=== PATIENT | female | born 1975 | race Caucasian/White ===

== ENCOUNTER 2023-11-19 20:59 | Outpatient (REF) | payer BC, SELFPAY ==
[2023-11-23 11:13] LABS: Age Gdln ACOG Testing Note (.); HPV Aptima Negative (Negative); IGP, Aptima HPV, rfx 16/18,45 Note (.)
== END 2023-11-19 21:00 | disposition home or self-care (01) ==
LOC: LAB 20:59
PROVIDERS: Visit Provider Obstetrics & Gynecology
DX: Z01.419 Encounter for gynecological examination (general) (routine) without abnormal findings (principal)
CPT/HCPCS: 87624; G0145

== ENCOUNTER 2024-08-04 10:08 | Outpatient (OUT) | payer BC, SELFPAY ==
--- OUTSIDE RECORDS SUMMARY | 2024-08-04 10:16 | XMS_ITS | CCD ---
Author Organization [facility] Care Team Providers Care Feller Hand Name Role Phone DR BARBARA TERRAZAS Attending Unavailable NINI, DR JIMENEZ Consulting Unavailable NINI, DR JIMENEZ Admitting Unavailable Dai Ramirez Unavailable REGGIE Callahan Attending Provider [phone] Danyelle Callahan Attending Unavailable Danyelle Callahan Admitting Unavailable Von GONZALEZ, Ninfa Pearl Primary Care Provider BARBARA TERRAZAS Attending Unavailable ZAIN BURTON Attending Unavailable NINFA LONGORIA Referring Unavailable NINFA LONGORIA Primary Care Unavailable BARBARA TERRAZAS Referring Unavailable NINFA LONGORIA Primary Care Unavailable NINFA LONGORIA Attending Unavailable NINFA LONGORIA Referring Unavailable VON, NINFA Pearl Primary Care Unavailable NINFA LONGORIA Referring Unavailable NINFA LONGORIA Primary Care Unavailable Ninfa Longoria MD Primary Care Provider ASPEN RIZVI Referring Unavailable NINFA LONGORIA Primary Care Unavailabl tej Longoria MD, Ninfa Ashley Primary Care Unavail alesia Chaney MD, Tom Gardiner Attending Harini Chaney MD, Tom Gardiner Attending Harini Longoria MD, Ninfa Ashley Primary Care Unavail able Geovanni GRAYSON, Criselda Contreras Attending Randy Longoria MD, Ninfa Ashley Primary Care Unavail alesia Chaney MD, Tom Gardiner Attending Harini Longoria MD, Ninfa Ashley Primary Care Unavail alesia Chaney MD, Tom Gardiner Attending Harini Longoria MD, Ninfa Ashley Primary Care Unavail able Geovanni GRAYSON, Criselda Contreras Attending Randy Longoria MD, Ninfa Ashley [facility] Care Unavail able Geovanni GRAYSON, Criselda Contreras Attending Randy Longoria MD, Ninfa Ashley Primary Care Unavail able Geovanni GRAYSON, Criselda Contreras Attending Randy Longoria MD, Ninfa Ashley Primary Care Unavail able Geovanni GRAYSON, Criselda Contreras Attending Randy Longoria MD, Ninfa sAhley Primary Care Unavail able Von GONZALEZ, Ninfa Ashley Primary Care Unavail alesia Chaney MD, Tom Gardiner Attending Harini Chaney MD, Tom Gardiner Attending Harini Longoria MD, Ninfa Ashley Primary Care Unavail able NINFA LONGORIA Attending Unavailable NINFA LONGORIA Referring Unavailable NINFA LONGORIA Primary Care Unavailable NINFA LONGORIA Attending Unavailable NINFA LONGORIA Referring Unavailable NINFA LONGORIA Primary Care Unavailable NINFA LONGORIA Attending Unavailable NINFA LONGORIA Referring Unavailable VON, NINFA Pearl Primary Care Unavailable NINFA LONGORIA Attending Unavailable NINFA LONGORIA Referring Unavailable NINFA LONGORIA Primary Care Unavailable NINFA LONGORIA Attending Unavailable NINFA LONGORIA Referring Unavailable NINFA LONGORIA Primary Care Unavailable Ninfa Longoria MD [facility] Care Provider Medications Current Medications Medication Drug Class(es) Dates Sig (Normalized) Sig (Original) amoxicillin 875 mg oral tablet (1 source) Penicillin-class Antibacterial Start: 01-18-2023 take 1 tablet by mouth every twelve hours Amoxicillin 875 MG 1 tablet Orally q12hrs for 7 days Dec, Active azithromycin 250 mg oral tablet (2 sources) Macrolide Antimicrobial Start: 06-23-2024 End: 06-27-2024 azithromycin (ZITHROMAX) 250 mg tablet Indications: Non-recurrent acute suppurative otitis media of right ear without spontaneous rupture of tympanic membrane Take 2 tablets the first day, then 1 tablet daily for 4 days. 6 tablet 06/23/2024 06/27/2024 Active ibuprofen 200 mg oral capsule (3 sources) Nonsteroidal Anti-inflammatory Drug Ibuprofen 200 mg cap Take by mouth every 6 hours as needed. As needed Active levonorgestrel 0.468115 mg/hr intrauterine system (2 sources) Progestin, Progestin-containin g Intrauterine Device Levonorgestrel (Mirena, 52 MG,) 20 MCG/DAY intrauterine device 52 mg by Intrauterine route if needed (every 5 years) Active levonorgestreL ( MIRENA) 21 mcg/24hr (up to 8 yrs) 52 mg IUD 1 each by intrauterine route. Active ondansetron 4 mg disintegrating oral tablet (1 source) Serotonin-3 Receptor Antagonist Start: 07-18-2024 take 1 tablet by mouth every eight hours as needed for nausea and vomiting and nausea and nausea ondansetron ODT (ZOFRAN ODT) 4 mg disintegrating tablet Indications: Nausea Dissolve 1 tablet (4 mg total) on tongue every 8 (eight) hours as needed for nausea or vomiting. 20 tablet 07/18/2024 Active temazepam 15 mg oral capsule (20 sources) Benzodiazepine Start: 07-08-2024 take 1 capsule by mouth once daily as needed for sleep temazepam (RESTORIL) 15 mg capsule Indications: Primary insomnia Take 1 capsule (15 mg total) by mouth nightly as needed for sleep. 30 capsule 07/08/2024 Active Start: 04-15-2024 End: 06-09-2024 take 1 capsule by mouth once daily as needed for sleep temazepam (RESTORIL) 15 mg capsule Indications: Primary insomnia Take 1 capsule (15 mg total) by mouth nightly as needed for sleep. 30 capsule 06/09/2024 Active Start: 07-05-2023 End: 10-24-2023 take 1 capsule by mouth once daily as needed for sleep temazepam (RESTORIL) 15 mg capsule Indications: Primary insomnia Take 1 capsule (15 mg total) by mouth nightly as needed for sleep. 30 capsule 0 10/25/2023 Active Restoril Active tiZANidine 4 mg oral tablet (20 sources) Central alpha-2 Adrenergic Agonist Start: 01-31-2024 End: 06-23-2024 take 1 tablet by mouth once daily tiZANidine (ZANAFLEX) 4 mg tablet Take 1 tablet (4 mg total) by mouth nightly. 90 tablet 1 06/23/2024 Active Start: 06-20-2023 End: 08-14-2023 take 1 tablet by mouth once daily tiZANidine (ZANAFLEX) 4 mg tablet Take 1 tablet (4 mg total) by mouth nightly. 90 tablet 1 08/15/2023 Active Zanaflex Active zonisamide 100 mg oral capsule (17 sources) Anti-epileptic Agent Start: 05-23-2019 zonisamid e (ZONEGRAN) 100 mg capsule 1 capsule (100 mg total) in the morning. 03/01/2021 Active Completed/Discontinued Medications Medication Drug Class(es) Dates Sig (Normalized) Sig (Original) naproxen 500 mg oral tablet (1 source) Nonsteroidal Anti-inflammatory Drug Start: 06-30-2019 take 1 tablet by mouth every twelve hours at mealtime as needed Naproxen 500 MG 1 tablet with food or milk as needed Orally every 12 hrs for 10 days Jun, Not-Taking Problems Active Problems Problem Classification Problem Date Documented Da te Episodic/Chronic Deficiency and other anemia (1 source) Iron deficiency anemia; Translations: [Iron deficiency anemia, unspecified] Episodic Immunizations and screening for infectious disease (1 source) Encounter for screening for human papillomavirus (HPV); Translations: [ENC SCREENING HUMAN PAPILLOMAVIRUS] Onset: 02-17-2022 Episodic Miscellaneous mental health disorders (20 sources) Primary insomnia; Translations: [Primary insomnia] Onset: 08-06-2020 08-06-2020 Chronic Nausea and vomiting (3 sources) Nausea; Translations: [Nausea] Onset: 07-18-2024 07-19-2024 Episodic Other gastrointestinal disorders (1 source) Diarrhea, unspecified; Translations: [Diarrhea, unspecified] Onset: 03-11-2024 Episodic Other gastrointestinal disorders (2 sources) Diarrhea; Translations: [Diarrhea, unspecified] 06-23-2024 Episodic Other gastrointestinal disorders (2 sources) Abdominal bloating; Translations: [Abdominal distension (gaseous)] 06-23-2024 Episodic Other nutritional; endocrine; and metabolic disorders (2 sources) Abnormal weight loss; Translations: [Abnormal weight loss] 06-23-2024 Episodic Other screening for suspected conditions (not mental disorders or infectious disease) (6 sources) Encounter for screening for malignant neoplasm of cervix; Translations: [Encounter for screening mammogram for malignant neoplasm of breast] Onset: 02-14-2022 Episodic Other upper respiratory infections (1 source) Acute maxillary sinusitis, unspecified Episodic Otitis media and related conditions (2 sources) Acute suppurative otitis media without spontaneous rupture of ear drum; Translations: [Acute suppurative otitis media without spontaneous rupture of ear drum, right ear] Onset: 06-23-2024 06-23-2024 Episodic Unclassified (1 source) Pain in left foot; Translations: [Pain in left foot] Onset: 03-19-2023 Unclassified (1 source) GI Problem Onset: 07-18-2024 Unclassified (1 source) Earache Onset: 06-23-2024 Unclassified (1 source) music in her stool Onset: 03-11-2024 Unclassified (1 source) Annual Exam Onset: 09-27-2023 Past or Other Problems Problem Classification Problem Date Documented Da te Episodic/Chronic Mood disorders (12 sources) Mood disorders Onset: 09-08-2022 Resolved: 09-27-2023 09-08-2022 Nonspecific chest pain (2 sources) Chest pain, unspecified; Translations: [Chest pain, unspecified] Onset: 01-14-2024 Episodic Nutritional deficiencies (12 sources) Iron deficiency; Translations: [Iron deficiency] Onset: 08-06-2020 08-06-2020 Episodic Other lower respiratory disease (1 source) Cough Onset: 01-14-2024 Episodic Spondylosis; intervertebral disc disorders; other back problems (2 sources) Pain in thoracic spine; Translations: [Pain in thoracic spine] Onset: 01-14-2024 Episodic Unclassified (1 source) Contact with and (suspected) exposure to covid-19 Z20.822 Results Test Name Value Interpretation Reference Range Facility Pain Management Office/Clini c Noteon 07-07-2024 Pain Management Office/Clinic Note Chief Complaint right neck pain History of Present Illness Patient presents today for evaluation regarding chronic cervical pain. Patient underwent a right and left C2, C3, C4 radiofrequency ablation since previous office encounter reports 75% improvement of right-sided neck pain and 100% improvement on left. Reports overall she is doing quite well at this time. Continues to utilize an SMI as this does provide improvement in quality of life/functionality Patient has engaged in a 6 week course of provider directed, home based physiological therapies within the last 3 months. In addition, a six-week trial of activity modification has failed to give reprieve. Patient has also failed to respond optimally to oral analgesic regimen Opioid Risk Assessment Oswestry Disability Form AM Behavior: Better Family History of Substance Abuse: None PM Pain Intensity: The pain is very mild at the moment PM Last ORT/Med Mgmt Agreement: 07/07/24 Day Progresses Behavior: Worse Personal History of Substance Abuse: None PM Personal Care: I can look after myself but it causes extra pain PM Behavior: Worse Age Between 16 and 45: No PM Sitting: I can only sit in my favorite chair as long as I like Pain location and laterality: right neck pain History of Preadolescent Sexual Abuse: No PM Pain Lifting: I can lift heavy weights without extra pain Pain quality: Aching Mental Health Condition: No PM Walking: Pain does not prevent me from walking Pain Pattern: Intermittent Depression: No PM Standing: I can stand as long as I want without extra pain Pain rate at rest: 1 Total Opioid Risk Score: 0 PM Sleeping: My sleep is never disturbed by pain Pain rate with activity: 3 Total Score Risk Category: Low risk PM Sex Life: My sex life is normal and causes no pain/NA Cold/Ice: Alleviating PM Social Life: My social life is normal and give me no extra pain Lying: Alleviating PM Traveling: I can travel anywhere without pain Sitting: Aggravating PM Oswestry Score: 6 Sensory impairment location: denies PM Oswestry Score Interpretation: 0% to 20%Minimal Disability: The patient can cope with most living activities. Usually no treatment is indicated apart from advice on lifting, sitting and exercise. Pain since last visit: Improved Procedure 1: Radiofrequency Ablation Procedure Date 1: 05/26/24 Procedure Comments 1: RIGHT C2, C3, C4 RADIOFREQUENCY ABLATION Pain Improvement 1: Significant (70-100% relief) Pain Improvement Comments 1: 75% RELIEF CONTINUES Was procedure beneficial 1: Yes Procedure 2: Radiofrequency Ablation Procedure Date 2: 06/12/24 Procedure Comments 2: LEFT C2, C3, C4 RADIOFREQUENCY ABLATION Pain Improvement 2: Significant (70-100% relief) Pain Improvement Comments 2: 100% RELIEF CONTINUES Was procedure beneficial 2: Yes Date Tens: hx Comments TENS: has one but doesn't use, no relief from TENS Date Chiropractor: hx Frequency Chiropractor: prn Effective Chiropractor: neck Date PT: hx Comments PT: HEP-Stretching/stren gth training Date Injections: prn Date Surgery: 2009 Frequency Surgery: x1 Effective Surgery: cervical fusion by Venkat Isaacs Comments Surgery: cervical Comments Other: HEP- Stretching/strength training and yoga Recent testing: Yes Recent testing type: XRAY BILATERAL HIPMRI LUMBAR SPINE Loss of bladder/bowel: Denies Demeanor: Pleasant Distress: None Appearance: Appropriate Cognitive impairment: No Feels safe at home: Yes Suicidal/homicidal ideation: No Family History of Substance Abuse: None Personal History of Substance Abuse: None Age Between 16 and 45: No History of Preadolescent Sexual Abuse: No Mental Health Condition: No Depression: No Total Opioid Risk Score: 0 Total Score Risk Category: Low risk Review of Systems A review of systems was conducted and noted to be negative to the patients presenting complaint unless delineated in HPI. Full details are available on form PM-82 completed by the patient and added to the record on today?s date Denies loss of control of bowel and bladder or saddle paresthesia. Denies suicidal ideation or plan Physical Exam Vitals & Measurements HR: 81 (Peripheral) RR: 16 BP: 103/72 HT: 165 cm General -Appears stated age. No apparent distress. Psychological - Normal mood and affect. HEENT - Normocephalic/Atraum atic Neurologic-alert and oriented x4 Respiratory - No obvious distress, No shortness of breath. No focal motor or sensory deficits appreciated Additional Vitals BP Position/Location: Sitting Assessment/Plan Cervical spondylosis Patient has chronic cervical pain secondary to cervical spondylosis. Patient reports significant improvement of pain following cervical RFA Cervicalgia Medical Decision Making Continue zonisamide I have reviewed the patient?s medication list for medication interactions/contrai ndications and/or for upcoming procedures: [yes] Physician Comments Note dictat (more content not included)... Normal [facility] EGD Study observation Narrat iveon 06-27-2024 [facility] Radiology Study observation (narrative) [facility] Flexible sigmoidoscopy study on 06-27-2024 [facility] Radiology Study observation (narrative) [facility] 25(OH)D3 SerPl-mCncon 2023 25-hydroxyvitamin D3 [Mass/Vol] 52.7 ng/mL Normal 31.0-80.0 [facility] Comment on above: Order Comment: Speci men Type: BLOOD SPECIMEN Ordering Facility: [facility] Address: [facility] [place] [address] Result Comment: Clas sification of 25 [place] Vitamin D status: Deficiency/Insufficiency: < or = 30 ng/ml. Sufficiency/Optimal Levels: 31-80 ng/mL Toxicity: > 100 ng/mL. Test performed by chemiluminescent immunoassay. Performed By: #### 1 989-3 #### [facility] CLIA [id number] [address] [place] [address] [place] C-REACTIVE PROTEINon 024 CRP [Mass/Vol] mg/dL [facility] - 0.9 mg/dL [facility] CBC W Auto Differential pane l (Bld)on 06-23-2024 Basophils (Bld) [#/Vol] 0.08 10*3/uL [facility] Basophils/100 WBC (Bld) 0.6 % [facility] Differential cell count method Nom (Bld) Auto [facility] Eosinophils (Bld) [#/Vol] 0.11 10*3/uL [facility] Eosinophils/100 WBC (Bld) 0.8 % [facility] Erythrocyte distribution width (RBC) [Ratio] 12.9 % 11.5 - 15.0 % [facility] Hematocrit (Bld) [Volume fraction] 42.8 % 36.0 - 46.0 % [facility] ic Hemoglobin (Bld) [Mass/Vol] 14.2 g/dL 11.5 - 15.5 g/dL [facility] Immature granulocytes (Bld) [#/Vol] 0.13 10*3/uL High [facility] Immature granulocytes/100 WBC (Bld) 0.9 % [facility] Interpretation and review of laboratory results Abnormal [facility] Lymphocytes (Bld) [#/Vol] 3.20 10*3/uL [facility] Lymphocytes/100 WBC (Bld) 23.0 % [facility] MCH (RBC) [Entitic mass] 30.2 pg 26.0 - 34.0 pg [facility] MCHC (RBC) [Mass/Vol] 33.2 g/dL 30.5 - 36.0 g/dL [facility] MCV (RBC) [Entitic vol] 91.1 fL 80.0 - 100.0 fL [facility] Monocytes (Bld) [#/Vol] 1.17 10*3/uL High [facility] Monocytes/100 WBC (Bld) 8.4 % [facility] Neutrophils (Bld) [#/Vol] 9.22 10*3/uL High [facility] Neutrophils/100 WBC (Bld) 66.3 % [facility] Nucleated RBC (Bld) [#/Vol] [facility] Nucleated RBC/100 WBC (Bld) [Ratio] 0.0 % /100 WBC [facility] Platelet mean volume (Bld) [Entitic vol] 9.3 fL 9.0 - 12.7 fL [facility] in Platelets (Bld) [#/Vol] 410 10*3/uL High [facility] RBC (Bld) [#/Vol] 4.70 10*6/uL 3.90 - 5.2 0 m/uL [facility] WBC (Bld) [#/Vol] 13.91 10*3/uL [facility] ic Basophils (Bld) [#/Vol] 0.08 10*3/uL Normal <0.11 [facility] Comment on above: Order Comment: Speci men Type: BLOOD SPECIMEN Ordering Facility: [facility] Address: [address] [place] [address] Performed By: #### 5 7021-8 #### [facility] CLIA [id number] [address] [place] [address] [place] Basophils/100 WBC (Bld) 0.6 % Normal [facility] Comment on above: Order Comment: Speci men Type: BLOOD SPECIMEN Ordering Facility: [facility] Address: [address] [place] [address] Performed By: #### 5 7021-8 #### [facility] CLIA [id number] [address] [place] [address] [place] Differential cell count method Nom (Bld) Auto Normal [facility] Comment on above: Order Comment: Speci men Type: BLOOD SPECIMEN Ordering Facility: [facility] Address: [address] [place] [address] Performed By: #### 5 7021-8 #### [facility] CLIA [id number] [address] [place] [address] [place] Eosinophils (Bld) [#/Vol] 0.11 10*3/uL Normal <0.46 [facility] Comment on above: Order Comment: Speci men Type: BLOOD SPECIMEN Ordering Facility: [facility] Address: [address] [place] [address] Performed By: #### 5 7021-8 #### [facility] CLIA [id number] [address] [place] [address] [place] Eosinophils/100 WBC (Bld) 0.8 % Normal [facility] Comment on above: Order Comment: Speci men Type: BLOOD SPECIMEN Ordering Facility: [facility] Address: [address] [place] [address] Performed By: #### 5 7021-8 #### [facility] CLIA [id number] [address] [place] [address] [place] Erythrocyte distribution width (RBC) [Ratio] 12.9 % Normal 11.5-15.0 [facility] Comment on above: Order Comment: Speci men Type: BLOOD SPECIMEN Ordering Facility: [facility] Address: [address] [place] [address] Performed By: #### 5 7021-8 #### [facility] CLIA [id number] [address] [place] [address] [place] Hematocrit (Bld) [Volume fraction] 42.8 % Normal 36.0-46.0 [facility] Comment on above: Order Comment: Speci men Type: BLOOD SPECIMEN Ordering Facility: [facility] Address: [address] [place] [address] Performed By: #### 5 7021-8 #### [facility] CLIA [id number] [address] [place] [address] [place] Hemoglobin (Bld) [Mass/Vol] 14.2 g/dL Normal 11.5-15.5 [facility] Comment on above: Order Comment: Speci men Type: BLOOD SPECIMEN Ordering Facility: [facility] Address: [address] [place] [address] Performed By: #### 5 7021-8 #### [facility] CLIA [id number] [address] [place] [address] [place] Immature granulocytes (Bld) [#/Vol] 0.13 10*3/uL High <0.10 [facility] Comment on above: Order Comment: Speci men Type: BLOOD SPECIMEN Ordering Facility: [facility] Address: [address] [place] [address] Performed By: #### 5 7021-8 #### [facility] CLIA [id number] [address] [place] [address] [place] Immature granulocytes/100 WBC (Bld) 0.9 % Normal [facility] Comment on above: Order Comment: Speci men Type: BLOOD SPECIMEN Ordering Facility: [facility] Address: [address] [place] [address] Performed By: #### 5 7021-8 #### [facility] CLIA [id number] [address] [place] [address] [place] Lymphocytes (Bld) [#/Vol] 3.20 10*3/uL Normal 1.00-4.00 [facility] Comment on above: Order Comment: Speci men Type: BLOOD SPECIMEN Ordering Facility: [facility] Address: [address] [place] [address] Performed By: #### 5 7021-8 #### [facility] CLIA [id number] [address] [place] [address] [place] Lymphocytes/100 WBC (Bld) 23.0 % Normal [facility] Comment on above: Order Comment: Speci men Type: BLOOD SPECIMEN Ordering Facility: [facility] Address: [address] [place] [address] Performed By: #### 5 7021-8 #### [facility] CLIA [id number] [address] [place] [address] [place] MCH (RBC) [Entitic mass] 30.2 pg Normal 26.0-34.0 [facility] Comment on above: Order Comment: Speci men Type: BLOOD SPECIMEN Ordering Facility: [facility] Address: [address] [place] [address] Performed By: #### 5 7021-8 #### [facility] CLIA [id number] [address] [place] [address] [place] MCHC (RBC) [Mass/Vol] 33.2 g/dL Normal 30.5-36.0 [facility] Comment on above: Order Comment: Speci men Type: BLOOD SPECIMEN Ordering Facility: [facility] Address: [address] [place] [address] Performed By: #### 5 7021-8 #### [facility] CLIA [id number] [address] [place] [address] [place] MCV (RBC) [Entitic vol] 91.1 fL Normal 80.0-100.0 [facility] Comment on above: Order Comment: Speci men Type: BLOOD SPECIMEN Ordering Facility: [facility] Address: [address] [place] [address] Performed By: #### 5 7021-8 #### [facility] CLIA [id number] [address] [place] [address] [place] Monocytes (Bld) [#/Vol] 1.17 10*3/uL High <0.87 [facility] Comment on above: Order Comment: Speci men Type: BLOOD SPECIMEN Ordering Facility: [facility] Address: [address] [place] [address] Performed By: #### 5 7021-8 #### [facility] CLIA [id number] [address] [place] [address] [place] Monocytes/100 WBC (Bld) 8.4 % Normal [facility] Comment on above: Order Comment: Speci men Type: BLOOD SPECIMEN Ordering Facility: [facility] Address: [address] [place] [address] Performed By: #### 5 7021-8 #### [facility] CLIA [id number] [address] [place] [address] [place] Neutrophils (Bld) [#/Vol] 9.22 10*3/uL High 1.45-7.50 [facility] Comment on above: Order Comment: Speci men Type: BLOOD SPECIMEN Ordering Facility: [facility] Address: [address] [place] [address] Performed By: #### 5 7021-8 #### [facility] CLIA [id number] [address] [place] [address] [place] Neutrophils/100 WBC (Bld) 66.3 % Normal [facility] Comment on above: Order Comment: Speci men Type: BLOOD SPECIMEN Ordering Facility: [facility] Address: [address] [place] [address] Performed By: #### 5 7021-8 #### [facility] CLIA [id number] [address] [place] [address] [place] Nucleated RBC (Bld) [#/Vol] 10*3/uL Normal <0.01 [facility] Comment on above: Order Comment: Speci men Type: BLOOD SPECIMEN Ordering Facility: [facility] Address: [address] [place] [address] Performed By: #### 5 7021-8 #### [facility] CLIA [id number] [address] [place] [address] [place] Nucleated RBC/100 WBC (Bld) [Ratio] 0.0 /100 WBC Normal [facility] Comment on above: Order Comment: Speci men Type: BLOOD SPECIMEN Ordering Facility: [facility] Address: [address] [place] [address] Performed By: #### 5 7021-8 #### [facility] CLIA [id number] [address] [place] [address] [place] Platelet mean volume (Bld) [Entitic vol] 9.3 fL Normal 9.0-12.7 [facility] Comment on above: Order Comment: Speci men Type: BLOOD SPECIMEN Ordering Facility: [facility] Address: [address] [place] [address] Performed By: #### 5 7021-8 #### [facility] CLIA [id number] [address] [place] [address] [place] Platelets (Bld) [#/Vol] 410 10*3/uL High 150-400 [facility] Comment on above: Order Comment: Speci men Type: BLOOD SPECIMEN Ordering Facility: [facility] Address: [address] [place] [address] Performed By: #### 5 7021-8 #### [facility] CLIA [id number] [address] [place] [address] [place] RBC (Bld) [#/Vol] 4.70 10*6/uL Normal 3.90-5.20 [facility] Comment on above: Order Comment: Speci men Type: BLOOD SPECIMEN Ordering Facility: [facility] Address: [address] [place] [address] Performed By: #### 5 7021-8 #### [facility] CLIA [id number] [address] [place] [address] [place] WBC (Bld) [#/Vol] 13.91 10*3/uL High 3.70-11.00 [facility] Comment on above: Order Comment: Speci men Type: BLOOD SPECIMEN Ordering Facility: [facility] Address: [address] [place] [address] Performed By: #### 5 7021-8 #### [facility] CLIA [id number] [address] [place] [address] [place] CELIAC SCREENon 06-23-2024 GLIAD DEAMIDATED IGA QUAL Negative Normal Negative, Test not Indicated [facility] Comment on above: Order Comment: Speci men Type: BLOOD SPECIMEN Ordering Facility: [facility] Address: [address] [place] [address] Result Comment: This is used as an aid in diagnosis of celiac disease. Clinical correlation is required. The following results were obtained with an [employer]ova QUANTA Lite Gliadin IgA ESNAIT Gliadin. Gliadin IgA values obtained with different manufacturers' assay methods may not be used interchangeably. The magnitude of the reported IgA levels cannot be correlated to an endpoint titer. Performed By: #### L [id number] #### [facility] CLIA [id number] [address] [place] [address] OF [facility] Gliadin peptide IgA Qn (S) 4 Units Normal <20 [facility] Comment on above: Order Comment: Speci men Type: BLOOD SPECIMEN Ordering Facility: [facility] Address: [address] [place] [address] Performed By: #### L [id number] #### [facility] CLIA [id number] [address] [place] [address] [place] INTERPRETATION No serological evidence of celiac disease, however, if celiac disease is clinically suspected and patient is not on gluten-free diet, histological diagnosis may be considered. HLA testing may help with risk assessment. Normal [facility] Comment on above: Order Comment: Liliana cooper Type: BLOOD SPECIMEN Ordering Facility: [facility] Address: [address] [place] [address] Performed By: #### L [id number] #### [facility] CLIA [id number] [address] [place] [address] [place] TRANSGLUTAMINASE IGA ABS INTERPRETATION Negative Normal Negative [facility] Comment on above: Order Comment: Liliana cooper Type: BLOOD SPECIMEN Ordering Facility: [facility] Address: [address] [place] [address] Result Comment: The following results were obtained with [employer] QUANTA Lite R h-tTG IgA SENAIT.???R h-tTG IgA values obtained with different manufacturers' assay methods may not be used interchangeably. The magnitude of the reported IgA levels cannot be corelated to an endpoint???concentration. This is used as an aid in diagnosis of celiac disease. Clinical correlation is required. Performed By: #### L [id number] #### [facility] CLIA [id number] [address] [place] [address] [place] tTG IgA Qn (S) <2 Normal <4 [facility] Comment on above: Order Comment: Speci men Type: BLOOD SPECIMEN Ordering Facility: [facility] Address: [address] [place] [address] Performed By: #### L [id number] #### [facility] CLIA [id number] [address] [place] [address] [place] CRP SerPl-mCncon 06-23-2024 CRP [Mass/Vol] mg/L Normal <0.9 [facility] Comment on above: Order Comment: Speci men Type: BLOOD SPECIMEN Ordering Facility: [facility] Address: [address] [place] [address] Performed By: #### 5 0190-8, 1987-5, 05832-9, 2276-4 #### [facility] CLIA [id number] [address] [place] [address] [place] Cobalamin (Vitamin B12) [Mas s/Vol]on 06-23-2024 Interpretation and review of laboratory results Normal [facility] ic Comprehensive metabolic 2000 panelon 06-23-2024 Albumin [Mass/Vol] 4.5 g/dL 3.9 - 4.9 g/dL [facility] ALP [Catalytic activity/Vol] 80 U/L 34 - 123 U/L [facility] ALT [Catalytic activity/Vol] 31 U/L 7 - 38 U/L [facility] Anion gap [Moles/Vol] 14 mmol/L 8 - 15 mmol/L [facility] AST [Catalytic activity/Vol] 20 U/L 13 - 35 U/L [facility] Bilirubin [Mass/Vol] 0.3 mg/dL 0.2 - 1 .3 mg/dL [facility] Calcium [Mass/Vol] 9.4 mg/dL 8.5 - 10. 2 mg/dL [facility] Chloride [Moles/Vol] 104 mmol/L 98 - 10 7 mmol/L [facility] CO2 [Moles/Vol] 25 mmol/L 22 - 30 mmol/L [facility] Creatinine [Mass/Vol] 0.86 mg/dL 0.58 - 0.96 mg/dL [facility] GFR/1.73 sq M.predicted among non-blacks MDRD (S/P/Bld) [Vol rate/Area] 83 mL/min/{1.73_m2} - PINF [facility] in Comment on above: Estimated Glomerular Filtration Rate (eGFR) is calculated using the 2020 CKD-EPI creatinine equation. This equation utilizes serum creatinine, sex, and age as parameters. The creatinine assay has traceable calibration to isotope dilution-mass spectrometry. Refer to KDIGO guidelines for clinical interpretation. In patients with unstable renal function, e.g. those with acute kidney injury, the eGFR may not accurately reflect actual GFR. Glucose [Mass/Vol] 76 mg/dL 74 - 99 mg/dL [facility] Comment on above: The [place] Diab[employer] Association (ADA) provides guidance for cutoff values for fasting glucose and random glucose. The ADA defines fasting as no caloric intake for at least 8 hours. Fasting plasma glucose results between 100 to 125 mg/dL indicate increased risk for diabetes (prediabetes). Fasting plasma glucose results greater than or equal to 126 mg/dL meet the criteria for diagnosis of diabetes. In the absence of unequivocal hyperglycemia, results should be confirmed by repeat testing. In a patient with classic symptoms of hyperglycemia or hyperglycemic crisis, random plasma glucose results greater than or equal to 200 mg/dL meet the criteria for diagnosis of diabetes. Reference: Standards of Medical Care in Diabetes 2016, [place] [employer]. Diabetes Care. 2016.39(Suppl 1). Interpretation and review of laboratory results Abnormal [facility] Potassium [Moles/Vol] 3.3 mmol/L Low 3.7 - 5.1 mmol/L [facility] Protein [Mass/Vol] 6.7 g/dL 6.3 - 8.0 g/dL [facility] Sodium [Moles/Vol] 143 mmol/L 136 - 144 mmol/L [facility] Urea nitrogen [Mass/Vol] 17 mg/dL 7 - 21 mg/dL [facility] Albumin [Mass/Vol] 4.5 g/dL Normal 3.9-4.9 [facility] Comment on above: Order Comment: Speci men Type: BLOOD SPECIMEN Ordering Facility: [facility] Address: [address] [place] [address] Performed By: #### 5 0190-8, 1987-11, , 2275-10 #### [facility] CLIA [id number] [address] [place] [address] [place] ALP [Catalytic activity/Vol] 80 U/L Normal 34-123 [facility] Comment on above: Order Comment: Speci men Type: BLOOD SPECIMEN Ordering Facility: [facility] Address: [address] [place] [address] Performed By: #### 5 0190-8, 1987-11, , 2275-10 #### [facility] CLIA [id number] [address] [place] [address] [place] ALT [Catalytic activity/Vol] 31 U/L Normal 7-38 [facility] Comment on above: Order Comment: Speci men Type: BLOOD SPECIMEN Ordering Facility: [facility] Address: [address] [place] [address] Performed By: #### 5 0190-8, 1987-11, , 2275-10 #### [facility] CLIA [id number] [address] [place] [address] [place] Anion gap [Moles/Vol] 14 mmol/L Normal 8-15 [facility] Comment on above: Order Comment: Speci men Type: BLOOD SPECIMEN Ordering Facility: [facility] Address: [address] [place] [address] Performed By: #### 5 0190-8, 1987-11, , 2275-10 #### [facility] CLIA [id number] [address] [place] [address] [place] AST [Catalytic activity/Vol] 20 U/L Normal 13-35 [facility] Comment on above: Order Comment: Speci men Type: BLOOD SPECIMEN Ordering Facility: [facility] Address: [address] [place] [address] Performed By: #### 5 0190-8, 1987-11, , 2275-10 #### [facility] CLIA [id number] [address] [place] [address] [place] Bilirubin [Mass/Vol] 0.3 mg/dL Normal 0.2-1.3 [facility] Comment on above: Order Comment: Speci men Type: BLOOD SPECIMEN Ordering Facility: [facility] Address: [address] [place] [address] Performed By: #### 5 0190-8, 1987-11, , 2275-10 #### [facility] CLIA [id number] [address] [place] [address] [place] Calcium [Mass/Vol] 9.4 mg/dL Normal 8.5-10.2 [facility] Comment on above: Order Comment: Speci men Type: BLOOD SPECIMEN Ordering Facility: [facility] Address: [address] [place] [address] Performed By: #### 5 0190-8, 1987-11, , 2275-10 #### [facility] CLIA [id number] [address] [place] [address] [place] Chloride [Moles/Vol] 104 mmol/L Normal 98-107 [facility] Comment on above: Order Comment: Speci men Type: BLOOD SPECIMEN Ordering Facility: [facility] Address: [address] [place], [place] [address] Performed By: #### 5 0190-8, 1987-11, , 2275-10 #### [facility] CLIA [id number] [address] [place] [address] [place] CO2 [Moles/Vol] 25 mmol/L Normal 22-30 [facility] Comment on above: Order Comment: Speci men Type: BLOOD SPECIMEN Ordering Facility: [facility] Address: [address] [place] [address] Performed By: #### 5 0190-8, 1987-11, , 2275-10 #### [facility] CLIA [id number] [address] [place] [address] [place] Creatinine [Mass/Vol] 0.86 mg/dL Normal 0.58-0.96 [facility] Comment on above: Order Comment: Speci men Type: BLOOD SPECIMEN Ordering Facility: [facility] Address: [address] [place] [address] Performed By: #### 5 0190-8, 1987-11, , 2275-10 #### [facility] CLIA [id number] [address] [place] [address] [place] Creatinine and Glomerular filtration rate.predicted panel (S/P/Bld) 83 mL/min/1.73m??? Normal >=60 [facility] Comment on above: Order Comment: Speci men Type: BLOOD SPECIMEN Ordering Facility: [facility] Address: [address] [place] [address] Result Comment: [place] mated Glomerular Filtration Rate (eGFR) is calculated using the 2020 CKD-EPI creatinine equation. This equation utilizes serum creatinine, sex, and age as parameters. The creatinine assay has traceable calibration to isotope dilution-mass spectrometry. Refer to KDIGO guidelines for clinical interpretation. In patients with unstable renal function, e.g. those with acute kidney injury, the eGFR may not accurately reflect actual GFR. Performed By: #### 5 0190-8, 1987-11, , 2275-10 #### [facility] CLIA [id number] [address] [place] [address] [place] Glucose [Mass/Vol] 76 mg/dL Normal 74-99 [facility] Comment on above: Order Comment: Speci men Type: BLOOD SPECIMEN Ordering Facility: [facility] Address: [address] [place] [address] Result Comment: The [place] Diabetes Association (ADA) provides guidance for cutoff values for fasting glucose and random glucose. The ADA defines fasting as no caloric intake for at least 8 hours. Fasting plasma glucose results between 100 to 125 mg/dL indicate increased risk for diabetes (prediabetes). Fasting plasma glucose results greater than or equal to 126 mg/dL meet the criteria for diagnosis of diabetes. In the absence of unequivocal hyperglycemia, results should be confirmed by repeat testing. In a patient with classic symptoms of hyperglycemia or hyperglycemic crisis, random plasma glucose results greater than or equal to 200 mg/dL meet the criteria for diagnosis of diabetes. Reference: Standards of Medical Care in Diabetes 2016, [place] [employer]. Diabetes Care. 2016.39(Suppl 1). Performed By: #### 5 0190-8, 1987-11, , 2275-10 #### [facility] CLIA [id number] [address] [place] [address] [place] Potassium [Moles/Vol] 3.3 mmol/L Low 3.7-5.1 [facility] Comment on above: Order Comment: Liliana cooper Type: BLOOD SPECIMEN Ordering Facility: [facility] Address: [address] [place] [address] Performed By: #### 5 0190-8, 1987-11, , 2275-10 #### [facility] CLIA [id number] [address] [place] [address] [place] Protein [Mass/Vol] 6.7 g/dL Normal 6.3-8.0 [facility] Comment on above: Order Comment: Liliana cooper Type: BLOOD SPECIMEN Ordering Facility: [facility] Address: [address] [place] [address] Performed By: #### 5 0190-8, 1987-11, , 2275-10 #### [facility] CLIA [id number] [address] [place] [address] [place] Sodium [Moles/Vol] 143 mmol/L Normal 136-144 [facility] Comment on above: Order Comment: Liliana men Type: BLOOD SPECIMEN Ordering Facility: [facility] Address: [address] [place] [address] Performed By: #### 5 0190-8, 1987-11, , 2275-10 #### [facility] CLIA [id number] [address] [place] [address] [place] Urea nitrogen [Mass/Vol] 17 mg/dL Normal 7-21 [facility] Comment on above: Order Comment: Speci men Type: BLOOD SPECIMEN Ordering Facility: [facility] Address: [address] [place] [address] Performed By: #### 5 0190-8, 1987-11, , 2275-10 #### [facility] CLIA [id number] [address] [place] [address] [place] FERRITINon 06-23-2024 Ferritin [Mass/Vol] 91.0 ng/mL 14.7 - 2 05.1 ng/mL [facility] Ferritin SerPl-mCncon 2023 Ferritin [Mass/Vol] 91.0 ng/mL Normal 14.7-205.1 [facility] Comment on above: Order Comment: Speci men Type: BLOOD SPECIMEN Ordering Facility: [facility] Address: [address] [place] [address] Performed By: #### 5 0190-8, 1987-11, , 2275-10 #### [facility] CLIA [id number] [address] [place] [address] [place] Ferritin [Mass/Vol]on 2023 Interpretation and review of laboratory results Normal [facility] ic IgA SerPl-mCncon 06-23-2024 IgA [Mass/Vol] 71 mg/dL Normal 70-400 [facility] Comment on above: Order Comment: Speci men Type: BLOOD SPECIMEN Ordering Facility: [facility] Address: [address] [place] [address] Performed By: #### 2 458-8 #### [facility] CLIA [id number] [address] [place] [address] [place] Iron and Iron binding capaci ty panelon 06-23-2024 Iron [Mass/Vol] 164 ug/dL 41 - 186 ug/dL [facility] Iron binding capacity [Mass/Vol] 328 ug/dL 232 - 386 ug/dL [facility] Iron/TIBC [Molar ratio] 50.0 % 15.0 - 57.0 % [facility] Iron [Mass/Vol] 164 ug/dL Normal 41-186 [facility] Comment on above: Order Comment: Speci men Type: BLOOD SPECIMEN Ordering Facility[facility] Address: [address] [place] [address] Performed By: #### 5 0190-8, 1987-11, , 2275-10 #### [facility] CLIA [id number] [address] [place] [address] [place] Iron binding capacity [Mass/Vol] 328 ug/dL Normal 232-386 [facility] Comment on above: Order Comment: Speci men Type: BLOOD SPECIMEN Ordering Facility[facility] Address: [address] [place] [address] Performed By: #### 5 0190-8, 1987-11, , 2275-10 #### [facility] CLIA [id number] [address] [place] [address] [place] Iron/TIBC [Molar ratio] 50.0 % Normal 15.0-57.0 [facility] Comment on above: Order Comment: Speci men Type: BLOOD SPECIMEN Ordering Facility: [facility] Address: [address] [place] [address] Performed By: #### 5 0190-8, 1987-11, , 2275-10 #### [facility] CLIA [id number] [address] [place] [address] [place] MRI Spine Lumbar w/o Contras ton 06-23-2024 MRI Spine Lumbar w/o Contrast MRI of the lumbar spine without contrast from 06/20/2024. Indication: Right hip pain. Technique: Sagittal and axial T1 and T2-weighted images and Sagittal STIR . Comparison: None. Findings: The vertebral body height, alignment and marrow signal intensity are within normal limits. The tip of the conus medullaris is at L1-2 and signal intensity of the included spinal cord is normal. . Individual levels: L1-L2: Unremarkable. L2-L3: Small left paracentral disc protrusion abutting the left-sided L3 nerve root. This is superimposed on mild disc bulge and posterior annular fissuring. Mild to moderate constriction of the right lateral recess. L3-L4: Minimal bilateral facet arthropathy.. L4-L5: Small central disc protrusion. Posterior annular fissuring. Mild bilateral facet arthropathy.. L5-S1: Mild to moderate bilateral facet arthropathy, worse on the right.. Mild bilateral neuroforaminal narrowing. No significant spinal canal stenosis. IMPRESSION: Overall mild degenerative changes of the lumbar spine, as described above. Final Dictated by: Kerry Pelletier MD Dictated DT/TM: 06/23/2024 12:34 pm Signed by: Kerry Pelletier MD Signed (Electronic Signature): 06/23/2024 12:53 pm (If Report Is Signed, Electronically Signed in Other Vendor System) Normal [facility] No Panel Informationon 06-23 Interpretation and review of laboratory results Normal [facility] ic VITAMIN B12on 06-23-2024 Cobalamin (Vitamin B12) [Mass/Vol] 1147 pg/mL 232 - 1245 pg/mL [facility] Vit B12 SerPl-mCncon 024 Cobalamin (Vitamin B12) [Mass/Vol] 1147 pg/mL Normal 232-1245 [facility] Comment on above: Order Comment: Speci men Type: BLOOD SPECIMEN Order[facility] Facility[facility] Address: [address] [place] [address] Performed By: #### 2 132-9 #### [facility] CLIA [id number] [address] [place] [address] [place] [address] [place] XR Hip 2 Views Bilateral w/P elvison 04-16-2024 XR Hip 2 Views Bilateral w/Pelvis EXAM: XR Hip 2 Views Bilateral w/Pelvis HISTORY: Pain in joint, hip, pelvis or thigh. COMPARISON: None. FINDINGS/ IMPRESSION: No acute fracture or dislocation. There is no significant degeneration. Final Dictated by: Nanda Kasper DO Dictated DT/TM: 04/16/2024 7:50 am Signed by: Nanda Kasper DO Signed (Electronic Signature): 04/16/2024 8:02 am Transcribed DT/TM: 04/16/2024 7:55 (If Report Is Signed, Electronically Signed in Other Vendor System) Normal [facility] Pain Management Office/Clini c Noteon 04-14-2024 Pain Management Office/Clinic Note Chief Complaint and right hip pain History of Present Illness Patient presents today for evaluation regarding chronic cervical pain. Patient underwent a bilateral C6-7 selective nerve root injection 12/10/2023 reports 80% improvement of neuropathic pain x 3 months. Patient reports cervical pain severe enough at this time to affect her activities daily living and quality of life with pain in the upper segments of cervical region up into head. Historically, patient has garnered greater than 80% improvement of current pain with a right and left C2, C3, C4 radiofrequency ablation with relief lasting greater than 6 months, less than 1 year. Reports pain is severe enough at this time to warrant repeat intervention Patient has engaged in a 6 week course of provider directed, home based physiological therapies within the last 3 months. In addition, a six-week trial of activity modification has failed to give reprieve. Patient has also failed to respond optimally to oral analgesic regimen Oswestry Disability Form AM Behavior: Better PM Pain Intensity: The pain is moderate at the moment PM Last ORT/Med Mgmt Agreement: 11/26/23 Day Progresses Behavior: Worse PM Personal Care: I can look after myself without causing extra pain PM Behavior: Worse PM Sitting: Pain prevents me from sitting more than one hour Pain location and laterality: neck and right hip pain PM Pain Lifting: I can lift heavy weights, but it gives me extra pain Pain quality: Aching, Burning, Tightness PM Walking: Pain does not prevent me from walking Pain Pattern: Constant PM Standing: I can stand as long as I want without extra pain Pain rate at rest: 2 PM Sleeping: My sleep is occasionally disturbed by pain Pain rate with activity: 6 PM Sex Life: My sex life is normal and causes no pain/NA Cold/Ice: Alleviating PM Social Life: My social life is normal, but increases the degree of pain Lying: Aggravating PM Traveling: I can travel anywhere but it gives me extra pain Sitting: Aggravating PM Oswestry Score: 16 Sensory impairment location: denies PM Oswestry Score Interpretation: 0% to 20%Minimal Disability: The patient can cope with most living activities. Usually no treatment is indicated apart from advice on lifting, sitting and exercise. Pain since last visit: Unchanged Procedure 1: Therapeutic nerve root/TFESI Procedure Date 1: 12/10/23 Procedure Comments 1: BILATERAL C6-7 NERVE ROOT INJECTION Pain Improvement 1: Significant (70-100% relief) Pain Improvement Comments 1: 80% RELIEF X 3 MONTHS Date Tens: hx Date Chiropractor: hx Date PT: hx Date Injections: prn Date Surgery: 2009 Frequency Surgery: x1 Effective Surgery: cervical fusion by Venkat Isaacs Comments Surgery: cervical Comments Other: HEP- Stretching/strength training and yoga Recent testing: No Loss of bladder/bowel: Denies Demeanor: Pleasant Distress: None Appearance: Appropriate Cognitive impairment: No Feels safe at home: Yes Suicidal/homicidal ideation: No Review of Systems A review of systems was conducted and noted to be negative to the patients presenting complaint unless delineated in HPI. Full details are available on form PM-82 completed by the patient and added to the record on today?s date Denies loss of control of bowel and bladder or saddle paresthesia. Denies suicidal ideation or plan Physical Exam Vitals & Measurements HR: 72 (Peripheral) RR: 16 BP: 112/71 HT: 165 cm General -Appears stated age. No apparent distress. Psychological - Normal mood and affect. HEENT - Normocephalic/Atraum atic Neurologic-alert and oriented x4 Respiratory - No obvious distress, No shortness of breath. Patient does report an increase in cervical pain with cervical facet loading maneuvers, C2-3, C3-4 bilaterally Palpatory tenderness right trochanteric bursa region. Positive hip scour on the right Additional Vitals BP Position/Location: Sitting Assessment/Plan 1. Cervical spondylosis Patient meets criteria for repeat cervical radiofrequency ablation at C2, C3, C4 on the basis of: 1. Patient underwent rhizotomy therapy of the right and left C2, C3, C4 segment June 2023 which afforded greater than 80% improvement of pain for duration of more than 6 months, less than 1 year with return of pain to baseline 2. Is a two-level procedure conducted at unfused levels 3. At most, minimal conscious sedation will be utilized to provide comfort 4. Procedure will be conducted with the use of intraoperative C arm and fluoroscopic guidance for RF cannula placement 5. Will be conducted at 80 ?C for 90 seconds x 2 lesions per level 6. Imaging and examination provide no other explanation for pain Patient was scheduled for right followed 2 to 4 weeks later by left C2, C3, C4 radiofrequency ablation Ordered: Cervical Radiofrequency Ablation Cervical Radiofrequency Ablation 2. Cervicalgia 3. Hip pain Will obtain x-ray of bilateral hips to evaluate etiolog (more content not included)... Normal [facility] C DIFFICILE BY PCRon 024 C. difficile toxin genes DAWN+probe Ql (Stl) TOXIGENIC C DIFF Negative (qualifier value) 027 NAP1 Negative (qualifier value) Normal PRNEG [facility] Comment on above: Performed By: #### 5 4067-4 #### [facility] ([id number]) [address], [address] [place] [address] #### [id number] #### [facility] ([id number]) [address] [place] [address], [place] [address] [facility] ([id number]) [address], [address] [place] [address] GI PANELon 03-11-2024 Gastrointestinal pathogens DNA and RNA panel DAWN+non-probe (Stl) SPECIMEN SOURCE STOOL CAMPYLOBACTER Not detected (qualifier value) PLESIOMONAS Not detected (qualifier value) SALMONELLA Not detected (qualifier value) VIBRIO Not detected (qualifier value) VIBRIO CHOLERAE Not detected (qualifier value) Y. ENTEROCOLITICA Not detected (qualifier value) AGGREGATIVE E COLI Not detected (qualifier value) PATHOGENIC E COLI Not detected (qualifier value) TOXIGENIC E COLI Not detected (qualifier value) SHIGA TOXIN E COLI Not detected (qualifier value) SHIGELLA-E COLI Not detected (qualifier value) CRYPTOSPORIDIUM Not detected (qualifier value) CYCLOSPORA Not detected (qualifier value) E HISTOLYTICA Not detected (qualifier value) GIARDIA LAMBLIA Not detected (qualifier value) ADENOVIRUS Not detected (qualifier value) ASTROVIRUS Not detected (qualifier value) NOROVIRUS Not detected (qualifier value) ROTAVIRUS A Not detected (qualifier value) SAPOVIRUS Not detected (qualifier value) Normal NDET [facility] Comment on above: Performed By: #### 5 4067-4 #### [facility] ([id number]) [address] [place] [address] #### [id number] #### [facility] ([id number]) [address] [place] [address], [place] [address] [facility] ([id number]) [address] [place] [address] CT CHEST W CONTon 02-01-2024 CT CHEST W CONT CT CHEST W CONT STUDY: CT CHEST W CONT INDICATION: Acute midline thoracic back pain; Acute chest pain. TECHNIQUE: * Contiguous axial CT images through the chest were obtained with intravenous contrast. Reformats were performed. * All CT scans at this facility use dose modulation, iterative reconstruction, and/or weight based dosing when appropriate to reduce radiation dose to as low as reasonably achievable. FINDINGS: Chronic left clavicle deformity. Partially visualized lower neck and thyroid are obscured by anterior cervical discectomy and fusion metal artifact. Otherwise these areas are unremarkable. No suspicious lymphadenopathy. No cardiomegaly or pericardial effusion. No coronary artery atherosclerosis. Nonaneurysmal thoracic aorta. Nondilated and patent pulmonary arteries proximally. Proximal airways are patent. Reticular opacities in lung bases may reflect atelectasis or scarring. No focal consolidation, or pulmonary edema. No pleural effusion or pneumothorax. No acute fracture or malalignment. No significant degenerative changes of the thoracic spine for age. IMPRESSION: * No acute osseous abnormality. * Chronic left clavicle deformity. * Atelectasis or scarring in the lung bases. Finalized by Jose Amezquita on 02/01/2024 2:29 PM Normal [facility] MAMM SCREENING BILATERAL W C lead electrical engineer 12-24-2023 MAMM SCREENING BILATERAL W CAD MAMM SCREENING BILATERAL W CAD EXAM: MAMM SCREENING BILATERAL W CAD, 12/22/2023 10:52 AM CLINICAL INDICATIONS: Screening, Encounter for screening mammogram for malignant neoplasm of breast COMPARISON: Mammograms dating back to 04/14/2021 TECHNIQUE: Bilateral digital tomosynthesis MLO and CC views of the breasts were obtained, with creation of synthetic 2D views. Computer aided detection was utilized. FINDINGS: There are scattered areas of fibroglandular density. There are no suspicious masses, calcifications, or areas of architectural distortion. IMPRESSION: No mammographic evidence of malignancy. BI-RADS: BI-RADS 1 - Negative Recommendation: Routine screening mammogram in 1 year. Finalized by Margaret Farley MD on 12/24/2023 1:48 PM 1 b MAMM 1 YR Normal [facility] Pain Management Office/Clini c Noteon 11-26-2023 Pain Management Office/Clinic Note Chief Complaint neck & bilateral shoulder pain History of Present Illness Patient presents today for evaluation regarding chronic cervical pain pain into bilateral shoulders with numbness and tingling in the left upper extremity. Patient reports pain is severe enough once again to affect her activities day living and quality of life. Historically, patient has garnered significant improvement of current pain with cervical selective nerve root injection bilateral C6-7 with greater than 80% improvement of pain lasting greater than 3 months. Patient reports pain significant enough at this time to warrant repeat intervention Patient has engaged in a 6 week course of provider directed, home based physiological therapies within the last 3 months. In addition, a six-week trial of activity modification has failed to give reprieve. Patient has also failed to respond optimally to oral analgesic regimen Opioid Risk Assessment Oswestry Disability Form PM Behavior: Worse Family History of Substance Abuse: None PM Pain Intensity: The pain is moderate at the moment Pain location and laterality: neck & bilateral shoulder pain Personal History of Substance Abuse: None PM Personal Care: I can look after myself without causing extra pain Pain quality: Aching, Tightness Age Between 16 and 45: No PM Sitting: Pain prevents me from sitting more than one hour Pain Pattern: Constant History of Preadolescent Sexual Abuse: No PM Pain Lifting: I can lift heavy weights, but it gives me extra pain Pain rate at rest: 4 Mental Health Condition: No PM Walking: Pain does not prevent me from walking Pain rate with activity: 8 Depression: No PM Standing: I can stand as long as I want without extra pain Bending: Aggravating Total Opioid Risk Score: 0 PM Sleeping: Because of pain I have less than 6 hours of sleep Lying: Alleviating Total Score Risk Category: Low risk PM Sex Life: My sex life is normal and causes no pain/NA Sensory impairment location: numbness at times in left arm PM Social Life: My social life is normal, but increases the degree of pain Pain since last visit: Worse PM Traveling: I can travel anywhere but it gives me extra pain Date Tens: hx PM Oswestry Score: 18 Date Chiropractor: hx PM Oswestry Score Interpretation: 0% to 20%Minimal Disability: The patient can cope with most living activities. Usually no treatment is indicated apart from advice on lifting, sitting and exercise. Date PT: hx Comments PT: HEP-Stretching/stren gth training Date Injections: prn Date Surgery: 2009 Frequency Surgery: x1 Effective Surgery: cervical fusion by Venkat Isaacs Recent testing: No Loss of bladder/bowel: Denies Demeanor: Pleasant Distress: None Appearance: Appropriate Cognitive impairment: No Feels safe at home: Yes Suicidal/homicidal ideation: No Family History of Substance Abuse: None Personal History of Substance Abuse: None Age Between 16 and 45: No History of Preadolescent Sexual Abuse: No Mental Health Condition: No Depression: No Total Opioid Risk Score: 0 Total Score Risk Category: Low risk Review of Systems A review of systems was conducted and noted to be negative to the patients presenting complaint unless delineated in HPI. Full details are available on form PM-82 completed by the patient and added to the record on today?s date Denies loss of control of bowel and bladder or saddle paresthesia. Denies suicidal ideation or plan Physical Exam Vitals & Measurements HR: 78 (Peripheral) RR: 16 BP: 115/73 HT: 166 cm General -Appears stated age. No apparent distress. Psychological - Normal mood and affect. HEENT - Normocephalic/Atraum atic Neurologic-alert and oriented x4 Respiratory - No obvious distress, No shortness of breath. Dysesthesia light touch C7 dermatomal pattern Additional Vitals BP Position/Location: Sitting Assessment/Plan Cervical neuritis Patient has neurogenic discomfort secondary to disc and spondylitic reactivity precipitating neural foraminal narrowing and lateral recess stenosis. For complaints that have failed conservative measures, candidacy has been established for epidural steroid blockade selective nerve root approach for diagnostic and potential therapeutic benefit. Risks benefits alternatives have been discussed, we agree to proceed. Patient be scheduled for bilateral C6-7 selective nerve root injection under fluoroscopic guidance and attempts to palliate neuropathic pain Ordered: Cervical/Thoracic Nerve Root Injection Degenerative disc disease, cervical Medical Decision Making I have reviewed the patient?s medication list for medication interactions/contrai ndications and/or for upcoming procedures: [yes] Physician Comments Note dictated with voice recognition system. Please disregard any inadvertent errors Problem List/Past Medical History Ongoing Cephalgia Cervical neuritis Cervical postlaminectomy syndrome Cervical spondylosis (more content not included)... Normal [facility] COMPREHENSIVE METABOLIC PANE Pedro 09-28-2023 Albumin [Mass/Vol] 4.6 g/dL Normal 3.2-5.3 [facility] Comment on above: Performed By: #### C CHERY 33222-9 #### [facility] ([id number]) [address], [address] [place] [address] ALP [Catalytic activity/Vol] 61 U/L Normal 39-130 [facility] Comment on above: Performed By: #### Vandana GOTTLIEB, 87115-1 #### [facility] ([id number]) [address], [address] [place] [address] ALT [Catalytic activity/Vol] 16 U/L Normal 0-31 [facility] Comment on above: Performed By: #### Vandana GOTTLIEB, 31215-7 #### [facility] ([id number]) [address], [address] [place] [address] Anion gap [Moles/Vol] 9 mmol/L Normal 5-15 [facility] Comment on above: Performed By: #### Vandana GOTTLIEB 70132-1 #### [facility] ([id number]) [address], [address] [place] [address] AST [Catalytic activity/Vol] 15 U/L Normal 0-41 [facility] Comment on above: Performed By: #### Kishor Ross [id number] #### [facility] ([id number]) [address], [address] [place] [address] Bilirubin [Mass/Vol] 0.4 mg/dL Normal 0.3-1.2 [facility] Comment on above: Performed By: #### Vandana GOTTLIEB, 06687-7 #### [facility] ([id number]) [address], [address] [place] [address] Calcium [Mass/Vol] 9.4 mg/dL Normal 8.5-10.5 [facility] Comment on above: Performed By: #### Vandana GOTTLIEB, 07835-5 #### [facility] ([id number]) [address], [address] [place] [address] Chloride [Moles/Vol] 106 mmol/L Normal 98-109 [facility] Comment on above: Performed By: #### Vandana GOTTLIEB, 51838-1 #### [facility] ([id number]) [address], [address] [place] [address] CO2 [Moles/Vol] 24 mmol/L Normal 22-32 [facility] Comment on above: Performed By: #### Vandana GOTTLIEB, 91733-4 #### [facility] ([id number]) [address], [address] [place] [address] Creatinine [Mass/Vol] 0.83 mg/dL Normal 0.40-1.00 [facility] Comment on above: Result Comment: METH OD TRACEABLE TO IDMS STANDARD Performed By: #### Vandana GOTTLIEB, 00811-9 #### [facility] ([id number]) [address], [address] [place] [address] GFR/1.73 sq M.predicted among non-blacks MDRD (S/P/Bld) [Vol rate/Area] 86 mL/min/{1.73_m2} Normal >59 [facility] Comment on above: Result Comment: Reported eGFR is based on the CKD-EPI 2020 equation that does not use a race coefficient. Performed By: #### Vandana GOTTLIEB, 89688-2 #### [facility] ([id number]) [address], [address] [place] [address] Glucose [Mass/Vol] 79 mg/dL Normal 65-99 [facility] Comment on above: Performed By: #### Vandana GOTTLIEB, 52223-0 #### [facility] ([id number]) [address], [address] [place] [address] Potassium [Moles/Vol] 3.8 mmol/L Normal 3.5-5.0 [facility] Comment on above: Performed By: #### Vandana GOTTLIEB, 36340-0 #### [facility] ([id number]) [address], [address] [place] [address] Protein [Mass/Vol] 6.9 g/dL Normal 6.0-8.0 [facility] Comment on above: Performed By: #### Vandana GOTTLIEB, 10044-2 #### [facility] ([id number]) [address], [address] [place] [address] Sodium [Moles/Vol] 139 mmol/L Normal 134-146 [facility] Comment on above: Performed By: #### Vandana GOTTLIEB, 19124-1 #### [facility] ([id number]) [address], [address] [place] [address] Urea nitrogen [Mass/Vol] 17 mg/dL Normal 5-23 [facility] Comment on above: Performed By: #### Vandana GOTTLIEB, 74986-7 #### [facility] ([id number]) [address], [address] [place] [address] Lipid 1996 panelon 4 Cholesterol [Mass/Vol] 218 mg/dL High 150-200 [facility] Comment on above: Performed By: #### Vandana GOTTLIEB, 38868-7 #### [facility] ([id number]) [address], [address] [place] [address] Cholesterol in HDL [Mass/Vol] 62 mg/dL Normal >39 [facility] Comment on above: Result Comment: HDL <40 mg/dL - High Risk HDL > or = 40mg/dL- Desirable HDL >60 mg/dL - Negative Risk Performed By: #### Vandana GOTTLIEB, 72766-0 #### [facility] ([id number]) [address], [address] [place] [address] Cholesterol in LDL [Mass/Vol] 133 mg/dL High <130 [facility] Comment on above: Result Comment: LDL <100 mg/dL - Desirable LDL >160 mg/dL - High Risk Performed By: #### Vandana GOTTLIEB, 62717-0 #### [facility] ([id number]) [address] [place] [address] Cholesterol in VLDL [Mass/Vol] 23 mg/dL Normal 0-30 [facility] Comment on above: Performed By: #### Vandana GOTTLIEB, 94207-7 #### [facility] ([id number]) [address], [address] [place] [address] CHOLESTEROL:HDL 3.5 Normal 1.0-5.0 [facility] Comment on above: Performed By: #### Vandana GOTTLIEB, 48824-4 #### [facility] ([id number]) [address], [address] [place] [address] Triglyceride [Mass/Vol] 114 mg/dL Normal 27-150 [facility] Comment on above: Performed By: #### Vandana GOTTLIEB, 96850-8 #### [facility] ([id number]) [address] [place] [address], [address] [place] [address] Pain Management Office/Clini c Noteon 09-14-2023 Pain Management Office/Clinic Note Chief Complaint neck pain History of Present Illness Patient presents today for evaluation regarding chronic cervical pain. Patient underwent a right and left C2, C3, C4 radiofrequency ablation since previous office encounter reports 80 to 90% improvement of pain ongoing since that time. She reports overall she is doing quite well at this time Patient has engaged in a 6 week course of provider directed, home based physiological therapies within the last 3 months. In addition, a six-week trial of activity modification has failed to give reprieve. Patient has also failed to respond optimally to oral analgesic regimen Oswestry Disability Form AM Behavior: Same PM Pain Intensity: The pain is very mild at the moment Day Progresses Behavior: Same PM Personal Care: I can look after myself without causing extra pain PM Behavior: Same PM Sitting: I can only sit in my favorite chair as long as I like Pain location and laterality: neck pain PM Pain Lifting: I can lift heavy weights, but it gives me extra pain Pain quality: Aching PM Walking: Pain does not prevent me from walking Pain Pattern: Intermittent PM Standing: I can stand as long as I want without extra pain Pain rate at rest: 0 PM Sleeping: My sleep is occasionally disturbed by pain Pain rate with activity: 4 PM Sex Life: My sex life is normal and causes no pain/NA Bending: Aggravating PM Social Life: My social life is normal, but increases the degree of pain Cold/Ice: Alleviating PM Traveling: I can travel anywhere but it gives me extra pain Lying: Alleviating PM Oswestry Score: 12 Medications: Alleviating PM Oswestry Score Interpretation: 0% to 20%Minimal Disability: The patient can cope with most living activities. Usually no treatment is indicated apart from advice on lifting, sitting and exercise. Sensory impairment location: denies Pain since last visit: Improved Procedure 1: Radiofrequency Ablation Procedure Date 1: 06/18/23 Procedure Comments 1: right C2, C3, C4 Radiofrequency ablation Pain Improvement 1: Significant (70-100% relief) Pain Improvement Comments 1: 80-90%cont Was procedure beneficial 1: Yes Procedure 2: Radiofrequency Ablation Procedure Date 2: 07/02/23 Procedure Comments 2: Left C2, C3, C4 Radiofrequency ablation Pain Improvement 2: Significant (70-100% relief) Pain Improvement Comments 2: 80-90% cont Was procedure beneficial 2: Yes Date Tens: hx Comments TENS: has one but doesn't use, no relief from TENS Date Chiropractor: hx Frequency Chiropractor: prn Effective Chiropractor: neck Date PT: hx Comments PT: HEP-Stretching/stren gth training Date Injections: prn Effective Injections: 80%% RELIEF Comments Injections: silvestre C4 NR Injection Date Surgery: 2009 Frequency Surgery: x1 Effective Surgery: cervical fusion by Venkat Isaacs Comments Surgery: cervical Recent testing: No Loss of bladder/bowel: Denies Demeanor: Pleasant Distress: Mild Appearance: Appropriate Cognitive impairment: No Feels safe at home: Yes Suicidal/homicidal ideation: No Review of Systems A review of systems was conducted and noted to be negative to the patients presenting complaint unless delineated in HPI. Full details are available on form PM-82 completed by the patient and added to the record on today?s date Denies loss of control of bowel and bladder or saddle paresthesia. Denies suicidal ideation or plan Physical Exam Vitals & Measurements HR: 82 (Peripheral) RR: 16 BP: 101/67 General -Appears stated age. No apparent distress. Psychological - Normal mood and affect. HEENT - Normocephalic/Atraum atic Neurologic-alert and oriented x4 Respiratory - No obvious distress, No shortness of breath. Well-healed anterior cervical incision previous cervical surgery. No focal motor or sensory deficits appreciated Additional Vitals No qualifying data available. Assessment/Plan 1. Cervical spondylosis 2. Cervical postlaminectomy syndrome Patient has chronic cervical pain secondary to cervical postlaminectomy syndrome as well as cervical spondylosis. Patient reports significant improvement of pain following cervical RFA as delineated above. Patient will be reevaluated as needed Medical Decision Making Chronic conditions NOT treated during this visit that affected my overall medical decision making: [] Treatment plans discussed but not opted for at this time: [] I have reviewed the patient?s medication list for medication interactions/contrai ndications and/or for upcoming procedures: [yes] Physician Comments Note dictated with voice recognition system. Please disregard any inadvertent errors This document serves as a record of the services and decisions personally performed and made by the attending provider. It was created on his/her behalf by a trained health care / medical job titles. The creation of this document is based on the provider?s statements to the health care / medical job titles. Problem List/Past Medical History Ongoing C (more content not included)... Normal [facility] XR foot LT min 3V*on 023 XR foot LT min 3V* [facility] [place] [address] [place] [address] XRay Report Signed Patient: Rosalie Mcdonnell MR#: [id number] : 1975 Acct:[id number] Age/Sex: 47 / F ADM Date: 03/19/23 Loc: [facility] Room: Type: [facility] Attending Dr: Danyelle PAREDES Copies to: REGGIE Balderas Ordering Provider: REGGIE Balderas Date of Service: 03/19/23 XR/XR foot LT min 3V*: Left foot pain 3 views left foot plain film COMPARISON:None HISTORY: Left foot injury ACUTE FINDINGS: None DEGENERATIVE CHANGE: Unremarkable SOFT TISSUE FINDINGS: Unremarkable JOINT EFFUSION: None POSTOP CHANGES: None BONE MINERALIZATION: Adequate XR/XR foot LT min 3V* IMPRESSION: No acute findings. Impression dictated by: Jad Jo M.D.03/19/2023 5:00 PM Dictation Location: [place] [address] Transcribed By: [facility] 03/19/231699 Dictated By: Jad Jo DO 03/19/231699 Signed By: 03/19/231699 [facility] COVID Quick Testingon 2022 Result Negative SPARQCode Other MRI Foot w/o Righton 022 MRI Foot w/o Right HISTORY: Chronic heel pain. Concern for calcaneal stress fracture versus plantar fasciitis. TECHNIQUE: Routine MRI of the right foot without contrast COMPARISON: Radiographs 10/18/2021. RESULT: Bone Marrow: No evidence for fracture, osteomyelitis, or suspicious marrow replacing process. Subcutaneous Tissues: Mild subcutaneous edema. No loculated collection. Joints: No significant cartilage abnormalities. No significant joint effusion. Tendons: Flexor and extensor tendons are within normal limits. Achilles tendon unremarkable. Lisfranc Ligament: Intact. Plantar Aponeurosis: Moderate thickening, especially involving the central band, with associated tearing involving the central band near origin. Tear measures around around 6 mm transverse with associated slight distal retraction, and surrounding edema/fluid. Small calcaneal enthesophyte at origin. Muscles: Muscle bulk and signal intensity are within normal limits. Other: No other significant abnormality IMPRESSION: Plantar fasciitis with associated tearing of the central band near origin. No evidence for fracture. 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 . Normal [facility] Comment on above: Result Comment: Perf ormed at: WB Performed By: #### [id number] #### [facility] [address] [address] [address] Rhiannon Smith Age Gdln ACOG Testing 30-65 Normal [facility] Comment on above: Performed By: #### [id number] #### [facility] [address] [address] [address] Rhiannon Smith DIAGNOSIS: Comment Normal [facility] Comment on above: Result Comment: NEGA TIVE FOR INTRAEPITHELIAL LESION OR MALIGNANCY. Performed at: WB Performed By: #### [id number] #### [facility] [address] [address] [address] Rhiannon Smith HPV Aptima Negative Normal Negative [facility] Comment on above: Result Comment: This nucleic acid amplification test detects fourteen high-risk HPV types (16,18,31,33,35,39,45,51,52,56,58,59,66,68) without differentiation. Performed at: =G Performed By: #### [id number] #### [facility] [address] [address] [address] Rhiannon Smith Methodology: Comment Normal [facility] Comment on above: Result Comment: This liquid based ThinPrep(R) pap test was screened with the use of an image guided system. Performed at: WB Performed By: #### [id number] #### [facility] [address] [address] [address] Rhiannon Smith Note: Comment Normal [facility] Comment on above: Result Comment: The Pap smear is a screening test designed to aid in the detection of premalignant and malignant conditions of the uterine cervix. It is not a diagnostic procedure and should not be used as the sole means of detecting cervical cancer. Both false-positive and false-negative reports do occur. . Performed at: WB Performed By: #### [id number] #### [facility] [address] [address] [address] Rhiannon Smith Performed by: Comment Normal [facility] Comment on above: Result Comment: Russel Coello, Assistant Track And Field Coach (ASCP) Performed at: WB Performed By: #### [id number] #### [facility] [address] [place] [address] Dr. Rhiannon Smith Specimen adequacy: Comment Normal [facility] Comment on above: Result Comment: Sati sfactory for evaluation. Endocervical and/or squamous metaplastic cells (endocervical component) are present. Performed at: WB Performed By: #### [id number] #### [facility] [address] [address] [address] Rhiannon Smith Vital Signs Date Time Vital Sign Value Performing Clinician Facility 07-18-2024 10:52-0500 Body mass index (BMI) [Ratio] 24.7 kg/m2 Ninfa Longoria MD Work Phone: [facility] 07-18-2024 10:52-0500 Body weight 67.31 kg Ninfa Longoria MD Work Phone: [facility] 07-18-2024 10:52-0500 Diastolic blood pressure 69 mm[Hg] Ninfa Longoria MD Work Phone: [facility] 07-18-2024 10:52-0500 Heart rate 94 /min Ninfa Longoria MD Work Phone: [facility] 07-18-2024 10:52-0500 Systolic blood pressure 120 mm[Hg] Ninfa Longoria MD Work Phone: [facility] 06-27-2024 14:19-0500 Diastolic blood pressure 81 mm[Hg] Bob Guerrero MD Work Phone: [facility] 06-27-2024 14:19-0500 Heart rate 100 /min Bob Guerrero MD Work Phone: [facility] 06-27-2024 14:19-0500 Respiratory rate 16 /min Bob Guerrero MD Work Phone: [facility] 06-27-2024 14:19-0500 SaO2% (BldA) [Mass fraction] 100 % Bob Guerrero MD Work Phone: [facility] 06-27-2024 14:19-0500 Systolic blood pressure 125 mm[Hg] Bob Guerrero MD Work Phone: [facility] 06-27-2024 12:52-0500 Body temperature 97.5 [degF] Bob Guerrero MD Work Phone: [facility] 06-27-2024 12:43-0500 Body height 165.1 cm Bob Guerrero MD Work Phone: [facility] 06-27-2024 12:43-0500 Body mass index (BMI) [Ratio] 23.13 kg/m2 Bob Guerrero MD Work Phone: [facility] 06-27-2024 12:43-0500 Body weight 63.05 kg Bob Guerrero MD Work Phone: [facility] 06-23-2024 11:10-0500 Body mass index (BMI) [Ratio] 24.63 kg/m2 Ninfa Longoria MD Work Phone: [facility] 06-23-2024 11:10-0500 Body temperature 97.81 [degF] Ninfa Longoria MD Work Phone: [facility] 06-23-2024 11:10-0500 Body weight 67.13 kg Ninfa Longoria MD [facility] 06-23-2024 11:10-0500 Diastolic blood pressure 64 mm[Hg] Ninfa Longoria MD Work Phone: [facility] 06-23-2024 11:10-0500 Heart rate 92 /min Ninfa Longoria MD Work Phone: [facility] 06-23-2024 11:10-0500 Systolic blood pressure 144 mm[Hg] Ninfa Longoria MD Work Phone: [facility] 06-23-2024 08:47-0500 Body height 165.1 cm Aspen Reindel SPECIALTIES OPERATOR.MARBLE MACHINE TENDER Work Phone: [facility] 06-23-2024 08:47-0500 Body mass index (BMI) [Ratio] 24.63 kg/m2 Aspen Reindel SPECIALTIES OPERATOR.MARBLE MACHINE TENDER Work Phone: [facility] 06-23-2024 08:47-0500 Body temperature 98.2 [degF] Aspen Reindel SPECIALTIES OPERATOR.MARBLE MACHINE TENDER Work Phone: [facility] 06-23-2024 08:47-0500 Body weight 67.13 kg Aspen Reindel SPECIALTIES OPERATOR.MARBLE MACHINE TENDER Work Phone: [facility] 06-23-2024 08:47-0500 Diastolic blood pressure 74 mm[Hg] Aspen Reindel SPECIALTIES OPERATOR.MARBLE MACHINE TENDER Work Phone: [facility] 06-23-2024 08:47-0500 Heart rate 98 /min Aspen Reindel SPECIALTIES OPERATOR.MARBLE MACHINE TENDER Work Phone: [facility] 06-23-2024 08:47-0500 Systolic blood pressure 127 mm[Hg] Aspen Reindel SPECIALTIES OPERATOR.MARBLE MACHINE TENDER Work Phone: [facility] 09-27-2023 10:15-0500 Body height 164.7 cm Ninfa Longoria MD Work Phone: [facility] 09-27-2023 10:15-0500 Body mass index (BMI) [Ratio] 26.52 kg/m2 Ninfa Longoria MD Work Phone: [facility] 09-27-2023 10:15-0500 Body weight 71.94 kg Ninfa Longoria MD Work Phone: [facility] 09-27-2023 10:15-0500 Diastolic blood pressure 62 mm[Hg] Ninfa Longoria MD Work Phone: [facility] 09-27-2023 10:15-0500 Heart rate 83 /min Ninfa Longoria MD Work Phone: [facility] 09-27-2023 10:15-0500 Systolic blood pressure 128 mm[Hg] Ninfa Longoria MD Work Phone: [facility] 01-18-2023 13:50-0400 Body height 165.1 cm Dai Ramirez Other [facility] Other 01-18-2023 13:50-0400 Body mass index (BMI) [Ratio] 24.79 kg/m2 Dai Ramirez Other [facility] Other 01-18-2023 13:50-0400 Body temperature 98 [degF] Dai Ramirez Other [facility] Other 01-18-2023 13:50-0400 Body weight 67.59 kg Dai Ramirez Other [facility] Other 01-18-2023 13:50-0400 Diastolic blood pressure 64 mm[Hg] Dai Ramirez Other [facility] Other 01-18-2023 13:50-0400 Respiratory rate 18 /min Dai Ramirez Other [facility] Other 01-18-2023 13:50-0400 SaO2% (BldA) [Mass fraction] 100 % Dai Ramirez Other [facility] Other 01-18-2023 13:500400 Systolic blood pressure 125 mm[Hg] Dai Ramirez Other [facility] [employer] Other Encounters Encounter Date Encounter Type Care Provider Facility Start: 08-04-2024 End: 08-04-2024 Bamboo flowsheet Barbara Nini DO Work Phone: [facility] Start: 08-04-2024 End: 08-04-2024 Bamboo flowsheet Barbara Nini DO Work Phone: [facility] Start: 07-18-2024 End: 07-18-2024 Office outpatient visit 15 minutes Ninfa Longoria MD [facility] Phone: [facility] Comment on above: Nausea (Primary Dx) Start: 07-18-2024 End: 07-18-2024 ambulatory [facility] Start: 07-07-2024 End: 07-07-2024 ambulatory Criselda Galarza SPECIALTIES OPERATOR-MARBLE MACHINE TENDER Facility:[facility] Start: 06-27-2024 End: 06-27-2024 Orders Only Bob Guerrero MD Work Phone: [facility] Comment on above: Special screening fo r malignant neoplasms, colon (Primary Dx) Diarrhea, unspecifie d type [R19.7] Start: 06-23-2024 End: 06-23-2024 Office outpatient visit 15 minutes Ninfa Longoria MD Work Phone: [facility] Comment on above: Non-recurrent acute suppurative otitis media of right ear without spontaneous rupture of tympanic membrane (Primary Dx) Start: 06-23-2024 End: 06-23-2024 ambulatory [facility] Start: 06-23-2024 End: 06-23-2024 ambulatory ASPEN RIZVI Facility:[facility] Start: 06-23-2024 End: 06-23-2024 Patient encounter procedure Aspen Rizvi SPECIALTIES OPERATOR.MARBLE MACHINE TENDER Work Phone: [facility] Comment on above: Diarrhea, unspecifie d type (Primary Dx); Abdominal bloating; Weight loss, abnormal Start: 06-20-2024 End: 06-20-2024 ambulatory Ninfa Longoria MD Facility:[facility] Start: 06-12-2024 End: 06-12-2024 ambulatory Tom Chaney MD Facility:[facility] Start: 06-09-2024 End: 06-09-2024 Refill Ninfa Longoria MD Work Phone: [facility] Comment on above: Primary insomnia Start: 05-26-2024 End: 05-26-2024 ambulatory Ninfa Longoria MD Facility:[facility] Start: 05-20-2024 ambulatory Tom Chaney MD Facility:[facility] Start: 05-13-2024 End: 05-13-2024 Refill Ninfa Longoria MD Work Phone: [facility] Comment on above: Primary insomnia Start: 04-14-2024 End: 04-14-2024 ambulatory Criselda Galarza SPECIALTIES OPERATOR-MARBLE MACHINE TENDER Facility:[facility] Start: 03-11-2024 End: 03-11-2024 ambulatory [facility] Start: 03-11-2024 End: 03-11-2024 [facility] Start: 01-28-2024 End: 01-28-2024 ambulatory NINFA [facility] Start: 01-28-2024 End: 01-28-2024 ambulatory ZAIN Victor Manuel JOSEPHINE Not Available Start: 01-14-2024 End: 01-14-2024 ambulatory [facility] Start: 12-22-2023 End: 12-22-2023 ambulatory BARBARA TERRAZAS [facility] Start: 12-10-2023 End: 12-10-2023 ambulatory Tom Chaney MD Facility:[facility] Start: 11-26-2023 End: 11-26-2023 ambulatory Criselda Galarza SPECIALTIES OPERATOR-MARBLE MACHINE TENDER Facility:[facility] Start: 11-19-2023 End: 11-19-2023 ambulatory BARBARA NUGENTO Not Available Start: 10-24-2023 Refill Ninfa bess MD Work Phone: [facility] Comment on above: Primary insomnia Start: 09-28-2023 End: 09-28-2023 [facility] Start: 09-28-2023 Encounter for genera l adult medical examination without abnormal findings [facility] Start: 09-27-2023 End: 09-27-2023 Patient encounter status Ninfa Longoria MD Work Phone: [facility] Start: 09-27-2023 End: 09-27-2023 Periodic preventive med est patient 40-64yrs Ninfa Longoria MD Work Phone: [facility] Comment on above: Well adult exam (Olivia fior Dx); Primary insomnia Start: 09-27-2023 End: 09-27-2023 ambulatory [facility] Start: 09-27-2023 Encounter for genera l adult medical examination without abnormal findings [facility] Start: 09-26-2023 Refill Ninfa bess MD Work Phone: [facility] Comment on above: Primary insomnia Start: 09-14-2023 End: 09-14-2023 ambulatory Criselda Contreras [facility] Facility:[facility] Start: 08-29-2023 Refill Ninfa bess MD Work Phone: [facility] Comment on above: Primary insomnia Start: 08-14-2023 Refill Ninfa bess MD Work Phone: [facility] Start: 08-02-2023 Refill Ninfa bess MD Work Phone: [facility] Comment on above: Primary insomnia Start: 07-17-2023 Refill Ninfa bess MD Work Phone: [facility] Start: 03-19-2023 End: 03-19-2023 ambulatory Danyelle Sindy Facility:[facility] Start: 03-19-2023 End: 03-19-2023 ambulatory STRATEGIC COMMUNICATIONS MANAGER-C Danyelle Callahan Work Phone: [facility] Work Phone: Start: 03-19-2023 End: 03-19-2023 Patient encounter procedure STRATEGIC COMMUNICATIONS MANAGER-C Danyelle Callahan Work Phone: [facility] Work Phone: Start: 01-18-2023 End: 01-18-2023 ambulatory Dai Ramirez Other [facility] Other Start: 01-18-2023 Office outpatient visit 15 minutes Dai Ramirez [facility] Start: 02-14-2022 End: 02-14-[address] BARBARA TERRAZAS Facility:[facility] Procedures Date Procedure Procedure Detail Performing Clinician Start: 06-27-2024 Colonoscopy flx dx w/collj spec when pfrmd Aspen Rizvi APRNThaiMARBLE MACHINE TENDER Work Phone: Start: 06-27-2024 Esophagogastroduodenoscopy transoral diagnostic Aspen Rizvi APRN.MARBLE MACHINE TENDER Work Phone: Start: 06-27-2024 Colonoscopy Bob Guerrero MD Work Phone: Start: 12-24-2023 Mammography Ninfa Longoria MD Work Phone: Start: 11-19-2023 Microscopic observation [Identifier] in Cervix by Cyto stain Barbara Terrazas DO Work Phone: Start: 09-28-2023 Lipid 1996 panel - Serum or Plasma Aspen Rizvi SPECIALTIES OPERATORThaiMARBLE MACHINE TENDER Work Phone: Start: 09-27-2023 Adult depression screening assessment Ninfa Longoria MD Work Phone: Start: 03-19-2023 X-ray of left foot STRATEGIC COMMUNICATIONS MANAGER-C Danyelle Callahan Work Phone: Start: 11-28-2022 Mammography Ninfa Longoria MD Work Phone: Start: 09-08-2022 Adult depression screening assessment Ninfa Longoria MD Work Phone: Start: 02-03-2020 Microscopic observation [Identifier] in Cervix by Cyto stain Ninfa Longoria MD Work Phone: Plan of Treatment Date Care Activity Detail Author Start: 06-27-2034 Screening for malignant neoplasm of colon [facility] Start: 09-27-2028 Lipid panel Lipid Screening [facility] Start: 06-23-2027 Diabetes Screening Diabetes Screening [facility] Start: 11-18-2026 Screening for malignant neoplasm of cervix [facility] Start: 07-18-2025 Adult BMI Screening [facility] Start: 06-27-2025 Screening for malignant neoplasm of colon [facility] Start: 06-23-2025 Tobacco Screening [facility] Start: 03-11-2025 Adult BMI Screening Adult [facility]ening [facility] Start: 03-11-2025 Tobacco Screening Tobacco [facility]ening [facility] Start: 12-23-2024 Screening for malignant neoplasm of breast [facility] Start: 11-25-2024 End: 11-25-2024 Patient encounter procedure 11/25/2024 8:30 AM EDT Office Visit [facility] [address] [place] [id number] Barbara Terrazas, DO [address] [place] [address] [facility] Start: 09-26-2024 Adult BMI Screening Adult BMI Screening [facility] Start: 09-26-2024 Depression Screening Depression Screening [facility] Start: 09-26-2024 Tobacco Screening Tobacco Screening [facility] Start: 08-04-2024 End: 08-04-2024 Patient encounter procedure [facility] Comment on above: Arrived Start: 07-18-2024 End: 07-18-2025 CT Abdomen and Pelvis W contrast IV CT abdomen and pelvis with contrast Imaging Routine Nausea Expected: 07/18/2024, Expires: 07/18/2025 [facility] Work Phone: Comment on above: Expected: 07/18/2024, Expires: Start: 06-27-2024 End: 06-27-2024 Patient encounter procedure 06/27/2024 1:00 PM EST Appointment [facility] [address] [place] [id number] Bob Guerrero MD [address] [place] [address] [facility] Start: 06-23-2024 End: 09-22-2024 25-hydroxyvitamin D3 [Mass/volume] in Serum or Plasma [facility] Comment on above: Expected: 06/23/2024, Expires: Start: 06-23-2024 End: 09-22-2024 CELIAC SCREEN WITH REFLEX [facility] Comment on above: Expected: 06/23/2024, Expires: Start: 05-11-2024 Adult BMI Screening Adult BMI Screening [facility] Start: 05-11-2024 Tobacco Screening Tobacco Screening [facility] Start: 03-23-2024 COVID-19 Vaccine ( season) COVID-19 Vaccine ( season) [facility] Start: 03-23-2024 Influenza vaccination [facility] Start: 11-29-2023 Screening for malignant neoplasm of breast Mammogram [facility] Start: 09-27-2023 End: 09-27-2023 Patient encounter procedure 09/27/2023 10:15 AM EST Office Visit [facility] [address] [place] [id number] Ninfa Longoria MD [address] [place] [address] [facility] Start: 09-08-2023 Depression Screening Depression Screening [facility] Start: 02-02-2021 Screening for malignant neoplasm of cervix Pap Smear [facility] Start: 2019 Screening for malignant neoplasm of colon [facility] Start: 2004 Screening for malignant neoplasm of cervix HPV/Cotest [facility] Start: 1995 Screening for malignant neoplasm of cervix Cervical Cancer Screening [facility] Start: 1993 DTaP,Tdap and Td Vaccines (1 - Tdap) DTaP,Tdap and Td Vaccines (1 - Tdap) [facility] Start: 1993 Hepatitis B Vaccine (1 of 3 - 19+ 3-dose series) Hepatitis B Vaccine (1 of 3 - 19+ 3-dose series) [facility] Start: 1993 Urine microalbumin profile DTaP,Tdap,Td Vaccine (1 - Tdap) [facility] Start: 1992 Adult BMI Follow Up Plan Adult BMI Follow Up Plan [facility] Start: 1992 Anxiety Screening Anxiety Screening [facility] Start: 1992 Depression Screening Depression Screening [facility] Start: 1992 Hepatitis C screening Hepatitis C Screening [facility] Start: 1992 HIV screening HIV Screening [facility] Start: 1974 Screening for malignant neoplasm of colon [facility] End: 09-26-2024 Comprehensive metabolic 2000 panel - Serum or Plasma Comprehensive metabolic panel Lab Routine Well adult exam 1 Occurrences starting 09/27/2023 until 09/26/2024 [facility] Comment on above: 1 Occurrences starting 09/27/2023 until 09/26/2024 End: 06-23-2025 EGD DIAGNOSTIC EGD DIAGNOSTIC Endoscopy Routine Abdominal bloating Weight loss, abnormal 1 Occurrences starting 06/23/2024 until 06/23/2025 [facility] Comment on above: 1 Occurrences starting 06/23/2024 until 06/23/2025 End: 06-23-2025 Flexible sigmoidoscopy study COLONOSCOPY DIAGNOSTIC Endoscopy Routine Diarrhea, unspecified type Abdominal bloating 1 Occurrences starting 06/23/2024 until 06/23/2025 [facility] Work Phone: Comment on above: 1 Occurrences starting 06/23/2024 until 06/23/2025 End: 09-26-2024 Lipid 1996 panel - Serum or Plasma Lipid profile Lab Routine Well adult exam 1 Occurrences starting 09/27/2023 until 09/26/2024 [facility] Work Phone: Comment on above: 1 Occurrences starting 09/27/2023 until 09/26/2024 SURGICAL PATHOLOGY SURGICAL PATH OLOGY Lab Routine Special screening for malignant neoplasms, colon Ordered: 06/27/2024 [facility] Work Phone: Comment on above: Ordered: 06/27/2024 Immunizations Immunization Date Immunization Notes Care Provider Roberta guerrero 07-17-2024 influenza virus vaccine, unspecified formulation Barbara Ninisandra MALONE Work Phone: [facility] 05-14-2023 Seasonal, quadrivale nt, recombinant, injectable influenza vaccine, preservative free Ninfa Longoria MD Work Phone: [facility] 05-14-2023 influenza virus vaccine, unspecified formulation Ninfa Longoria MD Work Phone: [facility] 04-20-2022 influenza, injectabl e, quadrivalent, preservative free Ninfa Longoria MD Work Phone: [facility] 05-13-2021 influenza, injectabl e, quadrivalent, preservative free Ninfa Longoria MD Work Phone: [facility] 09-15-2020 COVID-19, mRNA, LNP- S, PF, 100mcg/0.5mL Dose Ninfa Longoria MD Work Phone: [facility] 08-19-2020 COVID-19, mRNA, LNP- S, PF, 100mcg/0.5mL Dose Ninfa Longoria MD Work Phone: [facility] 05-25-2020 influenza, injectabl e, quadrivalent, preservative free Ninfa Longoria MD Work Phone: [facility] 06-17-2019 influenza, injectabl e, quadrivalent, preservative free Ninfa Longoria MD Work Phone: [facility] 06-28-2018 influenza, injectabl e, quadrivalent, preservative free Ninfa Longoria MD Work Phone: [facility] 07-31-2017 influenza, seasonal, injectable, preservative free Ninfa Longoria MD Work Phone: [facility] 05-18-2014 influenza, seasonal, injectable, preservative free Ninfa Longoria MD Work Phone: [facility] Payers Date Payer Category Payer Self-pay [id number] [id number] 2021 [facility] [employer] - PPO [id number] 2020 Unknown [id number]. [id number] 1974 Unknown [id number] 2.16.840.1.942547.3.579. 2.593 1974 Unknown [id number] 2.16.840.1.894070.3.579. 2.1259 1974 Unknown [id number] 2.16.840.1.888919.3.579. 2.1259 1974 Unknown [id number] 2.16.840.1.703567.3.579. 2.6 1974 Unknown [id number] 2.16.840.1.265154.3.579. 2.1285 1974 Unknown [id number] 2.16.840.1.865059.3.579. 2.1285 1974 Unknown [id number] 2.16.840.1.673777.3.579. 2.1285 1974 Unknown [id number] 2.16.840.1.278390.3.579. 2. 1974 Unknown [id number] 2.16840.1.601427.3.579. 2. 1974 Unknown [id number] 2.16.840.1.611058.3.579. 2. 1974 Unknown [id number] 2.16.840.1.177349.3.579. 2. 1974 Unknown [id number] 2.16.840.1.938907.3.579. 2. 1974 Unknown [id number] 2.16.840.1.547342.3.579. 2. 1974 Unknown [id number] 2.16.840.1.137616.3.579. 2. 1974 Unknown [id number] 2.16.840.1.047554.3.579. 2. 1974 Unknown [id number] 2.16.840.1.877316.3.579. 2. 1974 Unknown [id number] 2.16.840.1.896095.3.579. 2. 1974 Unknown [id number] 2.16.840.1.680030.3.579. 2.196 1974 Unknown [id number] 2.16.840.1.266905.3.579. 2.196 1974 Unknown [id number] 2.16.840.1.828040.3.579. 2.1286 1974 Unknown [id number] 2.16.840.1.259076.3.579. 2.1286 1974 Unknown [id number] 1975 Unknown [id number] 1975 Unknown [id number] 1960 Unknown [id number] Unknown Prudence HICKMAN/CHRISTIAN [id number] Unknown [id number] Social History Date Type Detail Facility Unknown if ever smoked SPARQCode Other Start: 08-26-2021 End: 09-26-2023 Sex Assigned At [facility] yste Start: 1975 Sex Assigned At Female [facility] Start: 05-11-2023 End: 01-14-2024 Tobacco smoking status NHIS Ex-smoker [facility] Start: 05-09-1992 End: 05-09-1996 History of tobacco use Current smoker [facility] Start: 05-09-1992 End: 05-09-1996 History of tobacco use Cigarette Smoker [facility] Start: 05-11-2023 End: 01-14-2024 Tobacco use and exposure Smokeless tobacco non-user [facility] Start: 05-11-2023 End: 07-18-2024 Alcohol intake Current drinker of alcohol (finding) [facility] Start: 08-26-2021 End: 05-11-2023 Alcohol intake [facility] Do you belong to any clubs or organizations such as baptism groups, unions, fraternal or athletic groups, or school groups? No [facility] Are you now , , , , never or living with a partner? [facility] How often to you hav e a drink containing alcohol? 2-4 times a month [facility] How many standard dr inks containing alcohol do you have on a typical day? 1 or 2 [facility] How often do you hav e 6 or more drinks on 1 occasion? Less than monthly [facility] How hard is it for y ou to pay for the very basics like food, housing, medical care, and heating Not hard at all [facility] Do you feel stress - tense, restless, nervous, or anxious, or unable to sleep at night because your mind is troubled all the time - these days [OSQ] To some extent [facility] Start: 08-26-2021 Education 15 [facility] Start: 1975 Sex Assigned At Not on file [facility] Start: 02-25-2015 Sex Female (finding) [facility] Start: 06-23-2024 Tobacco Comment Quit when pt was 23 yrs old [facility] Start: 06-23-2024 Alcohol Comment socially [facility] Start: 01-28-2024 Tobacco smoking status ARIS Tobacco smoking consumption unknown [facility] Clinical Notes 01-18-2023 to 07-18-2024 Ninfa Longoria MD - 07/18/2024 11:00 AM ESTDischarge Instr - Other OrdersBob Guerrero MD - 06/27/2024 1:00 PM Bob Malhotra MD - 06/27/2024 1:00 PM EST Note Date & Type Note Facility 07-18-2024 History of Presen t illness Narrative Subjective Patient ID: Rosalie Mcdonnell is a 48 y.o. female. Comes in to discuss ongoing issues with nausea. She feels full after eating and has nausea. No vomiting. She had colonoscopy and EGD recently and those were negative. She does not describe persistent abdominal pain. No fever. She has had some unintentional weight loss but not a striking amount. The following portions of the patient's history were reviewed and updated as appropriate: allergies, current medications, past medical history, past social history, past surgical history, and problem list. Review of Systems Objective Physical Exam Constitutional: Comments: She looks well. Color is normal. Eyes: General: No scleral icterus. Cardiovascular: Rate and Rhythm: Normal rate. Pulmonary: Effort: Pulmonary effort is normal. Abdominal: General: There is no distension. Palpations: There is no mass. Tenderness: There is no abdominal tenderness. Musculoskeletal: Right lower leg: No edema. Left lower leg: No edema. Assessment/Plan Reviewed with her. Several years ago she had GB US and nuclear study and those were negative. Endoscopies negative. She does not complain of significant acid symptoms and EGD did not suggest acid related disease. The symptoms are, however, progressive. Will check CT scan. Further from there. Diagnoses and all orders for this visit: Nausea - ondansetron ODT (ZOFRAN ODT) 4 mg disintegrating tablet; Dissolve 1 tablet (4 mg total) on tongue every 8 (eight) hours as needed for nausea or vomiting. - CT abdomen and pelvis with contrast; Future documented in this encounter [facility] 06-27-2024 Note [facility] Patient Name: Rosalie Mckinnon Procedure Date: 06/27/2024 1:52 PM Date of : 1975 Age: 48 Gender: Female Race: Unknown Attending MD: Bob Guerrero MD, [id number] Procedure: Colonoscopy Referring MD: Providers: Bob Guerrero MD Indications: Screening for colorectal malignant neoplasm Findings: The perianal and digital rectal examinations were normal. The terminal ileum appeared normal. A 4 mm polyp was found in the sigmoid colon. The polyp was sessile. The polyp was removed with a jumbo cold forceps. Resection and retrieval were complete. A few small-mouthed diverticula were found in the sigmoid colon and descending colon. The exam was otherwise without abnormality on direct and retroflexion views. Patient Profile: This is a 48 year old female. Refer to note in patient chart for documentation of history and physical. Last Colonoscopy: none. The patient's first colonoscopy is today. Impression: - The examined portion of the ileum was normal. - One 4 mm polyp in the sigmoid colon, removed with a jumbo cold forceps. Resected and retrieved. - Diverticulosis in the sigmoid colon and in the descending colon. - The examination was otherwise normal on direct and retroflexion views. Recommendation: - Patient has a contact number available for emergencies. The signs and symptoms of potential delayed complications were discussed with the patient. Return to normal activities tomorrow. Written discharge instructions were provided to the patient. - Resume previous diet. - Continue present medications. - Await pathology results. - Repeat colonoscopy in 7-10 years for surveillance based on pathology results. Medicines: Monitored Anesthesia Care Procedure: Pre-Anesthesia Assessment: - Prior to the procedure, a History and Physical was performed, and patient medications and allergies were reviewed. The risks and benefits of the procedure and the sedation options and risks were discussed with the patient. All questions were answered and informed consent was obtained. Patient identification and proposed procedure were verified by the physician, the nurse and the washroom operator in the procedure room at 13:52 PM. Mental Status Examination: alert and oriented. Airway Examination: normal oropharyngeal airway and neck mobility. Respiratory Examination: clear to auscultation. CV Examination: normal. Prophylactic Antibiotics: The patient does not require prophylactic antibiotics. Prior Anticoagulants: The patient has taken no anticoagulant or antiplatelet agents. ASA Grade Assessment: II - A patient with mild systemic disease. After reviewing the risks and benefits, the patient was deemed in satisfactory condition to undergo the procedure. The anesthesia plan was to use monitored anesthesia care (MAC). Immediately prior to administration of medications, the patient was re-assessed for adequacy to receive sedatives. The physical status of the patient was re-assessed after the procedure. After I obtained informed consent, the scope was passed under direct vision. Throughout the procedure, the patient's blood pressure, pulse, and oxygen saturations were monitored continuously. Provation AI/GI Genius was used during withdrawal. The Colonoscope was introduced through the anus and advanced to the terminal ileum, with identification of the appendiceal orifice and IC valve. The colonoscopy was performed without difficulty. The patient (more content not included)... [facility] 06-27-2024 Hospital Discharg e instructions Bob Guerrero MD - 06/27/2024 2:07 PM EST Images from the original note were not included. SENIOR WRITER HOMEGOING INSTRUCTIONS C O N F I D E N T I A L I N F O R M A T I O N The information below will help you return to normal function as soon as possible after your surgery. Please read it carefully and save for future reference. PATIENT NAME: Rosalie Mcdonnell ADMISSION DATE: 06/27/2024 DISCHARGE DATE: 06/27/2024 ACTIVITY: Do not drive a car for 24 hours Do not use power tools or machinery for 24 hours. Do not make important personal or business decisions. DIET: Resume normal diet as before. PAIN CONTROL: Use non-prescription, non-aspirin pain medication if needed. DO NOT USE MEDICATIONS LABELED NSAIDS. CALL PROVIDER IF EVIDENCE OF SIGNIFICANT: -Bleeding -Abdominal Pain -Tenderness -Fever FOLLOW-UP INFORMATION (Provider Name & Phone): Repeat colonoscopy in 5-10 years based on pathology results. I will be contacting you with the results of your pathology and to discuss the appropriate interval for your next colonoscopy. Thank you for allowing us to participate in your care. Please call with any further questions or concerns. Bob Guerrero MD, [facility] Director of IBD & Quality [facility] Office: Electronically SIGNED: Bob Guerrero MD, June 27, 2024 documented in this encounter [facility] 06-27-2024 Note [facility] Patient Name: Rosalie Mckinnon Procedure Date: 06/27/2024 1:37 PM Date of : 1975 Age: 48 Gender: Female Race: Unknown Attending MD: Bob Guerrero MD, [id number] Procedure: Upper GI endoscopy Referring MD: NINFA LONGORIA MD Providers: Bob Guerrero MD Indications: Upper abdominal symptoms that persist despite an appropriate trial of therapy Findings: The examined esophagus was normal. The entire examined stomach was normal. The duodenal bulb and second portion of the duodenum were normal. Patient Profile: This is a 48 year old female. Refer to note in patient chart for documentation of history and physical. Impression: - Normal esophagus. - Normal stomach. - Normal duodenal bulb and second portion of the duodenum. - No specimens collected. Recommendation: - Patient has a contact number available for emergencies. The signs and symptoms of potential delayed complications were discussed with the patient. Return to normal activities tomorrow. Written discharge instructions were provided to the patient. - Resume previous diet. - Continue present medications. Medicines: Monitored Anesthesia Care Procedure: Pre-Anesthesia Assessment: - Prior to the procedure, a History and Physical was performed, and patient medications and allergies were reviewed. The risks and benefits of the procedure and the sedation options and risks were discussed with the patient. All questions were answered and informed consent was obtained. Patient identification and proposed procedure were verified by the physician, the nurse and the washroom operator in the procedure room at 13:37 PM. Mental Status Examination: alert and oriented. Airway Examination: normal oropharyngeal airway and neck mobility. Respiratory Examination: clear to auscultation. CV Examination: normal. Prophylactic Antibiotics: The patient does not require prophylactic antibiotics. Prior Anticoagulants: The patient has taken no anticoagulant or antiplatelet agents. ASA Grade Assessment: II - A patient with mild systemic disease. After reviewing the risks and benefits, the patient was deemed in satisfactory condition to undergo the procedure. The anesthesia plan was to use monitored anesthesia care (MAC). Immediately prior to administration of medications, the patient was re-assessed for adequacy to receive sedatives. The physical status of the patient was re-assessed after the procedure. After obtaining informed consent, the endoscope was passed under direct vision. Throughout the procedure, the patient's blood pressure, pulse, and oxygen saturations were monitored continuously. The Colonoscope was introduced through the mouth, and advanced to the second part of duodenum. The upper GI endoscopy was accomplished without difficulty. The patient tolerated the procedure well. Complications: No immediate complications. Procedure Code(s): --- Professional --- 13404, Esophagogastroduodenoscopy, flexible, transoral; diagnostic, including collection of specimen(s) by brushing or washing, when performed (separate procedure) Diagnosis Code(s): --- Professional --- R19.8, Other specified symptoms and signs involving the digestive system and abdomen CPT copyright 2020 [employer]. All rights reserved. The codes documented in this report are preliminary and upon front office specialist review may be revised to meet current compliance requirements. Bob Guerrero MD 06/27/2024 2:05:30 PM This report has been signed electronically. Number of Addenda: 0 Note Initiated On: 06/27/2024 1:37 PM [facility] 06-27-2024 History and physical note Images from the original note were not included. PROCEDURAL SEDATION HISTORY AND PHYSICAL EXAM SERVICE DATE: 06/27/2024 SERVICE TIME: 1:40 PM SUBJECTIVE HPI: This is a 48 year old female who presents for EGD/colonoscopy for weight loss and CRC screening. The patient's chart (including medications, history, allergies, imaging and prior endoscopies) has been reviewed and the patient has been examined. The contents accurately reflect the patient's condition with the following additions or revisions since the H&P was completed. PAST MEDICAL HISTORY: PAST MEDICAL HISTORY Diagnosis Date Arthritis Insomnia PAST SURGICAL HISTORY: PAST SURGICAL HISTORY Procedure Laterality Date PAST SURGICAL HISTORY OF c5 disc surgery PAST SURGICAL HISTORY OF Left elbow TONSILLECTOMY HX MEDICATIONS: Prior to Admission medications as of 06/27/24 1243 Medication Sig Last Dose Taking temazepam (RESTORIL) 15 mg TAKE 1 CAPSULE BY MOUTH NIGHTLY NEEDED FOR SLEEP. tiZANidine (ZANAFLEX) 4 mg tablet Take 4 mg by mouth. zonisamide (ZONEGRAN) 100 mg capsule TAKE 1 TO 2 CAPSULES BY MOUTH EVERY DAY AT BEDTIME Ibuprofen 200 mg cap Take by mouth every 6 hours as needed. As needed ALLERGIES: ALLERGIES No Known Allergies OBJECTIVE PHYSICAL EXAM: AIRWAY: LUNGS: Benign lung exam. CARDIAC: Benign cardiac exam. ABDOMEN: Benign abdominal exam. The remainder of the physical exam is noncontributory. SIGNATURE: Bob Guerrero MD PATIENT NAME: Rosalie Mcdonnell DATE: June 27, 2024 TIME: 1:40 PM PAGER: [phone] [facility] Work Phone: 06-27-2024 History and physical note Images from the original note were not included. PROCEDURAL SEDATION HISTORY AND PHYSICAL EXAM SERVICE DATE: 06/27/2024 SERVICE TIME: 1:40 PM SUBJECTIVE HPI: This is a 48 year old female who presents for EGD/colonoscopy for weight loss and CRC screening. The patient's chart (including medications, history, allergies, imaging and prior endoscopies) has been reviewed and the patient has been examined. The contents accurately reflect the patient's condition with the following additions or revisions since the H&P was completed. PAST MEDICAL HISTORY: PAST MEDICAL HISTORY Diagnosis Date Arthritis Insomnia PAST SURGICAL HISTORY: PAST SURGICAL HISTORY Procedure Laterality Date PAST SURGICAL HISTORY OF c5 disc surgery PAST SURGICAL HISTORY OF Left elbow TONSILLECTOMY HX MEDICATIONS: Prior to Admission medications as of 06/27/24 1243 Medication Sig Last Dose Taking temazepam (RESTORIL) 15 mg TAKE 1 CAPSULE BY MOUTH NIGHTLY NEEDED FOR SLEEP. tiZANidine (ZANAFLEX) 4 mg tablet Take 4 mg by mouth. zonisamide (ZONEGRAN) 100 mg capsule TAKE 1 TO 2 CAPSULES BY MOUTH EVERY DAY AT BEDTIME Ibuprofen 200 mg cap Take by mouth every 6 hours as needed. As needed ALLERGIES: ALLERGIES No Known Allergies OBJECTIVE PHYSICAL EXAM: AIRWAY: LUNGS: Benign lung exam. CARDIAC: Benign cardiac exam. ABDOMEN: Benign abdominal exam. The remainder of the physical exam is noncontributory. SIGNATURE: Bob Guerrero MD PATIENT NAME: Rosalie Mcdonnell DATE: June 27, 2024 TIME: 1:40 PM PAGER: [phone] documented in this encounter [facility] 06-23-2024 History of Presen t illness Narrative Subjective Patient ID: Rosalie Mcdonnell is a 48 y.o. female. She has had a cold for a couple of weeks. Recently pressure and pain in her right ear. No fever. She is going to have upper and lower endoscopy on Sunday. The following portions of the patient's history were reviewed and updated as appropriate: allergies, current medications, past medical history, past social history, and problem list. Review of Systems Objective Physical Exam Constitutional: Comments: Afebrile and not toxic. HENT: Left Ear: Tympanic membrane and ear canal normal. Ears: Comments: Right otitis media Nose: Comments: Minor nasal congestion Mouth/Throat: Pharynx: No oropharyngeal exudate or posterior oropharyngeal erythema. Pulmonary: Effort: Pulmonary effort is normal. Lymphadenopathy: Cervical: No cervical adenopathy. Assessment/Plan Symptomatic treatment otherwise and if her ear symptoms are not resolved or something more develops she will let me know. Diagnoses and all orders for this visit: Non-recurrent acute suppurative otitis media of right ear without spontaneous rupture of tympanic membrane - azithromycin (ZITHROMAX) 250 mg tablet; Take 2 tablets the first day, then 1 tablet daily for 4 days. documented in this encounter [facility] 06-23-2024 History of Presen t illness Narrative [facility] PRIMARY CARE PHYSICIAN: No primary care provider on file. CC: Nausea, diarrhea, and weight loss HPI: Ms. Mcdonnell is a 48 year old female with no pertinent medical history that presents for evaluation of nausea, diarrhea and weight loss. She has been having issues with diarrhea since February. Stool testing in February negative. For the past 2 months she has been having alternating constipation and diarrhea. Denies blood in stools. She will have bloating with constipation, but otherwise, denies abdominal pain. + Family history of rectal cancer in grandfather. Last colonoscopy about 5 years ago WNL per PT report. Denies family history of IBD. Appetite is decreased. She has lost about 12# in the past 2 months. She endorses nausea that was daily for about 3 weeks and now will have nausea 2-3 times per week. She denies vomiting. PAST MEDICAL HISTORY: PAST MEDICAL HISTORY Diagnosis Date Arthritis Insomnia PAST SURGICAL HISTORY: History reviewed. No pertinent surgical history. FAMILY HISTORY: History reviewed. No pertinent family history. SOCIAL HISTORY: Social History Tobacco Use Smoking status: Former Types: Cigarettes Smokeless tobacco: Never Tobacco comments: Quit when pt was 23 yrs old Substance Use Topics Alcohol use: Yes Comment: socially Drug use: Never MEDICATIONS: Current Outpatient Medications Medication Sig Dispense Refill temazepam (RESTORIL) 15 mg TAKE 1 CAPSULE BY MOUTH NIGHTLY NEEDED FOR SLEEP. tiZANidine (ZANAFLEX) 4 mg tablet Take 4 mg by mouth. zonisamide (ZONEGRAN) 100 mg capsule TAKE 1 TO 2 CAPSULES BY MOUTH EVERY DAY AT BEDTIME Ibuprofen 200 mg cap Take by mouth every 6 hours as needed. As needed No current facility-administered medications for this visit. ALLERGIES: ALLERGIES No Known Allergies COMPLETE REVIEW OF SYSTEMS: All other reviewed and negative other than HPI. PHYSICAL EXAM: 06/23/24 0847 BP: 127/74 Pulse: 98 Temp: 36.8 C (98.2 F) Weight: 67.1 kg (148 lb) Height: 165.1 cm (5' 5 ) Body mass index is 24.63 kg/m . GENERAL: Patient is alert and oriented X3. Normal mood and affect. HEENT: Normal inspection of nose, mouth, and throat. No icterus NECK: No thryoidomegaly or lymphadenopathy. No JVD appreciated. SKIN: Normal to inspection and palpation. No Jaundice. LUNGS: Clear to palpation and auscultation CARDIO: Heart regular rhythm and no edema. No M/R/G appreciated. ABDOMEN: Soft, Non tender, Non distended, no HSM, +BS EXT: No LE edema. No cyanosis or clubbing. Neuro: Symmetrical strength with normal gait. Cranial nerves grossly intact. DATA: Diagnostic tests reviewed for today's visit: No results found for: HB , HCT , WBC , PLT No results found for this basename: GLUC,BUN,CREAT,NA,K,CHLOR,CO2,TP ROT,ALB,CA,ALKPHOS,TBILI,AST,ALT Risk/benefits of procedure reviewed with pt including risk of sedation, bleeding, infection, perforation. Pt agreeable to proceed with procedure. All questions answered. ASSESSMENT/PLAN: 1. Diarrhea, unspecified type - ICD9: 787.91, ICD10: R19.7 (primary diagnosis) Diarrhea since February. She was seen by PCP and stool testing was negative. Currently having alternating constipation and diarrhea. Suspect possible constipation with overflow component. - COLONOSCOPY DIAGNOSTIC - CELIAC SCREEN WITH REFLEX - C-REACTIVE PROTEIN - VITAMIN D 25 HYDROXY - VITAMIN B12 - FERRITIN - IRON AND TIBC - COMPREHENSIVE METABOLIC PANEL - COMPLETE BLOOD COUNT AND DIFFERENTIAL - Start Miralax daily after colonoscopy 2. Abdominal bloating - ICD9: 787.3, ICD10: R14.0 Abdominal bloating with associated nausea - COLONOSCOPY DIAGNOSTIC - EGD DIAGNOSTIC - CELIAC SCREEN WITH REFLEX - C-REACTIVE PROTEIN - VITAMIN D 25 HYDROXY - VITAMIN B12 - FERRITIN - IRON AND TIBC - COMPREHENSIVE METABOLIC PANEL - COMPLETE BLOOD COUNT AND DIFFERENTIAL 3. 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 Physician: Tom Chaney M.D. PRE- AND POSTOPERATIVE DIAGNOSES: Pain secondary to cervical spondylosis without myelopathy. Lesioning was created using radiofrequency at 80 degrees Centigrade for 90 seconds. Two lesions were created at each level. COMPLICATIONS: None. EBL: None IMPLANTS: None. ASSISTANTS: None. SAMPLES TAKEN: None ANTIBIOTICS: None ANESTHESIA: IVCS, 6MG Versed, 100MCG Fentanyl, 30MG Toradol The patient's Mallampati score is 2 The patient's ASA status is 2 IV FLUIDS: Per record. SOLUTION Marcaine 0.25% 3ml with Decadron 10 mg. PROCEDURE DESCRIPTION: After informed consent, the patient was brought to the OR and placed in the prone position. The skin overlying the area was prepped and draped in standard sterile fashion. A 25-gauge needle was used to raise a skin wheal with 2% lidocaine, which was identified under fluoroscopy. Subsequently, a radiofrequency needle with a 5 mm active tip was inserted through the anesthetized area and directed toward the left C2, C3, C4 medial ramus under fluoroscopic guidance. After encountering the same, we had positive sensory stimulation at 0.5 mA and negative motor stimulation at 2.5 mA. Thus, two lesions were created at this level for 90 seconds at 80?C. . Post lesioning we instilled 1 mL from a 5 mL solution of Marcaine 0.25% and Decadron 10 mg. The needles were then removed. The patient was turned supine onto the gurney and transferred to the recovery area in stable condition, to be discharged home after meeting criteria and follow up as per treatment plan. This document serves as a record of the services and decisions personally performed and made by the attending provider. It was created on his/her behalf by a trained health care / medical job titles. The creation of this document is based on the provider?s statements to the health care / medical job titles. Electronically signed by Tom Chaney MD 06/12/24 14:53 EST Electronically signed by Sherice Chowdhury 06/12/2024 14:29 EST [facility] 06-12-2024 Note History of Present I llness CHIEF COMPLAINT: Neck pain HISTORY OF PRESENT ILLNESS: Debilitating spinal pain which worsens with facet loading maneuvers. The patient's axial symptoms, without evidence of nerve compression, have failed physical and medical measures. PHYSICAL EXAM: HEENT: Normocephalic, atraumatic. RESPIRATIONS: Unlabored, clear. CARDIOVASCULAR: Regular rate, rhythm. ABDOMEN: Soft nontender MUSCULOSKELETAL: Pain that does re-create with cervical spine loading. ASSESSMENT: Cervical spondylosis without myelopathy PLAN: For symptomatology that has failed conservative measures and did reveal an 80% reduction in complaints after previous rhizotomy therapy for a period of greater than 6 per less than 12 months with a return to baseline, patient meets criteria for repeating rhizotomy therapy in attempt to improve with quality and function. Risks benefits and alternatives have been discussed, we agree to proceed The patient presents with medical necessity suggestive of the appropriateness of monitored anesthesia care for interventional pain procedure. The rationale includes the presence of the medical comorbidity, anxiety Untreated and unmonitored, there would be expectant adverse cardiac and potentially respiratory events precipitating adverse physical reaction. The use of monitored anesthesia care for the purpose of providing monitored cardiorespiratory response is appropriate to erlin the potential symptomatology of precipitated by untreated and unmonitored medical comorbidity. This patient's condition has been evaluated by myself as the LIP supervising the sedation and has been deemed appropriate for sedation on today's date. Anesthetic Plan: IV conscious sedation [place] [employer] (ASA) Classification: Class I ? normal healthy patient, no disease process Class II ? mild systemic disease, no limit of activity Class III ? severe systemic disease, limitation of activity Class IV ? severe systemic disease that is constant threat to life Class V ? moribund, not expected to survive without procedure E - Emergency Classification: Class 2 Mallampati Airway Assessment: Classification: Class 3 Previous adverse experience and/or complications with sedation and analgesia: [ X ] None [ ] NPO status: [ X ] NPO >8 hours [ ] Other Results Review: No qualifying data available. Smoking status: Did you smoke on the day of surgery?: [ No ] Did you receive counseling not to smoke day of surgery?: [ Yes ] Transportation Arrangements: home with a responsible person Physical Exam Vitals & Measurements HR: 87 (Peripheral) RR: 16 BP: 134/83 SpO2: 98% HT: 167 cm WT: 68 kg Additional Vitals No qualifying data available. This document serves as a record of the services and decisions personally performed and made by the attending provider. It was created on his/her behalf by a trained health care / medical job titles. The creation of this document is based on the provider?s statements to the health care / medical job titles. Problem List/Past Medical History Ongoing Cephalgia Cervical neuritis Cervical postlaminectomy syndrome Cervical spondylosis Cervicalgia Chronic cervical pain Hip pain History of cervical spinal surgery Neck pain Historical No qualifying data Procedure/Surgical History ORIF left elbow C5-6 DISC ARTHROPLASTY (2009) tonsillectomy and septoplasty (2011) Cervical/Thoracic Dorsal Medial Branch Block (Bilateral) (03/01/2017) Cervical/Thoracic Dorsal Medial Branch Block (Bilateral) (03/13/2017) Cervical Radiofrequency Ablation (Right) (04/05/2017) Cervical Radiofrequency Ablation (Left) (04/26/2017) Cervical Radiofrequency Ablation (Left) (03/14/2018) Cervical Radiofrequency Ablation (Right) (03/26/2018) Epidural Blood Patch (07/11/2018) Cervical Radiofrequency Ablation (Left) (12/17/2018) Cervical Radiofrequency Ablation (Right) (12/31/2018) Cervical/Thoracic Transforaminal Epidural Steroid Injection (Bilateral) (05/20/2019) Cervical/Thoracic Transforaminal Epidural Steroid Injection (Bilateral) (07/03/2019) Cervical Radiofrequency Ablation (Left) (08/26/2019) Cervical Radiofrequency Ablation (Right) (09/23/2019) Cervical/Thoracic Transforaminal Epidural Steroid Injection (Right) (02/27/2020) Cervical Radiofrequency Ablation (Left) (04/09/2020) Cervical Radiofrequency Ablation (Right) (04/22/2020) Cervical/Thoracic Transforaminal Epidural Steroid Injection (Right) (2020) Cervical Radiofrequency Ablation (Right) (11/26/2020) Cervical Radiofrequency Ablation (Left) (01/14/2021) Epidural Blood Patch (03/09/2021) Cervical/Thoracic Transforaminal Epidural Steroid Injection (Bilateral) (03/14/2021) Cervical/Thoracic Transforaminal Epidural Steroid Injection (Bilateral) (05/13/2021) Cervical/Thoracic Transforaminal Epidural Steroid Injection (Bilateral) (08/24/2021) Cervical Radiofrequency Ablation (Right) (11/04/2021) Cervical Radiofrequency Ab (more content not included)... [facility] 06-09-2024 Miscellaneous Notes Refill request documented in this encounter [facility] 06-09-2024 Telephone encounter Note Refill request [facility] 05-26-2024 Note PROCEDURE: Radiofreq uency ablation of the right C2, C3, C4 dorsal medial rami under 60 seconds fluoroscopic guidance. Physician: Tom Chaney M.D. PRE- AND POSTOPERATIVE DIAGNOSES: Pain secondary to cervical spondylosis without myelopathy. Lesioning was created using radiofrequency at 80 degrees Centigrade for 90 seconds. Two lesions were created at each level. COMPLICATIONS: None. EBL: None IMPLANTS: None. ASSISTANTS: None. SAMPLES TAKEN: None ANTIBIOTICS: None ANESTHESIA: IV conscious sedation was provided by monitoring RN during procedure for patient comfort. The patient's Mallampati score is 2. The patient's ASA status is 2. IV FLUIDS: 0.9% Sodium Chloride, 6mg Versed, 100mcg Fentanyl SOLUTION Marcaine 0.25% 3ml with Decadron 10 mg. PROCEDURE DESCRIPTION: After informed consent, the patient was brought to the OR and placed in the prone position. The skin overlying the area was prepped and draped in standard sterile fashion. A 25-gauge needle was used to raise a skin wheal with 2% lidocaine, which was identified under fluoroscopy. Subsequently, a radiofrequency needle with a 5 mm active tip was inserted through the anesthetized area and directed toward the right C2, C3, C4 medial ramus under fluoroscopic guidance. After encountering the same, we had positive sensory stimulation at 0.5 mA and negative motor stimulation at 2.5 mA. Thus, two lesions were created at this level for 90 seconds at 80?C. . Post lesioning we instilled 1 mL from a 5 mL solution of Marcaine 0.25% and Decadron 10 mg. The needles were then removed. The patient was turned supine onto the gurney and transferred to the recovery area in stable condition, to be discharged home after meeting criteria and follow up as per treatment plan. This document serves as a record of the services and decisions personally performed and made by the attending provider. It was created on his/her behalf by a trained health care / medical job titles. The creation of this document is based on the provider?s statements to the health care / medical job titles. Electronically signed by Tom Chaney MD 05/26/24 14:12 EST Electronically signed by Jory Parker 05/26/2024 13:21 [facility] 05-26-2024 Note History of Present I llness CHIEF COMPLAINT: Neck pain HISTORY OF PRESENT ILLNESS: Debilitating spinal pain which worsens with facet loading maneuvers. The patient's axial symptoms, without evidence of nerve compression, have failed physical and medical measures. PHYSICAL EXAM: HEENT: Normocephalic, atraumatic. RESPIRATIONS: Unlabored, clear. CARDIOVASCULAR: Regular rate, rhythm. ABDOMEN: Soft nontender MUSCULOSKELETAL: Pain that does re-create with cervical spine loading. ASSESSMENT: Cervical spondylosis without myelopathy. This patient's condition has been evaluated by myself as the LIP supervising the sedation and has been deemed appropriate for sedation on today's date. Anesthetic Plan: IV conscious sedation [place] [employer] (ASA) Classification: Class I ? normal healthy patient, no disease process Class II ? mild systemic disease, no limit of activity Class III ? severe systemic disease, limitation of activity Class IV ? severe systemic disease that is constant threat to life Class V ? moribund, not expected to survive without procedure E - Emergency Classification: Class 2 Mallampati Airway Assessment: Classification: Class 2 Previous adverse experience and/or complications with sedation and analgesia: [ X ] None [ ] NPO status: [ X ] NPO >8 hours [ ] Other Results Review: No qualifying data available. Smoking status: Did you smoke on the day of surgery?: [ No ] Did you receive counseling not to smoke day of surgery?: [ Yes ] Transportation Arrangements: home with a responsible person PLAN: Debilitating mechanical pain does worsen with facet loading maneuvers. For symptomatology that has failed conservative measures and did reveal an 80% reduction in complaints after two diagnostic joint nerve blockade with a baseline return 120 minutes post procedure meets criteria for rhizotomy therapy in attempt to improve with quality and function. Risks benefits and alternatives have been discussed, we agree to proceed. Physical Exam Vitals & Measurements HR: 81 (Peripheral) RR: 16 BP: 134/80 SpO2: 98% HT: 165 cm WT: 65 kg Additional Vitals No qualifying data available. This document serves as a record of the services and decisions personally performed and made by the attending provider. It was created on his/her behalf by a trained health care / medical job titles. The creation of this document is based on the provider?s statements to the health care / medical job titles. Problem List/Past Medical History Ongoing Cephalgia Cervical neuritis Cervical postlaminectomy syndrome Cervical spondylosis Cervicalgia Chronic cervical pain Hip pain History of cervical spinal surgery Neck pain Historical No qualifying data Procedure/Surgical History ORIF left elbow C5-6 DISC ARTHROPLASTY (2009) tonsillectomy and septoplasty (2011) Cervical/Thoracic Dorsal Medial Branch Block (Bilateral) (03/01/2017) Cervical/Thoracic Dorsal Medial Branch Block (Bilateral) (03/13/2017) Cervical Radiofrequency Ablation (Right) (04/05/2017) Cervical Radiofrequency Ablation (Left) (04/26/2017) Cervical Radiofrequency Ablation (Left) (03/14/2018) Cervical Radiofrequency Ablation (Right) (03/26/2018) Epidural Blood Patch (07/11/2018) Cervical Radiofrequency Ablation (Left) (12/17/2018) Cervical Radiofrequency Ablation (Right) (12/31/2018) Cervical/Thoracic Transforaminal Epidural Steroid Injection (Bilateral) (05/20/2019) Cervical/Thoracic Transforaminal Epidural Steroid Injection (Bilateral) (07/03/2019) Cervical Radiofrequency Ablation (Left) (08/26/2019) Cervical Radiofrequency Ablation (Right) (09/23/2019) Cervical/Thoracic Transforaminal Epidural Steroid Injection (Right) (02/27/2020) Cervical Radiofrequency Ablation (Left) (04/09/2020) Cervical Radiofrequency Ablation (Right) (04/22/2020) Cervical/Thoracic Transforaminal Epidural Steroid Injection (Right) (2020) Cervical Radiofrequency Ablation (Right) (11/26/2020) Cervical Radiofrequency Ablation (Left) (01/14/2021) Epidural Blood Patch (03/09/2021) Cervical/Thoracic Transforaminal Epidural Steroid Injection (Bilateral) (03/14/2021) Cervical/Thoracic Transforaminal Epidural Steroid Injection (Bilateral) (05/13/2021) Cervical/Thoracic Transforaminal Epidural Steroid Injection (Bilateral) (08/24/2021) Cervical Radiofrequency Ablation (Right) (11/04/2021) Cervical Radiofrequency Ablation (Left) (12/01/2021) Cervical/Thoracic Nerve Root Injection (Bilateral) (03/30/2022) Cervical Radiofrequency Ablation (Right) (06/23/2022) Cervical Radiofrequency Ablation (Left) (07/07/2022) Cervical/Thoracic Nerve Root Injection (Bilateral) (08/10/2022) Cervical/Thoracic Nerve Root Injection (Bilateral) (03/07/2023) Sacroiliac Joint Injection (03/21/2023) Cervical Radiofrequency Ablation (Right) (06/18/2023) Cervical Radiofrequency Ablation (Left) (07/02/2023) Cervical/Thoracic Nerve Root Injection (Bilateral) ( (more content not included)... [facility] 05-13-2024 Miscellaneous Notes Refill request documented in this encounter [facility] 05-13-2024 Telephone encounter Note Refill request [facility] 12-10-2023 Note PROCEDURE: Bilateral C6-7 nerve root steroid injection under fluoroscopic guidance. Physician: Tom Chaney M.D. PRE- AND POSTOPERATIVE DIAGNOSES: Intervertebral disc stenosis neural canal cervical region SOLUTION USED: Decadron 10MG, Marcaine 0.25% plus lidocaine. COMPLICATIONS: None. ANESTHESIA: Local. PROCEDURE DESCRIPTION: After informed consent was obtained, the patient was brought to the operating room and was placed in the prone position. Standard monitoring was applied. The skin overlying the area was prepped and draped in standard sterile fashion. A 25-gauge spinal needle was inserted over the anesthetized area and directed toward the indicated nerve root foramen under fluoroscopic guidance. Omnipaque dye 0.3 mL was injected and appropriate epidural distribution was confirmed without intravascular or intrathecal spread. Subsequently, 1 mL of the corticosteroid and local anesthetic solution was injected. The needle was removed. The patient was then turned supine onto the [place] and transferred to the recovery area in stable condition, to be discharged home after meeting criteria and follow up as per treatment plan. This document serves as a record of the services and decisions personally performed and made by the attending provider. It was created on his/her behalf by a trained health care / medical job titles. The creation of this document is based on the provider?s statements to the health care / medical job titles. Electronically signed by Tom Chaney MD 12/10/23 09:00 EDT Electronically signed by Sherice Chowdhury 12/10/2023 08:58 EDT [facility] 12-10-2023 Note History of Present I llness CHIEF COMPLAINT: Neck pain HISTORY OF PRESENT ILLNESS: Debilitating neck pain which worsens with Spurling's maneuver, failing conservative measures markedly impairing function indicating the appropriateness for nerve root epidural steroid blockade. PHYSICAL EXAM: HEENT: Normocephalic, atraumatic. RESPIRATIONS: Unlabored ABDOMEN: Soft nontender MUSCULOSKELETAL: Pain that does re-create Spurling's maneuver. REVIEW OF SYSTEMS: Brief review of systems was conducted. Complaints are noncontributory for cauda equina or myelopathic complaints, fever chills or sweats or unintended weight loss or gain. ASSESSMENT: Intervertebral disc stenosis neural canal cervical region PLAN: Neurogenic discomfort secondary to disc and spondylitic reactivity precipitating neural foraminal narrowing and lateral recess stenosis. For complaints that have failed conservative measures, candidacy has been established for epidural steroid blockade nerve root approach for diagnostic and potential therapeutic benefit. Risks benefits alternatives have been discussed, we agree to proceed. Physical Exam Vitals & Measurements HR: 82 (Peripheral) RR: 16 BP: 112/79 SpO2: 96% HT: 167 cm WT: 68 kg Additional Vitals No qualifying data available. This document serves as a record of the services and decisions personally performed and made by the attending provider. It was created on his/her behalf by a trained health care / medical job titles. The creation of this document is based on the provider?s statements to the health care / medical job titles. Problem List/Past Medical History Ongoing Cephalgia Cervical neuritis Cervical postlaminectomy syndrome Cervical spondylosis Cervicalgia Chronic cervical pain History of cervical spinal surgery Neck pain Historical No qualifying data Procedure/Surgical History ORIF left elbow C5-6 DISC ARTHROPLASTY (2009) tonsillectomy and septoplasty (2011) Cervical/Thoracic Dorsal Medial Branch Block (Bilateral) (03/01/2017) Cervical/Thoracic Dorsal Medial Branch Block (Bilateral) (03/13/2017) Cervical Radiofrequency Ablation (Right) (04/05/2017) Cervical Radiofrequency Ablation (Left) (04/26/2017) Cervical Radiofrequency Ablation (Left) (03/14/2018) Cervical Radiofrequency Ablation (Right) (03/26/2018) Epidural Blood Patch (07/11/2018) Cervical Radiofrequency Ablation (Left) (12/17/2018) Cervical Radiofrequency Ablation (Right) (12/31/2018) Cervical/Thoracic Transforaminal Epidural Steroid Injection (Bilateral) (05/20/2019) Cervical/Thoracic Transforaminal Epidural Steroid Injection (Bilateral) (07/03/2019) Cervical Radiofrequency Ablation (Left) (08/26/2019) Cervical Radiofrequency Ablation (Right) (09/23/2019) Cervical/Thoracic Transforaminal Epidural Steroid Injection (Right) (02/27/2020) Cervical Radiofrequency Ablation (Left) (04/09/2020) Cervical Radiofrequency Ablation (Right) (04/22/2020) Cervical/Thoracic Transforaminal Epidural Steroid Injection (Right) (2020) Cervical Radiofrequency Ablation (Right) (11/26/2020) Cervical Radiofrequency Ablation (Left) (01/14/2021) Epidural Blood Patch (03/09/2021) Cervical/Thoracic Transforaminal Epidural Steroid Injection (Bilateral) (03/14/2021) Cervical/Thoracic Transforaminal Epidural Steroid Injection (Bilateral) (05/13/2021) Cervical/Thoracic Transforaminal Epidural Steroid Injection (Bilateral) (08/24/2021) Cervical Radiofrequency Ablation (Right) (11/04/2021) Cervical Radiofrequency Ablation (Left) (12/01/2021) Cervical/Thoracic Nerve Root Injection (Bilateral) (03/30/2022) Cervical Radiofrequency Ablation (Right) (06/23/2022) Cervical Radiofrequency Ablation (Left) (07/07/2022) Cervical/Thoracic Nerve Root Injection (Bilateral) (08/10/2022) Cervical/Thoracic Nerve Root Injection (Bilateral) (03/07/2023) Sacroiliac Joint Injection (03/21/2023) Cervical Radiofrequency Ablation (Right) (06/18/2023) Cervical Radiofrequency Ablation (Left) (07/02/2023) Medications Inpatient No active inpatient medications Home ibuprofen, 200 mg, Oral, PRN Restoril 15 mg oral capsule, 15 mg= 1 caps, Oral, HS (at bedtime), PRN Zanaflex 4 mg oral capsule, 4 mg= 1 caps, Oral, HS (at bedtime) Zonegran 100 mg oral capsule, 1-2caps, Oral, HS (at bedtime), 2 refills Allergies No Known Allergies Social History 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 Substance Abuse Denies All Tobacco Former smoker, quit more than 30 days ago Use:. Family History Heart disease: Father. Hyperlipidemia: Mother and Father. Hypertension: Mother and Father. Malignant tumor of lung: Mother. Health Status Family Member(s) Lab Results Microbiology - Current Encounter No qualifying data available. Electronically signed by Tom Chaney MD 12/10/23 08:34 EDT Electronically signed by (more content not included)... [facility] 10-24-2023 Miscellaneous Notes Refill request documented in this encounter [facility] 10-24-2023 Telephone encounter Note Refill request [facility] 09-27-2023 History of Presen t illness Narrative Subjective Patient ID: Rosalie Mcdonnell is a 48 y.o. female. Comes in for wellness. 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 She has been well and has no specific concerns. She is changing jobs so there is a little bit of stress there. The following portions of the patient's history were reviewed and updated as appropriate: allergies, current medications, past family history, past medical history, past social history, past surgical history, and problem list. Review of Systems Constitutional: Negative for activity change and unexpected weight change. HENT: Negative for trouble swallowing and voice change. Eyes: Negative for visual disturbance. Respiratory: Negative for cough and shortness of breath. Cardiovascular: Negative for chest pain and leg swelling. Gastrointestinal: Negative for abdominal pain and blood in stool. Genitourinary: Negative for dysuria and hematuria. Musculoskeletal: She gets some injections for her neck pain and those are helpful. Neurological: Negative for dizziness, light-headedness and headaches. Objective Physical Exam Constitutional: Appearance: Normal appearance. Comments: Blood pressure normal HENT: Right Ear: Tympanic membrane normal. Left Ear: Tympanic membrane normal. Mouth/Throat: Pharynx: Oropharynx is clear. Eyes: General: No scleral icterus. Pupils: Pupils are equal, round, and reactive to light. Neck: Comments: No thyroid enlargement or neck mass Cardiovascular: Rate and Rhythm: Normal rate and regular rhythm. Heart sounds: No murmur heard. Pulmonary: Effort: Pulmonary effort is normal. Breath sounds: Normal breath sounds. Abdominal: General: There is no distension. Palpations: Abdomen is soft. Tenderness: There is no abdominal tenderness. Musculoskeletal: Right lower leg: No edema. Left lower leg: No edema. Neurological: General: No focal deficit present. Mental Status: She is alert. Assessment/Plan Medication reviewed. Sleeping medication use reviewed and remains appropriate. Labs ordered. 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 She had a colonoscopy around 2019 with recommended 10 year follow-up. Follow-up here in 6 months for medication check and annually for wellness. Diagnoses and all orders for this visit: Well adult exam - Lipid profile; Future - Comprehensive metabolic panel; Future Primary insomnia - temazepam (RESTORIL) 15 mg capsule; Take 1 capsule (15 mg total) by mouth nightly as needed for sleep. documented in this encounter [facility] 08-29-2023 Miscellaneous Notes REFILL REQUEST documented in this encounter [facility] 08-29-2023 Telephone encounter Note REFILL REQUEST [facility] 08-02-2023 Miscellaneous Notes Refill request documented in this encounter [facility] 08-02-2023 Telephone encounter Note Refill request [facility] 07-17-2023 Miscellaneous Notes Refill request documented in this encounter [facility] 07-17-2023 Telephone encounter Note Refill request [facility] 01-18-2023 Evaluation note Encounter Date Diagnosis Assessment Notes Dec, Contact with and (suspected) exposure to covid-19 (ICD-10 - Z20.822) Dec, Acute non-recurren t maxillary sinusitis (ICD-10 - J01.00) Discussed with patient symptoms likely remain viral at this time. Discussed antibiotics do not treat viral illnesses unfortunately. Discussed typical duration of viral URI is 7 to 12 days. Patient is advised to use Mucinex DM, Claritin-D [id number] for symptomatic treatment. If symptoms or not gradually improving over the next 3 to 4 days, fill printed prescription for amoxicillin and finish entire course. Follow-up with PCP if symptoms or not improved with 5 to 7 days of antibiotic. Patient verbalized understanding of treatment plan. Rapid COVID test negative in office. Discussed use of probiotics such as align or Culturelle for diarrhea. Push fluids. [place] diet. SPARQCode Other Evaluation noteNo assessment information available [facility] Work Phone: Evaluation note* Diagnosis Primary insomnia Persistent disorder of initiating or maintaining sleep documented in this encounter [facility] [email or web address] note* Diagnosis Primary insomnia Persistent disorder of initiating or maintaining sleep documented in this encounter [facility] [email or web address] note* Diagnosis Well adult exam- Primary Routine general medical examination at a health care facility Primary insomnia Persistent disorder of initiating or maintaining sleep documented in this [facility] Diagnosis Non-recurrent acute suppurative otitis media of right ear without spontaneous rupture of tympanic membrane- Primary [facility] this [facility] Diagnosis Diarrhea, unspecified type- Primary Abdominal bloating Flatulence, eructation, and gas pain Weight loss, abnormal Loss of weight [facility] this [facility] Diagnosis Special screening for malignant neoplasms, colon- Primary [facility] this [facility] Diagnosis Diarrhea, unspecified type Abdominal bloating Flatulence, eructation, and gas pain Weight loss, abnormal Loss of weight documented in this [facility]* Diagnosis Nausea- Primary Nausea alone documented in this encounter [facility] Narrative - Reported* Type Description Date Medical History Arthritis Medical History insomnia Surgical History tonsillectomy and adenoidectomy Surgical History septoplasty Surgical History neck disc replacement Hospitalization History see above SPARQCode Other InstructionsNot on filedocumented in this encounter [facility] filed[facility] in this [facility] SystemInstructionsNot on filedocumented in this encounter [facility] SystemInstructionsNot on filedocumented in this encounter [facility] SystemInstructionsNot on filedocumented in this encounter [facility] (narrative)* Outpatient Procedure (Routine) - Ref Not Required Specialty Diagnoses / Procedures Referred By Contac t Referred To Contact ENDOSCOPY Diagnoses Abdominal bloating Weight loss, abnormal Procedures EGD DIAGNOSTIC ESOPHAGOGASTRODUODENOSCOPY TRANSORAL DIAGNOSTIC Aspen Rizvi APRN.[employer] [address] [place] [phone] [facility] [address] [facility] [address] [place] [phone] Referral ID Status Reason Start Date Expiration Date Visits Requested Visits Authorized [id number] Ref Not Required Auto-Generat ed Referral 06/23/2024 06/23/2025 1 1 * Outpatient Procedure (Routine) - Ref Not Required Specialty Diagnoses / Procedures Referred By Contac t Referred To Contact ENDOSCOPY Diagnoses Diarrhea, unspecified type Abdominal bloating Procedures COLONOSCOPY DIAGNOSTIC COLONOSCOPY FLX DX W/COLLJ SPEC WHEN PFRMD Aspen Rizvi APRN.[employer]ACH[employer] TENDER [address] [facility] [address] [place] [address] [facility] [address] [facility] [address] [place] [address] Referral ID Status Reason Start Date Expiration Date Visits Requested Visits Authorized [id number] Ref Not Required Auto-Generat ed Referral 06/23/2024 06/23/2025 1 1 [facility] for referral (narrative)* Outpatient Procedure (Routine) - Ref Not Required Specialty Diagnoses / Procedures Referred By Contac t Referred To Contact ENDOSCOPY Diagnoses Abdominal bloating Weight loss, abnormal Procedures EGD DIAGNOSTIC ESOPHAGOGASTRODUODENOSCOPY TRANSORAL DIAGNOSTIC Aspen Rizvi APRN.[employer] [address] [facility] [address] [place] [address] [facility] [address] [place] [address] Referral ID Status Reason Start Date Expiration Date Visits Requested Visits Authorized [id number] Ref Not Required Auto-Generat ed Referral 06/23/2024 06/23/2025 1 1 * Outpatient Procedure (Routine) - Ref Not Required Specialty Diagnoses / Procedures Referred By Contac t Referred To Contact ENDOSCOPY Diagnoses Diarrhea, unspecified type Abdominal bloating Procedures COLONOSCOPY DIAGNOSTIC COLONOSCOPY FLX DX W/COLLJ SPEC WHEN PFRMD Aspen Rizvi APRN.[employer] T[employer]ER [address] [place] [address] [facility] [address] [place] [address] Referral ID Status Reason Start Date Expiration Date Visits Requested Visits Authorized [id number] Ref Not Required Auto-Generat ed Referral 06/23/2024 06/23/2025 1 1 [facility]* Outpatient Procedure (Routine) - Ref Not Required Specialty Diagnoses / Procedures Referred By Contac t Referred To Contact ENDOSCOPY Diagnoses Abdominal bloating Weight loss, abnormal Procedures EGD DIAGNOSTIC ESOPHAGOGASTRODUODENOSCOPY TRANSORAL DIAGNOSTIC Aspen Rizvi APRN.[employer] TENDER [address] [facility] [address] [place] [address] [facility] [address] [place] [address] Referral ID Status Reason Start Date Expiration Date Visits Requested Visits Authorized [id number] Ref Not Required Auto-Generat ed Referral 06/23/2024 06/23/2025 1 1 [facility] Summary Purpose Family History No Family History Records FoundNo Family History Records FoundNo Family History Records FoundNo Family History Records FoundNo Family History Records FoundNo Family History Records FoundNo Family History Records FoundNo Family History Records Found Advance Directives Advance Directive Response Recorded Date/ Time Advance Directives No June 8:47am Additional Source Comments INFORMATION SOURCE (unrecogn ized section and content) DATE CREATED AUTHOR 03/17/2022 [facility] DATE CREATED AUTHOR AUTHOR'S ORGANIZ ATION 06/03/2022 [facility] Specialist DATE CREATED AUTHOR AUTHOR'S ORGANIZ ATION 03/22/2023 [facility] DATE CREATED AUTHOR AUTHOR'S ORGANIZ ATION 01/28/2024 [facility] Specialists EPIC DATE CREATED AUTHOR AUTHOR'S ORGANIZ ATION 03/13/2024 [facility] DATE CREATED AUTHOR AUTHOR'S ORGANIZ ATION 06/26/2024 [facility] DATE CREATED AUTHOR AUTHOR'S ORGANIZ ATION 07/09/2024 [facility] DATE CREATED AUTHOR AUTHOR'S ORGANIZ ATION 07/19/2024 [facility] REASON FOR VISIT (unrecogniz ed section and content) Reason Onset Date Comments Med Refill 07/17/2023 Reason Onset Date Comments Med Refill 08/02/2023 Reason Onset Date Comments Med Refill 08/14/2023 Reason Onset Date Comments Med Refill 08/29/2023 Reason Onset Date Comments Med Refill 09/26/2023 Reason Comments Annual Exam Wellness, 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 Reason Onset Date Comments Med Refill 10/24/2023 Reason Onset Date Comments Med Refill 05/13/2024 Reason Onset Date Comments Med Refill 06/09/2024 Reason Comments Earache Right ear Reason Comments Nausea Diarrhea Consult Lost 12lbs in one mo nth Reason Onset Date Comments Med Refill 06/23/2024 Reason Comments GI Problem Not being able to ea t, saw GI and had testing/labs done Care Teams (unrecognized sec tion and content) Team Status: Inactive Member Role Status Dates Danyelle Callahan NP-C Attending Provider Active [employer] Relationship Specialty Start Date End Date Ninfa Longoria MD [address] [place] [address], [address] [place] [address] PCP - General Pediatrics 12/29/16 [employer] Relationship Specialty Start Date End Date Ninfa Longoria MD [address] [place] [address], [address] [place] [address] PCP - General Pediatrics 12/29/16 [employer] Relationship Specialty Start Date End Date Ninfa Longoria MD [address] [place] [address], [address] [place] [address] PCP - General Pediatrics 12/29/16 [employer] Relationship Specialty Start Date End Date Ninfa Longoria MD [address] [place] [address], [address] [place] [address] PCP - General Pediatrics 12/29/16 [employer] Relationship Specialty Start Date End Date Ninfa Longoria MD [address] [place] [address], [address] [place] [address] PCP - General Pediatrics 12/29/16 [employer] Relationship Specialty Start Date End Date Ninfa Longoria MD [address] [place] [address], [address] [place] [address] PCP - General Internal Medicine 06/23/24 [employer] Relationship Specialty Start Date End Date Ninfa Longoria MD [address] [place] [address], [address] [place] [address] PCP - General Internal Medicine 06/23/24 [employer] Relationship Specialty Start Date End Date Ninfa Longoria MD [address] [place] [address], [address] [place] [address] PCP - General Internal Medicine 06/23/24 [employer] Relationship Specialty Start Date End Date Ninfa Longoria MD [address] [place] [address], [address] [place] [address] PCP - General Pediatrics 12/29/16 [employer] Relationship Specialty Start Date End Date Ninfa Longoria MD [address] [place] [address], [address] [place] [address] PCP - General Family Medicine 11/19/23 Goals (unrecognized section and content) Goals may be documented in a n alternate section Source Comments (unrecognize d section and content) In the event this informatio n is protected by the Federal Confidentiality of Alcohol and Drug Abuse Patient Records regulations: The Federal rules restrict any use of the information to criminally investigate or prosecute any alcohol or drug abuse patient.[facility] the event this information is protected by the Federal Confidentiality of Alcohol and Drug Abuse Patient Records regulations: The Federal rules restrict any use of the information to criminally investigate or prosecute any alcohol or drug abuse patient.[facility] Hospital[facility] the event this information is protected by the Federal Confidentiality of Alcohol and Drug Abuse Patient Records regulations: The Federal rules restrict any use of the information to criminally investigate or prosecute any alcohol or drug abuse patient.[facility] FOR RECORDS PERTAINING TO PATIENTS WHO ARE OR HAVE BEEN ENROLLED IN A CHEMICAL DEPENDENCY/SUBSTANCEABUSE PROGRAM, SOME INFORMATION MAY BE OMITTED. This clinical summary was aggregated from multiple sources. Caution should be exercised in using it in the provision of clinical care. This summary normalizes information from multiple sources, and as a consequence, information in this document may materially change the coding, format and clinical context of patient data. In addition, data may be omitted in some cases. CLINICAL DECISIONS SHOULD BE BASED ON THE PRIMARY CLINICAL RECORDS. [facility] [employer] [facility]. provides no warranty or guarantee of the accuracy or completeness of information in this document.
[2024-08-04 11:15] LABS: Free T3 2.63 pg/mL (2.18-3.98); Glucose 76 mg/dL (74-106); Thyroid Stimulating Hormone 1.917 uIU/mL (0.358-3.740)
[2024-08-04 11:40] LABS: Estimated Average Glucose 100 mg/dL; Glycohemoglobin A1C 5.1 % (4.5-6.2)
[2024-08-04 12:20] LABS: Free T4 0.77 ng/dL (0.76-1.46)
[2024-08-05 04:06] LABS: DHEA-Sulfate 20.3 ug/dL (41.2-243.7); Estradiol 73.2 pg/mL (.); Progesterone 2.7 ng/mL (.); Sex Horm Binding Glob, Serum 45.6 nmol/L (24.6-122.0)
[2024-08-05 11:08] LABS: Insulin 31.8 uIU/mL (2.6-24.9)
[2024-08-05 15:11] LABS: Thyroglobulin Antibody <1.0 IU/mL (0.0-0.9); Thyroid Peroxidase (TPO) Ab <9 IU/mL (0-34)
[2024-08-06 19:11] LABS: Free Testosterone(Direct) 0.4 pg/mL (0.0-4.2); Reverse T3, Serum 10.6 ng/dL (9.2-24.1); Testosterone <3 ng/dL (4-50)
== END 2024-08-04 10:09 | disposition home or self-care (01) ==
PROVIDERS: PCP Internal Medicine; Visit Provider Obstetrics & Gynecology
DX: E34.9 Endocrine disorder, unspecified (principal); R63.4 Abnormal weight loss; R63.0 Anorexia; K59.09 Other constipation; R19.7 Diarrhea, unspecified
CPT/HCPCS: 36415; 82306; 82530; 82627; 82670; 82679; 82728; 82947; 83036; 83525; 84144; 84260; 84270; 84402; 84403; 84432; 84436; 84439; 84443; 84481; 84482; 84681; 86376; 86800

== ENCOUNTER 2024-12-01 09:05 | Outpatient (OUT) | payer BC, SELFPAY ==
--- OUTSIDE RECORDS SUMMARY | 2024-12-01 09:14 | XMS_ITS | CCD ---
Author Organization [facility] CliniSyhi Care Team Providers Care Manager Gift Name Role Phone NINI, DR JIMENEZ Attending Unavailable NINI, DR JIMENEZ Consulting Unavailable NINI, DR JIMENEZ Admitting Unavailable Dai Ramirez Unavailable REGGIE Callahan Attending Provider [phone] Danyelle Callahan Attending Unavailable Danyelle Callahan Admitting Unavailable Ninfa Longoria MD Primary Care Provider ASPEN RIZVI Referring Unavailable NINFA LONGORIA Primary Care Unavailabl e NINFA LONGORIA Attending Unavailable NINFA LONGORIA Referring [...] Unavailable Ninfa Longoria MD Primary Care Provider [phone] Ninfa Longoria MD Primary Care Provider NINFA LONGORIA Referring Unavailable NINFA LONGORIA Primary Care Unavailable RANDY TERRAZAS Referring Unavailable NINFA LONGORIA Primary Care Unavailable NINFA LONGORIA Attending Unavailable NINFA LONGORIA Referring Unavailable NINFA LONGORIA Primary Care Unavailable NINFA LONGORIA Referring Unavailable NINFA LONGORIA Primary Care Unavailable NINFA LONGORIA Attending Unavailable NINFA LONGORIA Referring Unavailable NINFA LONGORIA Primary Care Unavailable NINFA LONGORIA Attending Unavailable NINFA LONGORIA Referring Unavailable NINFA LONGORIA Primary Care Unavailable TOYA GARCIAS Referring Unavailable JENNIFER SOLIS Admitting Unavailable JENNIFER SOLIS Attending Unavailable JENNIFER SOLIS Admitting Unavailable JENNIFER SOLIS Attending Unavailable JENNIFER SOLIS Attending Unavailable JENNIFER SOLIS Admitting Unavailable Ninfa Longoria MD Primary Care Provider RANDY TERRAZAS Attending Unavailable ZAIN BURTON Attending Unavailable RANDY TERRAZAS Attending Unavailable RANDY TERRAZAS Attending Unavailable Ninfa Longoria MD Primary Care Provider [phone] JERMAINE PARDO Primary Care Unavailable EDVIN, DO JERMAINE Simon Attending Unavailable EDVIN, DO JERMAINE Simon Attending Unavailable JERMAINE PARDO Primary Care Unavailable JERMAINE PARDO Primary Care Unavailable Arthur GONZALEZ, [facility] Unavail alesia GRAYSON, Criselda Contreras Attending Randy Longoria MD, [facility] Unavail alesia Chaney MD, Tom Gardiner Attending Harini Longoria MD, [facility] Unavail alesia Chaney MD, Tom Gardiner Attending Harini Chaney MD, Tom Gardiner Attending Harini Longoria MD, [facility] Unavail alesia Longoria MD, [facility] Unavail able Geovanni GRAYSON, Criselda Contreras Attending Unav ailable Geovanni GRAYSON, Criselda Contreras Attending Unajulia Longoria MD, [facility] Unavail able Geovanni GRAYSON, Criselda Contreras Attending Unav ailable Geovanni GRAYSON, Criselda Contreras Attending Randy Longoria MD, [facility] Unavail alesia Longoria MD, [facility] Unavail alesia Chaney MD, Tom Gardiner Attending Harini Longoria MD, [facility] Unavail alesia Chaney MD, Tom Gardiner Attending Harini Chaney MD, Tom Gardiner Attending Harini Longoria MD, [facility] Unavail alesia Longoria MD, [facility] Unavail alesia Chaney MD, Tom Gardiner Attending Harini Longoria MD, [facility] Unavail alesia Chaney MD, Tom Gardiner Attending Harini luke Medications Current Medications Medication Drug Class(es) Dates Sig (Normalized) Sig (Original) amoxicillin 875 mg oral tablet (1 source) Penicillin-class Antibacterial Start: 01-18-2023 take 1 tablet by mouth every twelve hours Amoxicillin 875 MG 1 tablet Orally q12hrs for 7 days Dec, Active estradiol 0.5 mg oral tablet (7 sources) Estrogen Start: 11-25-2024 End: 12-25-2024 take 1 tablet by mouth once daily estradiol (Estrace) 0.5 MG tablet Indications: Hormone imbalance , Hormone disorder TAKE 1 TABLET (0.5 MG) BY MOUTH DAILY FOR 30 DAYS 30 tablet 3 11/25/2024 12/25/2024 Active Start: 08-04-2024 End: 09-03-2024 take 1 tablet by mouth once daily estradiol (Estrace) 0.5 MG tablet Indications: Hormone imbalance , Hormone disorder Take 1 tablet (0.5 mg) by mouth Daily Take 1 tablet by mouth for 30 days 30 tablet 3 08/04/2024 Active ibuprofen 200 mg oral capsule (3 sources) Nonsteroidal Anti-inflammatory Drug Ibuprofen 200 mg cap Take by mouth every 6 hours as needed. As needed Active levonorgestrel 0.653805 mg/hr intrauterine system (16 sources) Progestin, Progestin-containing Intrauterine Device Levonorgestrel (Kirstin na, 52 MG,) 20 MCG/DAY intrauterine device 52 mg by Intrauterine route if needed (every 5 years) Active levonorgestreL ( MIRENA) 21 mcg/24hr (up to 8 yrs) 52 mg IUD 1 each by intrauterine route. Active ondansetron 4 mg disintegrating oral tablet (8 sources) Serotonin-3 Receptor Antagonist Start: 07-18-2024 End: 09-02-2024 take 1 tablet by mouth every eight hours as needed for nausea and vomiting and nausea and nausea ondansetron ODT (ZOFRAN ODT) 4 mg disintegrating tablet Indications: Nausea Dissolve 1 tablet (4 mg total) on tongue every 8 (eight) hours as needed for nausea or vomiting. 20 tablet 09/02/2024 Active temazepam 15 mg oral capsule (20 sources) Benzodiazepine Start: 07-08-2024 End: 10-27-2024 take 1 capsule by mouth once daily as needed for sleep temazepam (RESTORIL) 15 mg capsule Indications: Primary insomnia Take 1 capsule (15 mg total) by mouth nightly as needed for sleep. 30 capsule 1 10/27/2024 Active Restoril Active tiZANidine 4 mg oral tablet (20 sources) Central alpha-2 Adrenergic Agonist Start: 01-31-2024 take 1 tablet by mouth once daily tiZANidine (ZANAFLEX) 4 mg tablet Take 1 tablet (4 mg total) by mouth nightly. 90 tablet 1 06/23/2024 Active Zanaflex Active zonisamide 100 mg oral capsule (20 sources) Anti-epileptic Agent Start: 05-23-2019 take 1 capsule by mouth once zonisamide (Zonegran) 100 MG capsule Take 100 mg by mouth 1 (one) time 05/23/2019 Active Completed/Discontinued Medications Medication Drug Class(es) Dates [...] Classification Problem Date Documented Da te Episodic/Chronic Abdominal pain (3 sources) Right upper quadrant pain; Translations: [Right upper quadrant pain] Onset: 08-18-2024 08-08-2024 Episodic Contraceptive and procreative management (3 sources) Patient encounter status; Translations: [Encounter for removal of intrauterine contraceptive device] Onset: 10-27-2024 10-27-2024 Episodic Deficiency and other anemia (1 source) Iron deficiency anemia; Translations: [Iron deficiency anemia, unspecified] Episodic Immunizations and screening for infectious disease (1 source) Encounter for screening for human papillomavirus (HPV); Translations: [ENC SCREENING HUMAN PAPILLOMAVIRUS] Onset: 02-17-2022 Episodic Miscellaneous mental health disorders (13 sources) Primary insomnia; Translations: [Primary insomnia] Onset: 08-06-2020 08-06-2024 Chronic Nausea and vomiting (3 sources) Nausea; Translations: [Nausea] Onset: 07-18-2024 09-02-2024 Episodic Other connective tissue disease (1 source) Pain in left finger(s); Translations: [Pain in left finger(s)] Onset: 10-14-2024 Episodic Other gastrointestinal disorders (2 sources) Abdominal bloating; Translations: [Abdominal distension (gaseous)] 06-23-2024 Episodic Other nutritional; endocrine; and metabolic disorders (2 sources) Abnormal weight loss; Translations: [Abnormal weight loss] 06-23-2024 Episodic Other nutritional; endocrine; and metabolic disorders (7 sources) Weight loss; Translations: [Abnormal weight loss] Onset: 08-04-2024 08-04-2024 Episodic Other upper respiratory infections (1 source) Acute maxillary sinusitis, unspecified Episodic Otitis media and related conditions (1 source) Acute suppurative otitis media without spontaneous rupture of ear drum, right ear; Translations: [Acute suppurative otitis media without spontaneous rupture of ear drum, right ear] Onset: 06-23-2024 Episodic Unclassified (1 source) Pain in left foot; Translations: [Pain in left foot] Onset: 03-19-2023 Unclassified (1 source) GI Problem Onset: 07-18-2024 Unclassified (1 source) Earache Onset: 06-23-2024 Unclassified (1 source) music in her stool Onset: 03-11-2024 Unclassified (1 source) Annual Exam Onset: 09-27-2023 Past or Other Problems Problem Classification Problem Date Documented Da te Episodic/Chronic Mood disorders (8 sources) Mood disorders Onset: 09-27-2023 09-27-2023 Nonspecific chest pain (2 sources) Chest pain, unspecified; Translations: [Chest pain, unspecified] Onset: 01-14-2024 Episodic Nutritional deficiencies (8 sources) Iron deficiency; Translations: [Iron deficiency] Onset: 08-06-2020 08-06-2020 Episodic Other endocrine disorders (15 sources) Disorder of endocrine system; Translations: [Endocrine disorder, unspecified] Onset: 08-04-2024 08-04-2024 Episodic Other gastrointestinal disorders (11 sources) Diarrhea; Translations: [Diarrhea, unspecified] Onset: 08-04-2024 06-23-2024 Episodic Other gastrointestinal disorders (9 sources) Constipation; Translations: [Other constipation] Onset: 08-04-2024 08-04-2024 Episodic Other gastrointestinal disorders (1 source) Diarrhea, unspecified; Translations: [Diarrhea, unspecified] Onset: 03-11-2024 Episodic Other lower respiratory disease (1 source) Cough Onset: 01-14-2024 Episodic Other nutritional; endocrine; and metabolic disorders (9 sources) Decrease in appetite; Translations: [Anorexia] Onset: 08-04-2024 08-04-2024 Episodic Other nutritional; endocrine; and metabolic disorders (2 sources) Weight decreased; Translations: [Abnormal weight loss] Onset: 08-04-2024 08-04-2024 Episodic Other screening for suspected conditions (not mental disorders or infectious disease) (6 sources) Encounter for screening for malignant neoplasm of cervix; Translations: [Patient encounter status] Onset: 02-14-2022 Episodic Spondylosis; intervertebral disc disorders; other back problems (2 sources) Pain in thoracic spine; Translations: [Pain in thoracic spine] Onset: 01-14-2024 Episodic Unclassified (1 source) Contact with and (suspected) exposure to covid-19 Z20.822 Results Test Name Value Interpretation Reference Range Facility Pain Management Office/Clini c Noteon 11-24-2024 Pain Management Office/Clinic Note Chief Complaint neck pain History of Present Illness Patient presents today for evaluation regarding chronic cervical pain. Patient reports pain severe enough once again to affect activities a living and quality of life. Historically, patient grinders greater than 80% improvement of cervical pain with radiofrequency ablation C2, C3, C4 with relief lasting approximately 6 months. She reports pain severe enough once again to repeat intervention Patient has engaged in a 6 week course of provider directed, home based physiological therapies within the last 3 months. In addition, a six-week trial of activity modification has failed to give reprieve. Patient has also failed to respond optimally to oral analgesic regimen Oswestry Disability Form AM Behavior: Worse PM Pain Intensity: The pain is moderate at the moment PM Last ORT/Med Mgmt Agreement: 07/07/24 Day Progresses Behavior: Better PM Personal Care: I can look after myself without causing extra pain PM Behavior: Worse PM Sitting: Pain prevents me from sitting more than one hour Pain location and laterality: neck pain PM Pain Lifting: I can lift heavy weights, but it gives me extra pain Pain quality: Aching, Burning, Sharp PM Walking: Pain does not prevent me from walking Pain Pattern: Constant PM Standing: I can stand as long as I want, but it gives me extra pain Pain rate at rest: 2 PM Sleeping: Because of pain I have less than 6 hours of sleep Pain rate with activity: 7 PM Sex Life: My sex life is normal and causes no pain/NA Cold/Ice: Alleviating PM Social Life: My social life is normal, but increases the degree of pain Lying: Alleviating PM Traveling: I can travel anywhere but it gives me extra pain Sitting: Aggravating PM Oswestry Score: 20 Sensory impairment location: tingling at times in the right side of face PM Oswestry Score Interpretation: 0% to 20%Minimal Disability: The patient can cope with most living activities. Usually no treatment is indicated apart from advice on lifting, sitting and exercise. Pain since last visit: Worse Date Tens: hx Date Chiropractor: hx Date PT: hx Date Injections: prn Date Surgery: 2009 Frequency Surgery: x1 Effective Surgery: cervical fusion by Venkat Isaacs Comments Surgery: cervical Comments Other: HEP - strength exercises and stretching Recent testing: No Loss of bladder/bowel: Denies [...] plan Physical Exam Vitals & Measurements HR: 77 (Peripheral) RR: 16 BP: 108/67 HT: 165 cm General -Appears stated age. No apparent distress. Psychological - Normal mood and affect. HEENT - Normocephalic/Atraumat ic Neurologic-alert and oriented x4 Respiratory - No obvious distress, No shortness of breath. Patient reports an increase in cervical pain with cervical facet loading maneuvers, concordant with pain symptoms, which localized at approximately C2-3, C3-4 bilaterally right greater than left Additional Vitals BP Position/Location: Sitting Assessment and Plan: 1. Cervical spondylosis Patient meets criteria for repeat cervical radiofrequency ablation at C2, C3, C4 on the basis of: 1. Patient underwent rhizotomy therapy of the right and left C2, C3, C4 segment May, which afforded greater than 80% improvement of pain for duration of more than 6 months, less than 1 year with return of pain to baseline. Specifically, patient had rated preoperative pain on a scale of 0-10 as an 8 with reduction of pain to a 2 following RFA 2. Is a two-level procedure conducted at [...] examination provide no other explanation for pain Ordered: Cervical Radiofrequency Ablation 2. Cervical postlaminectomy syndrome Medical Decision Making I have reviewed the patient?s medication list for medication interactions/contraind ications and/or for upcoming procedures: [yes Physician Comments Note dictated with voice recognition system. Please disregard any inadvertent errors Problem List/Past Medical History Ongoing Cephalgia Cervical neuritis Cervical postlaminectomy syndrome Cervical spondylosis Cervicalgia Chronic cervical pain Hip pain History of cervical spinal surgery Neck pain Historical No qualifying data Procedur (more content not included)... Normal [facility] IUD Removalon 10-27-2024 Kristal Matthew LPN 10/28/2024 3:57 PM IUD Removal Date/Time: 10/27/2024 10:22 AM Performed by: Randy Terrazas DO Authorized by: Randy Terrazas DO Consent: Consent obtained: Written Consent given by: Patient Procedure risks and benefits discussed: yes Patient questions answered: yes Patient agrees, verbalizes understanding, and wants to proceed: yes Educational handouts given: no Instructions and paperwork completed: yes Procedure: Removed with no complications: yes Removal due to mechanical complications of IUD: no Removal due to infection and inflammatory reaction: no [facility] macro (dipstick) panel (U)on 10-27-2024 Bilirubin, UA Negative Negative - 4(70) +++ mg/dL [facility] Blood, UA Negative Negative - 50 Haseeb/mcL [facility] Clarity, UA Clear [facility] Color, UA Yellow [facility] Glucose, UA Negative Negative - 1999(110) ++++ mg/dL [facility] Interpretation and review of laboratory results Normal [facility] Ketones, UA Negative Negative - 160(16) ++++ mg/dL [facility] Leukocytes, UA Negative Negative - 500+++ Ellie/mcL [facility] Nitrite, UA Negative Negative - Positive [facility] pH, UA 6.5 5 - 9 [facility] Protein, UA Negative Negative - 1999(20) ++++ mg/dL [facility] Spec Grav, UA 1.02 1 - 1.03 [facility] Urobilinogen, UA 1.0 0.2 - 12 mg/dL [facility] Telephone Encounteron 2024 Optometry Teacher Authentication Interface Message Text Attempted to call patient back but got her voicemail. I am happy to hear that the injection is working. Told her to call us or come back to clinic with any further concerns. Normal [facility] Optometry Teacher Authentication Interface Message Text Pt returned call to inform they're doing fine after injection. Pt states sharp shooting pain has resolved though they still have some soreness, but overall feeling good. Please call back with any further questions, Phone numbers Thank you Normal [facility] Telephone Encounteron 2024 Optometry Teacher Authentication Interface Message Text Patient recently seen in clinic with Dr. Garcias on 10/14, she received an injection at that time. Calling to check in on her and wanted to see if the injection has provided any relief. Patient did not answer so a message has been left for her. 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 Atraumatic, insidious onset. The pain is primarily in the MCP joint of the thumb. 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 She has tried ibuprofen, ice/heat. She has had an injection into the MCP joint without relief. She denies locking or triggering of the thumb. It is functionally limiting for her. Interval history 10/14/2024: Still painful despite wearing braces. She is interested in injection today. Exam: LUE Skin intact No swelling No ttp over ulnar or radial MCP joint Symmetric deviation to radial/ulnar stress; volar-dorsal shuck Mild pain with ROM of MCP No triggering/locking No ttp over A1 kuldip No flexor tendon nodule +seesaw; +CMC grind; negative shoulder Negative Mandy; ttp at radial styloid SILT rmu Firing AIN/PIN/u 2+ radial Imaging: On my independent review today (10/14/2024), 10/14/24 XR L thumb CMC joint space narrowing. Osteophyte formation. Beaking and sclerotic change of MCP joint Assessment AND Plan Arthritis of carpometacarpal (CMC) joint of left thumb -- discussion regarding NH and pathophysiology of thumb CMC joint arthritis. Her exam is consistent with CMC joint pain today. She has previously had an MCP joint injection without effect. I believe it would be reasonable to proceed with a CMC joint injection given her lack of relief with bracing. We discussed surgical options that may be useful in the future including denervation and trapeziectomy (would not recommend even if she fails injections currently given her young age and active lifestyle) -- CSI L thumb CMC joint today -- RTC PRN XR at subsequent visit: Yes, XR L thumb -- Toya Garcias MD Hand AND Upper Extremity Surgery Dept of Orthopaedic Surgery Small Joint Injection/Arthrocentes is: L thumb CMC on 10/14/2024 8:00 AM Indications: pain Details: 25 G needle, dorsal approach Medications: 0.5 mL triamcinolone acetonide 40 MG/ML; 0.5 mL lidocaine 1 % Outcome: tolerated well, no immediate complications The anticipated side effects including local pain, unexpected allergic reaction, interference with hormonal or regulatory mechanism for blood sugar and skin side effects such as skin depigmentation were explained and accepted. Procedure, treatment alternatives, risks and benefits explained, specific risks discussed. Consent was given by the patient. Immediately prior to procedure a time out was called to verify the correct patient, procedure, equipment, clinical support tech and site/side marked as required. Patient was prepped and draped in the usual sterile fashion. Clinic intake form: Invalid Interpretation Code [facility] Optometry Teacher Authentication Interface Message Text Vitals not obtained per provider's instructions. Normal [facility] XR FINGERS LEFT 3 VIEWSon XR FINGERS LEFT 3 VIEWS EXAMINATION: XR FINGERS LEFT 3 VIEWSPRO/LT/Left Thumb 10/14/2024 08:35 AM CLINICAL HISTORY: thumb ASSOCIATED DIAGNOSIS: Pain of left thumb ORDERING PROVIDER: TOYA GARCIAS TECHNOLOGISTS NOTE: COMPARISON: There are no prior studies available for comparison. FINDINGS: There is mild periarticular osteopenia throughout study and there are no fractures or dislocations. There is mild to moderate degenerative bony change of the first carpometacarpal joint with mild lateral subluxation of the first metacarpal. There is mild degenerative bony change of the first metacarpophalangeal joint and distal interphalangeal joint of the thumb. The remaining bony alignment and soft tissue structures are normal. IMPRESSION: 1. There is no evidence of acute bony injury. 2. There is mild periarticular osteopenia with mild to moderate degenerative change of the first carpometacarpal joint with mild lateral subluxation of the first metacarpal. 3. There is mild degenerative bony change of the first metacarpophalangeal joint and distal interphalangeal joint of the thumb. Left finger MACRO: None Normal [facility] Insuranceon 09-25-2024 Insurance [id number] 40 [id number]#1.00O [employer] [facility] Insuranceon 09-08-2024 Insurance [id number] 11 [id number]#1.0 [employer] [facility] Patient Handouton 09-08-2024 Patient Handout [id number] 01 [id number]#1. 00[employer] [facility] Patient Handout [id number] 01 [id number]#1. 00[employer] [facility] Patient Provided Health Data on 09-08-2024 Patient Provided Health Data [id number]#2. 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 Atraumatic, insidious onset. The pain is primarily in the MCP joint of the thumb. 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 She has tried ibuprofen, ice/heat. She has had an injection into the MCP joint without relief. She denies locking or triggering of the thumb. It is functionally limiting for her. Exam: LUE Skin intact No swelling No ttp over ulnar or radial MCP joint Symmetric deviation to radial/ulnar stress; volar-dorsal shuck Mild pain with ROM of MCP No triggering/locking No ttp over A1 kuldip No flexor tendon nodule Negative seesaw; negative shoulder Negative Mandy; ttp at radial styloid SILT rmu Firing AIN/PIN/u 2+ radial Imaging: None today Assessment AND Plan Pain of left thumb -- splint/sleeve; discussed activity modification -- NSAIDs PRN -- RTC 6wks XR at subsequent visit: Yes, XR L thumb -- Toya Garcias MD Hand AND Upper Extremity Surgery Dept of Orthopaedic Surgery Clinic intake form: --------- Prior history reviewed as below: PMH: No past medical history on file. PSH: No past surgical history on file. Meds: Current Outpatient Medications: temazepam (RESTORIL) 15 MG capsule, Take 15 mg by mouth at bedtime as needed., Disp: , Rfl: zonisamide (ZONEGRAN) 100 MG capsule, TAKE 1 - 2 CAPSULES AT BEDTIME, Disp: , Rfl: tiZANidine (ZANAFLEX) 4 MG tablet, TAKE 1 TABLET BY MOUTH EVERY DAY NIGHTLY, Disp: , Rfl: ondansetron (ZOFRAN-ODT) 4 MG disintegrating tablet, Take 4 mg by mouth every 8 hours as needed., Disp: , Rfl: estradiol (ESTRACE) 0.5 MG tablet, Take 0.5 mg by mouth daily., Disp: , Rfl: Ibuprofen 200 MG CAPS, Take by mouth., Disp: , Rfl: levonorgestrel (Mirena, 52 MG,) 20 MCG/DAY IUD, Place 1 Each in the uterus., Disp: , Rfl: All: Not on File SH: Social History Socioeconomic History Marital status: Social Drivers of Vaav[employer] Financial Resource Strain: Low Risk (09/26/2023) Received from [employer] Overall Financial Resource Strain (CARDIA) Difficulty of Paying Living Expenses: Not hard at all Food Insecurity: No Food Insecurity (09/26/2023) Received from [employer] Hunger Screening Within the past 12 months we worried whether our food would run out before we got money to buy more.: Never True Within the past 12 months the food we bought just didn't last and we didn't have money to get more.: Never True Transportation Needs: No Transportation Needs (09/26/2023) Received from [employer] [facility] - Transportation Lack of Transportation (Medical): No Lack of Transportation (Non-Medical): No Physical Activity: Sufficiently Active (08/26/2021) Received from [employer] Exercise Vital Sign Days of Exercise per Week: 4 days Minutes of Exercise per Session: 60 min Stress: Stress Concern Present (08/26/2021) Received from [employer] [place] [facility] [employer] [facility] - Occupational Stress Questionnaire Feeling of Stress : To some extent Social Connections: Moderately Isolated (08/26/2021) Received from [employer] Social Connection and Isolation Panel [NHANES] Frequency of Communication with Friends and Family: Three times a week Frequency of Social Gatherings with Friends and Family: Twice a week Attends Restorationist Services: Never Active Member of Clubs or Organizations: No Attends Club or Organization Meetings: Never Marital Status: Normal [employer] Progress Noteson 09-02-2024 Optometry Teacher Authentication Interface Message Text Patient was identified by name and date of . Patient was dispensed and fitted with a. ~ Thumb spica cock up wrist brace - left ~ Comfort cool - Left, medium Patient was instructed on the application, adjustment, removal and care for both the thumb spica cock up wrist brace and comfort cool. Normal [employer] Optometry Teacher Authentication Interface Message Text Vitals not obtained per provider's instructions. Normal [employer] NM HEPATOBILIARY SYS IMAGING W PHARMACOLOGIC AGENTon 08-18-2024 NM HEPATOBILIARY SYS IMAGING W PHARMACOLOGIC AGENT NM HEPATOBILIARY SYS IMAGING W PHARMACOLOGIC AGENT NM HEPATOBILIARY SYS IMAGING W PHARMACOLOGIC AGENT: 08/18/2024 7:00 AM Clinical:Right upper quadrant pain. Vomiting. EXAM: HIDA SCAN HIDA scan performed with IV administration of 5.0 mCi technetium 99m mebrofenin. There is prompt tracer uptake by liver and excretion into gallbladder and small bowel. After CCK administration, GB ejection fraction is 89% (normal > 17-30%). No symptoms reported with CCK administration. Impression: * Normal HIDA scan. Finalized by Chai Luu MD on 08/18/2024 9:14 AM Normal [facility] ALL T3 FREEon 08-04-2024 Free T3 [Mass/Vol] 2.63 pg/mL 2.18 - 3. 98 pg/mL [facility] ALL THYROID STIM HORMONEon 0 08-04-2024 TSH Qn 1.917 m[IU]/L [facility] ALL THYROXINE (T4)on 025 T4 [Mass/Vol] 7 ug/dL 4.80 - 13.90 ug/dL [facility] CT ABDOMEN AND PELVIS W CONT on 08-04-2024 CT ABDOMEN AND PELVIS W CONT CT ABDOMEN AND PELVIS W CONT CLINICAL INFORMATION: Nausea . Right-sided pain. TECHNIQUE: CT ABDOMEN AND PELVIS W CONT CT images of the abdomen and pelvis are obtained. Intravenous contrast was administered. There are no prior exams available for comparison. Intrauterine device appears appropriately positioned. Is no free pelvic fluid or evidence of adnexal abnormality. Small bowel is nondistended. Limited image lung bases are clear. Liver and spleen unremarkable. Gallbladder nondistended without cholelithiasis. Kidneys enhance homogeneously. There is no hydronephrosis or ureterolithiasis. Portal and mesenteric vessels appear to enhance normally. Lumbar degenerative changes present at L5-S1 with apparent bilateral neural foraminal narrowing. No acute osseous abnormality. No pneumoperitoneum. Colonic stool burden is [id number]. Pancreas and adrenals unremarkable. IMPRESSION: No acute abdominal findings. All CT scans at this facility use dose modulation, iterative reconstruction, and/or weight based dosing when appropriate to reduce radiation dose to as low as reasonably achievable. Finalized by Gilbert Guillen MD on 08/04/2024 1:40 PM Normal [facility] No Panel Informationon 08-04 [facility] B[facility] 08-04-19 25 Glucose [Mass/Vol] 76 mg/dL 74 - 106 mg/dL [facility] Pain Management Office/Clini c Noteon 07-07-2024 Pain [...] Chiropractor: neck Date PT: hx Comments PT: HEP-Stretching/strengt h training Date Injections: prn Date Surgery: 2009 [...] - Normal mood and affect. HEENT - Normocephalic/Atraumat ic Neurologic-alert and oriented x4 Respiratory - No obvious distress, No shortness of breath. No focal motor or sensory deficits appreciated Additional Vitals BP Position/Location: Sitting Assessment/Plan Cervical spondylosis Patient has chronic cervical pain secondary to cervical spondylosis. Patient reports significant improvement of pain following cervical RFA Cervicalgia Medical Decision Making Continue zonisamide I have reviewed the patient?s medication list for medication interactions/contraind ications and/or for upcoming procedures: [yes] Physician Comments Note dictat (more content not included)... Normal [facility] EGD Study observation Narrat iveon 06-27-2024 Radiology Study observation (narrative) Flexible sigmoidoscopy study on 06-27-2024 Radiology Study observation (narrative) 25(OH)D3 SerPl-mCncon 2023 25-hydroxyvitamin D3 [Mass/Vol] 52.7 ng/mL Normal 31.0-80.0 [facility] Comment on above: Order Comment: Speci men Type: BLOOD SPECIMEN Ordering Facility: [facility] Address: [address] [place] [address] Result Comment: Clas sification of 25 [place] Vitamin D status: Deficiency/Insufficiency: < or = 30 ng/ml. Sufficiency/Optimal Levels: 31-80 ng/mL Toxicity: > 100 ng/mL. Test performed by chemiluminescent immunoassay. Performed By: #### 1 989-3 #### [facility] CLIA [id number] [address] [place], [place] [address] OF [facility] C-REACTIVE PROTEINon 024 CRP [Mass/Vol] mg/dL [facility]dL CBC W Auto Differential pane l (Bld)on 06-23-2024 Basophils (Bld) [#/Vol] 0.08 10*3/uL [facility] Basophils/100 WBC (Bld) 0.6 % Differential cell count method Nom (Bld) Auto Eosinophils (Bld) [#/Vol] 0.11 10*3/uL [facility] Eosinophils/100 WBC (Bld) 0.8 % Erythrocyte distribution width (RBC) [Ratio] 12.9 % 11.5 - 15.0 % Hematocrit (Bld) [Volume fraction] 42.8 % 36.0 - 46.0 % Hemoglobin (Bld) [Mass/Vol] 14.2 g/dL 11.5 - 15.5 g/dL Immature granulocytes (Bld) [#/Vol] 0.13 10*3/uL High [facility] Immature granulocytes/100 WBC (Bld) 0.9 % Interpretation and review of laboratory results Abnormal Lymphocytes (Bld) [#/Vol] 3.20 10*3/uL Lymphocytes/100 WBC (Bld) 23.0 % MCH (RBC) [Entitic mass] 30.2 pg 26.0 - 34.0 pg MCHC (RBC) [Mass/Vol] 33.2 g/dL 30.5 - 36.0 g/dL MCV (RBC) [Entitic vol] 91.1 fL 80.0 - 100.0 fL Monocytes (Bld) [#/Vol] 1.17 10*3/uL High [facility] Monocytes/100 WBC (Bld) 8.4 % Neutrophils (Bld) [#/Vol] 9.22 10*3/uL High Neutrophils/100 WBC (Bld) 66.3 % Nucleated RBC (Bld) [#/Vol] NINF Nucleated RBC/100 WBC (Bld) [Ratio] 0.0 % /100 WBC Platelet mean volume (Bld) [Entitic vol] 9.3 fL 9.0 - 12.7 fL Platelets (Bld) [#/Vol] 410 10*3/uL High RBC (Bld) [#/Vol] 4.70 10*6/uL 3.90 - 5.2 0 m/uL WBC (Bld) [#/Vol] 13.91 10*3/uL High [facility] Basophils (Bld) [#/Vol] 0.08 10*3/uL Normal <0.11 [facility] Comment on above: Order Comment: Speci men Type: BLOOD SPECIMEN Ordering Facility: [facility] Address: [address] [place] [address] Performed By: #### 5 7021-8 #### [facility] CLIA [id number] [address] [place] [address] [place] Basophils/100 WBC (Bld) 0.6 % Normal [facility] Comment on above: Order Comment: Speci men Type: BLOOD SPECIMEN Ordering Facility: [facility] Address: [address] [place] [address] Performed By: #### 5 7021-8 #### [facility] CLIA [id number] [address] [place] [address] [place] Differential cell count method Nom (Bld) Auto Normal [facility] Comment on above: Order Comment: Speci men Type: BLOOD SPECIMEN Ordering Facility: [facility] Address: [address] [place] [address] Performed By: #### 5 7021-8 #### [facility] CLIA [id number] [address] [place] [address] [place] Eosinophils (Bld) [#/Vol] 0.11 10*3/uL Normal <0.46 [facility] Comment on above: Order Comment: Speci men Type: BLOOD SPECIMEN Ordering Facility: [facility] Address: [address] [place] [address] Performed By: #### 5 7021-8 #### [facility] CLIA [id number] [address] [place] [address] [place] Eosinophils/100 WBC (Bld) 0.8 % Normal [facility] Comment on above: Order Comment: Speci men Type: BLOOD SPECIMEN Ordering Facility: [facility] Address: [address] [place] [address] Performed By: #### 5 7021-8 #### [facility] CLIA [id number] [address] [place] [address] [place] Erythrocyte distribution width (RBC) [Ratio] 12.9 % Normal 11.5-15.0 [facility] Comment on above: Order Comment: Speci men Type: BLOOD SPECIMEN Ordering Facility: [facility] Address: [address] [place] [address] Performed By: #### 5 7021-8 #### [facility] CLIA [id number] [address] [place] [address] [place] Hematocrit (Bld) [Volume fraction] 42.8 % Normal 36.0-46.0 [facility] Comment on above: Order Comment: Speci men Type: BLOOD SPECIMEN Ordering Facility: [facility] Address: [address] [place] [address] Performed By: #### 5 7021-8 #### [facility] CLIA [id number] [address] [place] [address] [place] Hemoglobin (Bld) [Mass/Vol] 14.2 g/dL Normal 11.5-15.5 [facility] Comment on above: Order Comment: Speci men Type: BLOOD SPECIMEN Ordering Facility: [facility] Address: [address] [place] [address] Performed By: #### 5 7021-8 #### [facility] CLIA [id number] [address] [place] [address] [place] Immature granulocytes (Bld) [#/Vol] 0.13 10*3/uL High <0.10 [facility] Comment on above: Order Comment: Speci men Type: BLOOD SPECIMEN Ordering Facility: [facility] Address: [address] [place] [address] Performed By: #### 5 7021-8 #### [facility] CLIA [id number] [address] [place] [address] [place] Immature granulocytes/100 WBC (Bld) 0.9 % Normal [facility] Comment on above: Order Comment: Speci men Type: BLOOD SPECIMEN Ordering Facility: [facility] Address: [address] [place] [address] Performed By: #### 5 7021-8 #### [facility] CLIA [id number] [address] [place] [address] [place] Lymphocytes (Bld) [#/Vol] 3.20 10*3/uL Normal 1.00-4.00 [facility] Comment on above: Order Comment: Speci men Type: BLOOD SPECIMEN Ordering Facility: [facility] Address: [address] [place] [address] Performed By: #### 5 7021-8 #### [facility] CLIA [id number] [address] [place] [address] [place] Lymphocytes/100 WBC (Bld) 23.0 % Normal [facility] Comment on above: Order Comment: Speci men Type: BLOOD SPECIMEN Ordering Facility: [facility] Address: [address] [place] [address] Performed By: #### 5 7021-8 #### [facility] CLIA [id number] [address] [place] [address] [place] MCH (RBC) [Entitic mass] 30.2 pg Normal 26.0-34.0 [facility] Comment on above: Order Comment: Speci men Type: BLOOD SPECIMEN Ordering Facility: [facility] Address: [address] [place] [address] Performed By: #### 5 7021-8 #### [facility] CLIA [id number] [address] [place] [address] [place] MCHC (RBC) [Mass/Vol] 33.2 g/dL Normal 30.5-36.0 [facility] Comment on above: Order Comment: Speci men Type: BLOOD SPECIMEN Ordering Facility: [facility] Address: [address] [place] [address] Performed By: #### 5 7021-8 #### [facility] CLIA [id number] [address] [place] [address] [place] MCV (RBC) [Entitic vol] 91.1 fL Normal 80.0-100.0 [facility] Comment on above: Order Comment: Speci men Type: BLOOD SPECIMEN Ordering Facility: [facility] Address: [address] [place] [address] Performed By: #### 5 7021-8 #### [facility] CLIA [id number] [address] [place] [address] [place] Monocytes (Bld) [#/Vol] 1.17 10*3/uL High <0.87 [facility] Comment on above: Order Comment: Speci men Type: BLOOD SPECIMEN Ordering Facility: [facility] Address: [address] [place] [address] Performed By: #### 5 7021-8 #### [facility] CLIA [id number] [address] [place] [address] [place] Monocytes/100 WBC (Bld) 8.4 % Normal [facility] Comment on above: Order Comment: Speci men Type: BLOOD SPECIMEN Ordering Facility: [facility] Address: [address] [place] [address] Performed By: #### 5 7021-8 #### [facility] CLIA [id number] [address] [place] [address] [place] Neutrophils (Bld) [#/Vol] 9.22 10*3/uL High 1.45-7.50 [facility] Comment on above: Order Comment: Speci men Type: BLOOD SPECIMEN Ordering Facility: [facility] Address: [address] [place] [address] Performed By: #### 5 7021-8 #### [facility] CLIA [id number] [address] [place] [address] [place] Neutrophils/100 WBC (Bld) 66.3 % Normal [facility] Comment on above: Order Comment: Speci men Type: BLOOD SPECIMEN Ordering Facility: [facility] Address: [address] [place] [address] Performed By: #### 5 7021-8 #### [facility] CLIA [id number] [address] [place] [address] [place] Nucleated RBC (Bld) [#/Vol] 10*3/uL Normal <0.01 [facility] Comment on above: Order Comment: Speci men Type: BLOOD SPECIMEN Ordering Facility: [facility] Address: [address] [place] [address] Performed By: #### 5 7021-8 #### [facility] CLIA [id number] [address] [place] [address] [place] Nucleated RBC/100 WBC (Bld) [Ratio] 0.0 /100 WBC Normal [facility] Comment on above: Order Comment: Speci men Type: BLOOD SPECIMEN Ordering Facility: [facility] Address: [address] [place] [address] Performed By: #### 5 7021-8 #### [facility] CLIA [id number] [address] [place] [address] [place] Platelet mean volume (Bld) [Entitic vol] 9.3 fL Normal 9.0-12.7 [facility] Comment on above: Order Comment: Speci men Type: BLOOD SPECIMEN Ordering Facility: [facility] Address: [address] [place] [address] Performed By: #### 5 7021-8 #### [facility] CLIA [id number] [address] [place] [address] [place] Platelets (Bld) [#/Vol] 410 10*3/uL High 150-400 [facility] Comment on above: Order Comment: Speci men Type: BLOOD SPECIMEN Ordering Facility: [facility] Address: [address] [place] [address] Performed By: #### 5 7021-8 #### [facility] CLIA [id number] [address] [place] [address] [place] RBC (Bld) [#/Vol] 4.70 10*6/uL Normal 3.90-5.20 [facility] Comment on above: Order Comment: Speci men Type: BLOOD SPECIMEN Ordering Facility: [facility] Address: [address] [place] [address] Performed By: #### 5 7021-8 #### [facility] CLIA [id number] [address] [place] [address] [place] WBC (Bld) [#/Vol] 13.91 10*3/uL High 3.70-11.00 [facility] Comment on above: Order Comment: Speci allison Type: BLOOD SPECIMEN Ordering Facility: [facility] Address: [address] [place] [address] Performed By: #### 5 7021-8 #### [facility] CLIA [id number] [address] [place] [address] [place] CELIAC SCREENon 06-23-2024 GLIAD DEAMIDATED IGA QUAL Negative Normal Negative, Test not Indicated [facility] Comment on above: Order Comment: Speci men Type: BLOOD SPECIMEN Ordering Facility: [facility] Address: [address] [place] [address] Result Comment: This is used as an aid in diagnosis of celiac disease. Clinical correlation is required. The following results were obtained with an [employer] Gliadin IgA SENAIT Gliadin. Gliadin IgA values obtained with different manufacturers' assay methods may not be used interchangeably. The magnitude of the reported IgA levels cannot be correlated to an endpoint titer. Performed By: #### L [id number] #### [facility] CLIA [id number] [address] [place] [address] [place] Gliadin peptide IgA Qn (S) 4 Units Normal <20 [facility] Comment on above: Order Comment: Speci men Type: BLOOD SPECIMEN Ordering Facility: [facility] Address: [address] [place] [address] Performed By: #### L [id number] #### [facility] CLIA [id number] [address] [place] [address] [place] INTERPRETATION No serological evidence of celiac disease, however, if celiac disease is clinically suspected and patient is not on gluten-free diet, histological diagnosis may be considered. HLA testing may help with risk assessment. Normal [facility] Comment on above: Order Comment: Speci men Type: BLOOD SPECIMEN Ordering Facility: [facility] Address: [address] [place] [address] Performed By: #### L [id number] #### [facility] CLIA [id number] [address] [place] [address] [place] TRANSGLUTAMINASE IGA ABS INTERPRETATION Negative Normal Negative [facility] Comment on above: Order Comment: Speci men Type: BLOOD SPECIMEN Ordering Facility: [facility] Address: [address] [place] [address] Result Comment: The following results were obtained with [employer] R h-tTG IgA SENAIT.???R h-tTG IgA values obtained with different manufacturers' assay methods may not be used interchangeably. The magnitude of the reported IgA levels cannot be corelated to an endpoint???concentration. This is used as an aid in diagnosis of celiac disease. Clinical correlation is required. Performed By: #### L [id number] #### [facility] CLIA [id number] [address] [place] [address] [place] tTG IgA Qn (S) <2 Normal <4 [facility] Comment on above: Order Comment: Speci men Type: BLOOD SPECIMEN Ordering Facility: [facility] Address: [address] [place] [address] Performed By: #### L [id number] #### [facility] CLIA [id number] [address] [place] [address] [place] [facility] CRP [Mass/Vol] mg/L Normal <0.9 [facility] Comment on above: Order Comment: Speci men Type: BLOOD SPECIMEN Ordering Facility: [facility] Address: [address] [place] [address] Performed By: #### 5 0190-8, 1987-5, 33428-2, 2276-4 #### [facility] CLIA [id number] [address] [place] [address] [place] Cobalamin (Vitamin B12) [Mas s/Vol]on 06-23-2024 Interpretation and review of laboratory results Normal [facility] Comprehensive metabolic 2000 panelon 06-23-2024 Albumin [Mass/Vol] 4.5 g/dL 3.9 - 4.9 g/dL ALP [Catalytic activity/Vol] 80 U/L 34 - 123 U/L ALT [Catalytic activity/Vol] 31 U/L 7 - 38 U/L Anion gap [Moles/Vol] 14 mmol/L 8 - 15 mmol/L AST [Catalytic activity/Vol] 20 U/L 13 - 35 U/L Bilirubin [Mass/Vol] 0.3 mg/dL 0.2 - 1.3 mg/dL Calcium [Mass/Vol] 9.4 mg/dL 8.5 - 10. 2 mg/dL Chloride [Moles/Vol] 104 mmol/L 98 - 107 mmol/L CO2 [Moles/Vol] 25 mmol/L 22 - 30 mmol/L Creatinine [Mass/Vol] 0.86 mg/dL 0.58 - 0.96 mg/dL GFR/1.73 sq M.predicted among non-blacks MDRD (S/P/Bld) [Vol rate/Area] 83 mL/min/{1.73_m2} - PINF Comment on above: Estimated Glomerular Filtration Rate [...] [Mass/Vol] 76 mg/dL 74 - 99 mg/dL Comment on above: The [place] Diabete s Association (ADA) provides guidance for [...] Standards of Medical Care in Diabetes 2016, [place] Diabetes Association. Diabetes Care. 2016.39(Suppl 1). Interpretation and review of laboratory results Abnormal Potassium [Moles/Vol] 3.3 mmol/L Low 3.7 - 5.1 mmol/L Protein [Mass/Vol] 6.7 g/dL 6.3 - 8.0 g/dL Sodium [Moles/Vol] 143 mmol/L 136 - 144 mmol/L Urea nitrogen [Mass/Vol] 17 mg/dL 7 - 21 mg/dL Albumin [Mass/Vol] 4.5 g/dL Normal 3.9-4.9 [facility] Comment on above: Order Comment: Speci men Type: BLOOD SPECIMEN Ordering Facility: [facility] Address: [address] [place] [address] Performed By: #### 5 0198, , 2275-10 #### [facility] CLIA [id number] [address] [place] [address] [place] ALP [Catalytic activity/Vol] 80 U/L Normal 34-123 [facility] Comment on above: Order Comment: Loni allison Type: BLOOD SPECIMEN Ordering Facility: [facility] Address: [address] [place] [address] Performed By: #### 5 0190-8, , 2275-10 #### [facility] CLIA [id number] [address] [place] [address] [place] ALT [Catalytic activity/Vol] 31 U/L Normal 7-38 [facility] Comment on above: Order Comment: Speci men Type: BLOOD SPECIMEN Ordering Facility: [facility] Address: [address] [place] [address] Performed By: #### 5 0190-8, 1987-11, , 2275-10 #### [facility] CLIA [id number] [address] [place] [address] [place] Anion gap [Moles/Vol] 14 mmol/L Normal 8-15 [facility] Comment on above: Order Comment: Speci men Type: BLOOD SPECIMEN Ordering Facility: [facility] Address: [address] [place] [address] Performed By: #### 5 019-8, 1987-11, , 2275-10 #### [facility] CLIA [id number] [address] [place], [place] [address] [place] AST [Catalytic activity/Vol] 20 U/L Normal 13-35 [facility] Comment on above: Order Comment: Speci men Type: BLOOD SPECIMEN Ordering Facility: [facility] Address: [address] [place] [address] Performed By: #### 5 0198, 1987-11, , 2275-10 #### [facility] CLIA [id number] [address] [place] [address] [place] Bilirubin [Mass/Vol] 0.3 mg/dL Normal 0.2-1.3 [facility] Comment on above: Order Comment: Speci men Type: BLOOD SPECIMEN Ordering Facility: [facility] Address: [address] [place] [address] Performed By: #### 5 0198, 1987-11, , 2275-10 #### [facility] CLIA [id number] [address] [place], [place] [address] [place] Calcium [Mass/Vol] 9.4 mg/dL Normal 8.5-10.2 [facility] Comment on above: Order Comment: Speci men Type: BLOOD SPECIMEN Ordering Facility: [facility] Address: [address] [place] [address] Performed By: #### 5 0190-8, 1987-11, , 2275-10 #### [facility] CLIA [id number] [address] [place] [address] [place] Chloride [Moles/Vol] 104 mmol/L Normal 98-107 [facility] Comment on above: Order Comment: Speci men Type: BLOOD SPECIMEN Ordering Facility: [facility] Address: [address] [place] [address] Performed By: #### 5 0190-8, 1987-11, , 2275-10 #### [facility] CLIA [id number] [address] [place] [address] [place] CO2 [Moles/Vol] 25 mmol/L Normal 22-30 [facility] Comment on above: Order Comment: Speci men Type: BLOOD SPECIMEN Ordering Facility: [facility] Address: [address] [place] [address] Performed By: #### 5 0190-8, 1987-11, , 2275-10 #### [facility] CLIA [id number] [address] [place] [address] [place] Creatinine [Mass/Vol] 0.86 mg/dL Normal 0.58-0.96 [facility] Comment on above: Order Comment: Speci men Type: BLOOD SPECIMEN Ordering Facility: [facility] Address: [address] [place] [address] Performed By: #### 5 0190-8, 1987-11, , 2275-10 #### [facility] CLIA [id number] [address] [place] [address] [place] Creatinine and Glomerular filtration rate.predicted panel (S/P/Bld) 83 mL/min/1.73m??? Normal >=60 [facility] Comment on above: Order Comment: Speci men Type: BLOOD SPECIMEN Ordering Facility: [facility] Address: [address] [place] [address] Result Comment: [place] mated Glomerular Filtration Rate [...] reflect actual GFR. Performed By: #### 5 019-8, 1987-11, , 2275-10 #### [facility] CLIA [id number] [address] [place] [address] [place] Glucose [Mass/Vol] 76 mg/dL Normal 74-99 [facility] Comment on above: Order Comment: Liliana cooper Type: BLOOD SPECIMEN Ordering Facility: [facility] Address: [address] [place] [address] Result Comment: The [place] Diabetes Association (ADA) provides guidance for cutoff [...] Standards of Medical Care in Diabetes 2016, [place] Diabetes Association. Diabetes Care. 2016.39(Suppl 1). Performed By: #### 5 0198, 1987-11, , 2275-10 #### [facility] CLIA [id number] [address] [place] [address] [place] Potassium [Moles/Vol] 3.3 mmol/L Low 3.7-5.1 [facility] Comment on above: Order Comment: Liliana cooper Type: BLOOD SPECIMEN Ordering Facility: [facility] Address: [address] [place] [address] Performed By: #### 5 019-8, 1987-11, , 2275-10 #### [facility] CLIA [id number] [address] [place] [address] [place] Protein [Mass/Vol] 6.7 g/dL Normal 6.3-8.0 [facility] Comment on above: Order Comment: Speci men Type: BLOOD SPECIMEN Ordering Facility: [facility] Address: [address] [place] [address] Performed By: #### 5 0190-8, 1987-11, , 2275-10 #### [facility] CLIA [id number] [address] [place] [address] [place] Sodium [Moles/Vol] 143 mmol/L Normal 136-144 [facility] Comment on above: Order Comment: Speci men Type: BLOOD SPECIMEN Ordering Facility: [facility] Address: [address] [place] [address] Performed By: #### 5 0190-8, 1987-11, , 2275-10 #### [facility] CLIA [id number] [address] [place] [address] [place] Urea nitrogen [Mass/Vol] 17 mg/dL Normal 7-21 [facility] Comment on above: Order Comment: Speci men Type: BLOOD SPECIMEN Ordering Facility: [facility] Address: [address] [place] [address] Performed By: #### 5 0190-8, 1987-11, , 2275-10 #### [facility] CLIA [id number] [address] [place] [address] [place] FERRITINon 06-23-2024 Ferritin [Mass/Vol] 91.0 ng/mL 14.7 - 2 05.1 ng/mL Ferritin SerPl-mCncon 2023 Ferritin [Mass/Vol] 91.0 ng/mL Normal 14.7-205.1 [facility] Comment on above: Order Comment: Speci men Type: BLOOD SPECIMEN Ordering Facility: [facility] Address: [address] [place] [address] Performed By: #### 5 0190-8, 1987-11, , 2275-10 #### [facility] CLIA [id number] [address] [place] [address] [place] Ferritin [Mass/Vol]on 2023 Interpretation and review of laboratory results Normal [facility] IgA SerPl-mCncon 06-23-2024 IgA [Mass/Vol] 71 mg/dL Normal 70-400 [facility] Comment on above: Order Comment: Speci men Type: BLOOD SPECIMEN Ordering Facility: [facility] Address: [address] [place] [address] Performed By: #### 2 458-8 #### [facility] CLIA [id number] [address] [place] [address] [place] Iron and Iron binding capaci ty panelon 06-23-2024 Iron [Mass/Vol] 164 ug/dL 41 - 186 ug/dL Iron binding capacity [Mass/Vol] 328 ug/dL 232 - 386 ug/dL Iron/TIBC [Molar ratio] 50.0 % 15.0 - 57.0 % Iron [Mass/Vol] 164 ug/dL Normal 41-186 [facility] Comment on above: Order Comment: Speci men Type: BLOOD SPECIMEN Ordering Facility: [facility] Address: [address] [place] [address] Performed By: #### 5 0190-8, 1987-11, , 2275-10 #### [facility] CLIA [id number] [address] [place] [address] [place] Iron binding capacity [Mass/Vol] 328 ug/dL Normal 232-386 [facility] Comment on above: Order Comment: Speci men Type: BLOOD SPECIMEN Ordering Facility: [facility] Address: [address] [place] [address] Performed By: #### 5 0190-8, 1987-11, , 2275-10 #### [facility] CLIA [id number] [address] [facility] [place] [place] [address] [place] Iron/TIBC [Molar ratio] 50.0 % Normal 15.0-57.0 [facility] Comment on above: Order Comment: Speci men Type: BLOOD SPECIMEN Ordering Facility: [facility] Address: [address] [place] [address] Performed By: #### 5 0190-8, 1987-, 83753-7, 2276-4 #### [facility] CLIA [id number] [address] [place] [address] [place] [address] [place] MRI Spine Lumbar [...] Electronically Signed in Other Vendor System) Normal [facility] No Panel Informationon 06-23 Interpretation and review of laboratory results Normal [facility] VITAMIN B12on 06-23-2024 Cobalamin (Vitamin B12) [Mass/Vol] 1147 pg/mL 232 - 1245 pg/mL Vit B12 SerPl-mCncon 024 Cobalamin (Vitamin B12) [Mass/Vol] 1147 pg/mL Normal 232-1245 [facility] Comment on above: Order Comment: Speci men Type: BLOOD SPECIMEN Ordering Facility: [facility] Address: [address] [place] [address] Performed By: #### 2 132-9 #### [facility] CLIA [id number] [address] [place] [address] [place] [address] [place] XR Hip 2 [...] Electronically Signed in Other Vendor System) Normal [facility] Pain Management Office/Clini c Noteon 04-14-2024 [...] PT: hx Date Injections: prn Date Surgery: 2010 Frequency Surgery: x1 Effective Surgery: cervical fusion [...] - Normal mood and affect. HEENT - Normocephalic/Atraumat ic Neurologic-alert and oriented x4 Respiratory - No [...] evaluate etiolog (more content not included)... Normal [facility] C DIFFICILE BY PCRon 024 C. difficile toxin genes DAWN+probe Ql (Stl) TOXIGENIC C DIFF Negative (qualifier value) 027 NAP1 Negative (qualifier value) Normal [facility]NEG [facility] Comment on above: Performed By: #### 5 4067-4 #### [facility] ([id number]) [address] [address], [address] [place] [address] #### 32940-3 #### [facility] ([id number]) [address] [place] [address] [facility] ([id number]) [address] [address] GI PANELon 03-11-2024 Gastrointestinal pathogens DNA and [...] SAPOVIRUS Not detected (qualifier value) Normal NDET [facility] Comment on above: Performed By: #### 5 4067-4 #### [facility] ([id number]) [address] [facility], [address] [address] #### 25257-5 #### [facility] ([id number]) [address] [place] [address] [facility] ([id number]) [address] [address] [address] CHEST W CONTon 02-01-2024 CT CHEST [...] Jose Amezquita on 02/01/2024 2:29 PM Normal [facility] 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-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 MAMM SCREENING BILATERAL W CAD MAMM [...] PM 1 b MAMM 1 YR Normal [facility] COMPREHENSIVE METABOLIC PANE Pedro 09-28-2023 Albumin [Mass/Vol] 4.6 g/dL Normal 3.2-5.3 [facility] Comment on above: Performed By: #### C CHERY, 08981-9 #### [facility] ([id number]) [address], [address] [place] [address] ALP [Catalytic activity/Vol] 61 U/L Normal 39-130 [facility] Comment on above: Performed By: #### C CHERY, 92831-0 #### [facility] ([id number]) [address], [address] [place] [address] ALT [Catalytic activity/Vol] 16 U/L Normal 0-31 [facility] Comment on above: Performed By: #### Vandana GOTTLIEB, 43209-5 #### [facility] ([id number]) [address] [place] [address] Anion gap [Moles/Vol] 9 mmol/L Normal 5-15 [facility] Comment on above: Performed By: #### Vandana GOTTLIEB, 59290-1 #### [facility] ([id number]) [address], [address] [place] [address] AST [Catalytic activity/Vol] 15 U/L Normal 0-41 [facility] Comment on above: Performed By: #### Vandana GOTTLIEB, 02452-8 #### [facility] ([id number]) [address] [place] [address] Bilirubin [Mass/Vol] 0.4 mg/dL Normal 0.3-1.2 [facility] Comment on above: Performed By: #### Vandana GOTTLIEB, 93389-4 #### [facility] ([id number]) [address], [address] [place] [address] Calcium [Mass/Vol] 9.4 mg/dL Normal 8.5-10.5 [facility] Comment on above: Performed By: #### Vandana GOTTLIEB, 64873-8 #### [facility] ([id number]) [address] [place] [address] Chloride [Moles/Vol] 106 mmol/L Normal 98-109 [facility] Comment on above: Performed By: #### Vandana GOTTLIEB, 65928-5 #### [facility] ([id number]) [address], [address] [place] [address] CO2 [Moles/Vol] 24 mmol/L Normal 22-32 [facility] Comment on above: Performed By: #### Vandana GOTTLIEB, 94103-7 #### [facility] ([id number]) [address] [place] [address] Creatinine [Mass/Vol] 0.83 mg/dL Normal 0.40-1.00 [facility] Comment on above: Result Comment: METH OD TRACEABLE TO IDMS STANDARD Performed By: #### Vandana GOTTLIEB, 79989-4 #### [facility] ([id number]) [address] [place] [address] GFR/1.73 sq M.predicted among non-blacks MDRD (S/P/Bld) [Vol rate/Area] 86 mL/min/{1.73_m2} Normal >59 [facility] Comment on above: Result Comment: Reported eGFR is based on the CKD-EPI 2020 equation that does not use a race coefficient. Performed By: #### Vandana GOTTLIEB, 21848-0 #### [facility] ([id number]) [address] [place] [address] Glucose [Mass/Vol] 79 mg/dL Normal 65-99 [facility] Comment on above: Performed By: #### Vandana GOTTLIEB, 32596-6 #### [facility] ([id number]) [address] [place] [address] Potassium [Moles/Vol] 3.8 mmol/L Normal 3.5-5.0 [facility] Comment on above: Performed By: #### Vandana GOTTLIEB, 87558-7 #### [facility] ([id number]) [address] [place] [address] Protein [Mass/Vol] 6.9 g/dL Normal 6.0-8.0 [facility] Comment on above: Performed By: #### Vandana GOTTLIEB, 77173-8 #### [facility] ([id number]) [address], [address] [place] [address] Sodium [Moles/Vol] 139 mmol/L Normal 134-146 [facility] Comment on above: Performed By: #### Vandana GOTTLIEB, 63025-4 #### [facility] ([id number]) [address], [facility] [address] [place] [address] Urea nitrogen [Mass/Vol] 17 mg/dL Normal 5-23 [facility] Comment on above: Performed By: #### Vandana GOTTLIEB, 30585-4 #### [facility] ([id number]) [address], [facility] [address] [place] [address] Lipid 1996 panelon 4 Cholesterol [Mass/Vol] 218 mg/dL High 150-200 [facility] Comment on above: Performed By: #### Vandana GOTTLIEB, 69234-8 #### [facility] ([id number]) [address] [place] [address] Cholesterol in HDL [Mass/Vol] 62 mg/dL Normal >39 [facility] Comment on above: Result Comment: HDL <40 mg/dL - High Risk HDL > or = 40mg/dL- Desirable HDL >60 mg/dL - Negative Risk Performed By: #### Vandana GOTTLIEB, 33621-6 #### [facility] ([id number]) [address] [place] [address] Cholesterol in LDL [Mass/Vol] 133 mg/dL High <130 [facility] Comment on above: Result Comment: LDL <100 mg/dL - Desirable LDL >160 mg/dL - High Risk Performed By: #### Vandana GOTTLIEB, 10427-3 #### [facility] ([id number]) [address] [place] [address] Cholesterol in VLDL [Mass/Vol] 23 mg/dL Normal 0-30 [facility] Comment on above: Performed By: #### C CHERY, 10989-5 #### [facility] ([id number]) [address], [address] [place] [address] CHOLESTEROL:HDL 3.5 Normal 1.0-5.0 [facility] Comment on above: Performed By: #### C CHERY, 13616-2 #### [facility] ([id number]) [address] [place] [address] Triglyceride [Mass/Vol] 114 mg/dL Normal 27-150 [facility] Comment on above: Performed By: #### C CHERY, 57239-4 #### [facility] ([id number]) [address] [place] [address] XR foot LT min 3V*on 023 XR foot LT min 3V* [facility] [address] [place] [address] XRay Report Signed Patient: Rosalie Mcdonnell MR#: [id number] : 1975 Acct:[id number] Age/Sex: 47 / F ADM Date: 03/19/23 [facility]: Type: [facility] Attending Dr: Danyelle PAREDES Copies to: REGGIE [...] Jad Jo M.D.03/19/2023 5:00 PM Dictation Location: [place] [address] Transcribed By: [facility] 03/19/231699 Dictated By: Jad Jo DO 03/19/231699 Signed By: 03/19/231699 [facility] COVDOUG Quick Testingon 2022 Result Negative [facility] Other MRI Foot w/o Righton 022 MRI Foot w/o Right HISTORY: Chronic julian l pain. Concern for calcaneal stress fracture versus [...] by Krishna Price on 06/02/2022 1523 Normal [facility] Specialist PAP ACOG PANEL 2: 30 to 65on 02-20-2022 . . Normal [facility] Comment on above: Result Comment: Perf ormed at: WB Performed By: #### 4 [id number] #### [facility] [address] [address] [address] Rhiannon Smith Age Gdln ACOG Testing 30-65 Normal [facility] Comment on above: Performed By: #### 4 [id number] #### [facility] [address] [address] [address] Rhiannon Smith DIAGNOSIS: Comment Normal [facility] Comment on above: Result Comment: NEGA TIVE FOR INTRAEPITHELIAL LESION OR MALIGNANCY. Performed at: WB Performed By: #### 4 [id number] #### [facility] [address] [place] [address] Dr. Rhiannon Smith HPV Aptima Negative Normal Negative [facility] Comment on above: Result Comment: This nucleic acid amplification test detects fourteen high-risk HPV types (16,18,31,33,35,39,45,51,52,56,58,59,66,68) without differentiation. Performed at: =G Performed By: #### 4 [id number] #### [facility] [address] [place] [address] Dr. Rhiannon Smith Methodology: Comment Normal [facility] Comment on above: Result Comment: This liquid based ThinPrep(R) pap test was screened with the use of an image guided system. Performed at: WB Performed By: #### 4 [id number] #### [facility] [address] [place] [address] Dr. Rhiannon Smith Note: Comment Normal [facility] Comment on above: Result Comment: The Pap smear is a screening test designed to aid in the detection of premalignant and malignant conditions of the uterine cervix. It is not a diagnostic procedure and should not be used as the sole means of detecting cervical cancer. Both false-positive and false-negative reports do occur. . Performed at: WB Performed By: #### 4 [id number] #### [facility] [address] [place] [address] Dr. Rhiannon Smith Performed by: Comment Normal [facility] Comment on above: Result Comment: Russel Coello Triage Specialist (ASCP) Performed at: WB Performed By: #### 4 [id number] #### [facility] [address] [place] [address] Dr. Rhiannon Smith Specimen adequacy: Comment Normal [facility] Comment on above: Result Comment: Sati sfactory for evaluation. Endocervical and/or squamous metaplastic cells (endocervical component) are present. Performed at: WB Performed By: #### 4 [id number] #### [facility] [address] [place] [address] Dr. Rhiannon Smith Vital Signs Date Time Vital Sign Value Performing Clinician Facility 10-27-2024 09:55-0400 Body mass index (BMI) [Ratio] 24.96 kg/m2 Randy Nini DO Work Phone: [facility] 10-27-2024 09:55-0400 Body weight 68.04 kg Randy Nini DO Work Phone: [facility] 10-27-2024 09:55-0400 Diastolic blood pressure 70 mm[Hg] Randy Nini DO Work Phone: [facility] 10-27-2024 09:55-0400 Systolic blood pressure 110 mm[Hg] Randy Nini DO Work Phone: [facility] 08-04-2024 09:32-0500 Body mass index (BMI) [Ratio] 25.31 kg/m2 Randy Nini DO Work Phone: [facility] 08-04-2024 09:32-0500 Body weight 69 kg Randy Nini DO Work Phone: [facility] 08-04-2024 09:32-0500 Diastolic blood pressure 70 mm[Hg] Randy Nini DO Work Phone: [facility] 08-04-2024 09:32-0500 Systolic blood pressure 114 mm[Hg] Randy Nini DO Work Phone: [facility] 06-27-2024 14:19-0500 Diastolic blood pressure 81 mm[Hg] Bob Guerrero MD Work Phone: 06-27-2024 14:19-0500 Heart rate 100 /min Bob Guerrero MD Work Phone: 06-27-2024 14:19-0500 Respiratory rate 16 /min Bob Guerrero MD Work Phone: 06-27-2024 14:19-0500 SaO2% (BldA) [Mass fraction] 100 % Bob Guerrero MD Work Phone: 06-27-2024 14:19-0500 Systolic blood pressure 125 mm[Hg] Bob Guerrero MD Work Phone: 06-27-2024 12:52-0500 Body temperature 97.5 [degF] Bob Guerrero MD Work Phone: 06-27-2024 12:43-0500 Body height 165.1 cm Bob Guerrero MD Work Phone: 06-27-2024 12:43-0500 Body mass index (BMI) [Ratio] 23.13 kg/m2 Bob Guerrero MD Work Phone: 06-27-2024 12:43-0500 Body weight 63.05 kg Bob Guerrero MD Work Phone: 06-23-2024 08:47-0500 Body height 165.1 cm Aspen Reindel [employer] Work Phone: 06-23-2024 08:47-0500 Body mass index (BMI) [Ratio] 24.63 kg/m2 Aspen Reindel [employer]CH[employer] SO[employer] Work Phone: 06-23-2024 08:47-0500 Body temperature 98.2 [degF] Aspen Reindel [employer]CHASE [employer]IVER[employer]K SO[employer] Work Phone: 06-23-2024 08:47-0500 Body weight 67.13 kg Aspen Reindel [employer]CHASE [employer]IVER[employer] Work Phone: 06-23-2024 08:47-0500 Diastolic blood pressure 74 mm[Hg] Aspen Reindel [employer]ASE [employer]CHASE [employer]IVER[employer]K SO[employer]ER Work Phone: 06-23-2024 08:47-0500 Heart rate 98 /min Aspen Reindel LEASE PURCHASE [employer]IVER[employer]K SO[employer]ER Work Phone: 06-23-2024 08:47-0500 Systolic blood pressure 127 mm[Hg] Aspen Reindel [employer]CH[employer] Work Phone: 01-18-2023 13:50-0400 Body height 165.1 cm Dai Ramirez Other [facility] Other 01-18-2023 13:50-0400 Body mass index (BMI) [Ratio] 24.79 kg/m2 Dai Ashley Other [facility] Other 01-18-2023 13:50-0400 Body temperature 98 [degF] Dai Ashley Other [facility] Other 01-18-2023 13:50-0400 Body weight 67.59 kg Dai Ashley Other [facility] Other 01-18-2023 13:50-0400 Diastolic blood pressure 64 mm[Hg] Daiyousif Ramirez Other [facility] Other 01-18-2023 13:50-0400 Respiratory rate 18 /min Dai Ashley Other [facility] Other 01-18-2023 13:50-0400 SaO2% (BldA) [Mass fraction] 100 % Dai Ashley Other [facility] Other 01-18-2023 13:50-0400 Systolic blood pressure 125 mm[Hg] Daiyousif Ramirez Other [facility] Other Encounters Encounter Date Encounter Type Care Provider Facility Start: 12-08-2024 ambulatory Ninfa Longoria MD Facility:[facility] Start: 12-01-2024 End: 12-01-2024 Bamboo flowsheet Randy Nini DO Work Phone: [facility] Start: 12-01-2024 End: 12-01-2024 Bamboo flowsheet Randy Nini DO Work Phone: [facility] Start: 11-24-2024 ambulatory Tom Chaney MD Facility:[facility] Start: 11-24-2024 End: 11-24-2024 ambulatory Ninfa Longoria MD Facility:[facility] Start: 11-19-2024 End: 11-19-2024 ambulatory JERMAINE PARDO Facility:[facility] Start: 11-14-2024 End: 11-14-2024 Telephone encounter Jermaine Pardo DO Work Phone: [facility] Comment on above: Sleep Lab (PSG Order ) Start: 11-10-2024 End: 11-10-2024 Telephone encounter Orders Support User Transcribe [facility] Comment on above: Sleep Lab (Inquiry ) Start: 11-03-2024 ambulatory JERMAINE PARDO Facilit y:[facility] Start: 10-27-2024 End: 10-27-2024 Refill [facility] Comment on above: Primary insomnia Start: 10-27-2024 End: 10-27-2024 Patient encounter procedure Randy Nini DO Work Phone: [facility] Comment on above: Encounter for IUD re moval; Hormone imbalance; Hormone disorder Start: 10-14-2024 End: 10-15-2024 ambulatory TOYA GARCIAS Facility:[facility] Start: 09-29-2024 End: 09-29-2024 Refill Ninfa Longoria MD Work Phone: [facility] Comment on above: Primary insomnia Start: 09-08-2024 ambulatory DO JERMAINE PARDO Faci lity:[facility] Start: 09-02-2024 End: 09-04-2024 Refill Ninfa Longoria MD Work Phone: [facility] Comment on above: Nausea Primary insomnia Start: 09-01-2024 End: 09-01-2024 Phys/qhp telephone evaluation 5-10 min Randy Nini DO Work Phone: [facility] Comment on above: Hormone imbalance Start: 08-18-2024 End: 08-18-[address] [facility] Start: 08-08-2024 End: 08-08-2024 Orders Only Ninfa Longoria MD Work Phone: [facility] Comment on above: Right upper quadrant abdominal pain (Primary Dx) Start: 08-06-2024 End: 08-07-2024 Refill Ninfa Longoria MD Work Phone: [facility] Comment on above: Primary insomnia Start: 08-04-2024 End: 08-04-2024 Bamboo flowsheet Randy Nini DO Work Phone: [facility] Start: 08-04-2024 End: 08-04-2024 Bamboo flowsheet Randy Nini DO Work Phone: [facility] Start: 08-04-2024 End: 08-04-2024 Clinisync Result Encounter Randy Nini DO Work Phone: [facility] Unsolicited Start: 08-04-2024 End: 08-04-2024 ambulatory NINFA LONGORIA [facility] Start: 08-04-2024 End: 08-04-2024 flow sheet Randy Nini DO Work Phone: [facility] Comment on above: Hormone imbalance; Hormone disorder; Weight loss; Decreased appetite; Other constipation; Diarrhea, unspecified type Start: 08-04-2024 End: 08-04-2024 ambulatory RANDY NINI Not Available Start: 07-18-2024 End: 07-18-2024 ambulatory NINFA LONGORIA [facility] Start: 07-07-2024 End: 07-07-2024 ambulatory Ninfa Longoria MD Facility:[facility] Start: 06-27-2024 End: 06-27-2024 Orders Only Bob Guerrero MD Work Phone: [facility] Comment on above: Special screening fo r malignant neoplasms, colon (Primary Dx) Diarrhea, unspecifie d type [R19.7] Start: 06-23-2024 End: 06-23-2024 ambulatory [facility] Start: 06-23-2024 End: 06-23-2024 ambulatory ASPEN RIZVI Facility:[facility] Start: 06-23-2024 End: 06-23-2024 Patient encounter procedure 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: [facility] Comment on above: Diarrhea, unspecifie d type (Primary Dx); Abdominal bloating; Weight loss, abnormal Start: 06-20-2024 End: 06-20-2024 ambulatory Ninfa Longoria MD [facility] Start: 06-12-2024 End: 06-12-2024 ambulatory Ninfa Longoria MD Facility:[facility] Start: 05-26-2024 End: 05-26-2024 ambulatory Ninfa Longoria MD Facility:[facility] Start: 05-20-2024 ambulatory Ninfa Longoria MD Facility:[facility] Start: 04-14-2024 End: 04-14-2024 ambulatory Ninfa Longoria MD Facility:[facility] Start: 03-11-2024 End: 03-11-2024 ambulatory [facility] Start: 03-11-2024 End: 03-11-2024 ambulatory [facility] Start: 01-28-2024 End: 01-28-2024 ambulatory [facility] Start: 01-28-2024 End: 01-28-2024 ambulatory ZAIN BURTON Not Available Start: 01-14-2024 End: 01-14-2024 ambulatory [facility] Start: 12-22-2023 End: 12-22-2023 ambulatory RANDY TERRAZAS [facility] Start: 12-10-2023 End: 12-10-2023 ambulatory Tom Chaney MD Facility:[facility] Start: 11-19-2023 End: 11-19-2023 ambulatory RANDY TERRAZAS Not Available Start: 09-28-2023 End: 09-28-2023 ambulatory [facility] Start: 09-28-2023 Encounter for genera l adult medical examination without abnormal findings [facility] Start: 09-27-2023 End: 09-27-2023 ambulatory [facility] Start: 09-27-2023 Encounter for genera l adult medical examination without abnormal findings [facility] Start: 03-19-2023 End: 03-19-2023 ambulatory Danyelle Callahan Facility:[facility] Start: 03-19-2023 End: 03-19-2023 ambulatory SORT LINE-C Danyelle Callahan Work Phone: [facility] Work Phone: Start: 03-19-2023 End: 03-19-2023 Patient encounter procedure SORT LINE-C Danyelle Callahan Work Phone: [facility] Work Phone: Start: 01-18-2023 End: 01-18-2023 ambulatory Dai Ramirez Other [facility] [employer] Other Start: 01-18-2023 Office outpatient visit 15 minutes Dai Ramirez [facility] Start: 02-14-2022 End: 02-14-[address] RANDY TERRAZAS Facility: Procedures Date Procedure Procedure Detail Performing Clinician Start: 10-27-2024 IUD REMOVAL Randy Nini DO Work Phone: Start: 10-27-2024 Urnls dip stick/tablet rgnt non-auto w/o micrscp Randy Nini DO Work Phone: Start: 08-04-2024 ALL T3 FREE Randy Nini DO Work Phone: Start: 08-04-2024 ALL THYROID STIM HORMONE Randy Nini DO Work Phone: Start: 08-04-2024 ALL THYROXINE (T4) Randy Terrazas DO Work Phone: Start: 08-04-2024 [facility] GLUCOSE BLOOD Randy Terrazas [employer] Work Phone: Start: 06-27-2024 Colonoscopy flx dx w/collj spec when pfrmd 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: Start: 06-27-2024 Esophagogastroduodenoscopy transoral diagnostic 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: Start: 06-27-2024 Colonoscopy Bob Guerrero MD Work Phone: Start: 12-24-2023 Mammography Randy Terrazas DO Work Phone: Start: 11-19-2023 Microscopic observation [Identifier] in Cervix by Cyto stain Randy Terrazas [employer] Work Phone: Start: 09-28-2023 Lipid 1996 panel - Serum or Plasma 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: Start: 09-27-2023 Adult depression screening assessment Ninfa Longoria MD Work Phone: Start: 03-19-2023 X-ray of left foot SORT LINE-C Danyelle Callahan Work Phone: Plan of Treatment Date Care Activity Detail Author Start: 06-27-2034 Screening for malignant neoplasm of colon [facility] Start: 09-27-2028 Lipid panel Lipid Screening Start: 06-23-2027 Diabetes Screening Diabetes Screening Start: 11-18-2026 Screening for malignant neoplasm of cervix [facility] Start: 08-18-2025 Adult BMI Screening [facility] Start: 07-18-2025 Adult BMI Screening Adult BMI Screening [facility] Start: 06-27-2025 Screening for malignant neoplasm of colon Start: 06-23-2025 Tobacco Screening [facility] Start: 03-23-2025 Influenza vaccination [facility] Start: 02-27-2025 End: 02-27-2025 Clinical Support 02/27/2025 8:00 PM EDT Clinical Support [facility] [address] [place] [address] [facility] Start: 12-23-2024 Screening for malignant neoplasm of breast Start: 12-01-2024 End: 12-01-2024 Patient encounter procedure 12/01/2024 8:40 AM EDT Office Visit [facility] [address] [place] [phone] Randy Terrazas, DO [address] [place] [address] [facility] Start: 11-25-2024 End: 11-25-2024 Patient encounter procedure 11/25/2024 8:30 AM EDT Office Visit [facility] [address] [place] [phone] Randy Terrazas, DO [address] [place] [address] [facility] Start: 11-18-2024 Screening for malignant neoplasm of cervix Pap Smear [facility] Start: 10-21-2024 Administration of varicella zoster vaccine Zoster (Shingles) Vaccine (2 of 2) [facility] Start: 09-26-2024 Depression Screening [facility] Start: 09-01-2024 End: 09-01-2024 Patient encounter procedure 09/01/2024 8:10 AM EST Office Visit [facility] [address] [place] [phone] Randy Terrazas, DO [address] [place] [address] [facility] Start: 2024 Administration of varicella zoster vaccine Zoster (Shingles) Vaccine (1 of 2) [facility] Start: 08-08-2024 End: 08-08-2025 NM Biliary ducts and Gallbladder Views for patency of biliary structures and ejection fraction W sincalide and W radionuclide IV NM hepatobiliary system imaging with pharmacologic agent Imaging Routine Right upper quadrant abdominal pain Expected: 08/08/2024, Expires: 08/08/2025 [employer] Work Phone: Comment on above: Expected: 08/08/2024, Expires: Start: 08-04-2024 End: 08-04-2025 C-peptide C-peptide Lab Routine Hormone imbalance Hormone disorder Weight loss Decreased appetite Other constipation Diarrhea, unspecified type Expected: 08/04/2024 (Approximate), Expires: 08/04/2025 [facility] Comment on above: Expected: 08/04/2024 (Approximate), Expi res: 08/04/2025 Start: 08-04-2024 End: 08-04-2025 Cortisol free Cortisol, free Lab Routine Hormone imbalance Hormone disorder Weight loss Decreased appetite Other constipation Diarrhea, unspecified type Expected: 08/04/2024 (Approximate), Expires: 08/04/2025 [facility] Comment on above: Expected: 08/04/2024 (Approximate), Expi res: 08/04/2025 Start: 08-04-2024 End: 08-04-2025 Glucose [Mass/volume] in Serum or Plasma Glucose, random Lab Routine Hormone imbalance Hormone disorder Weight loss Decreased appetite Other constipation Diarrhea, unspecified type Expected: 08/04/2024 (Approximate), Expires: 08/04/2025 [facility] Comment on above: Expected: 08/04/2024 (Approximate), Expi res: 08/04/2025 Start: 08-04-2024 End: 08-04-2025 Insulin, total Insulin, total Lab Routine Hormone imbalance Hormone disorder Weight loss Decreased appetite Other constipation Diarrhea, unspecified type Expected: 08/04/2024 (Approximate), Expires: 08/04/2025 [facility] Comment on above: Expected: 08/04/2024 (Approximate), Expi res: 08/04/2025 Start: 08-04-2024 End: 08-04-2025 Serotonin serum Serotonin serum Lab Routine Hormone imbalance Hormone disorder Weight loss Decreased appetite Other constipation Diarrhea, unspecified type Expected: 08/04/2024 (Approximate), Expires: 08/04/2025 [facility] Comment on above: Expected: 08/04/2024 (Approximate), Expi res: 08/04/2025 Start: 08-04-2024 End: 08-04-2025 Thyroglobulin Thyroglobulin Lab Routine Hormone imbalance Hormone disorder Weight loss Decreased appetite Other constipation Diarrhea, unspecified type Expected: 08/04/2024 (Approximate), Expires: 08/04/2025 [facility] Comment on above: Expected: 08/04/2024 (Approximate), Expi res: 08/04/2025 Start: 08-04-2024 End: 08-04-2025 Thyroglobulin Antibody Thyroglobulin Antibody Lab Routine Hormone imbalance Hormone disorder Weight loss Decreased appetite Other constipation Diarrhea, unspecified type Expected: 08/04/2024 (Approximate), Expires: 08/04/2025 [facility] Comment on above: Expected: 08/04/2024 (Approximate), Expi res: 08/04/2025 Start: 08-04-2024 End: 08-04-2025 Thyrotropin [Units/volume] in Serum or Plasma [facility] Comment on above: Ordered: 08/04/2024 Expected: 08/04/2024 (Approximate), Expires: 08/04/2025 Start: 08-04-2024 End: 08-04-2024 Patient encounter procedure 08/04/2024 9:20 AM EST Office Visit [facility] [address] [place] [phone] Randy Terrazas DO [address] [place] [address] Arrived [facility] Comment on above: Arrived Start: 06-27-2024 End: 06-27-2024 Patient encounter procedure 06/27/2024 1:00 PM EST Appointment [facility] [address] [place] [address] [address] [place] [phone] Bob Guerrero MD [address] [place] [address] [address] [place] [address] [facility] Start: 06-23-2024 End: 09-22-2024 25-hydroxyvitamin D3 [Mass/volume] in Serum or Plasma Comment on above: Expected: 06/23/2024, Expires: Start: 06-23-2024 End: 09-22-2024 CELIAC SCREEN WITH REFLEX Comment on above: Expected: 06/23/2024, Expires: Start: 03-23-2024 Covid-19 Vaccine () Covid-19 Vaccine () Start: 03-23-2024 Influenza vaccination Influenza Vaccine (#1) [facility] Start: 2019 Screening for malignant neoplasm of colon Start: 2004 Screening for malignant neoplasm of cervix HPV/Cotest [facility] Start: 1995 Screening for malignant neoplasm of cervix Cervical Cancer Screening Start: 1993 DTaP,Tdap and Td Vaccines (1 - Tdap) DTaP,Tdap and Td Vaccines (1 - Tdap) [facility] Start: 1993 Hepatitis B Vaccine (1 of 3 - 19+ 3-dose series) Hepatitis B Vaccine (1 of 3 - 19+ 3-dose series) Start: 1993 Urine microalbumin profile DTaP,Tdap,Td Vaccine (1 - Tdap) Start: 1992 Anxiety Screening Anxiety Screening Start: 1992 Depression Screening Depression Screening Start: 1992 Hepatitis C screening Hepatitis C Screening Start: 1992 HIV screening HIV Screening Start: 1974 Screening for malignant neoplasm of colon [facility] DHEA-sulfate DHEA-sulfate Lab Routine Hormone imbalance Hormone disorder Weight loss Decreased appetite Other constipation Diarrhea, unspecified type Ordered: 08/04/2024 [facility] Comment on above: Ordered: 08/04/2024 End: 06-23-2025 EGD DIAGNOSTIC EGD DIAGNOSTIC Endoscopy Routine Abdominal bloating Weight loss, abnormal 1 Occurrences starting 06/23/2024 until 06/23/2025 Comment on above: 1 Occurrences starting 06/23/2024 until 06/23/2025 Estradiol Estradiol Lab Ro utine Hormone imbalance Hormone disorder Weight loss Decreased appetite Other constipation Diarrhea, unspecified type Ordered: 08/04/2024 [facility] Work Phone: Comment on above: Ordered: 08/04/2024 Estrone Estrone Lab Rout ine Hormone imbalance Hormone disorder Weight loss Decreased appetite Other constipation Diarrhea, unspecified type Ordered: 08/04/2024 [facility] Comment on above: Ordered: 08/04/2024 Ferritin [Mass/volum e] in Serum or Plasma Ferritin Lab Routine Hormone imbalance Hormone disorder Weight loss Decreased appetite Other constipation Diarrhea, unspecified type Ordered: 08/04/2024 [facility] Comment on above: Ordered: 08/04/2024 End: 06-23-2025 Flexible sigmoidoscopy study COLONOSCOPY DIAGNOSTIC Endoscopy Routine Diarrhea, unspecified type Abdominal bloating 1 Occurrences starting 06/23/2024 until 06/23/2025 [facility] Work Phone: Comment on above: 1 Occurrences starting 06/23/2024 until 06/23/2025 Hemoglobin A1c/Hemoglobin.total in Blood Hemoglobin A1c Lab Routine Hormone imbalance Hormone disorder Weight loss Decreased appetite Other constipation Diarrhea, unspecified type Ordered: 08/04/2024 [facility] Comment on above: Ordered: 08/04/2024 Progesterone Progesterone Lab Routine Hormone imbalance Hormone disorder Weight loss Decreased appetite Other constipation Diarrhea, unspecified type Ordered: 08/04/2024 [facility] Comment on above: Ordered: 08/04/2024 Sex hormone binding globulin Sex hormone binding globulin Lab Routine Hormone imbalance Hormone disorder Weight loss Decreased appetite Other constipation Diarrhea, unspecified type Ordered: 08/04/2024 [facility] Comment on above: Ordered: 08/04/2024 SURGICAL PATHOLOGY SURGICAL PATH OLOGY Lab Routine Special screening for malignant neoplasms, colon Ordered: 06/27/2024 [facility] Work Phone: Comment on above: Ordered: 06/27/2024 T3, reverse T3, reverse Lab Routine Hormone imbalance Hormone disorder Weight loss Decreased appetite Other constipation Diarrhea, unspecified type Ordered: 08/04/2024 [facility] Comment on above: Ordered: 08/04/2024 TESTOSTERONE, FREE TESTOSTERONE, FREE Lab Routine Hormone imbalance Hormone disorder Weight loss Decreased appetite Other constipation Diarrhea, unspecified type Ordered: 08/04/2024 [facility] Comment on above: Ordered: 08/04/2024 Testosterone, free, total Testosterone, free, total Lab Routine Hormone imbalance Hormone disorder Weight loss Decreased appetite Other constipation Diarrhea, unspecified type Ordered: 08/04/2024 [facility] Comment on above: Ordered: 08/04/2024 Thyroid peroxidase antibody Thyroid peroxidase antibody Lab Routine Hormone imbalance Hormone disorder Weight loss Decreased appetite Other constipation Diarrhea, unspecified type Ordered: 08/04/2024 [facility] Comment on above: Ordered: 08/04/2024 Thyroxine (T4) free [Mass/volume] in Serum or Plasma T4, free Lab Routine Hormone imbalance Hormone disorder Weight loss Decreased appetite Other constipation Diarrhea, unspecified type Ordered: 08/04/2024 [facility] Comment on above: Ordered: 08/04/2024 Triiodothyronine (T3 ) Free [Mass/volume] in Serum or Plasma T3, free Lab Routine Hormone imbalance Hormone disorder Weight loss Decreased appetite Other constipation Diarrhea, unspecified type Ordered: 08/04/2024 [facility] Comment on above: Ordered: 08/04/2024 Vitamin D 1,25 dihydroxy Vitamin D 1,25 dihydroxy Lab Routine Hormone imbalance Hormone disorder Weight loss Decreased appetite Other constipation Diarrhea, unspecified type Ordered: 08/04/2024 [facility] Comment on above: Ordered: 08/04/2024 Immunizations Immunization Date Immunization Notes [facility] zoster vaccine, unspecified formulation Jermaine Pardo DO Work Phone: [facility] 07-17-2024 influenza virus vaccine, unspecified formulation Randynate Hernandezo DO Work Phone: [facility] 05-14-2023 Seasonal, quadrivale nt, recombinant, injectable influenza vaccine, preservative free Ninfa Longoria MD Work Phone: [facility] 05-14-2023 influenza virus vaccine, unspecified formulation Aspen Rizvi APRN.SILK SOAKER Work Phone: 04-20-2022 influenza, injectabl e, quadrivalent, preservative free Ninfa Longoria MD Work Phone: [facility] 05-13-2021 influenza, injectabl e, quadrivalent, preservative free Ninfa Longoria MD Work Phone: [facility] 09-15-2020 COVID-19, mRNA, LNP- S, PF, 100mcg/0.5mL Dose Ninfa Longoria MD Work Phone: [facility] 08-19-2020 COVID-19, mRNA, LNP- S, PF, 100mcg/0.5mL Dose Ninfa Longoria MD Work Phone: [facility] 05-25-2020 influenza, injectabl e, quadrivalent, preservative free Ninfa Longoria MD Work Phone: [facility] 06-17-2019 influenza, injectabl e, quadrivalent, preservative free Ninfa Longoria MD Work Phone: [facility] 06-28-2018 influenza, injectabl e, quadrivalent, preservative free Ninfa Longoria MD Work Phone: [facility] 07-31-2017 influenza, seasonal, injectable, preservative free Ninfa Longoria MD Work Phone: [facility] 05-18-2014 influenza, seasonal, injectable, preservative free Ninfa Longoria MD Work Phone: [facility] Payers Date Payer Category Payer Self-pay [id number] 2022 Unknown [id number] 2021 [employer] Blue [employer] [id number] [id number] 2021 Blue Cross Blue [employer] Care - O ANTHEM [id number]. [id number] 2020 Unknown [id number]. 1.13.159. 2.7.3.340627.315 1974 Unknown [id number] 2.16.840.1.746085.3.579. 2.593 1974 Unknown [id number] 2.16.840.1.481808.3.579. 2.128 1974 Unknown [id number] 2.16.840.1.783560.3.579. 2.1286 1974 Unknown [id number] 2.16.840.1.675671.3.579. 2.1285 1974 Unknown [id number] 2.16.840.1.594696.3.579. 2.1285 1974 Unknown [id number] 2.16.840.1.964955.3.579. 2.128 1974 Unknown [id number] 2.16.840.1.713396.3.579. 2.128 1974 Unknown [id number] 2.16.840.1.840111.3.579. 2.1285 1974 Unknown [id number] 2.16.840.1.319257.3.579. 2.128 1974 Unknown [id number] 2.16.840.1.349090.3.579. 2.1285 1974 Unknown [id number] 2.16.840.1.259119.3.579. 2.1286 1974 Unknown [id number] 2.16.840.1.446602.3.579. 2.1286 1974 Unknown [id number] 2.16.840.1.547876.3.579. 2.732 1974 Unknown [id number] 2.16.840.1.261245.3.579. 2.732 1974 Unknown [id number] 2.16.840.1.166819.3.579. 2.732 1974 Unknown [id number] 2.16.840.1.391454.3.579. 2.9 1974 Unknown [id number] 2.16840.1.002389.3.579. 2.9 1974 Unknown [id number] 2.16840.1.638029.3.579. 2.9 1974 Unknown [id number] 2.16840.1.811046.3.579. 2.9 1974 Unknown [id number] 2.16.840.1.794036.3.579. 2.8 1974 Unknown [id number] 2.16840.1.787222.3.579. 2.8 1974 Unknown [id number] 2.16840.1.041197.3.579. 2. 1974 Unknown [id number] 2.16840.1.058100.3.579. 2. 1974 Unknown [id number] 2.16840.1.973883.3.579. 2. 1974 Unknown [id number] 2.16840.1.155482.3.579. 2.196 1974 Unknown [id number] 2.16840.1.305589.3.579. 2. 1974 Unknown [id number] 2.16.840.1.717435.3.579. 2.196 1974 Unknown [id number] 2.16.840.1.859923.3.579. 2.196 1974 Unknown [id number] 2.16.840.1.652554.3.579. 2.196 1974 Unknown [id number] 2.16.840.1.771921.3.579. 2.196 1974 Unknown [id number] 2.16.840.1.862814.3.579. 2.196 1974 Unknown [id number] 2.16.840.1.290541.3.579. 2.196 1974 Unknown [id number] 2.16.840.1.232122.3.579. 2.196 1974 Unknown [id number] 2.16.840.1.094923.3.579. 2.196 1974 Unknown [id number] 2.16.840.1.936824.3.579. 2.196 1959 Unknown [id number] Unknown Prudence HICKMAN/CHRISTIAN [id number] Unknown [id number] 2.16.840.1.155032.3.579. 2.531 Social History Date Type Detail Facility Unknown if ever smoked [facility] Other Start: 08-26-2021 End: 06-23-2024 Sex Assigned At [employer] Other Start: 1975 Sex Assigned At Female [facility] Start: 01-14-2024 End: 06-23-2024 Tobacco smoking status NHIS Ex-smoker Start: 05-09-1992 End: 05-09-1996 History of tobacco use Current smoker Start: 05-09-1992 End: 05-09-1996 History of tobacco use Cigarette Smoker Start: 01-14-2024 End: 06-23-2024 Tobacco use and exposure Smokeless tobacco non-user Start: 06-23-2024 End: 07-18-2024 Alcoholic beverage intake Current drinker of alcohol (finding) Start: 08-26-2021 End: 06-23-2024 History of Social function National Score (1-10 0), lower number is lower risk 62 Start: 06-23-2024 Tobacco Comment Quit when pt was 23 yrs old Start: 06-23-2024 Alcohol Comment socially Start: 1975 Sex assigned at Not on file Start: 01-28-2024 Tobacco smoking status NHIS Tobacco smoking consumption unknown [facility] Do you belong to any clubs or organizations such as jewish groups, unions, fraternal or athletic groups, or school groups? No [facility] Are you now , , , , never or living with a partner? [facility] How often to you hav e a drink containing alcohol? 2-4 times a month [facility] How many standard dr inks containing alcohol do you have on a typical day? 1 or 2 [facility] How often do you hav e 6 or more drinks on 1 occasion? Less than monthly [facility] Do you feel stress - tense, restless, nervous, or anxious, or unable to sleep at night because your mind is troubled all the time - these days [OSQ] To some extent [facility] Start: 08-26-2021 Education 15 [facility] Start: 02-25-2015 Sex Female (finding) [facility] Clinical Notes 01-18-2023 to 11-14-2024 Telephone Encounter - Macie Mead - 11/14/2024 8:59 AM EDTTelephone Encounter - Macie Mead - 11/14/2024 8:59 AM EDTTelephone Encounter - Macie Mead - 11/10/2024 11:19 AM EDT Note Date & Type Note Facility 11-14-2024 Miscellaneous Notes 11/14 Order received Scheduled PSG @ [facility] On 02/27 My chart confirmation Routed Tiffany Thomasem Ins PSG Order and 11/03 House notes in MM Pt wanted a Sunday asked for this date Per [place] with office in lab order documented in this encounter [facility] 11-14-2024 Telephone encounter Note 11/14 Order received Scheduled PSG @ [facility] On 02/27 My chart confirmation Routed Tiffany Thomasem Ins PSG Order and 11/03 House notes in MM Pt wanted a Sunday asked for this date Per [place] with office in lab order [facility] 11-10-2024 Miscellaneous Notes Pt called to schedule Lm returned pt's call advising we did not have her order or office notes as of now gave her our fax and ph number as well documented in this encounter [facility] 11-10-2024 Telephone encounter Note Pt called to schedule Lm returned pt's call advising we did not have her order or office notes as of now gave her our fax and ph number as well [facility] 10-27-2024 History of Present illness Narrative Associated Order(s): IUD Removal Post-Procedure Diagnose(s): Hormone disorder; Encounter for IUD removal; Hormone imbalance Reason for Appointment: Patient ID: Rosalie Mcdonnell is a 49 y.o. female who presents for Mirena removal Patient presents today for a IUD Removal appointment. MEDICATIONS Current Outpatient Medications Medication Instructions estradiol (ESTRACE) 0.5 mg, Oral, Daily, Take 1 tablet by mouth for 30 days Mirena (52 MG) 52 mg, Intrauterine, As needed temazepam (RESTORIL) 15 mg, Oral, Nightly tiZANidine (ZANAFLEX) 4 mg, Oral, Nightly zonisamide (ZONEGRAN) 100 mg, Oral, Once ALLERGIES No Known Allergies SURGICAL HISTORY Past Surgical History: Procedure Laterality Date NECK SURGERY ORIF FOREARM FRACTURE ELBOW TONSILLECTOMY REVIEW OF SYSTEMS Review of Systems: Review of Systems All other systems reviewed and are negative. OBJECTIVE Objective: Physical Exam Constitutional: Appearance: Normal appearance. She is well-developed. Genitourinary: Vulva normal. Cardiovascular: Rate and Rhythm: Normal rate and regular rhythm. Pulmonary: Effort: Pulmonary effort is normal. Breath sounds: Normal breath sounds. Abdominal: General: Bowel sounds are normal. There is no distension. Palpations: Abdomen is soft. Tenderness: There is no abdominal tenderness. There is no guarding or rebound. Musculoskeletal: General: No swelling. Normal range of motion. Right lower leg: No edema. Left lower leg: No edema. Neurological: Mental Status: She is alert and oriented to person, place, and time. Skin: General: Skin is warm and dry. Psychiatric: Mood and Affect: Mood normal. Behavior: Behavior normal. Vitals and nursing note reviewed. Exam conducted with a engine repairer present. Vitals: Estimated body mass index is 24.96 kg/m as calculated from the following: Height as of 11/19/23: 5' 5 . Weight as of this encounter: 150 lb. BP: 110/70 No LMP recorded. ASSESSMENT & PLAN Assessment/Plan Encounter Diagnosis: ICD-10-CM 1. Encounter for IUD removal Z30.432 POCT urinalysis dipstick manually resulted 2. Hormone imbalance E34.9 3. Hormone disorder E34.9 IUD Removal Date/Time: 10/27/2024 10:22 AM Performed by: Randy Terrazas DO Authorized by: Randy Terrazas DO Consent: Consent obtained: Written Consent given by: Patient Procedure risks and benefits discussed: yes Patient questions answered: yes Patient agrees, verbalizes understanding, and wants to proceed: yes Educational handouts given: no Instructions and paperwork completed: yes Procedure: Removed with no complications: yes Removal due to mechanical complications of IUD: no Removal due to infection and inflammatory reaction: no IUD Removal: Patient presents today for removal of IUD due to recommendations from Vince Sheppard at [facility]. Patient voiced that she had a visit with him a few weeks ago and was instructed that recommendation would be sent over to office in regards to medication and management for hormones. Patient stated that she was informed to have IUD removed & that is why she presents today for removal. Written consent was obtained and patient was placed in dorsal lithotomy position with feet in stirrups. A sterile speculum was inserted into the vagina and the cervix was visualized. The IUD strings were grasped gently with forceps and the IUD was removed in its entirety without difficulty. The IUD was shown to the patient then properly discarded. Follow Up: Patient is to return to the office for annual exam unless needed otherwise. Documented by Kristal Matthew LPN on behalf of: Randy Terrazas DO documented in this encounter [facility] 10-27-2024 Miscellaneous Notes Refill request documented in this encounter [facility] 10-27-2024 Telephone encounter Note Refill request [facility] 09-02-2024 Miscellaneous Notes Patient requesting refill documented in this encounter [facility] 09-02-2024 Telephone encounter Note Patient requesting refill [facility] 09-02-2024 Miscellaneous Notes Refill request documented in this encounter [facility] 09-02-2024 Telephone encounter Note Refill request [facility] 09-01-2024 History of Present illness Narrative Reason for Appointment: Patient ID: Rosalie Mcdonnell is a 49 y.o. female who presents for No chief complaint on file. Patient presents today via telephone call for a telehealth appointment. Patients Phone #: [phone] (mobile) Current Medications: has a current medication list which includes the following prescription(s): estradiol, mirena (52 mg), temazepam, tizanidine, and zonisamide. Medical History: Active Ambulatory Problems Diagnosis Date Noted Hormone disorder 08/04/2024 Weight loss 08/04/2024 Decreased appetite 08/04/2024 Other constipation 08/04/2024 Diarrhea 08/04/2024 Resolved Ambulatory Problems Diagnosis Date Noted No Resolved Ambulatory Problems No Additional Past Medical History No family history on file. Social History Tobacco Use Smoking status: Unknown Smokeless tobacco: Not on file Substance Use Topics Alcohol use: Not on file Drug use: Not on file Past Surgical History: Procedure Laterality Date NECK SURGERY ORIF FOREARM FRACTURE ELBOW TONSILLECTOMY No Known Allergies Vitals: Estimated body mass index is 25.31 kg/m as calculated from the following: Height as of 11/19/23: 5' 5 . Weight as of 08/04/24: 152 lb 1.9 oz. BP: No LMP recorded. Assessment/Plan Encounter Diagnosis Name Primary? Hormone imbalance Pt was called for telehealth- pt states medication is good where its at, symptoms are getting better. Today's telehealth visit consisted of spending 5 minutes talking to patient on the phone. Documented by Michelle Cook LPN on behalf of: Randy Terrazas DO documented in this encounter [facility] 08-06-2024 Miscellaneous Notes Refill request documented in this encounter [facility] 08-06-2024 Telephone encounter Note Refill request [facility] [employer] 08-04-2024 History of Present illness Narrative Reason for Appointment: Patient ID: Rosalie Mcdonnell is a 48 y.o. female who presents for Menopause Patient presents today for Consult appointment. MEDICATIONS Current Outpatient Medications Medication Instructions Mirena (52 MG) 52 mg, Intrauterine, As needed temazepam (RESTORIL) 15 mg, Oral, Nightly tiZANidine (ZANAFLEX) 4 mg, Oral, Nightly zonisamide (ZONEGRAN) 100 mg, Oral, Once ALLERGIES No Known Allergies PROBLEMS Active Ambulatory Problems Diagnosis Date Noted No Active Ambulatory Problems Resolved Ambulatory Problems Diagnosis Date Noted No Resolved Ambulatory Problems No Additional Past Medical History HISTORY PAST MEDICAL HISTORY SOCIAL HISTORY No past medical history on file. Social History Tobacco Use Smoking status: Unknown Smokeless tobacco: Not on file Substance Use Topics Alcohol use: Not on file Drug use: Not on file FAMILY HISTORY No family history on file. SURGICAL HISTORY Past Surgical History: Procedure Laterality Date NECK SURGERY ORIF FOREARM FRACTURE ELBOW TONSILLECTOMY REVIEW OF SYSTEMS Review of Systems: Review of Systems All other systems reviewed and are negative. OBJECTIVE Objective: Physical Exam Constitutional: Appearance: Normal appearance. She is well-developed. Cardiovascular: Rate and Rhythm: Normal rate and regular rhythm. Pulmonary: Effort: Pulmonary effort is normal. Breath sounds: Normal breath sounds. Abdominal: General: Bowel sounds are normal. There is no distension. Palpations: Abdomen is soft. Tenderness: There is no abdominal tenderness. There is no guarding or rebound. Musculoskeletal: General: No swelling. Normal range of motion. Right lower leg: No edema. Left lower leg: No edema. Neurological: Mental Status: She is alert and oriented to person, place, and time. Skin: General: Skin is warm and dry. Psychiatric: Mood and Affect: Mood normal. Behavior: Behavior normal. Vitals and nursing note reviewed. Exam conducted with a engine repairer present. Vitals: Estimated body mass index is 25.31 kg/m as calculated from the following: Height as of 24: 5' 5 . Weight as of this encounter: 152 lb 1.9 oz. BP: 114/70 No LMP recorded. ASSESSMENT & PLAN ICD-10-CM 1. Hormone imbalance E34.9 Patient presents today for hormonal imbalance/menopausal symptoms, weight loss, decreased appetite, diarrhea and constipation. Patient voiced she is having a CT today that was ordered by GI. Patient given orders to have labs drawn & will order Estradiol 0.5mg to be sent to [facility] in [place]. Patient to follow up with TeleHealth in 4 weeks. Documented by Kristal Matthew LPN on behalf of: Randy Terrazas DO documented in this encounter [facility] 06-27-2024 Note [facility] Patient Name: Rosalie Mckinnon Procedure Date: 06/27/2024 1:52 PM Date of : 1975 Age: 48 Gender: Female Race: Unknown Attending MD: Bob Guerrero MD, [id number] Procedure: Colonoscopy Referring MD: Providers: Bob Guerrero [...] by the physician, the nurse and the inbound ingredient logistics specialist in the procedure room at 13:52 PM. [...] (more content not included)... [facility] 06-27-2024 Hospital Discharge instructions Bob Guerrero MD - 06/27/2024 2:07 PM EST Images from the original note were not included. SENIOR SOLUTIONS CONSULTANT [employer] [facility] I [...] further questions or concerns. Bob Guerrero MD, [facility] Director of IBD & Quality [facility] Office: Electronically SIGNED: Bob Guerrero MD, June 27, 2024 documented in this encounter 06-27-2024 Note [facility] [place] [facility] [place] Patient Name: Rosalie Mckinnon Procedure Date: 06/27/2024 1:37 PM Date of : 1975 Age: 48 Gender: Female Race: Unknown Attending MD: Bob Guerrero MD, [id number] Procedure: Upper GI endoscopy Referring MD: NINFA [...] by the physician, the nurse and the inbound ingredient logistics specialist in the procedure room at 13:37 PM. [...] immediate complications. Procedure Code(s): --- Professional --- 61395, Esophagogastroduodenoscopy, flexible, transoral; diagnostic, including collection of specimen(s) by brushing or washing, when performed (separate procedure) Diagnosis Code(s): --- Professional --- R19.8, Other specified symptoms and signs involving the digestive system and abdomen CPT copyright 2020 [employer]. All rights reserved. The codes documented in this report are preliminary and upon automatic machines supervisor review may be revised to meet current [...] June 27, 2024 TIME: 1:40 PM PAGER: [phone] [facility] Work Phone: 06-27-2024 History and physical [...] June 27, 2024 TIME: 1:40 PM PAGER: [phone] documented in this encounter 06-23-2024 History of Present illness Narrative [facility] PRIMARY CARE PHYSICIAN: [...] COMPLETE BLOOD COUNT AND DIFFERENTIAL Aspen Rizvi APRN.SILK SOAKER documented in this encounter 06-12-2024 Note PROCEDURE: Radiofreq uency ablation of [...] created on his/her behalf by a trained medical technologist chief. The creation of this document is based on the provider?s statements to the medical technologist chief. Electronically signed by Tom Chaney MD 06/12/24 14:53 EST Electronically signed by Sherice Chowdhury 06/12/2024 14:29 EST [facility] 06-12-2024 Note History of Present I [...] today's date. Anesthetic Plan: IV conscious sedation [employer]esthesi[employer] (ASA) Classification: Class I [...] created on his/her behalf by a trained medical technologist chief. The creation of this document is based on the provider?s statements to the medical technologist chief. Problem List/Past Medical History Ongoing Cephalgia Cervical [...] Cervical Radiofrequency Ab (more content not included)... [facility] 05-26-2024 Note PROCEDURE: Radiofreq uency ablation of [...] created on his/her behalf by a trained medical technologist chief. The creation of this document is based on the provider?s statements to the medical technologist chief. Electronically signed by Tom Chaney MD 05/26/24 14:12 EST Electronically signed by Jory Parker 05/26/2024 13:21 EST [facility] 05-26-2024 Note History of Present I [...] today's date. Anesthetic Plan: IV conscious sedation [employer]esthesiologists (ASA) Classification: Class I [...] created on his/her behalf by a trained medical technologist chief. The creation of this document is based on the provider?s statements to the medical technologist chief. Problem List/Past Medical History Ongoing Cephalgia Cervical [...] Injection (Bilateral) ( (more content not included)... [facility] 12-10-2023 Note PROCEDURE: Bilateral C6-7 nerve root [...] patient was then turned supine onto the gurney and transferred to the recovery area in stable condition, to be discharged home after meeting criteria and follow up as per treatment plan. This document serves as a record of the services and decisions personally performed and made by the attending provider. It was created on his/her behalf by a trained medical technologist chief. The creation of this document is based on the provider?s statements to the medical technologist chief. Electronically signed by Tom Chaney MD 12/10/23 09:00 EDT Electronically signed by Sherice Chowdhury 12/10/2023 08:58 EDT [facility] 12-10-2023 Note History of Present I [...] created on his/her behalf by a trained medical technologist chief. The creation of this document is based on the provider?s statements to the medical technologist chief. 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 Substance [...] Electronically signed by (more content not included)... [facility] 01-18-2023 Evaluation note Encounter Date Diagnosis Assessment [...] is advised to use Mucinex DM, Claritin-D [id number] for symptomatic treatment. If symptoms or not [...] align or Culturelle for diarrhea. Push fluids. Semin[place] diet. [employer]ours Other Evaluation noteNo assessment information available [facility] Work Phone: Evaluation note* Diagnosis Diarrhea, unspecified type- Primary Abdominal bloating Flatulence, eructation, and gas pain Weight loss, abnormal Loss of weight [facility] Special screening for malignant neoplasms, colon- Primary [facility] Diagnosis Diarrhea, unspecified type Abdominal bloating Flatulence, eructation, and gas pain Weight loss, abnormal Loss of weight documented in this encounter Evaluation note* Diagnosis Hormone imbalance Hormone disorder Unspecified endocrine disorder Weight loss Loss of weight Decreased appetite Anorexia Other constipation Diarrhea, unspecified type [facility] Primary insomnia Persistent disorder of initiating or maintaining sleep documented in this encounter [facility]* Diagnosis Right upper quadrant abdominal pain- Primary documented in this encounter [facility]* Diagnosis Nausea Nausea alone documented in this encounter [facility]* Diagnosis Primary insomnia Persistent disorder of initiating or maintaining sleep documented in this encounter [facility]* Diagnosis Hormone imbalance documented in this encounter [facility]* Diagnosis Primary insomnia Persistent disorder of initiating or maintaining sleep documented in this encounter [facility]* Diagnosis Encounter for IUD removal Hormone imbalance Hormone disorder Unspecified endocrine disorder documented [facility] N[facility]ative - Reported* Type Description Date Medical History Arthritis Medical History insomnia Surgical History tonsillectomy and adenoidectomy Surgical History septoplasty Surgical History neck disc replacement Hospitalization History see above [employer]lin[employer] Other InstructionsNot on filedocumented in this encounter [facility] SystemInstructionsNot on filedocumented in this encounter [facility] SystemInstructionsNot on filedocumented in this encounter [facility] SystemInstructionsNot on filedocumented in this encounter [facility] SystemInstructionsNot on filedocumented in this encounter [facility] SystemReason for referral (narrative)* Outpatient Procedure (Routine) - Ref Not Required Specialty Diagnoses / Procedures Referred By Dewey rojas Referred To Contact ENDOSCOPY Diagnoses Abdominal bloating Weight loss, abnormal Procedures EGD DIAGNOSTIC ESOPHAGOGASTRODUODENOSCOPY TRANSORAL DIAGNOSTIC Aspen Rizvi APRN.CNP [address] [address] [facility] [address] [address] Referral ID Status Reason Start Date Expiration Date Visits Requested Visits Authorized [id number] Ref Not Required Auto-Generat ed Referral 06/23/2024 06/23/2025 1 1 * Outpatient Procedure (Routine) - Ref Not Required Specialty Diagnoses / Procedures Referred By Dewey rojas Referred To Contact ENDOSCOPY Diagnoses Diarrhea, unspecified type Abdominal bloating Procedures COLONOSCOPY DIAGNOSTIC COLONOSCOPY FLX DX W/COLLJ SPEC WHEN PFRMD Aspen Rizvi APRN.CNP [address] [facility] [address] [place] [address] [facility] 850 [facility] [address] [place] [address] Referral ID Status Reason Start Date Expiration Date Visits Requested Visits Authorized [id number] Ref Not Required Auto-Generat ed Referral 06/23/2024 06/23/2025 1 1 [facility] Outpatient Procedure (Routine) - Ref Not Required Specialty Diagnoses / Procedures Referred By Contac t Referred To Contact ENDOSCOPY Diagnoses Abdominal bloating Weight loss, abnormal Procedures EGD DIAGNOSTIC ESOPHAGOGASTRODUODENOSCOPY TRANSORAL DIAGNOSTIC Aspen Rizvi APRN.SILK SOAKER [address] [facility] [address] [place] [address] [facility] [address] [facility] [address] [place] [address] Referral ID Status Reason Start Date Expiration Date Visits Requested Visits Authorized [id number] Ref Not Required Auto-Generat ed Referral 06/23/2024 06/23/2025 1 1 * Outpatient Procedure (Routine) - Ref Not Required Specialty Diagnoses / Procedures Referred By Contac t Referred To Contact ENDOSCOPY Diagnoses Diarrhea, unspecified type Abdominal bloating Procedures COLONOSCOPY DIAGNOSTIC COLONOSCOPY FLX DX W/COLLJ SPEC WHEN PFRMD Aspen Rizvi APRN.SILK SOAKER [address] [facility] [address] [place] [address] [facility] [address] [place] [address] Referral ID Status Reason Start Date Expiration Date Visits Requested Visits Authorized [id number] Ref Not Required Auto-Generat ed Referral 06/23/2024 06/23/2025 [address] [facility] for visit Narrative* Outpatient Procedure (Routine) - Ref Not Required Specialty Diagnoses / Procedures Referred By Dewey rojas Referred To Contact ENDOSCOPY Diagnoses Abdominal bloating Weight loss, abnormal Procedures EGD DIAGNOSTIC ESOPHAGOGASTRODUODENOSCOPY TRANSORAL DIAGNOSTIC Aspen Rizvi APRN.SILK SOAKER [address] [place] [address] [facility] [address] [place] [address] Referral ID Status Reason Start Date Expiration Date Visits Requested Visits Authorized [id number] Ref Not Required Auto-Generat ed Referral 06/23/2024 06/23/2025 1 1 Summary Purpose Family History No Family History [...] DATE CREATED AUTHOR AUTHOR'S ORGANIZ ATION 06/03/2022 [facility] dical Specialist DATE CREATED AUTHOR AUTHOR'S ORGANIZ ATION 03/22/2023 [facility] DATE CREATED AUTHOR AUTHOR'S ORGANIZ ATION 06/26/2024 [facility] DATE CREATED AUTHOR AUTHOR'S ORGANIZ ATION 07/19/2024 [facility] DATE CREATED AUTHOR AUTHOR'S ORGANIZ ATION 09/05/2024 [facility] DATE CREATED AUTHOR AUTHOR'S ORGANIZ ATION 10/22/2024 [facility] DATE CREATED AUTHOR AUTHOR'S ORGANIZ ATION 10/28/2024 [facility] dical Specialists [facility] DATE CREATED AUTHOR AUTHOR'S ORGANIZ ATION 11/24/2024 [facility] DATE CREATED AUTHOR AUTHOR'S ORGANIZ ATION 11/27/2024 [facility] REASON FOR VISIT (unrecogniz ed section and content) Reason Comments Nausea Diarrhea Consult Lost 12lbs in one mo nt Reason Comments Menopause Reason Onset Date Comments Med Refill 08/06/2024 Reason Onset Date Comments Med Refill 09/02/2024 Reason Onset Date Comments Med Refill 09/29/2024 Reason Onset Date Comments Med Refill 10/27/2024 Reason Comments Mirena removal Reason Onset Date Comments Sleep Lab 11/10/2024 Inquiry Reason Onset Date Comments Sleep Lab 11/14/2024 PSG Order Care Teams (unrecognized sec tion and content) Team Status: Inactive Member Role Status Dates Danyelle Callahan , [employer] Attending Provider Active Manager Gift Relationship Specialty Start Date End Date Ninfa Longoria MD [address] [place] [address], [address] [place] [address] PCP - General Internal Medicine 06/23/24 Manager Gift Relationship Specialty Start Date End Date Ninfa Longoria MD [address] [place] [address], [address] [place] [address] PCP - General Internal Medicine 06/23/24 Manager Gift Relationship Specialty Start Date End Date Ninfa Longoria MD [address] [place] [address], [address] [place] [address] PCP - General Internal Medicine 06/23/24 Manager Gift Relationship Specialty Start Date End Date Ninfa Longoria MD [address] [place] [address], [address] [place] [address] PCP - General Family Medicine 11/19/23 Manager Gift Relationship Specialty Start Date End Date Ninfa Longoria MD [address] [place] [address], [address] [place] [address] PCP - General Family Medicine 11/19/23 Manager Gift Relationship Specialty Start Date End Date Ninfa Longoria MD [address] [place] [address], [address] [place] [address] PCP - General Family Medicine 11/19/23 Manager Gift Relationship Specialty Start Date End Date Ninfa Longoria MD [address] [place] [address], [address] [place] [address] PCP - General Pediatrics 12/29/16 Manager Gift Relationship Specialty Start Date End Date Ninfa Longoria MD [address] [place] [address], [address] [place] [address] PCP - General Pediatrics 12/29/16 Manager Gift Relationship Specialty Start Date End Date Ninfa Longoria MD [address] [place] [address], [address] [place] [address] PCP - General Pediatrics 12/29/16 Manager Gift Relationship Specialty Start Date End Date Ninfa Longoria MD [address] [place] [address], [address] [place] [address] PCP - General Pediatrics 12/29/16 Manager Gift Relationship Specialty Start Date End Date Ninfa Longoria MD [address] [place] [address], [address] [place] [address] PCP - General Family Medicine 11/19/23 Manager Gift Relationship Specialty Start Date End Date Ninfa Longoria MD PCP - General Family Medicine 11/19/23 Manager Gift Relationship Specialty Start Date End Date Ninfa Longoria MD [address] [place] [address], [address] [place] [address] PCP - General Pediatrics 12/29/16 Manager Gift Relationship Specialty Start Date End Date Ninfa Longoria MD PCP - General Family Medicine 11/19/23 Goals [...] or prosecute any alcohol or drug abuse patient.In the event this information is protected by the Federal Confidentiality of Alcohol and Drug Abuse Patient Records regulations: The Federal rules restrict any use of the information to criminally investigate or prosecute any alcohol or drug abuse patient.In the event this information is protected by the Federal Confidentiality of Alcohol and Drug Abuse Patient Records regulations: The Federal rules restrict any use of the information to criminally investigate or prosecute any alcohol or drug abuse patient. FOR RECORDS PERTAINING TO PATIENTS WHO ARE [...] BE BASED ON THE PRIMARY CLINICAL RECORDS. [facility]. provides no warranty or guarantee of the accuracy or completeness of information in this document.
[2024-12-02 04:07] LABS: DHEA-Sulfate 82.3 ug/dL (41.2-243.7); Progesterone 0.8 ng/mL (.)
[2024-12-03 03:07] LABS: Free Testosterone(Direct) 1.4 pg/mL (0.0-4.2); Testosterone 9 ng/dL (4-50)
== END 2024-12-01 09:06 | disposition home or self-care (01) ==
LOC: LAB 09:09
PROVIDERS: PCP Family Medicine; Visit Provider Obstetrics & Gynecology
DX: E34.9 Endocrine disorder, unspecified (principal)
CPT/HCPCS: 36415; 82627; 84140; 84144; 84402; 84403

== ENCOUNTER 2024-12-29 12:29 | Outpatient (REF) | payer BC, SELFPAY ==
--- OUTSIDE RECORDS SUMMARY | 2024-12-29 08:30 | XMS_ITS | Encounter Summary ---
Author Organization [facility] Address [address] [place] [address] Care Team Providers Care Audience Development Manager Name Role Phone Jose Antonio Gibson MD Primary Care Provider [phone] Reason for Visit * Reason Comments Well Women Visit Encounter Details Date Type Department Care Team (Late Contact Info) Description 12/29/2024 8:30 AM EDT Office Visit [facility] [address] [place] [phone] Randy Terrazas, DO [address] [place], [place] [phone] Well woman exam with routine gynecological exam; Breast cancer screening by mammogram; Postmenopausal state Social History Tobacco Use Types Packs/Day Years Used Date Smoking Tobacco: Unknown Comments Unknown Sex and Gender Information Value Date Recorded Sex Assigned at Not on file Legal Sex Female 11:34 PM EDT Gender Identity Not on file Sexual Orientation Not on file documented as of this encounter Last Filed Vital Signs Vital Sign Reading Time Taken Comments Blood Pressure 112/72 12/29/2024 8:50 AM EDT Pulse - - Temperature - - Respiratory Rate - - Oxygen Saturation - - Inhaled Oxygen Concentration - - Weight 65.2 kg (143 lb 12.8 oz) 12/29/2024 8:50 AM EDT Height - - Body Mass Index 23.93 11/19/2023 11:10 AM EDT documented in this encounter Plan of Treatment Upcoming Encounters Date Type Department Care Team (Late Contact Info) Description 01/04/2026 10:00 AM EDT Office Visit [facility] [address] [facility] [place] [phone] Randy Terrazas, DO [address] [place] [address] Scheduled Orders Name Type Priority Associated Diagnoses Orde r Schedule Bilateral screening mammogram Imaging Routine Breast cancer screening by mammogram Expected: 12/29/2024, Expires: 02/28/2026 DEXA bone density Imaging Routine Postmenopausal state Expected: 12/29/2024 (Approximate), Expires: 12/29/2025 THIN PREP TIS PAP AND HR HPV DNA Pathology and Cytology Routine Well woman exam with routine gynecological exam Ordered: 12/29/2024 documented as of this encounter Visit Diagnoses Diagnosis Well woman exam with routine gynecological exam Routine gynecological examination Breast cancer screening by mammogram Postmenopausal state Asymptomatic postmenopausal status (age-related) (natural) documented in this encounter Care Teams Audience Development Manager Relationship Specialty Start Date End Date Jose Antonio Gibson MD PCP - General Family Medicine 11/19/23 documented as of this encounter
--- OUTSIDE RECORDS SUMMARY | 2024-12-29 12:31 | XMS_ITS | Clinical Summary ---
Author Organization [employer] [facility] Address [facility] [id number] [address] [place] [address] Care Team Providers Care Supervisor Putty And Caluking Name Role Phone Jose Antonio Gibson MD Primary Care Provider [phone] Allergies No known active allergies Medications * This document contains information received from the source organization and may not represent a complete record from that organization. zonisamide (ZONEGRAN) 100 mg capsule 1 capsule (100 mg total) in the morning. 03/01/20 21 Active tiZANidine (ZANAFLEX) 4 mg tablet Take 1 tablet (4 mg total) by mouth nightly. 90 tablet 1 06/23/20 24 Active levonorgestreL (MIRENA) 21 mcg/24hr (up to 8 yrs) 52 mg IUD 1 each by intrauterine route. Active ondansetron ODT (ZOFRAN ODT) 4 mg disintegrating tabletIndications: Nausea Dissolve 1 tablet (4 mg total) on tongue every 8 (eight) hours as needed for nausea or vomiting. 20 tablet 09/02/19 25 Active temazepam (RESTORIL) 15 mg capsuleIndications :Primary insomnia Take 1 capsule (15 mg total) by mouth nightly as needed for sleep. 30 capsule 1 10/28/19 25 Active Active Problems Problem Noted Date Diagnosed Date Primary insomnia 08/06/2020 Iron deficiency 08/06/2020 Encounters Date Type Department Care Team Description 11/14/2024 Telephone [facility] - Sleep Disorders [address] [place] [address] Jermaine Yung DO Sleep Lab (PSG Order) 11/10/2024 [facility] - [facility] Disorders [address] [place] [address] Transcribe, Orders Support User Sleep Lab (Inquiry ) 10/27/2024 Refill [facility] [address] [place] [address] Jose Antonio Gibson MD Primary insomnia 09/29/2024 Refill [facility] [address] [place] [address] Jose Antonio Gibson MD Primary insomnia from Last 3 Months Immunizations Immunization Administration Dates Next Due COVID-19, mRNA, LNP-S, PF, 100mcg/0.5mL Dose 09/15/2020,08/19/2020 Influenza (IM) Preservative Free 07/31/2017,04/23 Influenza, Injectable, quadr ivalent (PF) 04/20/2022,05/13/2021,05/25/2020,2018,06/28/2018 Influenza, Recombinant, Quad rivalent, Injectable, Preserv 05/14/2023 Family History Medical History Relation Name Comments Asthma Daughter Jo Mcdonnell exercise induce d Coronary artery disease Father Khari Kirbyiter Heart disease Father Khari Kirbyiter CAD Hyperlipidemia Father Khari Alden Hypertension Father Khari Kirbyiter Hemochromatosis Maternal Aunt Arthritis Maternal Grandmother Mildred Coreas Arthritis Mother Frantz Alden COPD Mother Frantz Alden Diabetes Mother Frantz Alden Hyperlipidemia Mother Frantz Alden Hypertension Mother Frantz Alden Lung cancer Mother Frantz Alden Miscarriages / Stillbirths Mother Frantz Alden Vision loss Mother Frantz Alden macular degener ation Miscarriages / Stillbirths Sister Jamilah Ruano Breast cancer Neg Hx Relation Name Status Comments Daughter Jo Mcdonnell Father Khari Alden Maternal Aunt Maternal Grandmother Mildred Coreas Mother Frantz Alden Sister Jamilah Ruano Social History Tobacco Use Types Packs/Day Years Used Date Smoking Tobacco: Former Cigarettes 1 - 05/09/1996 Smokeless Tobacco: Never Tobacco Cessation:Counseling Given: No Alcohol Use Standard Drinks/Week Comments Yes 2 (1 standard drink = 0.6 oz pur e alcohol) Social Connection and Isolation Panel [NHANES] A nswer Date Recorded In a typical week, how many times do you talk on the phone with family, friends, or neighbors? Three times a week 08/26/2021 How often do you get togethe r with friends or relatives? Twice a week 08/26/2021 How often do you attend chur ch or mu-ism services? Never 08/26/2021 Do you belong to any clubs o r organizations such as episcopalian groups, unions, fraternal or athletic groups, or school groups? No 08/26/2021 How often do you attend meet ings of the clubs or organizations you belong to? Never 08/26/2021 Are you , , di vorced, , never , or living with a partner? 08/26/2021 AUDIT-C Answer Date Recorded Q1: How often do you have a drink containing alc ohol? 2-4 times a month 08/26/2021 Q2: How many drinks containi ng alcohol do you have on a typical day when you are drinking? 1 or 2 08/26/2021 Q3: How often do you have si x or more drinks on one occasion? Less than monthly 08/26/2021 Overall Financial Resource Strain (CARDIA) Answe r Date Recorded How hard is it for you to pa y for the very basics like food, housing, medical care, and heating? Not hard at all 09/26/2023 PHQ-2 Answer Date Recorded Total Score 0 09/27/2023 [facility]at ional Health - Occupational Stress Questionnaire Answer Date Recorded Do you feel stress - tense, restless, nervous, or anxious, or unable to sleep at night because your mind is troubled all the time - these days? To some extent 08/26/2021 Exercise Vital Sign Answer Date Recorde d On average, how many days pe r week do you engage in moderate to strenuous exercise (like a brisk walk)? 4 days 08/26/2021 On average, how many minutes do you engage in exercise at this level? 60 min 08/26/2021 PRAPARE - Transportation Answer Date Re corded In the past 12 months, has l ack of transportation kept you from medical appointments or from getting medications? No 12/2023 In the past 12 months, has l ack of transportation kept you from meetings, work, or from getting things needed for daily living? No 09/26/2023 Housing Instability Answer Date Recorde d Are you worried or concerned that in the next two months you may not have stable housing that you own, rent or stay in as a part of a household? No 09/26/2023 Childcare Answer Date Recorded Do problems getting child ca re make it difficult for you to work or study? No 08/26/2021 Employment Answer Date Recorded Do you need help finding a [facility] and/or a training program? No 08/26/2021 Hunger Screening Answer Date Recorded Within the past 12 months we worried whether our food would run out before we got money to buy more. Never True 09/26/2023 Within the past 12 months th e food we bought just didn't last and we didn't have money to get more. Never True 09/26/2023 Purpose - Life Answer Date Recorded I have a purpose and direction in my life. Stron gly Agree 08/26/2021 Education Answer Date Recorded What is the highest level of school you have completed or the highest degree you have received? Associate degree: occupational, technical, or vocational program 08/26/2021 Comments No Sex and Gender Information Value Date Recorded Sex Assigned at Not on file Legal Sex Female 11:41 AM EDT Gender Identity Not on file Sexual Orientation Not on file Last Filed Vital Signs Vital Sign Reading Time Taken Comments Blood Pressure 120/69 07/18/2024 10:52 AM EST Pulse 94 07/18/2024 10:52 AM EST Temperature 36.6 C (97.8 F) 06/23/2024 11:10 AM EST Respiratory Rate - - Oxygen Saturation 99% 01/14/2024 2:49 PM EDT Inhaled Oxygen Concentration - - Weight 65.8 kg (145 lb) 08/18/2024 5:00 AM EST Height 165.1 cm (5' 5 ) 12/22/2023 10:54 AM EDT Body Mass Index 24.13 12/22/2023 10:54 AM EDT Plan of Treatment Upcoming Encounters Date Type Department Care Team (Late st Contact Info) Description 02/27/2025 8:00 PM EDT Clinical Support [facility] - Sleep Disorders [address] [place] [address] Health Maintenance Due Date Last Done Comments DTaP,Tdap and Td Vaccines (1 - Tdap) 1993 COVID-19 Vaccine (6 - 2023-2 5 season) 2024 05/14/2023, 04/26/2022, 05/19/2021, Additional history exists Depression Screening 09/26/2024 09/27/2023 Zoster (Shingles) Vaccine (2 of 2) 10/21/2024 08/26/2024 Pap Smear 11/18/2024 11/19/2023, 01/20, 10/29/2015, Additional history exists Mammogram 12/23/2024 12/24/2023, 06/0 07/2023, 11/28/2022, Additional history exists Influenza Vaccine 03/23/2025 07/17/2024, , 04/20/2022, Additional history exists Tobacco Screening 06/23/2025 06/23/2024 Adult BMI Screening 08/18/2025 08/18/2024 Medical Devices Not on file Procedures Procedure Name Priority Date/Time Associated Diagnosis Comments MAMM SCREENING BILATERAL W CAD Routine 12/22/2023 11:05 AM EDT Encounter for screening mammogram for malignant neoplasm of breast HM PAP SMEAR Routine 02/03/2020 from Last 3 Months or Most Recently Relevant to Health Maintenance Results * Mammography screening bilateral with CAD (12/22/2023 11:05 AM EDT) Anatomical Region Laterality Modality Breast Bilateral Mammography 12/24/2023 1:46 PM EDT Narrative 12/24/2023 1:48 PM EDT EXAM: MAMM SCREENING BILATERAL W CAD, 12/22/2023 [...] 1:48 PM 1 b MAMM 1 YR Procedure Note Margaret Farley MD - 12/24/2023 EXAM: MAMM SCREENING BILATERAL W CAD, 12/22/2023 10:52 AM CLINICAL INDICATIONS: Screening, Encounter for screening mammogram formalignant neoplasm of breast COMPARISON: Mammograms dating back to 04/14/2021 TECHNIQUE: Bilateral digital tomosynthesis MLO and CC views of the breasts wereobtained, with creation of synthetic 2D views. Computer aided detectionwas utilized. FINDINGS: There are scattered areas of fibroglandular density. There are no suspicious masses, calcifications, or areas of architecturaldistortion. IMPRESSION: No mammographic evidence of malignancy. BI-RADS: BI-RADS 1 - Negative Recommendation: Routine screening mammogram in 1 year. Finalized by Margaret Farley MD on 12/24/2023 1:48 PM 1 b MAMM 1 YR us Randy Terrazas DO IMG MAMMOGRAPHY ORDERABLES Roxann l Result * HM PAP SMEAR (02/03/2020) 02/03/2020 Narrative MANUALLY TRANSCRIBED RESULTS - 02/03/2020 ORDERING PHYSICIAN: DR TERRAZAS us Scanning Provider External HEALTH MAINTENANCE Fi nal Result MANUALLY TRANSCRIBED RESULTS from Last 3 Months or Most Recently Relevant to Health Maintenance [place] [address] [address] [place] [address] Care Teams Supervisor Putty And Caluking Relationship Specialty Start Date End Date Jose Antonio Gibson MD [address] [place] [address], [address] [place] [address] PCP - General Pediatrics 12/29/16
--- OUTSIDE RECORDS SUMMARY | 2024-12-29 12:31 | XMS_ITS | Encounter Summary ---
Author Organization [employer] Address [id number] [address] [place] [address] Care Team Providers Care Circulation Librarian Name Role Phone Jose Antonio Gibson MD Primary Care Provider [phone] Reason for Visit * Reason Onset Date Comments Med Refill 05/02/2022 Encounter Details Date Type Department Care Team (Late st Contact Info) Description 05/02/2022 Refill [facility] [address] [place] [address] [address] [place] [address] Jose Antonio Gibson MD [address] [place] [address], [address] [place], [place] [phone] Primary insomnia Social History Tobacco Use Types Packs/Day Years Used Date Smoking Tobacco: Former Smokeless Tobacco: Never Social Connection and Isolation Panel [NHANES] A nswer Date Recorded In a typical week, how many times do you talk on the phone with family, friends, or neighbors? Three times a week 08/26/2021 How often do you get togethe r with friends or relatives? Twice a week 08/26/2021 How often do you attend chur ch or baptism services? Never 08/26/2021 Do you belong to any clubs o r organizations such as worship groups, unions, fraternal or athletic groups, or [...] care, and heating? Not hard at all 08/26/2021 PHQ-2 Answer Date Recorded Total Score 0 08/26/2021 [facility] of Occupat ional Health - Occupational Stress [...] medical appointments or from getting medications? No 10/2021 In the past 12 months, has l ack of transportation kept you from meetings, work, or from getting things needed for daily living? No 08/26/2021 Childcare Answer Date Recorded Do problems getting child ca re make it difficult for you to work or study? No 08/26/2021 Employment Answer Date Recorded Do you need help finding a l ocal career center and/or a training program? No 08/26/2021 Purpose - Life Answer Date Recorded I have a purpose and direction in my life. Stromarvel gly Agree 08/26/2021 Education Answer Date Recorded What is the highest level of school you have completed or the highest degree you have received? Associate degree: occupational, technical, or vocational program 08/26/2021 Comments No Sex and Gender Information Value Date Recorded Sex Assigned at Not on file Legal Sex Female 11:41 AM EDT Gender Identity Not on file Sexual Orientation Not on file COVID-19 Exposure Response Date Recorded In the last month, have you been in contact with someone who was confirmed or suspected to have Coronavirus / COVID-19? No / Unsure 05/05/2022 1:49 PM EDT documented as of this encounter Miscellaneous Notes * Telephone Encounter - Lu Armenta CMA - 05/02/2022 10:17 AM EDT Was refilled on 04-20-22, too soon to refill documented in this encounter Plan of Treatment Upcoming Encounters Date Type Department Care Team (Late st Contact Info) Description 02/27/2025 8:00 PM EDT Clinical Support [facility] - Sleep Disorders [address] [place] [phone] documented as of this encounter Visit Diagnoses Diagnosis Primary insomnia Persistent disorder of initiating or maintaining sleep documented in this encounter Additional Health Concerns Infection Onset Date Last Indicated Resolved Time Enteric Rule-Out 03/12/2024 03/12/2024 03/12/2024 4:25 PM EDT Assessment Noted Time PHQ-9 Depression Total Score: 0 08/26/19 10:33 AM EST documented as of this encounter Care Teams Circulation Librarian Relationship Specialty Start Date End Date Jose Antonio Gibson MD [address] [place] [address], [address] [place] [address] PCP - General Pediatrics 12/29/16 documented as of this encounter
--- OUTSIDE RECORDS SUMMARY | 2024-12-29 12:32 | XMS_ITS | Encounter Summary ---
Author Organization [email or web address] Address [facility] [id number] [address] [place] [address] Care Team Providers Care Motor Vehicle Operator Road Supervisor Name Role Phone Jose Antonio Gibson MD Primary Care Provider [phone] Reason for Visit * Reason Onset Date Comments Med Refill 11/07/2023 Encounter Details Date Type Department Care Team (Late st Contact Info) Description 11/07/2023 Refill [facility] [address] [place] [address] [address] [place] [address] Jose Antonio Gibson MD [address] [place] [address], [address] [place], [place] [id number] Social History Tobacco Use Types Packs/Day Years Used Date Smoking Tobacco: Former Cigarettes 1 - 05/09/1996 Smokeless Tobacco: Never Alcohol Use Standard Drinks/Week Comments Yes 2 [...] often do you attend chur ch or rastafarian services? Never 08/26/2021 Do you belong to any clubs o r organizations such as adventist groups, unions, fraternal or athletic groups, or [...] Answer Date Recorded Total Score 0 09/27/2023 [facility] Occupat [facility] - Occupational Stress Questionnaire Answer Date Recorded [...] Recorded Do you need help finding a [facility] and/or a training program? [...] on file documented as of this encounter Miscellaneous Notes * Telephone Encounter - Lu Armenta CMA - 11/07/2023 11:31 AM EDT noted documented in this encounter Plan of Treatment Upcoming Encounters Date Type Department Care Team (Late st Contact Info) Description 02/27/2025 8:00 PM EDT Clinical Support [facility] - Sleep Disorders [address] [place] [phone] documented as of this encounter Visit Diagnoses Not on filedocumented in this encounter Additional Health Concerns Infection Onset Date Last Indicated Resolved Time Enteric Rule-Out 03/12/2024 03/12/2024 03/12/2024 4:25 PM EDT Assessment Noted Time PHQ-9 Depression Total Score: 0 09/27/19 24 10:15 AM EST documented as of this encounter Care Teams Motor Vehicle Operator Road Supervisor Relationship Specialty Start Date End Date Jose Antonio Gibson MD [address] [place] [address], [address] [place] [address] PCP - General Pediatrics 12/29/16 documented as of this encounter
--- OUTSIDE RECORDS SUMMARY | 2024-12-29 12:32 | XMS_ITS | Encounter Summary ---
Author Organization [employer] Address [facility] [id number] [address] [place] [address] Care Team Providers Care Couturiere Name Role Phone Jose Antonio Gibson MD Primary Care Provider [phone] Reason for Visit * Reason Comments Med Refill Encounter Details Date Type Department Care Team (Late st Contact Info) Description 03/02/2024 Refill [facility] [address] [place] [address] [address] [place] [phone] Jose Antonio Gibson MD [address] [place] [address], [address] [place], [place] [phone] Primary insomnia Social History Tobacco Use Types [...] often do you attend chur ch or christian services? Never 08/26/2021 Do you belong to any clubs o r organizations such as hinduism groups, unions, fraternal or athletic groups, or [...] Answer Date Recorded Total Score 0 09/27/2023 [facility] Occupat ional Health - Occupational [...] Recorded Do you need help finding a [facility] and/or a training program? [...] Telephone Encounter - Lu Armenta CMA - 03/02/2024 2:43 AM EDT Too soon to refill documented in this encounter Plan of Treatment Upcoming Encounters Date Type Department Care Team (Late st Contact Info) Description 02/27/2025 8:00 PM EDT Clinical Support [facility] - Sleep Disorders [address] [place] [phone] documented as of this encounter Visit Diagnoses Diagnosis Primary insomnia Persistent disorder of initiating or maintaining sleep documented in this encounter Additional Health Concerns Infection Onset Date Last Indicated Resolved Time Enteric Rule-Out 03/12/2024 03/12/2024 03/12/2024 4:25 PM EDT Assessment Noted Time PHQ-9 Depression Total Score: 0 09/27/19 24 10:15 AM EST documented as of this encounter Care Teams Couturiere Relationship Specialty Start Date End Date Jose Antonio Gibson MD [address] [place] [address], [address] [place] [address] PCP - General Pediatrics 12/29/16 documented as of this encounter
--- OUTSIDE RECORDS SUMMARY | 2024-12-29 12:32 | XMS_ITS | Encounter Summary ---
Author Organization [employer] Sys tem Address [facility] [place]-[id number] [address] [place] [address] Care Team Providers Care Enrollment Services Vice President Name Role Phone Jose Antonio Gibson MD Primary Care Provider [phone] Encounter Details Date Type Department Care Team (Late st Contact Info) Description 03/09/2021 Orders Only [facility] Internal Medicine/Pediatrics [address] [address] External, Scanning Provider Social History Tobacco Use Types Packs/Day Years Used Date Smoking Tobacco: Former Smokeless Tobacco: Never Social Connection and Isolation Panel [NHANES] A nswer Date Recorded In a typical week, how many times do you talk on the phone with family, friends, or neighbors? Twice a week 08/05/2020 How often do you get togethe r with friends or relatives? Once a week 08/05/2020 How often do you attend episcopalian or hoahaoism serv ices? Never 08/05/2020 Do you belong to any clubs o r organizations such as episcopalian groups, unions, fraternal or athletic groups, or school groups? No 08/05/2020 How often do you attend meet ings of the clubs or organizations you belong to? Patient declined 08/05/2020 Are you , , di vorced, , never , or living with a partner? 08/05/2020 AUDIT-C Answer Date Recorded Q1: How often do you have a drink containing alc ohol? 2-4 times a month 08/05/2020 Q2: How many drinks containi ng alcohol do you have on a typical day when you are drinking? 1 or 2 08/05/2020 Q3: How often do you have si x or more drinks on one occasion? Less than monthly 08/05/2020 Overall Financial Resource Strain (CARDIA) Answe r Date Recorded How hard is it for you to pa y for the very basics like food, housing, medical care, and heating? Not hard at all 08/05/2020 PHQ-2 Answer Date Recorded Total Score 0 08/05/2020 [facility] of Occupat ional Health - Occupational Stress Questionnaire Answer Date Recorded Do you feel stress - tense, restless, nervous, or anxious, or unable to sleep at night because your mind is troubled all the time - these days? Only a little 08/05/2020 Exercise Vital Sign Answer Date Recorde d On average, how many days pe r week do you engage in moderate to strenuous exercise (like a brisk walk)? 4 days 08/05/2020 On average, how many minutes do you engage in exercise at this level? 60 min 08/05/2020 PRAPARE - Transportation Answer Date Re corded In the past 12 months, has l ack of transportation kept you from medical appointments or from getting medications? No 07/23 In the past 12 months, has l ack of transportation kept you from meetings, work, or from getting things needed for daily living? No 08/05/2020 Childcare Answer Date Recorded Do problems getting child ca re make it difficult for you to work or study? No 08/05/2020 Employment Answer Date Recorded Do you need help finding a [facility] career center and/or a training program? No 08/05/2020 Purpose - Life Answer Date Recorded I have a purpose and direction in my life. Stron gly Agree 08/05/2020 Education Answer Date Recorded What is the highest level of school you have completed or the highest degree you have received? Associate degree: academic program 08/05/2020 Comments No Sex and Gender Information Value Date Recorded Sex Assigned at Not on file Legal Sex Female 11:41 AM EDT Gender Identity Not on file Sexual Orientation Not on file documented as of this encounter Plan of Treatment Upcoming Encounters Date Type Department Care Team (Late st Contact Info) Description 02/27/2025 8:00 PM EDT Clinical Support [facility] - Sleep Disorders [address] [place] [id number] documented as of this encounter Procedures Procedure Name Priority Date/Time Associated Diagnosis Comments MULTIPLE RADS Routine 03/04/2021 documented in this encounter Results * Multiple rads (03/04/2021) Anatomical Region Laterality Modality Other 03/04/2021 us Scanning Provider External [facility] Final Result documented in this encounter Visit Diagnoses Not on filedocumented in this encounter Additional Health Concerns Infection Onset Date Last Indicated Resolved Time Enteric Rule-Out 03/12/2024 03/12/2024 03/12/2024 4:25 PM EDT Assessment Noted Time PHQ-9 Depression Total Score: 0 08/05/19 8:02 AM EST documented as of this encounter Care Teams Enrollment Services Vice President Relationship Specialty Start Date End Date Jose Antonio Gibson MD [address] [place] [address], [address] [place] [address] PCP - General Pediatrics 12/29/16 documented as of this encounter
--- OUTSIDE RECORDS SUMMARY | 2024-12-29 12:32 | XMS_ITS | Encounter Summary ---
Author Organization [employer] tem Address [facility] [place]-[id number] [address] [place] [address] Care Team Providers Care Camp Tender Name Role Phone Jose Antonio Gibson MD Primary Care Provider [phone] Encounter Details Date Type Department Care Team (Late st Contact Info) Description 12/21/2020 Orders Only [facility] Internal Medicine/Pediatrics [address] [place] [address] [address] [place] [phone] Jose Antonio Gibson MD [address] [place] [address], [address] [place], [place] [id number] Chronic pain of right knee Social History Tobacco Use Types Packs/Day Years [...] week 08/05/2020 How often do you attend cheondoism or mormon serv ices? Never 08/05/2020 Do you belong to any clubs o r organizations such as cheondoism groups, unions, fraternal or athletic groups, or [...] Answer Date Recorded Total Score 0 08/05/2020 [facility] [place] of Occupat ional Health - Occupational Stress [...] a purpose and direction in my life. Courtney figueroa Agree 08/05/2020 Education Answer Date Recorded What [...] have Coronavirus / COVID-19? No / Unsure 12/07/2020 1:30 PM EDT documented as of this encounter Plan of Treatment Upcoming Encounters Date Type Department Care Team (Late st Contact Info) Description 02/27/2025 8:00 PM EDT Clinical Support [facility] - Sleep Disorders [address] [place] [address] documented as of this encounter Procedures Procedure Name Priority Date/Time Associated Diagnosis Comments AMB REFERRAL TO ORTHOPEDIC SURGERY Routine 12/16/2020 Chronic pain of right knee documented in this encounter Results * Ambulatory referral to Orthopedic Surgery (12/16/2020) 12/16/2020 us Jose Antonio Gibson MD OUTPATIENT REFERRAL ORDERABLE S Final Result MANUALLY TRANSCRIBED RESULTS documented in this encounter Visit Diagnoses Diagnosis Chronic pain of right knee documented in this encounter Additional Health Concerns Infection Onset Date Last Indicated Resolved Time Enteric Rule-Out 03/12/2024 03/12/2024 03/12/2024 4:25 PM EDT Assessment Noted Time PHQ-9 Depression Total Score: 0 08/05/19 8:02 AM EST documented as of this encounter Care Teams Camp Tender Relationship Specialty Start Date End Date Jose Antonio Gibson MD [address] [place] [address], [address] [place] [address] PCP - General Pediatrics 12/29/16 documented as of this encounter
--- OUTSIDE RECORDS SUMMARY | 2024-12-29 12:32 | XMS_ITS | Clinical Summary ---
Author Organization [facility] Address [address] [place] [address] Care Team Providers Care Compliance Investigator Name Role Phone Jose Antonio Gibson MD Primary Care Provider + Allergies No known active allergies Medications temazepam (RESTORIL) 15 mg TAKE 1 CAPSULE BY MOUTH NIGHTLY NEEDED FOR SLEEP. Active tiZANidine (ZANAFLEX) 4 mg tablet Take 4 mg by mouth. 01/31/2024 Active zonisamide (ZONEGRAN) 100 mg capsule TAKE 1 TO 2 CAPSULES BY MOUTH EVERY DAY AT BEDTIME Active Ibuprofen 200 mg cap Take by mouth every 6 hours as needed. As needed Active Family History Relation Status Comments Maternal Grandfather colon ca Social History Tobacco Use Types Packs/Day Years Used Date Smoking Tobacco: Former Cigarettes Smokeless Tobacco: Never Tobacco Cessation:Counseling Given: Not Answered Comments:Quit when pt was 23 yrs old Alcohol Use Standard Drinks/Week Comments Yes 0 (1 standard drink = 0.6 oz pur e alcohol) socially Area Deprivation Index Answer Date Abhilash rded National Score (1-100), lower number is lower ri sk 62 06/23/2024 State Score (1-10), lower number is lower risk 4 06/23/2024 Data from: https://www.neighborhoodatlas.medicine.[facility].edu/. [facility] Comments Unknown Sex and Gender Information Value Date Recorded Sex Assigned at Not on file Legal Sex Female 1:14 PM EDT Gender Identity Not on file Sexual Orientation Not on file Last Filed Vital Signs Vital Sign Reading Time Taken Comments Blood Pressure 125/81 06/27/2024 2:19 PM EST Pulse 100 06/27/2024 2:19 PM EST Temperature 36.4 C (97.5 F) 06/27/2024 12:52 PM EST Respiratory Rate 16 06/27/2024 2:19 PM EST Oxygen Saturation 100% 06/27/2024 2:19 PM EST Inhaled Oxygen Concentration - - Weight 63 kg (139 lb) 06/27/2024 12:43 PM EST Height 165.1 cm (5' 5 ) 06/27/2024 12:43 PM EST Body Mass Index 23.13 06/27/2024 12:43 PM EST Plan of Treatment Health Maintenance Due Date Last Done Comments Anxiety Screening 1992 Depression Screening 1992 HIV Screening 1992 Hepatitis C Screening 1992 DTaP,Tdap,Td Vaccine (1 - Tdap) 1993 Hepatitis B Vaccine (1 of 3 - 19+ 3-dose series) 1993 Cervical Cancer Screening 1995 CT Colonography 2019 Cologuard (FIT-DNA) 2019 Fecal Occult Blood 2019 Sigmoidoscopy 2019 Covid-19 Vaccine (6 - 2023-2 5 season) 2024 05/14/2023, 04/26/2022, 05/19/2021, Additional history exists Pneumococcal Vaccine: 50+ (1 of 1 - PCV) 2024 Shingrix Vaccine (1 of 2) 2024 Mammogram Screening 12/23/2024 12/24/2023, 12/24/2023, 12/22/2023, Additional history exists Influenza Vaccine (Season Ended) 2025 05/14/2023, 04/20/2022, 05/13/2021, Additional history exists Colonoscopy 06/27/2025 06/27/2024 Colorectal Cancer Screening 06/27/2025 Diabetes Screening 06/23/2027 06/23/2024, 0 09/28/2023, 08/30/2021, Additional history exists Lipid Screening 09/27/2028 09/28/2023, 02/0 02/2022, 08/06/2020 Procedures Procedure Name Priority Date/Time Associated Diagnosis Comments COLONOSCOPY DIAGNOSTIC Routine 1:52 PM EST Diarrhea, unspecified type Abdominal bloating COMPREHENSIVE METABOLIC PANEL Routine 06/23/2024 9:39 AM EST Diarrhea, unspecified type Abdominal bloating Weight loss, abnormal from Last 3 Months or Most Recently Relevant to Health Maintenance Results * COLONOSCOPY DIAGNOSTIC (06/27/2024 1:52 PM EST) Anatomical Region Laterality Modality Other 06/27/2024 1:52 PM EST Narrative 06/27/2024 2:07 PM EST [facility] Patient Name: Rosalie Mckinnon Procedure Date: 06/27/2024 1:52 PM Date of : 1975 Age: 48 Gender: Female Race: Unknown Attending MD: Bob Guerrero MD, [id number] Procedure: Colonoscopy Referring MD: Providers: Bob Guerrero [...] by the physician, the nurse and the director of accounting in the procedure room at 13:52 PM. [...] colonoscopy was performed without difficulty. The patient tolerated the procedure well. The quality of the bowel preparation was adequate. The quality of the bowel preparation was evaluated using the BBPS ([place] Bowel Preparation Scale) with scores of: Right Colon = 2 (minor amount of residual staining, small fragments of stool and/or opaque liquid, but mucosa seen well), Transverse Colon = 3 (entire mucosa seen well with no residual staining, small fragments of stool or opaque liquid) and Left Colon = 2 (minor amount of residual staining, small fragments of stool and/or opaque liquid, but mucosa seen well). The total BBPS score equals 7. The terminal ileum, ileocecal valve, appendiceal orifice, and rectum were photographed. Complications: No immediate complications. Procedure Code(s): --- Professional --- 13323, Colonoscopy, flexible; with biopsy, single or multiple Diagnosis Code(s): --- Professional --- Z12.11, Encounter for screening for malignant neoplasm of colon D12.5, Benign neoplasm of sigmoid colon K57.30, Diverticulosis of large intestine without perforation or abscess without bleeding CPT copyright 2020 [employer]. All rights reserved. The codes documented in this report are preliminary and upon tin pourer review may be revised to meet current compliance requirements. Bob Guerrero MD 06/27/2024 2:07:19 PM This report has been signed electronically. Number of Addenda: 0 Note Initiated On: 06/27/2024 1:52 PM Aspen Rizvi MEASURER MACHINE.N[employer] COUNSELOR DIGESTIVE DISEASE Final Re sult * (ABNORMAL) COMPREHENSIVE METABOLIC PANEL (06/23/2024 9:39 AM EST) Protein, Total 6.7 6.3 - 8.0 g/dL 06/23/2024 1:52 PM EST [facility] Albumin 4.5 3.9 - 4.9 g/dL 06/23/2024 1:52 PM EST [facility] Calcium, Total 9.4 8.5 - 10.2 mg/dL 06/23/2024 1:52 PM EST [facility] Bilirubin, Total 0.3 0.2 - 1.3 mg/dL 06/23/2024 1:52 PM EST [facility] Alkaline Phosphatase 80 34 - 123 U/L 06/23/2024 1:52 PM EST [facility] AST 20 13 - 35 U/L 06/23/2024 1:52 PM EST [facility] ALT 31 7 - 38 U/L 06/23/2024 1:52 PM EST [facility] Glucose 76 74 - 99 mg/dL 06/23/2024 1:52 PM EST [facility] Comment: The [place] [employer] (ADA) provides guidance for cutoff [...] Standards of Medical Care in Diabetes 2016, [place] [employer]. Diabetes Care. 2016.39(Suppl 1). BUN 17 7 - 21 mg/dL 06/23/2024 1:52 PM EST [facility] Creatinine 0.86 0.58 - 0.96 mg/dL 06/23/2024 1:52 PM EST [facility] Sodium 143 136 - 144 mmol/L 06/23/2024 1:52 PM EST [facility] Potassium 3.3(L) 3.7 - 5.1 mmol/L 06/23/2024 1:52 PM EST [facility] Chloride 104 98 - 107 mmol/L 06/23/2024 1:52 PM EST [facility] CO2 25 22 - 30 mmol/L 06/23/2024 1:52 PM EST [facility] Anion Gap 14 8 - 15 mmol/L 06/23/2024 1:[address] [facility] Estimated Glomerular Filtration Rate 83 >=60 mL/min/1.7 3m 06/23/2024 1:[address] [facility] Comment:Estimated Glomerular Filtration Rate (eGFR) is calculated using the 2020 CKD-EPI creatinine equation. This equation utilizes serum creatinine, sex, and age as parameters. The creatinine assay has traceable calibration to isotope dilution- mass spectrometry. Refer to KDIGO guidelines for clinical interpretation. In patients with unstable renal function, e.g. those with acute kidney injury, the eGFR may not accurately reflect actual GFR. Blood BLOOD SPECIMEN / Unknown Venipuncture / Unknown 06/23/2024 9:39 AM EST 06/23/2024 9:39 AM EST us Aspen Rizvi APRN.NURSES' ASS[employer] COUNSELOR LABORATORY Final Resu lt [facility] [address] [address], [place] from Last 3 Months or Most Recently Relevant to Health Maintenance Insurance [place] [address] [employer] PPO Care Teams Compliance Investigator Relationship Specialty Start Date End Date Jose Antonio Gibson MD [address] [place] [address], [address] [place] [address] PCP - General Internal Medicine 06/23/24
--- OUTSIDE RECORDS SUMMARY | 2024-12-29 12:32 | XMS_ITS | Encounter Summary ---
Author Organization [employer] tem Address [facility] [place]-[id number] [address] [place] [address] Care Team Providers Care Clinical Geneticist Name Role Phone Jose Antonio Gibson MD Primary Care Provider [phone] Reason for Visit * Reason Onset Date Comments Med Refill 12/01/2021 Encounter Details Date Type Department Care Team (Late st Contact Info) Description 12/01/2021 Refill [facility] Internal Medicine/Pediatrics [address] [place] [address] [address] [place] [address] Jose Antonio Gibson MD [address] [place] [address], [address] [place], [place] [id number] Social History Tobacco Use Types Packs/Day Years [...] often do you attend chur ch or jehovah's witness services? Never 08/26/2021 Do you belong to any clubs o r organizations such as oriental orthodox groups, unions, fraternal or athletic groups, or [...] Answer Date Recorded Total Score 0 08/26/2021 [facility] of Occupat ional Health - Occupational Stress [...] purpose and direction in my life. Courtney gly Agree 08/26/2021 Education Answer Date Recorded [...] 8:00 PM EDT Clinical Support [facility] - Sleep Disorders [address] [place] [address] documented as of this encounter Visit Diagnoses Not on filedocumented in this encounter Additional Health Concerns Infection Onset Date Last Indicated Resolved Time Enteric Rule-Out 03/12/2024 03/12/2024 03/12/2024 4:25 PM EDT Assessment Noted Time PHQ-9 Depression Total Score: 0 08/26/19 22 10:33 AM EST documented as of this encounter Care Teams Clinical Geneticist Relationship Specialty Start Date End Date Jose Antonio Gibson MD [address] [place] [address], [address] [place], [place] [id number] PCP - General Pediatrics 12/29/16 documented as of this encounter
--- OUTSIDE RECORDS SUMMARY | 2024-12-29 12:32 | XMS_ITS | Clinical Summary ---
Author Organization [facility] Healthcare Address [address] [place] [address] Care Team Providers Care Furniture Removalist Name Role Phone Jose Antonio Gibson MD Primary Care Provider [phone] Allergies No known active allergies Medications temazepam (Restoril) 15 MG capsule Take 15 mg by mouth at bedtime Active zonisamide (Zonegran) 100 MG capsule Take 100 mg by mouth 1 (one) time 9 Active tiZANidine (Zanaflex) 4 MG tablet Take 4 mg by mouth at bedtime Active Levonorgestrel (Mirena, 52 MG,) 20 MCG/DAY intrauterine device 52 mg by Intrauterine route if needed (every 5 years) Active estradiol (Estrace) 0.5 MG tabletIndication s:Hormone imbalance,Hormon e disorder TAKE 1 TABLET (0.5 MG) BY MOUTH DAILY FOR 30 DAYS 30 tablet 3 5 Active Active Problems Problem Noted Date Diagnosed Date Encounter for IUD removal 10/27/2024 Hormone disorder 08/04/2024 Weight loss 08/04/2024 Decreased appetite 08/04/2024 Other constipation 08/04/2024 Diarrhea 08/04/2024 Encounters Date Type Department Care Team Description 12/29/2024 8:30 AM EDT Office Visit [facility] [address] [place] [phone] Randy Terrazas, DO Well woman exam with routine gynecological exam; Breast cancer screening by mammogram; Postmenopausal state 12/29/2024 Bamboo flowsheet [facility] [address] [place] [address] Randy Terrazas, 12/01/2024 Clinisync Result Encounter [facility] External Department Unsolicited Randy Terrazas, 12/01/2024 Bamboo flowsheet [facility] [address] [place] [address] Randy Terrazas, 11/23/20[address] [facility] [address] [place] [address] Randy Terrazas DO Hormone imbalance; Hormone disorder 11/20/20[address] [facility] [address] [place] [address] Gabby Low MA 10/27/2024 9:30 AM EDT Procedure Visit [facility] [address] [place] [address] Randy Terrazas DO Encounter for IUD removal; Hormone imbalance; Hormone disorder 10/27/[address] [facility] [address] [place] [address] Kristal Matthew LPN 10/27/2024 Travel from Last 3 Months Social History Tobacco Use Types Packs/Day Years Used Date Smoking Tobacco: Unknown Tobacco Cessation:Counseling Given: Not Answered Comments Unknown Sex and Gender Information Value [...] 12.8 oz) 12/29/2024 8:50 AM EDT Height 165.1 cm (5' 5 ) 11/19/2023 11:1 0 AM EDT Body Mass Index 23.93 11/19/2023 11:10 AM EDT Plan of Treatment Upcoming Encounters Date Type Department Care Team (Late st Contact Info) Description 01/04/2026 10:00 AM EDT Office Visit [facility] [address] [place] [address] Randy Terrazas, DO [address] [place] [address] Health Maintenance Due Date Last Done Comments CT Colonography 1974 FIT-DNA 1974 FIT 1974 FOBT 1974 Sigmoidoscopy 1974 HPV/Cotest 2004 Mammogram 12/23/2024 12/24/2023, 0607/2023, 11/28/2022, Additional history exists Cervical Cancer Screening 11/18/2026 Pap Smear 11/18/2026 11/19/2023 Colonoscopy 06/27/2034 06/27/2024, 06/27/2024 Colorectal Cancer Screening 06/27/2034 Influenza Vaccine Completed 07/17/2024, , 04/20/2022, Additional history exists Procedures Procedure Name Priority Date/Time Associated Diagnosis Comments ALL MISCELLANEOUS TEST Routine 9:24 AM EDT [facility] TESTOSTERONE FREE/TOT EQUILIB Routine 12/01/2024 9:24 AM EDT ALL PROGESTERONE Routine 12/01/2024 9:24 AM EDT ALL DHEA SULFATE Routine 12/01/2024 9:24 AM EDT IUD REMOVAL Routine 10/27/2024 10:22 AM EDT Encounter for IUD removal Hormone imbalance Hormone disorder POCT URINALYSIS DIPSTICK Routine 10/27/2024 10:03 AM EDT Encounter for IUD removal BI MAMMOGRAM SCREENING TOMOSYNTHESIS BILATERAL 12/24/2023 1:49 PM EDT PAP SMEAR Routine 11/19/2023 12:00 AM EDT from Last 3 Months or Most Recently Relevant to Health Maintenance Results * [facility] TESTOSTERONE FREE/TOT EQUILIB (12/01/2024 9:24 AM EDT) Pathologist [facility] TESTOSTERONE 9 4 - 50 ng/dL [facility] FREE TESTOSTERONE(DIRE CT) 1.4 0.0 - 4.2 pg/mL [facility] Comment: Performed at: [address] [id number] Machine Heel Seat Laster: Gilbert Castle PhD, Phone: [phone] Performed at: [address] [id number] Machine Heel Seat Laster: Mary Liu MD, Phone: [phone] 12/01/2024 9:24 AM EDT 12/01/2024 9:28 AM EDT Narrative CLINISYNC - 12/03/2024 3:07 AM EDT Randy Nini DO CLINISYNC Final Result Performing Organization Address [facility] de Phone Number [facility] * ALL PROGESTERONE (12/01/2024 9:24 AM EDT) Pathologist [facility] PROGESTERONE 0.8 . ng/mL [facility] Comment: Follicular phase 0.1 - 0.9 Luteal phase 1.8 - 23.9 Ovulation phase 0.1 - 12.0 First trimester 11.0 - 44.3 Second trimester 25.4 - 83.3 Third trimester 58.7 - 214.0 Postmenopausal 0.0 - 0.1 Performed at: [address] [id number] Machine Heel Seat Laster: Gilbert Castle PhD, Phone: [phone] 12/01/2024 9:24 AM EDT 12/01/2024 9:28 AM EDT Narrative CLINISYNC - 12/03/2024 3:07 AM EDT us Randy Nini DO CLINISYNC Final Result Performing Organization Address [facility]/ZIP Co de Phone Number CLINISYNC [facility] * ALL MISCELLANEOUS TEST (12/01/2024 9:24 AM EDT) MISCELLANEOUS TEST COMMENT . [facility] Comment: Test Ordered: [id number] Pregnenolone, MS Pregnenolone, MS 39 ng/dL ES Reference Range: . This test was developed and its performance characteristics determined by [facility]. It has not been cleared or approved by the Food and Drug Administration. Reference Range: Adults: <151 Performed at: [facility] [address] [place] [id number] Machine Heel Seat Laster: Geraldo De León MD, Phone: [phone] Performed at: [facility] [id number] Machine Heel Seat Laster: Gilbert Castle PhD, Phone: [phone] 12/01/2024 9:24 AM EDT 12/01/2024 9:28 AM EDT [facility] CLINISYNC - 12/05/2024 10:07 PM EDT [id number] Pregnenolone, Mass Spectrometry ([facility]) Randy Nini DO CLINISYNC Final Result Performing Organization Address [facility] Co de Phone Number [facility] * ALL DHEA SULFATE (12/01/2024 9:24 AM EDT) DHEA-SULFATE 82.3 41.2 - 243.7 ug/dL TB 12/01/2024 9:24 AM EDT 12/01/2024 9:28 AM EDT Ricco CLINISYNC - 12/03/2024 3:07 AM EDT [facility] Final Result Performing Organization Address City/[facility] Co de Phone Number CLINISYNC [facility] * IUD Removal (10/27/2024 10:22 AM EDT) Kristal Goodman LPN - 10/27/2024 10:22 AM EDT Kristal Matthew LPN 10/28/2024 3:57 PM IUD [...] due to infection and inflammatory reaction: no Randy Terrazas DO IN CLINIC/BEDSIDE ORDERABLES Fin al Result * POCT urinalysis dipstick manually resulted (10/27/2024 10:03 AM EDT) Color, UA Yellow Clarity, UA Clear Glucose, UA Negative Negative - 2000(110) ++++ mg/dL Bilirubin, UA Negative Negative - 4(70) +++ mg/dL Ketones, UA Negative Negative - 160(16) ++++ mg/dL Spec Grav, UA 1.020 1 - 1.03 Blood, UA Negative Negative - 50 Haseeb/mcL pH, UA 6.5 5 - 9 Protein, UA Negative Negative - 2000(20) ++++ mg/dL Urobilinogen, UA 1.0 0.2 - 12 mg/dL Leukocytes, UA Negative Negative - 500+++ Ellie/mcL Nitrite, UA Negative Negative - Positive Urine 10/27/2024 10:0 3 AM EDT Randy Terrazas DO POINT OF CARE TEST ENTER/EDIT OR DERABLES Final Result * Bilateral screening mammogram with tomosynthesis (12/24/2023 1:49 PM EDT) Anatomical Region Laterality Modality Breast Bilateral Mammography 12/24/2023 1:49 PM EDT Narrative 12/24/2023 1:48 PM EDT THIS EXAM WAS PERFORMED AT [facility] EXAM: MAMM SCREENING BILATERAL W CAD, 12/22/2023 [...] 1 b MAMM 1 YR Procedure Note Radiology, Radiologist, MD - 12/24/2023 THIS EXAM WAS PERFORMED AT [facility] EXAM: MAMM SCREENING BILATERAL W CAD, 12/22/2023 [...] 1:48 PM 1 b MAMM 1 YR Randy Nini DO IMG BI PROCEDURES Final Result * Pap Smear (11/19/2023 12:00 AM EDT) Swab Cervical swab / Unknown us [facility] Nini Nurse LAB CYTOLOGY ORDERABLES Final Result EXTERNAL LAB from Last 3 Months or Most Recently Relevant to Health Maintenance Insurance [facility] Care Teams Furniture Removalist Relationship Specialty Start Date End Date Jose Antonio Gibson MD PCP - General Family Medicine 11/19/23
--- OUTSIDE RECORDS SUMMARY | 2024-12-29 12:32 | XMS_ITS | Encounter Summary ---
Author Organization [employer] Address [id number] [address] [place] [address] Care Team Providers Care Transmission Tester Name Role Phone Jose Antonio Gibson MD Primary Care Provider [phone] Reason for Visit * Reason Onset Date Comments Med Refill 11/03/2020 Encounter Details Date Type Department Care Team (Late st Contact Info) Description 11/03/2020 Refill [facility] [address] [place] [address] [address] [place] [address] Jose Antonio Gibson MD [address] [place] [address], [address] [place], [place] [id number] Primary insomnia Social History Tobacco Use Types [...] week 08/05/2020 How often do you attend orthodoxy or yazdanism serv ices? Never 08/05/2020 Do you belong to any clubs o r organizations such as orthodoxy groups, unions, fraternal or athletic groups, or [...] Answer Date Recorded Total Score 0 08/05/2020 [facility] of Occupat ional Health - Occupational Stress [...] encounter Miscellaneous Notes * Telephone Encounter - JOSLYN Diamond - 11/03/2020 12:03 AM EDT duplicate documented in this encounter Plan of Treatment Upcoming Encounters Date Type Department Care Team (Late st Contact Info) Description 02/27/2025 8:00 PM EDT Clinical Support [facility] - Sleep Disorders [address] [place] [phone] documented as of this encounter Visit Diagnoses Diagnosis Primary insomnia Persistent disorder of initiating or maintaining sleep documented in this encounter Additional Health Concerns Infection Onset Date Last Indicated Resolved Time Enteric Rule-Out 03/12/2024 03/12/2024 03/12/2024 4:25 PM EDT Assessment Noted Time PHQ-9 Depression Total Score: 0 08/05/19 8:02 AM EST documented as of this encounter Care Teams Transmission Tester Relationship Specialty Start Date End Date Jose Antonio Gibson MD [address] [place] [address], [address] [place], [place] [phone] PCP - General Pediatrics 12/29/16 documented as of this encounter
--- OUTSIDE RECORDS SUMMARY | 2024-12-29 12:32 | XMS_ITS | Encounter Summary ---
Author Organization [employer] Address [id number] [address] [place] [address] Care Team Providers Care Sleeping Car Conductor Name Role Phone Jose Antonio Gibson MD Primary Care Provider [phone] Reason for Visit * Reason Onset Date Comments Med Refill 08/09/2020 Encounter Details Date Type Department Care Team (Late st Contact Info) Description 08/09/2020 Refill [facility] [address] [place] [address] [address] [place] [address] Jose Antonio Gibson MD [address] [place] [address], [address] [place], [place] [phone] Primary insomnia Social History Tobacco Use Types [...] How often do you attend orthodoxy or baptist serv ices? Never 08/05/2020 Do you belong [...] Answer Date Recorded Total Score 0 08/05/2020 [facility] of Occupat ional Health - Occupational Stress [...] have Coronavirus / COVID-19? No / Unsure 08/09/2020 2:58 PM EST documented as of this encounter Miscellaneous Notes * Telephone Encounter - Lu Armenta CMA - 08/09/2020 3:58 PM EST REFILL REQUEST Lu Armenta CMA 08/10/20 1036 documented in this encounter Plan of Treatment Upcoming Encounters Date Type Department Care Team (Late st Contact Info) Description 02/27/2025 8:00 PM EDT Clinical Support [facility] - Sleep Disorders [address] [place] [phone] documented as of this encounter Visit Diagnoses Diagnosis Primary insomnia Persistent disorder of initiating or maintaining sleep documented in this encounter Additional Health Concerns Infection Onset Date Last Indicated Resolved Time Enteric Rule-Out 03/12/2024 03/12/2024 03/12/2024 4:25 PM EDT Assessment Noted Time PHQ-9 Depression Total Score: 0 08/05/19 8:02 AM EST documented as of this encounter Care Teams Sleeping Car Conductor Relationship Specialty Start Date End Date Jose Antonio Gibson MD [address] [place] [address], [address] [place], [place] [phone] PCP - General Pediatrics 12/29/16 documented as of this encounter
--- OUTSIDE RECORDS SUMMARY | 2024-12-29 12:32 | XMS_ITS | Encounter Summary ---
Author Organization [employer] Address [id number] [address] [place] [address] Care Team Providers Care Supervisor Cell Efficiency Name Role Phone Jose Antonio Gibson MD Primary Care Provider [phone] Encounter Details Date Type Department Care Team (Late st Contact Info) Description 09/21/2020 Orders Only [facility] [address] [place] [address] [address] [place] [phone] Jose Antonio Gibson MD [address] [place] [address], [address] [place], [place] [phone] Iron deficiency Social History Tobacco Use Types Packs/Day Years [...] week 08/05/2020 How often do you attend samaritan or yazidism serv ices? Never 08/05/2020 Do you belong to any clubs o r organizations such as samaritan groups, unions, fraternal or athletic groups, or [...] Answer Date Recorded Total Score 0 08/05/2020 [facility] [place] of Occupat ional Health - Occupational Stress [...] Description 02/27/2025 8:00 PM EDT Clinical Support [facility] - Sleep Disorders [address] [place] [address] documented as of this encounter Procedures Procedure Name Priority Date/Time Associated Diagnosis Comments AMB REFERRAL TO GASTROENTEROLOGY Routine 09/22/19 Iron deficiency documented in this encounter Results * Ambulatory referral to Gastroenterology (09/21/2020) 09/21/2020 us Jose Antonio Gibson MD OUTPATIENT REFERRAL ORDERABLE S Final Result MANUALLY TRANSCRIBED RESULTS documented in this encounter Visit Diagnoses Diagnosis Iron deficiency Disorders of iron metabolism documented in this encounter Additional Health Concerns Infection Onset Date Last Indicated Resolved Time Enteric Rule-Out 03/12/2024 03/12/2024 03/12/2024 4:25 PM EDT Assessment Noted Time PHQ-9 Depression Total Score: 0 08/05/19 8:02 AM EST documented as of this encounter Care Teams Supervisor Cell Efficiency Relationship Specialty Start Date End Date Jose Antonio Gibson MD [address] [place] [address], [address] [place] [address] PCP - General Pediatrics 12/29/16 documented as of this encounter
--- OUTSIDE RECORDS SUMMARY | 2024-12-29 12:32 | XMS_ITS | Encounter Summary ---
Author Organization [facility] Address [id number] [address] [place] [address] Care Team Providers Care Field Artillery Officer Name Role Phone Jose Antonio Gibson MD Primary Care Provider [phone] Reason for Visit * Reason Onset Date Comments Med Refill 06/14/2020 Encounter Details Date Type Department Care Team (Late st Contact Info) Description 06/14/2020 Refill [facility] [address] [phone] Lu Armenta CMA Social History Tobacco Use Types Packs/Day Years Used Date Smoking Tobacco: Former Smokeless Tobacco: Never Childcare Answer Date Recorded Childcare Unknown 01/01/2019 Employment Answer Date Recorded Employment Unknown 01/01/2019 Comments No Sex and Gender Information Value Date Recorded Sex Assigned at Not on file Legal Sex Female 11:41 AM EDT Gender Identity Not on file Sexual Orientation Not on file documented as of this encounter Miscellaneous Notes * Telephone Encounter - Lu Armenta CMA - 06/14/2020 9:06 AM EST Refill request Lu Armenta CMA 06/14/20 0908 * Telephone Encounter - Jose Antonio Gibson MD - 06/14/2020 9:06 AM EST Patient takes a 15 mg capsule not to 7.5 capsules and a new prescription was written and send documented in this encounter Plan of Treatment Upcoming Encounters Date Type Department Care Team (Late st Contact Info) Description 02/27/2025 8:00 PM EDT Clinical Support [facility] - Sleep Disorders [address] [place] [address] documented as of this encounter Visit Diagnoses Not on filedocumented in this encounter Additional Health Concerns Infection Onset Date Last Indicated Resolved Time Enteric Rule-Out 03/12/2024 03/12/2024 03/12/2024 4:25 PM EDT documented as of this encounter Care Teams Field Artillery Officer Relationship Specialty Start Date End Date Jose Antonio Gibson MD [address] [place] [address], [address] [place], [place] [phone] PCP - General Pediatrics 12/29/16 documented as of this encounter
--- OUTSIDE RECORDS SUMMARY | 2024-12-29 12:32 | XMS_ITS | Encounter Summary ---
Author Organization [facility] Address [address] [facility] [place] [address] Care Team Providers Care Hearing Aid Consultant Name Role Phone Jose Antonio Gibson MD Primary Care Provider [phone] Encounter Details Date Type Department Care Team (Late st Contact Info) Description 12/24/2023 External Result Encounter [facility] [address] [place] [address] Randy Terrazas, [address], [facility] Social History Tobacco Use Types Packs/Day Years Used Date Smoking Tobacco: Never Assessed Comments Unknown Sex and Gender Information Value Date Recorded Sex Assigned at Not on file Legal Sex Female 11:34 PM EDT Gender Identity Not on file Sexual Orientation Not on file documented as of this encounter Plan of Treatment Upcoming Encounters Date Type Department Care Team (Late st Contact Info) Description 01/04/2026 10:00 AM EDT Office Visit [facility] [address] [place] [address] Randy Terrazas [facility] [place], [place] [phone] documented as of this encounter Procedures Procedure Name Priority Date/Time Associated Diagnosis Comments BI MAMMOGRAM SCREENING TOMOSYNTHESIS BILATERAL 12/24/2023 1:49 PM EDT documented in this encounter Results * Bilateral screening mammogram with tomosynthesis (12/24/2023 1:49 PM EDT) Anatomical Region Laterality Modality Breast Bilateral Mammography 12/24/2023 1:49 PM EDT Narrative 12/24/2023 1:48 PM EDT [facility] EXAM: MAMM SCREENING BILATERAL W CAD, 12/22/2023 [...] - 12/24/2023 [facility] EXAM: MAMM SCREENING BILATERAL W CAD, 12/22/2023 [...] Nini DO IMG BI PROCEDURES Final Result documented in this encounter Visit Diagnoses Not on filedocumented in this encounter Care Teams Hearing Aid Consultant Relationship Specialty Start Date End Date Jose Antonio Gibson MD PCP - General Family Medicine 11/19/23 documented as of this encounter
--- OUTSIDE RECORDS SUMMARY | 2024-12-29 12:32 | XMS_ITS | Encounter Summary ---
Author Organization [employer] [employer] Address [facility][id number] [address] [place] [address] Care Team Providers Care Rn New Graduate Name Role Phone Jose Antonio Gibson MD Primary Care Provider [phone] Encounter Details Date Type Department Care Team (Late st Contact Info) Description 06/23/2024 Orders Only [facility] [address] [address] [place], RMA Diarrhea, unspecified type Social History Tobacco Use Types Packs/Day Years [...] often do you attend chur ch or buddhist services? Never 08/26/2021 Do you belong to [...] Answer Date Recorded Total Score 0 09/27/2023 [facility] of Occupat ional Health - Occupational Stress [...] Description 02/27/2025 8:00 PM EDT Clinical Support [facility] - Sleep Disorders [address] [place] [address] documented as of this encounter Procedures Procedure Name Priority Date/Time Associated Diagnosis Comments AMB REFERRAL TO GASTROENTEROLOGY Routine 06/23/2024 Diarrhea, unspecified type documented in this encounter Results * [facility] (06/23/2024) 06/23/2024 us Jose Antonio Gibson MD OUTPATIENT REFERRAL ORDERABLE S Final Result MANUALLY TRANSCRIBED RESULTS documented in this encounter Visit Diagnoses Diagnosis Diarrhea, unspecified type documented in this encounter Additional Health Concerns Assessment Noted Time PHQ-9 Depression Total Score: 0 09/27/19 24 10:15 AM EST documented as of this encounter Care Teams Rn New Graduate Relationship Specialty Start Date End Date Jose Antonio Gibson MD [address] [place] [address], [address] [place], [place] [phone] PCP - General Pediatrics 12/29/16 documented as of this encounter
--- OUTSIDE RECORDS SUMMARY | 2024-12-29 12:32 | XMS_ITS | Encounter Summary ---
Author Organization [employer] Address [facility][id number] [address] [place] [address] Care Team Providers Care Graphic Design Professor Name Role Phone Jose Antonio Gibson MD Primary Care Provider [phone] Encounter Details Date Type Department Care Team (Late st Contact Info) Description 01/19/2023 Orders Only [facility] [address] [address] External, Scanning Provider Social History [...] 08/26/2021 How often do you attend chur or catholic services? Never 08/26/2021 Do you belong to any clubs o r organizations such as jewish groups, unions, fraternal [...] PHQ-2 Answer Date Recorded Total Score 0 09/08/2022 [facility] of Occupat ional Health - Occupational [...] Recorded Do you need help finding a [facility] career center and/or a training program? No 08/26/2021 Hunger Screening Answer Date Recorded Within the past 12 months we worried whether our food would run out before we got money to buy more. Never True 09/08/2022 Within the past 12 months th e food we bought just didn't last and we didn't have money to get more. Never True 09/08/2022 Purpose - Life Answer Date Recorded I [...] Description 02/27/2025 8:00 PM EDT Clinical Support [facility] - Sleep Disorders [address] [place] [address] documented as of this encounter Procedures Procedure Name Priority Date/Time Associated Diagnosis Comments SARS COV 2 (COVID-19) STAT 01/18/2023 documented in this encounter Results * SARS COV 2 (COVID-19) (01/18/2023) EXTERNAL SARS COV 2 Negative Negative MANUALLY TRANSCRIBED RESULTS Nasopharyngeal structure / Unknown 01/18/2023 Narrative MANUALLY TRANSCRIBED RESULTS - 01/18/2023 Result in urgent care encounter us Scanning Provider External MICROBIOLOGY - GENERA L ORDERABLES Final Result MANUALLY TRANSCRIBED RESULTS documented in this encounter Visit Diagnoses Not on filedocumented in this encounter Additional Health Concerns Infection Onset Date Last Indicated Resolved Time Enteric Rule-Out 03/12/2024 03/12/2024 03/12/2024 4:25 PM EDT Assessment Noted Time PHQ-9 Depression Total Score: 0 09/08/19 23 10:17 AM EST documented as of this encounter Care Teams Graphic Design Professor Relationship Specialty Start Date End Date Jose Antonio Gibson MD [address] [place] [address], [address] [place] [address] PCP - General Pediatrics 12/29/16 documented as of this encounter
--- OUTSIDE RECORDS SUMMARY | 2024-12-29 12:32 | XMS_ITS | Encounter Summary ---
Author Organization [employer] Sys tem Address [facility] [place]-[id number] [address] [place] [address] Care Team Providers Care Supervisor [employer] Name Role Phone Jose Antonio Gibson MD Primary Care Provider [phone] Reason for Visit * Reason Onset Date Comments Med Refill 07/12/2020 Encounter Details Date Type Department Care Team (Late st Contact Info) Description 07/12/2020 Refill [facility] Internal Medicine/Pediatrics [address] [place] [address] 1 [place] [address] Jose Antonio Gibson MD [address] [place] [address], 1 [place], [place] [id number] Primary insomnia Social History Tobacco Use Types [...] encounter Miscellaneous Notes * Telephone Encounter - uL Armenta CMA - 07/12/2020 12:54 PM EST duplicate documented in this encounter Plan of Treatment Upcoming Encounters Date Type Department Care Team (Late st Contact Info) Description 02/27/2025 8:00 PM EDT Clinical Support [facility] - Sleep Disorders [address] [place] [address] documented as of this encounter Visit Diagnoses Diagnosis Primary insomnia Persistent disorder of initiating or maintaining sleep documented in this encounter Additional Health Concerns Infection Onset Date Last Indicated Resolved Time Enteric Rule-Out 03/12/2024 03/12/2024 03/12/2024 4:25 PM EDT documented as of this encounter Care Teams Supervisor [employer] Relationship Specialty Start Date End Date Jose Antonio Gibson MD [address] [place] [address], [address] [place] [address] PCP - General Pediatrics 12/29/16 documented as of this encounter
--- OUTSIDE RECORDS SUMMARY | 2024-12-29 12:32 | XMS_ITS | Encounter Summary ---
Author Organization [employer] Sys tem Address [facility] [place]-[id number] [address] [place] [address] Care Team Providers Care Curb Setter Name Role Phone Jose Antonio Gibson MD Primary Care Provider [phone] Encounter Details Date Type Department Care Team (Late st Contact Info) Description 04/11/2023 Orders Only [facility] Internal Medicine/Pediatrics [address] [address] External, Scanning Provider Social History [...] How often do you attend chur or orthodox services? Never 08/26/2021 Do you belong to [...] Answer Date Recorded Total Score 0 09/08/2022 [facility] of Occupat ional Health - [...] Recorded Do you need help finding a [facility] career center and/or a training [...] EDT Clinical Support [facility] - Sleep Disorders [address] [place] [address] documented as of this encounter Procedures Procedure Name Priority Date/Time Associated Diagnosis Comments XR SPINE CERVICAL 4 OR 5 VWS Routine 04/06/2023 documented in this encounter Results * X-ray spine cervical 4 or 5 views (04/06/2023) Anatomical Region Laterality Modality MSK, Neuro, Spine, C-spine N/A Compu maura Radiography 04/06/2023 us Scanning Provider External IMG DIAGNOSTIC IMAGIN G ORDERABLES Final Result documented in this encounter Visit Diagnoses Not on filedocumented in this encounter Additional Health Concerns Infection Onset Date Last Indicated Resolved Time Enteric Rule-Out 03/12/2024 03/12/2024 03/12/2024 4:25 PM EDT Assessment Noted Time PHQ-9 Depression Total Score: 0 09/08/19 23 10:17 AM EST documented as of this encounter Care Teams Curb Setter Relationship Specialty Start Date End Date Jose Antonio Gibson MD [address] [place] [address], 1 [place], [place] [phone] PCP - General Pediatrics 12/29/16 documented as of this encounter
--- OUTSIDE RECORDS SUMMARY | 2024-12-29 12:32 | XMS_ITS | Encounter Summary ---
Author Organization [facility] Address [address] [place] [address] Care Team Providers Care Ornamental Plaster Sticker Name Role Phone Jose Antonio Gibson MD Primary Care Provider [phone] Encounter Details Date Type Department Care Team (Late st Contact Info) Description 07/29/2024 Orders Only [facility] [address] [facility] [place] [place] [address] Bella Corral LPN [address] [employer] [facility] [place] [address] Social History Tobacco Use Types Packs/Day Years [...] 01/04/2026 10:00 AM EDT Office Visit [facility] [address] [place] [address] Randy Terrazas DO [address] [facility] [place] [address] documented as of this encounter Procedures Procedure Name Priority Date/Time Associated Diagnosis Comments PAP SMEAR Routine 11/19/2023 12:00 AM EDT documented in this encounter Results * Pap Smear (11/19/2023 12:00 AM EDT) Swab Cervical swab / Unknown us [facility] Nini Nurse LAB CYTOLOGY ORDERABLES Final Result EXTERNAL LAB documented in this encounter Visit Diagnoses Not on filedocumented in this encounter Care Teams Ornamental Plaster Sticker Relationship Specialty Start Date End Date Jose Antonio Gibson MD PCP - General Family Medicine 11/19/23 documented as of this encounter
--- OUTSIDE RECORDS SUMMARY | 2024-12-29 12:32 | XMS_ITS | Encounter Summary ---
Author Organization [employer] Address [facility] [place]-[id number] [address] [place] [address] Care Team Providers Care House Parent Name Role Phone Jose Antonio Gibson MD Primary Care Provider [phone] Reason for Visit * Reason Onset Date Comments Med Refill 08/10/2020 Encounter Details Date Type Department Care Team (Late st Contact Info) Description 08/10/2020 Refill [facility] Internal Medicine/Pediatrics [address] [phone] Lu Armenta CMA Social History Tobacco Use [...] week 08/05/2020 How often do you attend taoist or evangelical serv ices? Never 08/05/2020 Do you belong to any clubs o r organizations such as taoist groups, unions, fraternal or athletic groups, or [...] Answer Date Recorded Total Score 0 08/05/2020 [facility] of Occupat ional Health - Occupational Stress [...] PM EST documented as of this encounter Plan of Treatment Upcoming Encounters Date Type Department Care Team (Late st Contact Info) Description 02/27/2025 8:00 PM EDT Clinical Support [facility] - Sleep Disorders [address] [place] [address] documented as of this encounter Visit Diagnoses Not on filedocumented in this encounter Additional Health Concerns Infection Onset Date Last Indicated Resolved Time Enteric Rule-Out 03/12/2024 03/12/2024 03/12/2024 4:25 PM EDT Assessment Noted Time PHQ-9 Depression Total Score: 0 08/05/19 8:02 AM EST documented as of this encounter Care Teams House Parent Relationship Specialty Start Date End Date Jose Antonio Gibson MD [address] [place] [address], [address] [place] [address] PCP - General Pediatrics 12/29/16 documented as of this encounter
--- OUTSIDE RECORDS SUMMARY | 2024-12-29 12:32 | XMS_ITS | Encounter Summary ---
Author Organization [employer] Address [facility]-[id number] [address] [place] [address] Care Team Providers Care Small Products I Assembler Name Role Phone Jose Antonio Gibson MD Primary Care Provider [phone] Encounter Details Date Type Department Care Team (Late st Contact Info) Description 03/07/2021 Orders Only [facility] Internal Medicine/Pediatrics [address] [address] External, Scanning Provider Social History [...] week 08/05/2020 How often do you attend adventist or rastafari serv ices? Never 08/05/2020 Do you belong [...] Answer Date Recorded Total Score 0 08/05/2020 [facility] of Occupat ional Health - Occupational Stress [...] Recorded Do you need help finding a [facility] career center and/or a training program? No [...] Description 02/27/2025 8:00 PM EDT Clinical Support [facility] - Sleep Disorders [address] [place] [address] documented as of this encounter Procedures Procedure Name Priority Date/Time Associated Diagnosis Comments CT CERVICAL SPINE W CONT Routine 03/04/2021 documented in this encounter Results * CT cervical spine with contrast (03/04/2021) Anatomical Region Laterality Modality MSK, Neuro, Spine, C-spine, Spine Covera N/A Computed Tomography 03/04/2021 Narrative 03/04/2021 Ordering Physician: Criselda Galarza us Scanning Provider External IMG CT ORDERABLES Fin al Result documented in this encounter Visit Diagnoses Not on filedocumented in this encounter Additional Health Concerns Infection Onset Date Last Indicated Resolved Time Enteric Rule-Out 03/12/2024 03/12/2024 03/12/2024 4:25 PM EDT Assessment Noted Time PHQ-9 Depression Total Score: 0 08/05/19 8:02 AM EST documented as of this encounter Care Teams Small Products I Assembler Relationship Specialty Start Date End Date Jose Antonio Gibson MD [address] [place] [address], [address] [place], [place] [phone] PCP - General Pediatrics 12/29/16 documented as of this encounter
--- OUTSIDE RECORDS SUMMARY | 2024-12-29 12:32 | XMS_ITS | Encounter Summary ---
Author Organization [employer] Sys [employer] Address [facility]-[id number] [address] [place] [address] Care Team Providers Care Gaming Manager Name Role Phone Jose Antonio Gibson MD Primary Care Provider [phone] Encounter Details Date Type Department Care Team (Late st Contact Info) Description 03/04/2021 Orders Only [facility] Internal Medicine/Pediatrics [address] [address] External, Scanning Provider Social History [...] week 08/05/2020 How often do you attend advent or adventism serv ices? Never 08/05/2020 Do you belong to any clubs o r organizations such as advent groups, unions, fraternal or athletic groups, or [...] Answer Date Recorded Total Score 0 08/05/2020 [facility] of Occupat ional Health - Occupational Stress [...] Recorded Do you need help finding a [facility] career center and/or a training program? [...] Description 02/27/2025 8:00 PM EDT Clinical Support [facility] - Sleep Disorders [address] [place] [phone] documented as of this encounter Procedures Procedure Name Priority Date/Time Associated Diagnosis Comments MULTIPLE LABS Routine 03/04/2021 documented in this encounter Results * Multiple labs (03/04/2021) 03/04/2021 us Scanning Provider External ID IMAGING Final Result MANUALLY TRANSCRIBED RESULTS documented in this encounter Visit Diagnoses Not on filedocumented in this encounter Additional Health Concerns Infection Onset Date Last Indicated Resolved Time Enteric Rule-Out 03/12/2024 03/12/2024 03/12/2024 4:25 PM EDT Assessment Noted Time PHQ-9 Depression Total Score: 0 08/05/19 8:02 AM EST documented as of this encounter Care Teams Gaming Manager Relationship Specialty Start Date End Date Jose Antonio Gibson MD [address] [place] [address], [address] [place], [place] [phone] PCP - General Pediatrics 12/29/16 documented as of this encounter
--- OUTSIDE RECORDS SUMMARY | 2024-12-29 12:32 | XMS_ITS | Encounter Summary ---
Author Organization [facility] Address [address] [facility] [place] [address] Care Team Providers Care Drafter Chief Design Name Role Phone Jose Antonio Gibson MD Primary Care Provider [phone] Encounter Details Date Type Department Care Team (Late st Contact Info) Description 11/20/2024 Telephone [facility] OB [address] [facility] [place] [address] Gabby Low [address] [place] [address] Social History Tobacco Use Types Packs/Day Years [...] 01/04/2026 10:00 AM EDT Office Visit [facility] OB [address] [place] [address] Randy Terrazas DO [address] [facility] [address] [place], [place] [id number] Scheduled Orders Name Type Priority Associated Diagnoses Orde r Schedule Progesterone Lab Routine Hormone disorder Expected: 11/20/2024 (Approximate), Expires: 11/20/2025 Pregnenolone Lab Routine Hormone disorder Expected: 11/20/2024 (Approximate), Expires: 11/20/2025 DHEA-sulfate Lab Routine Hormone disorder Expected: 11/20/2024 (Approximate), Expires: 11/20/2025 Testosterone, free, total Lab Routine Hormone disorder Expected: 11/20/2024 (Approximate), Expires: 11/20/2025 TESTOSTERONE, FREE Lab Routine Hormone disorder Expected: 11/20/2024 (Approximate), Expires: 11/20/2025 documented as of this encounter Visit Diagnoses Diagnosis Hormone disorder Unspecified endocrine disorder documented in this encounter Care Teams Drafter Chief Design Relationship Specialty Start Date End Date Jose Antonio Gibson MD PCP - General Family Medicine 11/19/23 documented as of this encounter
--- OUTSIDE RECORDS SUMMARY | 2024-12-29 12:32 | XMS_ITS | Encounter Summary ---
Author Organization [employer] Address [facility]-[id number] [address] [place] [address] Care Team Providers Care Solvent Plant Operator Name Role Phone Jose Antonio Gibson MD Primary Care Provider [phone] Reason for Visit * Reason Onset Date Comments Med Refill 09/11/2023 Encounter Details Date Type Department Care Team (Late st Contact Info) Description 09/11/2023 Refill [facility] Internal Medicine/Pediatrics [address] [place] [address] [address] [place] [address] Jose Antonio Gibson MD [address] [place] [address], [address] [place], [place] [phone] Social History Tobacco Use Types Packs/Day Years [...] often do you attend chur ch or taoist services? Never 08/26/2021 Do you belong to any clubs o r organizations such as shinto groups, unions, fraternal or athletic groups, or [...] Answer Date Recorded Total Score 0 09/08/2022 [facility] - [facility]ational Stress Questionnaire Answer Date Recorded [...] 8:00 PM EDT Clinical Support [facility] - Sleep Disorders [address] [place] [address] documented as of this encounter Visit Diagnoses Not on filedocumented in this encounter Additional Health Concerns Infection Onset Date Last Indicated Resolved Time Enteric Rule-Out 03/12/2024 03/12/2024 03/12/2024 4:25 PM EDT Assessment Noted Time PHQ-9 Depression Total Score: 0 09/08/19 23 10:17 AM EST documented as of this encounter Care Teams Solvent Plant Operator Relationship Specialty Start Date End Date Jose Antonio Gibson MD [address] [place] [address], [address] [place] [address] PCP - General Pediatrics 12/29/16 documented as of this encounter
--- OUTSIDE RECORDS SUMMARY | 2024-12-29 12:32 | XMS_ITS | Encounter Summary ---
Author Organization [employer] Address [facility]-[id number] [address] [place] [address] Care Team Providers Care Garment Parts Cutter Machine Name Role Phone Jose Antonio Gibson MD Primary Care Provider [phone] Encounter Details Date Type Department Care Team (Late st Contact Info) Description 12/08/2020 Orders Only [facility] Internal Medicine/Pediatrics [address] [address] External, Scanning Provider Social History [...] week 08/05/2020 How often do you attend rastafari or taoism serv ices? Never 08/05/2020 Do you belong to any clubs o r organizations such as rastafari groups, unions, fraternal or athletic groups, or [...] Answer Date Recorded Total Score 0 08/05/2020 [facility] of Occupat ional Health - Occupational [...] Description 02/27/2025 8:00 PM EDT Clinical Support [facility] - Sleep Disorders [address] [facility] [address] documented as of this encounter Procedures Procedure Name Priority Date/Time Associated Diagnosis Comments HM PAP SMEAR Routine 02/03/2020 documented in this encounter Results * HM PAP SMEAR (02/03/2020) 02/03/2020 Narrative MANUALLY TRANSCRIBED RESULTS - 02/03/2020 ORDERING PHYSICIAN: DR PEREZ us Scanning Provider External HEALTH MAINTENANCE nal Result MANUALLY TRANSCRIBED RESULTS documented in this encounter Visit Diagnoses Not on filedocumented in this encounter Additional Health Concerns Infection Onset Date Last Indicated Resolved Time Enteric Rule-Out 03/12/2024 03/12/2024 03/12/2024 4:25 PM EDT Assessment Noted Time PHQ-9 Depression Total Score: 0 08/05/19 8:02 AM EST documented as of this encounter Care Teams Garment Parts Cutter Machine Relationship Specialty Start Date End Date Jose Antonio Gibson MD [address] [place] [address], [address] [place], [place] [phone] PCP - General Pediatrics 12/29/16 documented as of this encounter
--- OUTSIDE RECORDS SUMMARY | 2024-12-29 12:32 | XMS_ITS | Encounter Summary ---
Author Organization [facility] Address [address] [place] [address] Care Team Providers Care Mutuel Machine Operator Name Role Phone Jose Antonio Gibson MD Primary Care Provider + Source Comments In the event this information is protected by the Federal Confidentiality of Alcohol and Drug AbusePatient Records regulations: The Federal rules restrict any use of the information to criminally investigate or prosecute any alcohol or drug abuse patient.[facility] Encounter Details Date Type Department Care Team (Late st Contact Info) Description 07/02/2024 Patient Msg [facility] [address] [place] [address] [address] [place] [phone] Aspen Rizvi, MAHNAZ.RESIST COATER DEVELOPER [address] [facility] [address] [place] [address] Colonoscopy Results Social History Tobacco Use Types Packs/Day Years Used Date Smoking Tobacco: Former Cigarettes Smokeless Tobacco: Never Comments:Quit when pt was 23 yrs old Alcohol Use Standard Drinks/Week Comments Yes 0 (1 standard drink = 0.6 oz pur e alcohol) socially Area Deprivation Index Answer Date Abhilash rded National Score (1-100), lower number is lower ri sk 62 06/23/2024 State Score (1-10), lower number is lower risk 4 06/23/2024 Data from: https://www.neighborhoodatlas.medicine.[facility].edu/. Last address used for calculation [address] 06/23/2024 Comments Unknown Sex and Gender Information Value Date Recorded Sex Assigned at Not on file Legal Sex Female 1:14 PM EDT Gender Identity Not on file Sexual Orientation Not on file documented as of this encounter Plan of Treatment Not on file documented as of this encounter Visit Diagnoses Not on filedocumented in this encounter Care Teams Mutuel Machine Operator Relationship Specialty Start Date End Date Jose Antonio Gibson MD [address] [place] [address], 1 [place] [address] PCP - General Internal Medicine 06/23/24 documented as of this encounter
--- OUTSIDE RECORDS SUMMARY | 2024-12-29 12:32 | XMS_ITS | Encounter Summary ---
Author Organization [facility] Address [address] [facility] [place] [address] Care Team Providers Care Fiberglass Roving Winder Name Role Phone Jose Antonio Gibson MD Primary Care Provider Encounter Details Date Type Department Care Team (Late Contact Info) Description 12/29/2024 Bamboo flowsheet [facility] [address] [facility] [place] [address] Randy Terrazas, [address] Ch[address]ary, [facility] Social History Tobacco Use Types Packs/Day [...] EDT Office Visit [facility] [address] [place] [address] Randy Terrazas DO [address] [place] [address] documented as of this encounter Visit Diagnoses Not on filedocumented in this encounter Care Teams Fiberglass Roving Winder Relationship Specialty Start Date End Date Jose Antonio Gibson MD PCP - General Family Medicine 11/19/23 documented as of this encounter
[2025-01-01 14:08] LABS: Age Gdln ACOG Testing Note (.); HPV Aptima Negative (Negative); IGP, Aptima HPV, rfx 16/18,45 Note (.)
== END 2024-12-29 12:30 | disposition home or self-care (01) ==
LOC: LAB 12:29
PROVIDERS: PCP Family Medicine; Visit Provider Obstetrics & Gynecology
DX: Z01.419 Encounter for gynecological examination (general) (routine) without abnormal findings (principal)
CPT/HCPCS: 87624; 88175

== ENCOUNTER 2025-05-04 09:36 | Outpatient (OUT) | payer BC, SELFPAY ==
--- OUTSIDE RECORDS SUMMARY | 2025-05-04 09:45 | XMS_ITS | CCD ---
Author Organization [facility] Team Providers Care Cotton Jammer Name Role Phone NINI, DR JIMENEZ Attending Unavailable NINI, DR JIMENEZ Consulting Unavailable NINI, DR JIMENEZ Admitting Unavailable Dai Ramirez Unavailable REGGIE Callahan Attending Provider [phone] Danyelle Callahan Attending Unavailable Danyelle Callahan Admitting Unavailable Ninfa Longoria MD Primary Care Provider ASPEN VAZQUEZ Referring Unavailable NINFA LONGORIA Primary Care Unavailabl [...] Unavailable Ninfa Longoria MD Primary Care Provider [phone] Ninfa Longoria MD Primary Care Provider Ninfa Longoria MD Primary Care Provider Ninfa Longoria MD Primary Care Provider [phone] RANDY TERRAZAS Attending Unavailable RANDY TERRAZAS Attending Unavailable ZAIN BURTON Attending Unavailable RANDY TERRAZAS Attending Unavailable Unavailable Primary Care Provider Unavailady Wallis MD, Toya Unavailable PROVIDER, UNKNOWN Attending Unavailable PROVIDER, UNKNOWN Admitting Unavailable PROVIDER, UNKNOWN Admitting Unavailable PROVIDER, UNKNOWN Attending Unavailable CORAL LOPEZ Referring Unavailable PROVIDER, UNKNOWN Admitting Unavailable PROVIDER, UNKNOWN Attending Unavailable PROVIDER, UNKNOWN Attending Unavailable TOYA WALLIS Referring Unavailable PROVIDER, UNKNOWN Admitting Unavailable PROVIDER, UNKNOWN Attending Unavailable PROVIDER, UNKNOWN Admitting Unavailable Shiv GONZALEZ, Tom Gardiner Attending Harini Longoria MD, [facility] Unavail alesia Chaney MD, Tom Gardiner Attending Harini Longoria MD, [facility] Unavail able [place] , [facility] Harini GRAYSON, Criselda Contreras Attending Randy Longoria MD, [facility] Unavail able Geovanni GRAYSON, Criselda Contreras Attending Randy Longoria MD, [facility] Unavail able Geovanni GRAYSON, Criselda Contreras Attending Randy Longoria MD, [facility] Unavail able Geovanni GRAYSON, Criselda Contreras Attending Unav ailable [place] , [facility] Harini GRAYSON, Criselda Contreras Attending Randy Longoria MD, [facility] Unavail alesia Chaney MD, Tom Gardiner Attending Harini Chaney MD, Tom Gardiner Attending Sugarvai labsukhjinder Pardo DO, [facility] Harini Chaney MD, Tom Gardiner Attending Harini Longoria MD, [facility] Unavail able Arthur GONZALEZ, [facility] Unavail alesia Chaney MD, Tom Gadriner Attending Sugarvaraleigh labsukhjinder Pardo DO, [facility] Harini Chaney MD, Tom Gardiner Attending Harini Longoria MD, [facility] Unavail able Geovanni GRAYSON, rCiselda Contreras Attending Unav ailable House , [facility] Harini Chaney MD, Tom Gardiner Attending NINFA Amaya Attending Unavailable NINFA LONGORIA Referring Unavailable NINFA LONGORIA Primary Care Unavailable NINFA LONGORIA Attending Unavailable NINFA LONGORIA Referring Unavailable NINFA LONGORIA Primary Care Unavailable RANDY TERRAZAS Attending Unavailable NINFA LONGORIA Referring Unavailable NINFA LONGORIA Primary Care Unavailable NINFA LONGORIA Referring Unavailable NINFA LONGORIA Primary Care Unavailable HOUSE, JERMAINE Simon Referring Unavailable HIESTAND, MILY Primary Care Unavailable BOUMEGOUAS, CAMPBELL Attending Unavailable HIESTAND, NINFA Pearl Referring Unavailable HIESTAND, NINFA Pearl Primary Care Unavailable BOUMEGOUAS, SHYANNECHANELL Attending Unavailable BOUMEGOUAS, SHYANNECHANELL Referring Unavailable HIESTAND, NINFA Pearl Primary Care Unavailable HOUSE, JERMAINE P Primary Care Unavailable HOUSE, DO JERMAINE P Attending Unavailable HOUSE, JERMAINE P Primary Care Unavailable HOUSE, JERMAINE P Primary Care Unavailable HOUSE, DO JERMAINE P Attending Unavailable HOUSE, JERMAINE P Primary Care Unavailable HOUSE, JERMAINE P Primary Care Unavailable HOUSE, JERMAINE P Primary Care Unavailable HOUSE, JERMAINE P Primary Care Unavailable HOUSE, JERMAINE P Primary Care Unavailable HOUSE, DO JERMAINE P Attending Unavailable HOUSE, JERMAINE P Primary Care Unavailable HOUSE, DO JERMAINE P Admitting Unavailable HOUSE, JERMAINE P Primary Care Unavailable HOUSE, JERMAINE P Primary Care Unavailable HOUSE, DO JERMAINE P Attending Unavailable HOUSE, DO JERMAINE P Admitting Unavailable HOUSE, JERMAINE P Primary Care Unavailable HOUSE, DO JERMAINE P Attending Unavailable HOUSE, JERMAINE P Primary Care Unavailable HOUSE, DO JERMAINE P Attending Unavailable HOUSE, JERMAINE P Primary Care Unavailable HOUSE, DO JERMAINE P Attending Unavailable Medications Current Medications Medication Drug Class(es) Dates Sig (Normalized) Sig (Original) amoxicillin 875 mg oral tablet (1 source) Penicillin-class Antibacterial Start: 01-18-2023 take 1 tablet by mouth every twelve hours Amoxicillin 875 MG 1 tablet Orally q12hrs for 7 days Dec, Active estradiol 0.5 mg oral tablet (18 sources) Estrogen Start: 09-08-2024 End: 12-25-2024 take 1 tablet by mouth in the morning estradioL (ESTRACE) 0.5 mg tablet Take 1 tablet (0.5 mg total) by mouth in the morning. 09/08/2024 Active Start: 08-04-2024 End: 09-03-2024 take 1 tablet by mouth once daily estradiol (ESTRACE) 0.5 MG tablet Take 0.5 mg by mouth daily. 08/04/2024 09/03/2024 ibuprofen 200 mg oral capsule (13 sources) Nonsteroidal Anti-inflammatory Drug ibuprofen 200 mg cap mo Take 200 mg by mouth as needed (2 as needed). Active Ibuprofen 200 MG CAPS Take by mouth. Active levonorgestrel 0.106022 mg/hr intrauterine system (20 sources) Progestin, Progestin-containing Intrauterine Device levonorgestreL (ANNA NA) 21 mcg/24hr (up to 8 yrs) 52 mg IUD 1 each by intrauterine route. Active levonorgestrel ( Mirena, 52 MG,) 20 MCG/DAY IUD Place 1 Each in the uterus. Active Levonorgestrel ( Mirena, 52 MG,) 20 MCG/DAY intrauterine device 52 mg by Intrauterine route if needed (every 5 years) Active ondansetron 4 mg disintegrating oral tablet (19 sources) Serotonin-3 Receptor Antagonist Start: 07-18-2024 End: [...] 90 tablet 1 06/23/2024 Active Zanaflex Active VERSABASE CREAM cream (3 sources) Start: 02-23-2025 VERSABASE CREA M cream in the morning. 02/23/2025 Active zonisamide 100 mg oral capsule (20 sources) Anti-epileptic Agent Start: 05-23-2019 zonisamide (ZONEGRAN ) 100 mg capsule 1 capsule (100 mg total) in the morning. 03/01/2021 Active Completed/Discontinued Medications Medication Drug Class(es) Dates Sig (Normalized) Sig (Original) 10 ml lidocaine hydrochloride 20 mg/ml injection (2 sources) Antiarrhythmic, Amide Local Anesthetic Start: 02-06-2025 End: 02-06-2025 0.5 mL, Intra-articular, Once PRN Procedure, 1 dose, Starting on Sun02/06/25 at 1545, Until Sun02/06/25 at 1545 Start: 10-14-2024 End: 10-14-2024 0.5 mL, Once PRN Procedure, 1 dose, Starting on Sun10/14/24 at 0800, Until Sun10/14/24 at 0800 naproxen 500 mg oral tablet (1 source) Nonsteroidal Anti-inflammatory Drug Start: 06-30-2019 take 1 tablet by mouth every twelve hours at mealtime as needed Naproxen 500 MG 1 tablet with food or milk as needed Orally every 12 hrs for 10 days Jun, Not-Taking 1 ml triamcinolone acetonide 40 mg/ml injection (2 sources) Corticosteroid Start: 02-06-2025 End: 02-06-2025 0.5 mL, Intra-articular , Once PRN Procedure, 1 dose, Starting on Sun02/06/25 at 1545, Until Sun02/06/25 at 1545 Start: 10-14-2024 End: 10-14-2024 0.5 mL, Intra-articular, Onc e PRN Procedure, 1 dose, Starting on Sun10/14/24 at 0800, Until Sun10/14/24 at 0800 Problems Active Problems Problem Classification Problem Date Documented Da te Episodic/Chronic Cardiac dysrhythmias (1 source) Supraventricular tachycardia; Translations: [SVT (supraventricular tachycardia)] 03-03-2025 Chronic Cardiac dysrhythmias (3 sources) Palpitations; Translations: [Palpitations] Onset: 5 03-03-2025 Episodic Contraceptive and procreative management (8 sources) Patient encounter status; Translations: [Encounter for removal of intrauterine contraceptive device] Onset: 5 10-27-2024 Episodic Deficiency and other anemia (1 source) Iron deficiency anemia; Translations: [Iron deficiency anemia, unspecified] Episodic Immunizations and screening for infectious disease (1 source) Encounter for screening for human papillomavirus (HPV); Translations: [ENC SCREENING HUMAN PAPILLOMAVIRUS] Onset: 2 Episodic Miscellaneous mental health disorders (19 sources) Primary insomnia; Translations: [Primary insomnia] Onset: 1 08-06-2024 Chronic Osteoarthritis (6 sources) Arthritis of first carpometacarpal joint of left hand; Translations: [Unilateral primary osteoarthritis of first carpometacarpal joint, left hand] Onset: 5 02-05-2025 Chronic Other connective tissue disease (1 source) Pain in left thumb; Translations: [Pain in left finger(s)] 09-04-2024 Episodic Other gastrointestinal disorders (1 source) Irritable bowel syndrome with diarrhea; Translations: [Irritable bowel syndrome with diarrhea] Onset: 5 Chronic Other gastrointestinal disorders (2 sources) Abdominal bloating; Translations: [Abdominal distension (gaseous)] 06-23-2024 Episodic Other nervous system disorders (1 source) Disease of spinal cord, unspecified; Translations: [Disease of spinal cord, unspecified] Onset: 5 Chronic Other nutritional; endocrine; and metabolic disorders (2 sources) Abnormal weight loss; Translations: [Abnormal weight loss] 06-23-2024 Episodic Other nutritional; endocrine; and metabolic disorders (7 sources) Weight loss; Translations: [Abnormal weight loss] Onset: 5 08-04-2024 Episodic Other screening for suspected conditions (not mental disorders or infectious disease) (8 sources) Encounter for screening for malignant neoplasm of cervix; Translations: [Patient encounter status] Onset: 2 Episodic Other upper respiratory infections (1 source) Acute maxillary sinusitis, unspecified Episodic Otitis media and related conditions (1 source) Acute suppurative otitis media without spontaneous rupture of ear drum, right ear; Translations: [Acute suppurative otitis media without spontaneous rupture of ear drum, right ear] Onset: 4 Episodic Residual codes; unclassified (1 source) Obstructive sleep apnea of adult; Translations: [Obstructive sleep apnea (adult) (pediatric)] 02-02-2025 Chronic Residual codes; unclassified (2 sources) Obstructive sleep apnea (adult) (pediatric); Translations: [Obstructive sleep apnea (adult) (pediatric)] Onset: 5 Chronic Residual codes; unclassified (2 sources) Postmenopausal state; Translations: [Asymptomatic menopausal state] 12-29-2024 Episodic Residual codes; unclassified (1 source) Asymptomatic menopausal state; Translations: [Asymptomatic menopausal state] Onset: 5 Episodic Residual codes; unclassified (1 source) Insomnia, unspecified; Translations: [Insomnia, unspecified] Onset: 5 Episodic Unclassified (1 source) Pain in left foot; Translations: [Pain in left foot] Onset: 3 Unclassified (1 source) GI Problem Onset: 4 Unclassified (1 source) Earache Onset: 4 Unclassified (1 source) music in her stool Onset: 4 Unclassified (1 source) Annual Exam Onset: 4 Unclassified (2 sources) Supraventricular tachycardia, unspecified; Translations: [Supraventricular tachycardia, unspecified] Onset: 5 Unclassified (1 source) New Patient Onset: 5 Unclassified (1 source) Ventricular tachycardia, unspecified; Translations: [Ventricular tachycardia, unspecified] Onset: 5 Past or Other Problems Problem Classification Problem Date Documented Da te Episodic/Chronic Abdominal pain (3 sources) Right upper quadrant pain; Translations: [Right upper quadrant pain] Onset: 08-18-2024 08-08-2024 Episodic Mood disorders (14 sources) Mood disorders Onset: 09-27-2023 09-27-2023 Nausea and vomiting (3 sources) Nausea; Translations: [Nausea] Onset: 07-18-2024 09-02-2024 Episodic Nonspecific chest pain (1 source) Chest pain, unspecified; Translations: [Chest pain, unspecified] Onset: 01-14-2024 Episodic Nutritional deficiencies (14 sources) Iron deficiency; Translations: [Iron deficiency] Onset: 08-06-2020 08-06-2020 Episodic Other connective tissue disease (1 source) Pain in left finger(s); Translations: [Pain in left finger(s)] Onset: 10-14-2024 Episodic Other endocrine disorders (20 sources) Disorder of endocrine system; Translations: [Endocrine disorder, unspecified] Onset: 08-04-2024 08-04-2024 Episodic Other gastrointestinal disorders (16 sources) Diarrhea; Translations: [Diarrhea, unspecified] Onset: 08-04-2024 06-23-2024 Episodic Other gastrointestinal disorders (14 sources) Constipation; Translations: [Other constipation] Onset: 08-04-2024 08-04-2024 Episodic Other lower respiratory disease (1 source) Cough Onset: 01-14-2024 Episodic Other nutritional; endocrine; and metabolic disorders (14 sources) Decrease in appetite; Translations: [Anorexia] Onset: 08-04-2024 08-04-2024 Episodic Other nutritional; endocrine; and metabolic disorders (7 sources) Weight decreased; Translations: [Abnormal weight loss] Onset: 08-04-2024 08-04-2024 Episodic Spondylosis; intervertebral disc disorders; other back problems (1 source) Pain in thoracic spine; Translations: [Pain in thoracic spine] Onset: 01-14-2024 Episodic Unclassified (1 source) Contact with and (suspected) exposure to covid-19 Z20.822 Results Test Name Value Interpretation Reference Range Facility Outside Recordson 04-28-2025 Outside Records [id number]. [facility] on 03-25-[facility] Consultation/Specia list Note [id number]. [facility]Clini c Noteon 03-16-2025 Pain Management Office/Clinic Note Chief Complaint right neck pain History of Present Illness Patient presents today for evaluation regarding chronic cervical pain. Patient underwent a right C4, C6 selective nerve root injection 02/02/2025 reports moderate improvement of pain ongoing following procedure. Reports overall doing better . Patient has engaged in a 6 week course of provider directed, home based physiological therapies within the last 3 months. In addition, a six-week trial of activity modification has failed to give reprieve. Patient has also failed to respond optimally to oral analgesic regimen Oswestry Disability Form AM Behavior: Better PM Pain Intensity: The pain is very mild at the moment PM Last ORT/Med Mgmt Agreement: 01/19/25 Day Progresses Behavior: Worse PM Personal Care: I can look after myself but it causes extra pain PM Behavior: Worse PM Sitting: I can only sit in my favorite chair as long as I like Pain location and laterality: right neck pain PM Pain Lifting: Pain prevents me from lifting heavy weights off the floor, but I can manage if they are conveniently placed eg. on a table Pain quality: Sharp PM Walking: Pain prevents me from walking more than 1 mile Pain Pattern: Constant PM Standing: I can stand as long as I want, but it gives me extra pain Pain rate at rest: 1 PM Sleeping: My sleep is occasionally disturbed by pain Pain rate with activity: 5 PM Sex Life: My sex life is normal and causes no pain/NA Heat: Alleviating PM Social Life: My social life is normal, but increases the degree of pain Lifting: Aggravating PM Traveling: I can travel anywhere but it gives me extra pain Lying: Alleviating PM Oswestry Score: 20 Sitting: Aggravating PM Oswestry Score Interpretation: 0% to 20%Minimal Disability: The patient can cope with most living activities. Usually no treatment is indicated apart from advice on lifting, sitting and exercise. Sensory impairment location: denies Pain since last visit: Improved Procedure 1: Therapeutic nerve root/TFESI Procedure Date 1: 02/02/25 Procedure Comments 1: RIGHT C4, C6 BOB ROOT INJECTION Pain Improvement 1: Moderate Was procedure beneficial 1: Yes Date Tens: hx Comments TENS: has one but doesn't use, no relief from TENS Date Chiropractor: hx Frequency Chiropractor: prn Effective Chiropractor: neck Date PT: hx Date Injections: prn Date Surgery: 2009 Frequency Surgery: x1 Effective Surgery: cervical fusion by Venkat Isaacs Comments Surgery: cervical Comments Other: HEP-Stretching/strengt h training Recent testing: No Loss of bladder/bowel: Denies Demeanor: Pleasant Distress: None Appearance: Appropriate Cognitive impairment: No Feels safe at home: Yes Suicidal/homicidal ideation: No Review of Systems A review of systems was conducted and noted to be negative to the patient?s presenting complaint unless delineated in HPI. Full details are available on form PM-82 completed by the patient and added to the record on today?s date. Denies loss of control of bowel and bladder or saddle paresthesia. Denies suicidal ideation or plan. Physical Exam Vitals & Measurements HR: 78 (Peripheral) RR: 16 BP: 103/74 HT: 165 cm General -Appears stated age. No apparent distress. Psychological - Normal mood and affect. HEENT - Normocephalic/Atraumat ic Neurologic-alert and oriented x4 Respiratory - No obvious distress, No shortness of breath. No focal motor or sensory deficits appreciated Well-healed anterior cervical incision previous cervical fusion C5-6 Additional Vitals BP Position/Location: Sitting Assessment and Plan: Cervical neuritis Patient has chronic cervical pain secondary to cervical neuritis, cervical postlaminectomy syndrome. Patient reports significant improvement of pain following selective nerve root injection as delineated above Medical Decision Making Chronic conditions NOT treated during this visit that affected my overall medical decision making: _ I have reviewed the patient?s medication list for medication interactions/contraind ications and/or for upcoming procedures. Time Spent with the Patient I have personally spent [] minutes on this date, directly related to today's patient visit, including pre and post visit work, for this date of service. Time listed does not include time spent on separately billable services. Problem List/Past Medical History Ongoing Cephalgia Cervical [...] Cervical Radiofrequency Ablation (Right) (04/05/2017) Cervical Radiofrequency Ablat (more content not included)... Normal [facility] [employer] Authentication Interface Message Text Patient returned call from [facility], states her hand feels great since the injection. Call back if needed, all is well. Normal [employer] [facility] [employer] Authentication Interface Message Text LVM asking patient to call me back and let me know how well the injection Dr Wallis gave her is working. Normal [employer] [facility] Telephone Encounteron 2024 [employer] Authentication Interface Message Text Attempted to call patient to find out how she is feeling after her injection last week. No answer. Normal [facility] [employer] [facility] Sleep Studyon 02-09-2025 Sleep Study [id number] .[facility] DEXA SCAN CENTRAL SKELETALon 02-06-2025 DEXA SCAN CENTRAL SKELETAL DEXA SCAN CENTRAL SKELETAL CLINICAL INFORMATION: Postmenopausal state. Osteoporosis screening. TECHNIQUE: Dual X-ray Absorptiometry (DXA) was performed. COMPARISON: No relevant prior studies available. FINDINGS: LUMBAR SPINE (L1-L4): BMD is 1.162 gm/cm2. T-score is -0.3. LEFT FEMORAL NECK: BMD is 0.879 gm/cm2. T-score is -1.1. LEFT TOTAL FEMUR: BMD is 0.919 gm/cm2. T-score is -0.7. RIGHT FEMORAL NECK: BMD is 0.893 gm/cm2. T-score is -1.0. RIGHT TOTAL FEMUR: BMD is 0.968 gm/cm2. T-score is -0.3. The estimated 10-year probability for a major osteoporotic fracture (utilizing FRAX) is 7.7% and for a hip fracture is 0.5%. IMPRESSION: The exam is considered to be osteopenic (left femoral neck) by the National Osteoporosis Foundation guidelines. Recommend consideration for initiation of therapy. WHO CLASSIFICATION: Normal: T-score -1.0 or above Osteopenia: T-score -1.1 to < 2.5 Osteoporosis: T-score -2.5 or lower Secondary causes of bone loss should be evaluated if clinically indicated since the etiology of low BMD cannot be determined by BMD measurement alone. The current National Osteoporosis Foundation guide recommends treating patients with FRAX ten year risk scores of greater than or equal to 3% for hip fracture or greater than or equal to 20% for major osteoporotic fracture, to reduce their fracture risk. 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 Atraumatic, insidious onset. The pain is primarily in the MCP joint of the thumb. Pain with catholic priest, grasping, and pinching objects. She has tried ibuprofen, ice/heat. She has had an injection into the MCP joint without relief. She denies locking or triggering of the thumb. It is functionally limiting for her. Interval history 10/14/2024: Still painful despite wearing braces. She is interested in injection today. Interval history 02/06/2025: Patient had 3 months of complete relief after her CMC joint injection. Her symptoms started back up 2-3 weeks ago, and she is interested in having another injection. Exam: LUE Skin intact No swelling No ttp over ulnar or radial MCP joint Symmetric deviation to radial/ulnar stress; volar-dorsal shuck Mild pain with ROM of MCP No triggering/locking No ttp over A1 kuldip No flexor tendon nodule +seesaw; +CMC grind; negative shoulder Negative Mandy; ttp at radial styloid SILT rmu Firing AIN/PIN/u 2+ radial Imagin10/14/24 XR L thumb CMC joint space narrowing. Osteophyte formation. Beaking and sclerotic change of MCP joint Assessment AND Plan Arthritis of carpometacarpal (CMC) joint of left thumb -- discussed expected course of CMC arthritis and efficacy of CSI -- CSI today -- RTC PRN XR at subsequent visit: No Small Joint Injection/Arthrocentes is: L thumb CMC on 02/06/2025 3:45 PM Indications: pain Details: 25 G needle, dorsal approach Medications: 0.5 mL lidocaine 2 %; 0.5 mL triamcinolone acetonide 40 MG/ML Outcome: tolerated well, no immediate complications The [...] to verify the correct patient, procedure, equipment, sales support specialist and site/side marked as required. Patient was prepped and draped in the usual sterile fashion. I supervised the resident/fellow in their evaluation and discussed the treatment plan. I personally saw the patient and elicited the history and physical exam. I personally reviewed the imaging and provided independent interpretation. I directly edited the note above to reflect my history-taking, exam, discussion, and medical decision-making. -- Toya Wallis MD Hand AND Upper Extremity Surgery Dept of Orthopaedic Surgery [id number] Normal [facility] [employer] [facility] [employer] Authentication Interface Message Text Vitals not obtained per provider's instructions. Normal [facility] [employer] [facility] Small Joint Injection/Arthro centesis: L thumb CMCon 02-06-2025 Toya Wallis MD 02/08/2025 2:19 AM Small Joint Injection/Arthrocentes is: L thumb CMC on 02/06/2025 3:45 PM Indications: pain Details: 25 G needle, dorsal approach Medications: 0.5 mL lidocaine 2 %; 0.5 mL triamcinolone acetonide 40 MG/ML Outcome: tolerated well, no immediate complications The [...] to verify the correct patient, procedure, equipment, sales support specialist and site/side marked as required. Patient was prepped and draped in the usual sterile fashion. [facility] C nude model 02-04-2025 MAMM SCREENING BILATERAL W CAD MAMM SCREENING BILATERAL W CAD SENIA MCDONNELL 1975 [id number] EXAM: MAMM SCREENING BILATERAL W CAD, 02/02/2025 11:07 AM CLINICAL INDICATIONS: Screening, Breast cancer screening by mammogram COMPARISON: 12/22/2023 and prior TECHNIQUE: Bilateral digital tomosynthesis MLO and CC views of the breasts were obtained, with creation of synthetic 2D views. Computer aided detection was utilized. FINDINGS: The breasts are heterogeneously dense, which may obscure small masses. There are no suspicious masses, calcifications, or areas of architectural distortion. IMPRESSION: No mammographic evidence of malignancy. BI-RADS: BI-RADS 1 - Negative RECOMMENDATION: Recommend MBI as a supplemental screening combined with annual mammography.. As a separate recommendation: Dense breast tissue can obscure small mammographic abnormalities. Supplemental screening methods may be considered to help detect abnormalities within dense tissue. These supplemental screening tests include Molecular Breast Imaging (MBI) and MRI. These tests should be performed in addition to, not as a replacement for, annual screening mammography. Patients should discuss with their healthcare provider which test is appropriate, as accessibility and/or insurance coverage may vary by patient and location. RISK ASSESSMENT: TC Lifetime risk: 12.7%. The patient's reported personal and family medical history was used calculate their Tyrer-zick lifetime risk of malignancy. Scores less than 20% are not considered high risk per ACR guidelines and patient should continue with the above recommendation. Finalized by Riccardo Clarke MD on 02/04/2025 12:18 PM 1 c RADHA FARAH IMG Normal [facility] Coding Summaryon 01-30-2025 Coding Summary HTMLBase 64 NsfepzufTTk7aKo+PGhlYW Q+AT4RQRCkC98krNMzjK5m T9PRXKeMOdciXKDJYAjCJj ZgmrLxSU0ueBAjRZCb IC8+NO9rUWCrRcfefWVku7 J6yEK5O35tpj5kSVsrxYI5 WJXjWxMajhwmy1rvxTr8AX cuNmluOyBt YORiaY99UDO7tI80Go46iW OewSKmj8ayuCf5PaQzASRg JZH0aDyeDGzjk6BxZJHuE5 8wdSTud3G1 XGAryJzbkYJpIdMasDB8pF 9uHNncutigf1pokqphRfg1 qs67hVEzx9W4bBJ5O2Ehvo C4AQLkrIUn YqlhyAJRtA3vkxvxx9tyth veJlBcNWHyXAf1WGg4EFCt aWtsAgMsSY14PWW1YOQina KiK2MiXIVq gVjdHkD6h7P1Rw6MU4QETp sxD2QNUGYYNQhtiWV+PC90 be41V7FbBbgnHpz8WHCvSF A6sYF0tG5m JEDmVUuyx5G0iQK5Z3Xkdz Ivjd9rd2coMDWcLHwpD33y zLWdf2B7HGPwbYA3BZSvvQ acIlMawW52 Oyc+SNFfaQeye9ExHlvnp0 upk4lyyGx9YpgiUYJrmzSb gNvbEPR9k5EpYb0vDJNdtN I3gSD4aQ6x RdAsFwC0OAapP797MePvvL IbJjatB88sL7QqoMA+PHRy Ewd3ZBOrsSxpDX8gW9OhDI RpbmctbGVm xAxjUD2kNENumhfwYCZmmM 8zKCFmD9j9RjWrVcO3BIdp G0OhGNJvyldzZt53pZ3nXi CzNkN2IZfw K1XsstL6BTHibENnZVlrHS N0D01uq9V7JGPiXMGlEUD0 oBX5kG6ckDzhkgzqtEYjbI sgdmVydGlj QCbhZCdmZ621PJMfxGfoMj NvZGluZyBEYXRlOiAgMDcv MTEvMjAyNTwvdGQ+PHRkIH E4hAfsXYLc vBTmYBeqOb6zeUlopOywSE 4hDCZpqrrtVOElkL7jWRQi cBPycApdMU3uHVNfjkgsz3 15JfPdVKO1 KYDccISuK6MrvM3uLqOvLS EyWARcR6WqwIXyKSxaZ072 OXvkLiG0LSVvnnGyG2UmSM FsaWduOiB0 f7I7Hl9Lo0CcwikwO8ComL PzEfWnHkevBCd7T0RqAncy dHI+PA38YRDdCR95EJt5VB K7dEhtYBfa GTYcI9VasP5xYrDmBKLmST RkOyc+PHRhYmxlIHdpZHRo BKqqIBIzIdSlrIjaVT7cUs 9yZGVyLWNv qQnzsFJuJhTqq3dlKFZtJX ziXM3vvXgbD3UulCR8EUKw f6d7Ux39S87xR6OkvWF+PG KzxNS4hYW5 vY1yOoAgGiO0QUsoB429Ct NooKYyBypfb6zzc3iwrMp7 WxB0HOKytgTzpHypOTX8u0 OfGt21E98i IHdpZHRoPSIxNSUiIHZhbG vyug7ibA2nKb5+PGNvbCB3 yQA0hU4vMuVkIqM6NObbZ3 49InRvcCIv Exvmg8ftf6jhkQf3KbAiUW HwxbWtgBokRVI4f1DjWr64 L1SkgMkpr9UlHnj2tz78mD Brm4K0qKQ2 L8RqFBXhqhzpdAOicRjcGE 3yYEBmmmtdDKCpnY6yTOVy O2q9RoReIrB9PLlhU5Wzbw O0ZWHhsKJr CXMgnOIDfH3ronfvn3utvt cyAlTfJZVsPKd9PUm2IYQu sDvyUxKdVAW9MhG6ZIY8nB XdiB1ljUwk oqasoX5xShb+ZZI2mJYreW PRTY4pMvcdhVN+PHRkIHN0 oXyeTQzxBPKfaS7lBFEgE2 z3XkEwBcG6 DHyrK2LzxyX2AENnwVAbHP HwsRGOkR8qkyyzu2bcavqz MyWuMRTnBHd5MWg0RESicV duOiBsZWZ0 YhW0AUB0wGSxgX6ysUvtww nifB4hAww+QmlydGggRGF0 ZSa0E0PbNqw9CXWjsJtsLX 0ncGFkZGlu Ey6mhIgmbLdjQE9aCGJzhs wwd001ZaDfn9mvLLWukCBz AYuoOFH4F38hj6C6DOUdUP KbRBU0yQI3 pV5ldAxcztgeuZYxbAdtsp IblMewYWfwQVapJ802BWQp eZxgGpOuCLq6Z3ZfTke2QL OkrRolJK2w nYXpMUhkMk1gxYdscEfeVS 8gUQKnxzdyz770ZoAhl8bh DEIqgYNaNRmuJFF7M54xi2 G4DFLjFRIh QJI7oPD1qE0zmFiyqsvqrM VmdDsgdmVydGljYWwtYWxp W798OPLokOeoChQzjHd2Z4 AiBpt0CZXj tXqjWG2zeYZnSOlvDt1dsD smlXnlXW6eNQUptudir551 SwCio5mqAEFbhZUaRTdyTT A0G74xb6Z7 UEWcCLIhYYR2rFL9fU6njL lnbjogbGVmdDsgdmVydGlj FKzeRJgpK074ZTAqoCxuQy BhdGllbnQg GBznUYi1U4JiAtknlHH+PC 03DGOeTQ37mLKqsMLon3kh zPd7KgHoPFDuNYE4wLueTW hju2RlLLBw H76eiBSlt5H1ISUqsPanlU QsZzHprVH5pE4tZMhdcepr b2jefxquInypp0potv38rT 37B92rCUdw ZHRoPSIzMCUiIHZhbGlnbj 3iyS7mMj3+AGAyeRW5vOG1 xY4xAUQnVfC4JRlhH441Rd RvcCIvPjxj x6chq4yehUr7GsE8LAZpeg EqjDtdLDP2v4TuSg62D00r IHdpZHRoPSIyMCUiIHZhbG fkai8ixZ5r Ii8+FLWvgKS5dPG1sX3cVg BjTyL4PZiwB881MgLggOFa YftvI80mW1ZtkLY+PHRyPj f4PBShwGcd XL3gmHElQZvmCj0nKKQ0Uu EdBtXzDZipT9EgKNTvdefk cdfvhZQ9FRExQCEohQ32Ri 9udDogMTBw fECNbR9qnznyh3uxixvjBg WwJEJsROe6MSm2YCMfpScx ZlDuNMZ1XnE3EZQ7eLGngM 1hbGlnbjog nK0tV8QwPIAhwrjySi01pH 8qWnTfXaC1TVdtSum+REFS WzvfU5KYMGPFRSEZYTmxcJ Q+PHRkIHN0 wWgdQXgsRCBqzK3yXIKqT7 p3XvDwZvU7FKolH8EzTCOu nokoZw10kT8pOpRlQqQ5TZ erO1VipzC7 QWSncYCnPAtnFNB2T19td8 Z3AYPqBXUkZZG2jVR3rB6q bGlnbjogbGVmdDsgdmVydG ljYWwtYWxp J921KVEcdBevGoNyPnL8Ab B2WmI4R8NjPbf2ETJfmOit OV1avLEbJWzcBc3sjPrbiK bbMA1tSEKg hiphKGRfzA4eTETtvHBptP lrJO3pBFFbhhmqv123XuBd FMC1JKTeaFSkM0WtzU5vFz AjMDAwMDAw O0FieXRbLMciB682ICcuXx U0RMZpfcOpC1UpMNUysWwp LuM8g0S1Pj13CEYKBXNyvz wvdGQ+PHRk FUL0rYdwBPrvWOSqgL0nLF FqI8b9BgFtLbZ2QWqmK8Sz SBMiahjgMl06pP9gIgXkFq V1TYqrP4Yp bfH0PCMmsAAlPAwdPHO1C7 4fz6Z0MINaTEVySMJ1bKT8 iK4piDiixujuaDMklYvdvw VydGljYWwt FZhqH317KMXzmRiwCxYLND FMRTwvdGQ+NPEuGQF0cRhb TLgoQBCvuN9zJDOlO9p0Me MbDsV4SDgg Y5YjPIGqbvhmJr86sN9dTw EhFaE2HQvbI6GmtyF9AOVb vTPrPCzeQNO8F55um5L0ZV MwMDAwMDA7 hTR9xR9wdCwocrqesYQlyS jxnaImsUwkUWppRKqrM453 ZGTuiZpwIx75tZZmcQkmdk VvmJ5mDLEM DJJ0M1QoRnndgHQ+PC90YW PeHZ87eBYraSZqi3waaBg4 MkQzQPTzTKF6fHvoGSajo3 HiDJVdZ57m rXJms6K7VINqkQhidFPgPn HbdJW2dC4jCZkbeqkbu0sg ocuoKiyux8pxyg18mW26K1 9sIHdpZHRo IVBoXFFlRZImpYocfz3spW 9wIi8+THIagLI8yCZ3hQ9u PmTyXiL8IIqjG761NbQriG ZtAnodm6ro b2bihYu0VaXbNIExkqByhV lsTJE7d9DhFz71F80zMXzk ZHRoPSIyMCUiIHZhbGlnbj 2fgF9xQn1+ UX4sj8xydy12qC43wQE+PH DiUVW2aOkvBXjkJYYosH5j FPkkPuG0BGYyJaMuwL00xJ FzCWgxRx1v cWyqzXpjQM4nDNYfyveem9 99XcAaw1anKNVafBCiFCsd TKM8Z85za1G4EFZfUKAfAZ S8fOM8jH0z bGlnbjogbGVmdDsgdmVydG oeAWjlNNtlX554WZLntMfc ZtUwuTIzN6iecsSTWG3gBe wvdGQ+PHRk GAP6bJppEQqxGORndQ5hES OrT2h6VaOeZuQ0VWuiP7Ug lxS1QIWqwLMuXGIznFHDqB 6gipyvy8sw zixaSyLwTCPtMLh7IXz1UM MbiAsaYnDxWEU8YgA4EMQ3 mDDwfD0iqScmdqfdsZ0pTz c+RklOOjwv dGQ+OPUvVEK2lDdgCIjuVA GpjS6mHUVaT4a5RaRuEuV0 NHitU3CceiN5XOUulHIqZP JbfJLJsO8u gbgib2fwagxeBiJuQNSoJX z2QZp9RNErbGspVlEbSNS2 TmB1HRG9dXEwmQ2ykRgcxk gjfH2rLuk+ TVJOOjwvdGQ+SVTgGMD3aY szDZyeCXHozL7hXSArN3j8 WgLrGhF1GWirB9OauxJ3XD JvbGQgMTBw uZUKaU6jwtctr3ulxcgxPe NgABFeMRn5WZt6UIHloGzj EqKeTZB5RqA9GJW9lPMriL 1hbGlnbjog vA9zQsm+RKR3MMM4DR14OZ 38M5EpFdyarFZzaOC+PHRh YmxlIHdpZHRoPScxMDAlJy LouOdoDB3a Ym9 (more content not included)... [facility] Holter Monitoron 01-28-2025 Holter Monitor [id number]#[id number] [id number] Holter Monitoron 01-27-2025 Holter Monitor [id number]#[id number] [facility] Consultation/Specialist Note on 01-21-2025 Consultation/Specia list Note [id number]#1.0 0[facility] Pain Management Office/Clini c Noteon 01-19-2025 Pain Management Office/Clinic Note Chief Complaint right mid back/neck pain History of Present Illness Patient presents today for evaluation regarding chronic cervical pain pain into mid scapular region greatest on right. Patient underwent a right and left C2, C3, C4 radiofrequency ablation since previous office encounter reports significant improvement of left-sided pain. However, patient continues to have right-sided pain severe enough to affect her activities a living and quality of life with pain/numbness and tingling's at times into her right sided face/cheek and pain traveling to her right scapular region. Patient has engaged in a 6 week course of provider directed, home based physiological therapies within the last 3 months. In addition, a six-week trial of activity modification has failed to give reprieve. Patient has also failed to respond optimally to oral analgesic regimen Opioid Risk Assessment Oswestry Disability Form AM Behavior: Worse Family History of Substance Abuse: None PM Pain Intensity: The pain is moderate at the moment PM Last ORT/Med Mgmt Agreement: 01/19/25 Day Progresses Behavior: Better Personal History of Substance Abuse: None PM Personal Care: I can look after myself but it causes extra pain PM Behavior: Worse Age Between 16 and 45: No PM Sitting: Pain prevents me from sitting more than one hour Pain location and laterality: right mid back/neck pain History of Preadolescent Sexual Abuse: No PM Pain Lifting: I can lift heavy weights, but it gives me extra pain Pain quality: Burning, Sharp Mental Health Condition: No PM Walking: Pain does not prevent me from walking Pain Pattern: Constant Depression: No PM Standing: I can stand as long as I want, but it gives me extra pain Pain rate at rest: 3 Total Opioid Risk Score: 0 PM Sleeping: Because of pain I have less than 6 hours of sleep Pain rate with activity: 8 Total Score Risk Category: Low risk PM Sex Life: My sex life is normal and causes no pain/NA Bending: Aggravating PM Social Life: My social life is normal, but increases the degree of pain Heat: Alleviating PM Traveling: I can travel anywhere but it gives me extra pain Sitting: Aggravating PM Oswestry Score: 22 Sensory impairment location: numbness/tingling at times bilateral hand PM Oswestry Score Interpretation: 21% to 40% Moderate Disability: The patient experiences more pain and difficulty with travel, social life, sitting, lifting and standing, and may be disabled from work. The patient can usually be managed by conservative means. Pain since last visit: Different Procedure 1: Radiofrequency Ablation Procedure Date 1: 12/08/24 Procedure Comments 1: RIGHT Pain Improvement 1: Minimal (0-30% relief) Was procedure beneficial 1: Yes Procedure 2: Radiofrequency Ablation Procedure Date 2: 12/22/24 Procedure Comments 2: LEFT Pain Improvement 2: Significant (70-100% relief) Was procedure beneficial 2: Yes Date Tens: hx Comments TENS: has one but doesn't use, no relief from TENS Date Chiropractor: hx Frequency Chiropractor: prn Effective Chiropractor: neck Date PT: hx Date Injections: prn Date [...] plan Physical Exam Vitals & Measurements HR: 76 (Peripheral) RR: 16 BP: 98/70 HT: 165 cm General -Appears stated age. No apparent distress. Psychological - Normal mood and affect. HEENT - Normocephalic/Atraumat ic Neurologic-alert and oriented x4 Respiratory - No obvious distress, No shortness of breath. Dysesthesia light touch right C4 and C6 dermatomal pattern on right Well-healed cervical incision previous cervical fusion Additional Vitals BP Position/Location: Sitting Assessment and Plan: 1. Cervical postlaminectomy syndrome 2. Cervical spondylosis 3. Cervical neuritis Patient has neurogenic discomfort secondary to disc and spondylitic reactivity precipitating neural foraminal narrowing and lateral recess stenosis. For complaints that have failed conservative measures, candidacy has been estab (more content not included)... Normal [facility] Coding Summaryon 01-15-2025 Coding Summary HTMLBase 64 KokyzdgfGDa5mRd+PGhlYW Q+UL1XKSUqD90olOMstF7q F2BYYYkELuuzXGNXKZqNKy VgriZoJB0qnVPbROIy IC8+RL4aEXBjEflqlRBuc1 Z2pMK6X61vox7xFWcnhTU3 QPSlRcEaryysr1kfnMd6WE cuNmluOyBt XQXbtX55UDI2rW55Vk96tJ FtpOTxq4xvkUp9LzQdDYYq XOD0kAboCCqay4KlIUYsF3 3rqKXyc5I0 EHMhuPpjrPDqLuFinOE8hU 7dYQjaujhvq5namggmYwy2 bp26zYQkr1K8gTZ5S6Sttc Q0YDAivFCm GwkyuNFNsV7lwspvw1vrru dhHdIpEPGyOCy0WHm9AROg cOgvMeGlVN72ODS9YJRatr CsJ0GwINGc aWidOyB7b3R2Ya5QL8DMKr chH6NEEOHFTUxxpUP+PC90 qd90Y5NyJfxvMfg9YRWpTZ S1uTE1gP2y QWGpYSrtd5B8wKI2T2Mbuq Pdfi4kz2glFVMbVKpvL36y vJPfm9H8BTGsuVB6YSRksO hyQpOewC16 Oyc+HXXllYvet4ImUscsp2 omf4zmeMn5PlpdZGVcunRb tQgfBIX8x7HrAy2lHQPyoG E7oZE0uR5t DjSnRvC9VEqoZ698LnPlrY LlKtpyY33kP2BzbQE+PHRy Ieh4PYPdtEdpBB5eH8LfOA RpbmctbGVm bDnzBC6hDIXjpmadSZZwnH 6yTHBgL0t8EmQuAgK2EHur A5LyMKDonodjNy60jK6jJm IyCfB9FRxd P6DksbC9TTSxtAWgQXriIP T6C49mt0J9KFSxOYQeGZV1 wYZ6wQ0wfGujgpltmDKgmO sgdmVydGlj UPadMQogG630CKUdeGiqVo NvZGluZyBEYXRlOiAgMDYv MjYvMjAyNTwvdGQ+PHRkIH P8eXhoTZGg zGJuNPdmHz2tyQsraYruVX 8qQBNecciwYGPdnY1kGGIw kXCexGyjGI1nHJGatrbpv1 85PlEjZYO5 XPLejJDtU1FykK3uIsOgCW LpRSBqP2SgbXTrMHjiF973 SQzyHkQ5KNXwqoWaU1XyOM FsaWduOiB0 n1M7Vs6Go8AmtwoqA5ZicY GhJtBvDftkAVj2F3KoNher dHI+WH03ULMuMI96RNt7FN D1jBmfGOfe XRXqN7CatU4bAiTjLSQmZN RkOyc+PHRhYmxlIHdpZHRo XVftEQQgMaJfzYnyHI9qAv 9yZGVyLWNv lBgiqWUlEjYkl0ooGINlRP qgZQ4tvGywN8EpfRH3JAVn t4n3Gv24T18tS2CvyKD+PG GctOG6hBP8 tH4vCcWlDtU0YSeoD392Fc SzzEZpJyiqd1tkp6odqCo3 BlC6VRLwjoUodQrsVKU4y2 AzNi55I47e IHdpZHRoPSIxNSUiIHZhbG nwrl4hwK0uJz8+PGNvbCB3 hTU8oT6zHnIyMpS0VEizF3 49InRvcCIv Wgegr8yes5zabIg5ErXfFE VnbfHoyHskAGK1o4ZvQn37 I3UifKbjv1HgXnj0wy80qL Ppq1O5oFP8 A6NeWNOjrefuhTAzsVffHX 2tCPLfwqoqAZRvqZ3dRGUk B4o0IpDoGyB6VYwzV9Ygas W5CMFkaXLq BATqqTRBuO7tavuef2bnkj gwVwYkPYYrMXw5LAn9PDCp yXbtUfSlWYA3RbM9WFN0sM XdbB9jpDyk tquocT2gFux+JEN2qWJtcR JENM7rKcnruFX+PHRkIHN0 aTezJYdvRFIalT7iSNXvF1 x2UjSkTzI7 AXduN1OxpjM5ZSIbjYVsQW IsmFDJhS1smvdar6vzopve MrBxVTNtVNx2VKa7TSDwkQ duOiBsZWZ0 TpF7TPE4nGQdgD3gcIrxjo rhqN4mDum+QmlydGggRGF0 CBt4Q3UaDbx7ZWBsjEaxFG 0ncGFkZGlu Xp7qtWfalTiuLO9nCKDmtg mfv082RkCzm0yvKSFmlUXd CHkeCOT5Z94sb0Y1ILGxIZ CvDVM8vJS9 uL2gyTxvwyjofLKpfYegjv CodQkeZJomDJugP097MBYz uUwrPgLhOUt0U8IbEss7QX BzyZjmBJ1y uDLcGPkjDc6gyQkoiEndDZ 9oNSRguuifi994EyYou9ff IOPftWPsDPghRKV9F47zg3 V8FKAkECIh ISK9wOX6sH4feGkszmthoV VmdDsgdmVydGljYWwtYWxp T833EQYqaEyzRqUhpBh2U8 HyTrz4XBHz gNiiRH7qkLBsTDnkOj5zyN kjcJtkPU0pCTVthaons421 GeEeg6ehXCOfsMUkIHgyLA J1O12if0S8 WFSuVNEcABE4lXY7qV3hnL lnbjogbGVmdDsgdmVydGlj ZTroTMvcY864BOKkvKlkWp BhdGllbnQg AXkdQUp1W8TcXfjwcZW+PC 36DZJjGR91mOKysLMhy2tc xGn5IfUoTAGzEAF4gIsePV zzt1JbDDUj P93xuRErd1R9JCSaySxymV DtQsLevIT0tN4aKJnzifqp h9ewfqpxCvcxl6sbki74jB 76L19vGGyo ZHRoPSIzMCUiIHZhbGlnbj 0gfF9iHf0+RNVutZT9cJQ0 kO5sTIEoKeN1MAnfE668Tz RvcCIvPjxj a0wuk8rddOa9TmH7WVQttk OozDqlEIX7b6WyZm71W76h IHdpZHRoPSIyMCUiIHZhbG zscl4ysT0h Ii8+PYQolUF1rSP5vR4lIh ZcEyM1JNfiC614BaFmtGFm DvvvJ60dZ2MnjRL+PHRyPj v9RRYnhEbn CC8xfYQvXNbcOi5iBRH6Bt RqSyVvGVzfQ1BzAGJolxob bjbdkQG0OBLpZRNgzD29Cf 9udDogMTBw kNIHtA1lfgsqi8hlzdglNu HsSBRmXKk9YUp1NHAkqCdl RiFhJQB2GgI8RFL4kYRexZ 1hbGlnbjog xN7oQ4YdQPMyryrcWs75cZ 9bYuCtHhN8KGteErg+REFS WskdR1FSIKNNNLKYMYvzuA Q+PHRkIHN0 gSfrIFpkQBVqrZ8eTZSkY1 a5LgSzBgJ8ZInpU9IzWIPz ybdvMd26sQ8qKwMvGwR3CL hvP2QuinF3 GXPvdWVeXVokXLY3C77al5 K2MGNxNYWxOWI1aTD0vJ0l bGlnbjogbGVmdDsgdmVydG ljYWwtYWxp A956QLFuyGcgTlZdAfT5Oe K2QrO1S3YtLsp6LFDgxKpa MG9ixMUhNKgiTz3kpModlS hsKU5pSTXn jzanONDncB4cVOWknACvfF lvSI8sTJDblyykv307ZuXe CGW6NOWftEWbZ9RirL4nOk AjMDAwMDAw C6DesQUuJVqoK025EBghZu Y3SDPfezWaE5FzLOKjzGwp PlF0s7C6Zt35MZBCWYLroe wvdGQ+PHRk YIC5kDgbOLeqVSCmhN5aJE ZiQ0o3VyHbJlS8YBpjU0Wq TYVpwwoaHq95nA6jDePhCh R3FIsaD6Nz dpH7KCScnTOhLYnfOMJ8G7 4jr1Y1PFXrQLKcOUE9kZJ2 mD1dwYpxspwloDYtuKajqz VydGljYWwt JAvrK993AUAsoVgsOwXNFJ FMRTwvdGQ+AXBxDIO3kXnb UTqmVNNwtC3eSOGwE0r8Pc HkKiQ9FXpd K8YxEBUzipskRb95nF1iNj NeKdX9YQfcI2NkarE9NMVa fRXxKBjrMKD6E94oe0B1CN MwMDAwMDA7 mTE3yG1wiKmcaqkytTMpdE cqtiBonEnnDEadYJtaN084 AQXtnQvxPf2ZSE86RW74P0 RyPjwvdGFi bGU+PHRhYmxlIHdpZHRoPS rnHTRxQiMdwWxtVL6xHm9o ZGVyLWNvbGxhcHNlOiBjb2 xsYXBzZTsg RP1zaTtaW8VzvFX3IMJfv6 r4Wt39G19zH0StoJA+PGNv zWE9oMS0sR0eXhSgRfE4PN suI532BoBe uADmRkryh1ogu2kueHv9Yb JuAJVnnfCklJejZKN1l6Ht Da92T31xNIhdDKRxRILeOG UiIHZhbGln mp5qxB6pZb9+KGYrrWE5sP W9sW6pItUxCcM7KLtnU488 JcTfjCBxIhgqL32hB1HtbX A+PHRyPjx0 CQDjhWhkIK8trVKyAVnjEm 3jZYQ7LiSqXlSsORhbA3Te GJJfjpukummhdFI6FUTdPS UcbV49Ft3w iYhpPk0bAZQzVIY8ITIibX HhA6FxlU8nDeGtFZNcSNUs U7GyvNKiTMmmX910GYlmQs F3MYHumtWk G0IeYPFkhIwbJvY0a8O0By 7VoHqzaJPuKZ5iRuJiYXj5 X6UqKio3OGIswFrlUQ6jsP CmBRhvNq2d tYagnZxoKK0rGXOmzrxqb6 20FaJvt8sgSIWtrLOuFFjp VPQ7U81ba8P6UXJoKPTpWN X5rHL4kH4a bGlnbjogbGVmdDsgdmVydG nbKHqgPSmkV275KXEexFwg YuLKAbi0S3PzGcf1VKVgdO urPI8anDBx SYyoWi5hbKcdvFapEB3sBM Gcxhjnl902YgUss4aeCQJr zXRhRVgpJCS5F16vm8V9CF MwMDAwMDA7 eTF2yT8vjYmqxwugpHMouF ovgaOmvUuqJAphGTgsY601 YNOjyMvdFb2JYmw1P2IyUl v6OLGpnWjp RP3eiJXzLXztRf2euCoetS vhCL0pXOCaxqado962TaLk y1luSFVqbVCsWZjaYEE8G0 9oj6X4USGa XGZeAWD2yWR4iS5gfNhoky ogbGVmdDsgdmVydGljYWwt ROchU313ZMZjsBnzFpZzqK VyOjwvdGQ+ XR05ha25A7JyGoniGpv7GS PzWEW0fZG4mC6wPPLrWCsh v2C6oEL7C8NkvcHmin4pb1 xsYXBzZTog Y29 (more content not included)... Normal [facility] Reminder Messageson 01-14-20 Reminder Messages - From: JERMAINE PARDO DO To: [facility] Clinical Pool ([facility]); Sent: 01/12/2025 16:30:55 EDT ! Show up: 01/12/2025 16:30:55 EDT Subject: Results Follow Up Actions: Call the patient with result(s) Due Date/Time: 01/13/2025 16:30:00 EDT Reminder Comments: lab looks great. awaitng holter monitor Results: Date Result Name Ind Value Ref Range 01/12/2025 14:03 Sodium Level 139.0 mmol/L (136.0 - 144.0) 01/12/2025 14:03 Potassium Level 3.8 mmol/L (3.6 - 5.1) 01/12/2025 14:03 Chloride Level 107 mmol/L (101 - 111) 01/12/2025 14:03 CO2 25 mmol/L (21 - 32) 01/12/2025 14:03 Anion Gap 10.8 mmol/L (5.0 - 19.0) 01/12/2025 14:03 Glucose Level 80.0 mg/dL (74.0 - 118.0) 01/12/2025 14:03 BUN 22 mg/dL (8 - 26) 01/12/2025 14:03 Creatinine Level 0.75 mg/dL (0.60 - 1.30) 01/12/2025 14:03 BUN/Creat Ratio (H) 29.3 (4.6 - 16.2) 01/12/2025 14:03 eGFR AA >60 mL/min/1.73m2 01/12/2025 14:03 eGFR Non AA >60 mL/min/1.73m2 01/12/2025 14:03 Calcium Level 9.0 mg/dL (8.9 - 10.3) 01/12/2025 14:03 Bili Total 0.7 mg/dL (0.3 - 1.2) 01/12/2025 14:03 Alk Phos 51 IU/L (32 - 91) 01/12/2025 14:03 AST/SGOT 16 IU/L (15 - 41) 01/12/2025 14:03 ALT/SGPT 16.0 IU/L (14.0 - 54.0) 01/12/2025 14:03 Protein Total 7.0 gm/dL (6.5 - 8.1) 01/12/2025 14:03 Albumin Level 3.9 gm/dL (3.5 - 5.0) 01/12/2025 14:03 Globulin 3.1 gm/dL (1.5 - 4.3) 01/12/2025 14:03 A/G Ratio (L) 1.2 (1.4 - 2.6) 01/12/2025 14:03 Osmolality 280 mOsm/L 01/12/2025 14:03 T4 6.85 mcg/dL (6.09 - 12.23) 01/12/2025 14:03 TSH 1.27 mcIU/mL (0.45 - 5.33) 01/12/2025 14:03 WBC 8.7 x103/mcL (3.5 - 10.5) 01/12/2025 14:03 RBC 4.46 x106/mcL (3.70 - 5.30) 01/12/2025 14:03 Hgb 14.0 gm/dL (11.3 - 15.9) 01/12/2025 14:03 Hct 40.0 % (33.7 - 40.4) 01/12/2025 14:03 MCV 90 fL (81 - 100) 01/12/2025 14:03 MCH 32 pg (24 - 34) 01/12/2025 14:03 MCHC 35 gm/dL (26 - 37) 01/12/2025 14:03 RDW 13.3 % (11.5 - 15.0) 01/12/2025 14:03 Platelet 335 x103/mcL (138 - 427) 01/12/2025 14:03 MPV 7.3 fL (6.3 - 10.2) 01/12/2025 14:03 Auto Neut % 65 % (44 - 88) 01/12/2025 14:03 Auto Lymph % 24 % (14 - 48) 01/12/2025 14:03 Auto Juab % 7 % (1 - 12) 01/12/2025 14:03 Auto Eos % 2.8 % (0.9 - 4.0) 01/12/2025 14:03 Auto Baso % 0.6 % (0.2 - 2.0) 01/12/2025 14:03 Neut Abs# 5.7 x103/mcL (1.5 - 9.2) 01/12/2025 14:03 Lymph Abs# 2.1 x103/mcL (1.3 - 2.9) 01/12/2025 14:03 Juab Abs# 0.6 x103/mcL (0.0 - 0.8) 01/12/2025 14:03 Eos Abs# 0.2 x103/mcL (0.0 - 0.4) 01/12/2025 14:03 Baso Abs# 0.1 x103/mcL (0.0 - 0.2) lvm to return call to office for lab results lvm with normal results Normal [facility] .Auto Diff 1on 01-12-2025 Auto Juab % 7 % Normal 1-12 [facility] Comment on above: Performed By: #### 1 [id number], [id number], [id number], [id number], [id number] ####[facility] (DEFAULT)[address] [place] [address] 23312 Baso Abs# 0.1 x10 Normal 0.0-0.2 [facility] Comment on above: Performed By: #### 1 [id number], [id number], 7585930, [id number], [id number] ####[facility] (DEFAULT)[address] [place] [address] 69375 Basophils/100 WBC (Bld) 0.6 % Normal 0.2-2.0 [facility] Comment on above: Performed By: #### 1 [id number], [id number], 4733990, [id number], [id number] ####[facility] (DEFAULT)[address] [place] [address] 67535 Eos Abs# 0.2 x10 Normal 0.0-0.4 [facility] Comment on above: Performed By: #### 1 [id number], [id number], 7158364, 25758530, [id number] ####[facility] (DEFAULT)[address] [place] [address] 12427 Eosinophils/100 WBC (Bld) 2.8 % Normal 0.9-4.0 [facility] Comment on above: Performed By: #### 1 [id number], 4728749, 6846657, 93769218, 88984297 ####[facility] (DEFAULT)[address] [place] [address] 88122 Lymph Abs# 2.1 x10 Normal 1.3-2.9 [facility] Comment on above: Performed By: #### 1 [id number], 3726063, 9013067, [id number], [id number] ####[facility] (DEFAULT)[address] [place] [address] 36738 Lymphocytes/100 WBC (Bld) 24 % Normal 14-48 [facility] Comment on above: Performed By: #### 1 [id number], 4953457, 0786123, 24373275, [id number] ####[facility] (DEFAULT)[address] [place] [address] 29231 Juab Abs# 0.6 x10 Normal 0.0-0.8 [facility] Comment on above: Performed By: #### 1 [id number], 3958516, 6746929, 59765462, [id number] ####[facility] (DEFAULT)[address] [place] [address] 01041 Neut Abs# 5.7 x10 Normal 1.5-9.2 [facility] Comment on above: Performed By: #### 1 [id number], 4291007, 6359530, 33375461, [id number] ####[facility] (DEFAULT)[address] [place] [address] 62241 Neutrophils/100 WBC (Bld) 65 % Normal 44-88 [facility] Comment on above: Performed By: #### 1 [id number], 0946014, 2520433, 43399210, [id number] ####[facility] (DEFAULT)[address] [place] [address] CBC w/ Auto Diffon Erythrocyte distribution width (RBC) [Ratio] 13.3 % Normal 11.5-15.0 [facility] Comment on above: Performed By: #### 1 [id number], 7854508, 8137668, 00892127, [id number] ####[facility] (DEFAULT)[address] [place] [address] Hematocrit (Bld) [Volume fraction] 40.0 % Normal 33.7-40.4 [facility] Comment on above: Performed By: #### 1 [id number], 0150087, 9323742, 25258098, [id number] ####[facility] (DEFAULT)[address] [place] [address] Hemoglobin (Bld) [Mass/Vol] 14.0 g/dL Normal 11.3-15.9 [facility] Comment on above: Performed By: #### 1 [id number], 4990927, 1586479, 92128128, 58341254 ####[facility] (DEFAULT)[address] [place] [address] Man Diff? Auto Invalid Interpretation Code [facility] Comment on above: Performed By: #### 1 [id number], 5699054, 7293868, 75314609, [id number] ####[facility] (DEFAULT)[address] [place] [address] MCH (RBC) [Entitic mass] 32 pg Normal 24-34 [facility] Comment on above: Performed By: #### 1 [id number], 7928198, 9405068, 85283885, [id number] ####[facility] (DEFAULT)[address] [place] [address] MCHC (RBC) [Mass/Vol] 35 g/dL Normal 26-37 [facility] Comment on above: Performed By: #### 1 [id number], 4027652, 1284130, 51069226, [id number] ####[facility] (DEFAULT)[address] [place] [address] MCV (RBC) [Entitic vol] 90 fL Normal 81-100 [facility] Comment on above: Performed By: #### 1 [id number], 4259086, 4441147, 11194259, [id number] ####[facility] (DEFAULT)[address] [place] [address] Platelet 335 x10 Normal 138-427 [facility] Comment on above: Performed By: #### 1 [id number], 7398773, 0580318, 08972611, [id number] ####[facility] (DEFAULT)[address] [place] [address] Platelet mean volume (Bld) [Entitic vol] 7.3 fL Normal 6.3-10.2 [facility] Comment on above: Performed By: #### 1 [id number], 4639675, 9557312, 06329133, 44723629 ####[facility] (DEFAULT)[address] [place] [address] RBC 4.46 x10 Normal 3.70-5.30 [facility] Comment on above: Performed By: #### 1 [id number], 4477738, 4801990, 65536688, 45668643 ####[facility] CENTER (DEFAULT)[address] [place] [address] WBC 8.7 x10 Normal 3.5-10.5 [facility] Comment on above: Performed By: #### 1 [id number], [id number], 9027159, 07520740, [id number] ####[facility] (DEFAULT)[address] [place] [address] CMP Standardon 01-12-2025 eGFR Non AA >60 Invalid Interpretation Code [facility] Comment on above: Performed By: #### 1 [id number], 5223783, 3166532, 02640660, [id number] ####[facility] (DEFAULT)[address] [place] [address] eGFR AA >60 Invalid Interpretation Code [facility] Comment on above: Performed By: #### 1 [id number], 4503810, 1936620, 03725383, 60682539 ####[facility] (DEFAULT)[address] [place] [address] Albumin [Mass/Vol] 3.9 g/dL Normal 3.5-5.0 [facility] Comment on above: Performed By: #### 1 [id number], 8181357, 1968624, 14159615, 17776561 ####[facility] (DEFAULT)[address] [place] [address] Albumin/Globulin [Mass ratio] 1.2 {ratio} Low 1.4-2.6 [facility] Comment on above: Performed By: #### 1 [id number], 3728081, 3961008, 84333026, 37605784 ####[facility] (DEFAULT)[address] [place] [address] Alk Phos 51 IU/L Normal 32-91 [facility] Comment on above: Performed By: #### 1 [id number], 7264918, 6940725, 51239828, 13221408 ####[facility] (DEFAULT)[address] [place] [address] ALT [Catalytic activity/Vol] 16.0 U/L Normal 14.0-54.0 [facility] Comment on above: Performed By: #### 1 [id number], 0402775, 4174803, 26825345, 06901724 ####[facility] (DEFAULT)[address] [place] [address] Anion gap [Moles/Vol] 10.8 mmol/L Normal 5.0-19.0 [facility] Comment on above: Performed By: #### 1 [id number], 7768239, 6868904, 34862543, 14942754 ####[facility] (DEFAULT)[address] [place] [address] AST [Catalytic activity/Vol] 16 U/L Normal 15-41 [facility] Comment on above: Performed By: #### 1 [id number], 9353714, 4440276, 00340800, 88154575 ####[facility] (DEFAULT)[address] [place] [address] Bili Total 0.7 mg/dL Normal 0.3-1.2 [facility] Comment on above: Performed By: #### 1 [id number], 5548390, 5936246, 22967468, 03341671 ####[facility] (DEFAULT)[address] [place] [address]420 Calcium [Mass/Vol] 9.0 mg/dL Normal 8.9-10.3 [facility] Comment on above: Performed By: #### 1 [id number], 3365563, 4374623, 21097401, 29438858 ####[facility] (DEFAULT)[address] [place] [address] 84384 Chloride [Moles/Vol] 107 mmol/L Normal 101-111 [facility] Comment on above: Performed By: #### 1 [id number], 0019162, 5264784, 07667271, 71980724 ####[facility] (DEFAULT)[address] [place] [address] 34343 CO2 [Moles/Vol] 25 mmol/L Normal 21-32 [facility] Comment on above: Performed By: #### 1 [id number], 6384433, 3046084, 47675902, 24921532 ####[facility] (DEFAULT)[address] [place] [address] 16899 Creatinine [Mass/Vol] 0.75 mg/dL Normal 0.60-1.30 [facility] Comment on above: Performed By: #### 1 [id number], 1510107, 3143574, 91121741, 15624807 ####[facility] (DEFAULT)[address] [place] [address] 87602 Globulin (S) [Mass/Vol] 3.1 g/dL Normal 1.5-4.3 [facility] Comment on above: Performed By: #### 1 [id number], 0479711, 6054285, 37272928, 35886080 ####[facility] (DEFAULT)[address] [place] [address] 74714 Glucose [Mass/Vol] 80.0 mg/dL Normal 74.0-118.0 [facility] Comment on above: Performed By: #### 1 [id number], 8774845, 2444235, 06179236, 05973093 ####[facility] (DEFAULT)[address] [place] [address]64 Osmolality 280 mOsm/L Invalid Interpretation Code [facility] Comment on above: Performed By: #### 1 [id number], 4820916, 3087130, 82676047, 78872028 ####[facility] (DEFAULT)[address] [place] [address] 04736 Potassium [Moles/Vol] 3.8 mmol/L Normal 3.6-5.1 [facility] Comment on above: Performed By: #### 1 [id number], 8791444, 6219364, 92621099, 37922157 ####[facility] (DEFAULT)[address] [place] [address] 89408 Protein [Mass/Vol] 7.0 g/dL Normal 6.5-8.1 [facility] Comment on above: Performed By: #### 1 [id number], 4181146, 1903387, 89200764, 43592494 ####[facility] (DEFAULT)[address] [place] [address] 27927 Sodium [Moles/Vol] 139.0 mmol/L Normal 136.0-144.0 [facility] Comment on above: Performed By: #### 1 [id number], 3286209, 4316471, 82823579, 23792097 ####[facility] (DEFAULT)[address] [place] [address] 32169 Urea nitrogen [Mass/Vol] 22 mg/dL Normal 8-26 [facility] Comment on above: Performed By: #### 1 [id number], 4323325, 0004064, 67938822, 15298244 ####[facility] (DEFAULT)[address] [place] [address] 97317 Urea nitrogen/Creatinine [Mass ratio] 29.3 mg/mg High 4.6-16.2 [facility] Comment on above: Performed By: #### 1 [id number], 4405976, 2287714, 64378383, 92294452 ####[facility] (DEFAULT)[address] [place] [address] T4, Totalon 01-12-2025 T4 [Mass/Vol] 6.85 ug/dL Normal 6.09-12.23 [facility] Comment on above: Performed By: #### 1 [id number], 3542923, 2728063, 57191057, 98134574 ####[facility] (DEFAULT)[address] [place] [address] 14318 TSHon 01-12-2025 TSH Qn 1.27 m[IU]/L Normal 0.45-5.33 [facility] Comment on above: Performed By: #### 1 [id number], 3982597, 5451808, 79731660, 38018097 ####[facility] (DEFAULT)[address] [place] [address] IGP,APTIMA HPV,AGE GDLNon AGE GDLN ACOG TESTING Note . [facility] Comment on above: TESTS RESULT FLAG UN ITS REF RANGE LAB Clinician Provided Cytology Information Source.............Cervix;Endocervix No. of containers..01 ThinPrep Vial Age Algo ACOG Ibis... -65 FLAG LEGEND: L-Low Normal,H-High Normal,LL-Alert Low,HH-Alert High <-Panic Low,>-Panic High,A-Abnormal,AA-Critical Abnormal Performed at: 01 =[facility] [address] [place] [address] Macie Phelan MD, HPV APTIMA Negative Negative [facility] Comment on above: This nucleic acid am plification test detects fourteen high- risk HPV types (16,18,31,33,35,39,45,51,52,56,58,59,66,68) without differentiation. Performed at: =[facility] [address], [place] [id number] Neon Glass Bender: Macie Phelan MD, Phone: [phone] Performed at: [facility] [address] [place], [place] [id number] Neon Glass Bender: Jaime Naqvi PhD, Phone: [phone] IGP, APTIMA HPV, RFX 16/18,45 Note . [facility] Comment on above: TESTS RESULT FLAG UN ITS REF RANGE LAB DIAGNOSIS: 02 NEGATIVE FOR INTRAEPITHELIAL LESION OR MALIGNANCY. Specimen adequacy: 02 Satisfactory for evaluation. Endocervical and/or squamous metaplastic cells (endocervical component) are present. Performed by: Daria Cortes, Corporate Treasury Analyst ([facility]) . 02 Note: Note 03 The Pap smear is a screening test designed to aid in the detection of premalignant and malignant conditions of the uterine cervix. It is not a diagnostic procedure and should not be used as the sole means of detecting cervical cancer. Both false-positive and false-negative reports do occur. Test Methodology: Note 03 This liquid based ThinPrep(R) pap test was screened with the use of an image guided system. HPV Genotype Reflex Note 02 Criteria not met, HPV Genotype not performed. FLAG LEGEND: L-Low Normal,H-High Normal,LL-Alert Low,HH-Alert High <-Panic Low,>-Panic High,A-Abnormal,AA-Critical Abnormal Performed at: 02 [facility] [address] [place] [address] Jaime Naqvi PhD, [address] [facility] [address] [address] Macie Phelan MD, BRUSH-SPATULA CERVIX ENDOCERVIX [facility] ALL DHEA SULFATEon 5 DHEA-SULFATE 82.3 ug/dL 41.2 - 243.7 ug/dL [facility] ALL PROGESTERONEon 5 PROGESTERONE 0.8 ng/mL . [facility] are Comment on above: Follicular phase 0.1 - 0.9 Luteal phase 1.8 - 23.9 Ovulation phase 0.1 - 12.0 First trimester 11.0 - 44.3 Second trimester 25.4 - 83.3 Third trimester 58.7 - 214.0 Postmenopausal 0.0 - 0.1 Performed at: [address] [id number] Neon Glass Bender: Gilbert Castle PhD, Phone: [phone] No Panel Informationon 12-03 [facility] SRMCOH TESTOSTERONE FREE/TOT EQUILIBon 12-03-2024 FREE TESTOSTERONE(DIRECT ) 1.4 pg/mL 0.0 - 4.2 pg/mL [facility] Comment on above: Performed at: [address] [id number] Neon Glass Bender: Gilbert Castle PhD, Phone: [phone] Performed at: [facility] [address] [id number] Neon Glass Bender: Mary Liu MD, Phone: [phone] Testosterone [Mass/Vol] 9 ng/dL 4 - 50 ng/dL [facility] Pain Management Office/Clini c Noteon 11-24-2024 Pain [...] data Procedur (more content not included)... Normal [facility] IUD Removalon 10-27-2024 Kristal Matthew LPN 10/28/2024 [...] due to infection and inflammatory reaction: no [facility] Urinalysis macro (dipstick) panel (U)on 10-27-2024 Bilirubin, UA Negative Negative - 4(70) +++ mg/dL [facility] Blood, UA Negative Negative - 50 Haeseb/mcL [facility] Clarity, UA Clear [facility] Color, UA Yellow [facility] Glucose, UA Negative Negative - 1999(110) ++++ mg/dL [facility] Interpretation and review of laboratory results Normal [facility] re Ketones, UA Negative Negative - 160(16) ++++ mg/dL [facility] Leukocytes, UA Negative Negative - 500+++ Ellie/mcL [facility] Nitrite, UA Negative Negative - Positive [facility] pH, UA 6.5 5 - 9 [facility] Protein, UA Negative Negative - 2000(20) ++++ mg/dL [facility] Spec Grav, UA 1.02 1 - 1.03 [facility] Urobilinogen, UA 1.0 0.2 - 12 mg/dL [facility] Telephone Encounteron 2024 [employer] Authentication Interface Message Text Attempted to call patient back but got her voicemail. I am happy to hear that the injection is working. Told her to call us or come back to clinic with any further concerns. Normal [facility] [employer] Aut[employer] Interface Message Text Pt returned call to inform they're doing fine after injection. Pt states sharp shooting pain has resolved though they still have some soreness, but overall feeling good. Please call back with any further questions, Phone numbers Thank you Normal [facility] Telephone Encounteron 2024 [employer] Authentication Interface Message Text Patient recently seen in clinic with Dr. Wallis on 10/14, she received an injection at that time. Calling to check in on her and wanted to see if the injection has provided any relief. Patient did not answer so a message has been left for her. 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 Atraumatic, insidious onset. The pain is primarily in the MCP joint of the thumb. Pain with catholic priest, grasping, and pinching objects. She has tried [...] visit: Yes, XR L thumb -- Toya Wallis MD Hand AND Upper Extremity Surgery Dept [...] to verify the correct patient, procedure, equipment, sales support specialist and site/side marked as required. Patient was prepped and draped in the usual sterile fashion. Clinic intake form: Invalid Interpretation Code [facility] [employer] Authentication Interface Message Text Vitals not obtained per provider's instructions. Normal [facility] Small Joint Injection/Arthro centesis: L thumb CMCon 10-14-2024 Toya Wallis MD 10/14/2024 7:28 PM Small Joint Injection/Arthrocentes is: L thumb [facility] [...] to verify the correct patient, procedure, equipment, sales support specialist and site/side marked as required. Patient was prepped and draped in the usual sterile fashion. qunb XR FINGERS LEFT 3 VIEWSon XR FINGERS LEFT 3 VIEWS EXAMINATION: XR FINGERS LEFT 3 VIEWSPRO/LT/Left Thumb 10/14/2024 08:35 AM CLINICAL HISTORY: thumb ASSOCIATED DIAGNOSIS: Pain of left thumb ORDERING PROVIDER: TOYA WALLIS TECHNOLOGISTS NOTE: COMPARISON: There are no prior [...] thumb. Left finger MACRO: None Normal [facility] Insuranceon 09-25-2024 Insurance [id number] 40 [id number]#1.00O TGTIFF [facility] Insuranceon 09-08-2024 Insurance [id number] 11 [id number]#1.0 0OTGT[employer] [facility] Patient Handouton 09-08-2024 Patient Handout [id number]#1. 00[employer] [facility] Patient Handout [id number]#1. 00OTGT[employer] [facility] Patient Provided Health Data on 09-08-2024 Patient Provided Health Data [id number]#2. 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 Atraumatic, insidious onset. The pain is primarily in the MCP joint of the thumb. Pain with catholic priest, grasping, and pinching objects. She has tried [...] visit: Yes, XR L thumb -- Toya Wallis MD Hand AND Upper Extremity Surgery Dept [...] Socioeconomic History Marital status: Social Drivers of Health Financial Resource Strain: Low Risk (09/26/2023) Received from [facility] Overall Financial Resource Strain (CARDIA) Difficulty of Paying Living Expenses: Not hard at all Food Insecurity: No Food Insecurity (09/26/2023) Received from [facility] Hunger Screening Within the past 12 months we worried whether our food would run out before we got money to buy more.: Never True Within the past 12 months the food we bought just didn't last and we didn't have money to get more.: Never True Transportation Needs: No Transportation Needs (09/26/2023) Received from [facility] PRAPARE - Transportation Lack of Transportation (Medical): No Lack of Transportation (Non-Medical): No Physical Activity: Sufficiently Active (08/26/2021) Received from [facility] Exercise Vital Sign Days of Exercise per Week: 4 days Minutes of Exercise per Session: 60 min Stress: Stress Concern Present (08/26/2021) Received from [facility] [place] [employer] - Occupational Stress Questionnaire Feeling of Stress : To some extent Social Connections: Moderately Isolated (08/26/2021) Received from [facility] Social Connection and Isolation Panel [NHANES] Frequency of Communication with Friends and Family: Three times a week Frequency of Social Gatherings with Friends and Family: Twice a week Attends Religion Services: Never Active Member of Clubs or Organizations: No Attends Club or Organization Meetings: Never Marital Status: Normal [facility] Progress Noteson 09-02-2024 [employer] Authentication Interface Message Text Patient was identified by name and date of . Patient was dispensed and fitted with a. ~ Thumb spica cock up wrist brace - left ~ Comfort cool - Left, medium Patient was instructed on the application, adjustment, removal and care for both the thumb spica cock up wrist brace and comfort cool. Normal [facility] [employer] Authentication Interface Message Text Vitals not obtained per provider's instructions. Normal [facility] NM HEPATOBILIARY SYS IMAGING W PHARMACOLOGIC [...] Luu MD on 08/18/2024 9:14 AM Normal [facility] ALL T3 FREEon 08-04-2024 Free T3 [Mass/Vol] 2.63 pg/mL 2.18 - 3. 98 pg/mL [facility] ALL THYROID STIM HORMONEon 0 08-04-2024 TSH Qn 1.917 m[IU]/L [facility] ALL THYROXINE (T4)on 025 T4 [Mass/Vol] 7 ug/dL 4.80 - 13.90 ug/dL [facility] CT ABDOMEN AND PELVIS W CONT on [...] abnormality. No pneumoperitoneum. Colonic stool burden is xdzq-su-jnqbyhot. Pancreas and adrenals unremarkable. IMPRESSION: No acute abdominal findings. All CT scans at this facility use dose modulation, iterative reconstruction, and/or weight based dosing when appropriate to reduce radiation dose to as low as reasonably achievable. Finalized by Gilbert Guillen MD on 08/04/2024 1:40 PM Normal [facility] No Panel Informationon 08-04 [facility] GLUCOSE BLOODon 08-04-19 25 Glucose [Mass/Vol] 76 mg/dL 74 - 106 mg/dL [facility] Healthcare Pain Management Office/Clini c Noteon 07-07-2024 Pain [...] Note dictat (more content not included)... Normal [facility] EGD Study observation Narrat iveon 06-27-2024 [facility] Radiology Study observation (narrative) [facility] Flexible sigmoidoscopy study on 06-27-2024 [facility] Radiology Study observation (narrative) [facility] 25(OH)D3 SerPl-mCncon 2023 25-hydroxyvitamin D3 [Mass/Vol] 52.7 ng/mL Normal 31.0-80.0 [facility] Comment on above: Order Comment: Speci men Type: BLOOD SPECIMEN Ordering Facility: [facility] Address: [address] [place] [address] Result Comment: Clas sification of 25 [place] Vitamin D status: Deficiency/Insufficiency: < or = 30 ng/ml. Sufficiency/Optimal Levels: 31-80 ng/mL Toxicity: > 100 ng/mL. Test performed by chemiluminescent immunoassay. Performed By: #### 1 989-3 #### [facility] CLIA [id number] [address] [place] [address] [place] C-REACTIVE PROTEINon 024 CRP [Mass/Vol] mg/dL [facility] - 0.9 mg/dL [facility] CBC W Auto Differential pane l (Bld)on 06-23-2024 Basophils (Bld) [#/Vol] 0.08 10*3/uL [facility] Basophils/100 WBC (Bld) 0.6 % [facility] Differential cell count method Nom (Bld) Auto [facility] Eosinophils (Bld) [#/Vol] 0.11 10*3/uL [facility] Eosinophils/100 WBC (Bld) 0.8 % [facility] Erythrocyte distribution width (RBC) [Ratio] 12.9 % 11.5 - 15.0 % [facility] Hematocrit (Bld) [Volume fraction] 42.8 % 36.0 - 46.0 % [facility] Hemoglobin (Bld) [Mass/Vol] 14.2 g/dL 11.5 - 15.5 g/dL [facility] Immature granulocytes (Bld) [#/Vol] 0.13 10*3/uL High NINF [facility] Immature granulocytes/100 WBC (Bld) 0.9 % [facility] Interpretation and review of laboratory results Abnormal [facility] Lymphocytes (Bld) [#/Vol] 3.20 10*3/uL [facility] Lymphocytes/100 WBC (Bld) 23.0 % [facility] MCH (RBC) [Entitic mass] 30.2 pg 26.0 - 34.0 pg [facility] MCHC (RBC) [Mass/Vol] 33.2 g/dL 30.5 - 36.0 g/dL [facility] MCV (RBC) [Entitic vol] 91.1 fL 80.0 - 100.0 fL [facility] Monocytes (Bld) [#/Vol] 1.17 10*3/uL High [facility] Monocytes/100 WBC (Bld) 8.4 % [facility] Neutrophils (Bld) [#/Vol] 9.22 10*3/uL High [facility] Neutrophils/100 WBC (Bld) 66.3 % [facility] Nucleated RBC (Bld) [#/Vol] NINF [facility] Nucleated RBC/100 WBC (Bld) [Ratio] 0.0 % /100 WBC [facility] Platelet mean volume (Bld) [Entitic vol] 9.3 fL 9.0 - 12.7 fL [facility] Platelets (Bld) [#/Vol] 410 10*3/uL High [facility] RBC (Bld) [#/Vol] 4.70 10*6/uL 3.90 - 5.2 0 m/uL [facility] WBC (Bld) [#/Vol] 13.91 10*3/uL High [facility] Basophils (Bld) [#/Vol] 0.08 10*3/uL Normal <0.11 [facility] Comment on above: Order Comment: Speci men Type: BLOOD SPECIMEN Ordering Facility: [facility] Address: [address] [place], [place] [address] Performed By: #### 5 7021-8 #### [facility] CLIA [id number] [address] [place] [address] [place] Basophils/100 WBC (Bld) 0.6 % Normal [facility] Comment on above: Order Comment: Speci men Type: BLOOD SPECIMEN Ordering Facility: [facility] Address: [address] [place] [address] Performed By: #### 5 7021-8 #### [facility] CLIA [id number] [address] [place] [address] [place] Differential cell count method Nom (Bld) Auto Normal [facility] Comment on above: Order Comment: Speci men Type: BLOOD SPECIMEN Ordering Facility: [facility] Address: [address] [place] [address] Performed By: #### 5 7021-8 #### [facility] CLIA [id number] [address] [place] [address] [place] Eosinophils (Bld) [#/Vol] 0.11 10*3/uL Normal <0.46 [facility] Comment on above: Order Comment: Speci men Type: BLOOD SPECIMEN Ordering Facility: [facility] Address: [address] [place] [address] Performed By: #### 5 7021-8 #### [facility] CLIA [id number] [address] [place] [address] [place] Eosinophils/100 WBC (Bld) 0.8 % Normal [facility] Comment on above: Order Comment: Speci men Type: BLOOD SPECIMEN Ordering Facility: [facility] Address: [address] [place] [address] Performed By: #### 5 7021-8 #### [facility] CLIA [id number] [address] [place] [address] [place] Erythrocyte distribution width (RBC) [Ratio] 12.9 % Normal 11.5-15.0 [facility] Comment on above: Order Comment: Speci men Type: BLOOD SPECIMEN Ordering Facility: [facility] Address: [address] [place] [address] Performed By: #### 5 7021-8 #### [facility] CLIA [id number] [address] [place] [address] [place] Hematocrit (Bld) [Volume fraction] 42.8 % Normal 36.0-46.0 [facility] Comment on above: Order Comment: Speci men Type: BLOOD SPECIMEN Ordering Facility: [facility] Address: [address] [place] [address] Performed By: #### 5 7021-8 #### [facility] CLIA [id number] [address] [place] [address] [place] Hemoglobin (Bld) [Mass/Vol] 14.2 g/dL Normal 11.5-15.5 [facility] Comment on above: Order Comment: Speci men Type: BLOOD SPECIMEN Ordering Facility: [facility] Address: [address] [place] [address] Performed By: #### 5 7021-8 #### [facility] CLIA [id number] [address] [place] [address] [place] Immature granulocytes (Bld) [#/Vol] 0.13 10*3/uL High <0.10 [facility] Comment on above: Order Comment: Speci men Type: BLOOD SPECIMEN Ordering Facility: [facility] Address: [address] [place] [address] Performed By: #### 5 7021-8 #### [facility] CLIA [id number] [address] [place] [address] [place] Immature granulocytes/100 WBC (Bld) 0.9 % Normal [facility] Comment on above: Order Comment: Speci men Type: BLOOD SPECIMEN Ordering Facility: [facility] Address: [address] [place] [address] Performed By: #### 5 7021-8 #### [facility] CLIA [id number] [address] [place] [address] [place] Lymphocytes (Bld) [#/Vol] 3.20 10*3/uL Normal 1.00-4.00 [facility] Comment on above: Order Comment: Speci men Type: BLOOD SPECIMEN Ordering Facility: [facility] Address: [address] [place] [address] Performed By: #### 5 7021-8 #### [facility] CLIA [id number] [address] [place] [address] [place] Lymphocytes/100 WBC (Bld) 23.0 % Normal [facility] Comment on above: Order Comment: Speci men Type: BLOOD SPECIMEN Ordering Facility: [facility] Address: [address] [place] [address] Performed By: #### 5 7021-8 #### [facility] CLIA [id number] [address] [place] [address] [place] MCH (RBC) [Entitic mass] 30.2 pg Normal 26.0-34.0 [facility] Comment on above: Order Comment: Speci men Type: BLOOD SPECIMEN Ordering Facility: [facility] Address: [address] [place] [address] Performed By: #### 5 7021-8 #### [facility] CLIA [id number] [address] [place] [address] [place] MCHC (RBC) [Mass/Vol] 33.2 g/dL Normal 30.5-36.0 [facility] Comment on above: Order Comment: Speci men Type: BLOOD SPECIMEN Ordering Facility: [facility] Address: [address] [place] [address] Performed By: #### 5 7021-8 #### [facility] CLIA [id number] [address] [place] [address] [place] MCV (RBC) [Entitic vol] 91.1 fL Normal 80.0-100.0 [facility] Comment on above: Order Comment: Speci men Type: BLOOD SPECIMEN Ordering Facility: [facility] Address: [address] [place] [address] Performed By: #### 5 7021-8 #### [facility] CLIA [id number] [address] [place] [address] [place] Monocytes (Bld) [#/Vol] 1.17 10*3/uL High <0.87 [facility] Comment on above: Order Comment: Speci men Type: BLOOD SPECIMEN Ordering Facility: [facility] Address: [address] [place] [address] Performed By: #### 5 7021-8 #### [facility] CLIA [id number] [address] [place] [address] [place] Monocytes/100 WBC (Bld) 8.4 % Normal [facility] Comment on above: Order Comment: Speci men Type: BLOOD SPECIMEN Ordering Facility: [facility] Address: [address] [place] [address] Performed By: #### 5 7021-8 #### [facility] CLIA [id number] [address] [place] [address] [place] Neutrophils (Bld) [#/Vol] 9.22 10*3/uL High 1.45-7.50 [facility] Comment on above: Order Comment: Speci men Type: BLOOD SPECIMEN Ordering Facility: [facility] Address: [address] [place] [address] Performed By: #### 5 7021-8 #### [facility] CLIA [id number] [address] [place] [address] [place] Neutrophils/100 WBC (Bld) 66.3 % Normal [facility] Comment on above: Order Comment: Speci men Type: BLOOD SPECIMEN Ordering Facility: [facility] Address: [address] [place] [address] Performed By: #### 5 7021-8 #### [facility] CLIA [id number] [address] [place] [address] [place] Nucleated RBC (Bld) [#/Vol] 10*3/uL Normal <0.01 [facility] Comment on above: Order Comment: Speci men Type: BLOOD SPECIMEN Ordering Facility: [facility] Address: [address] [place] [address] Performed By: #### 5 7021-8 #### [facility] CLIA [id number] [address] [place] [address] [place] Nucleated RBC/100 WBC (Bld) [Ratio] 0.0 /100 WBC Normal [facility] Comment on above: Order Comment: Speci men Type: BLOOD SPECIMEN Ordering Facility: [facility] Address: [address] [place] [address] Performed By: #### 5 7021-8 #### [facility] CLIA [id number] [address] [place] [address] [place] Platelet mean volume (Bld) [Entitic vol] 9.3 fL Normal 9.0-12.7 [facility] Comment on above: Order Comment: Speci men Type: BLOOD SPECIMEN Ordering Facility: [facility] Address: [address] [place] [address] Performed By: #### 5 7021-8 #### [facility] CLIA [id number] [address] [place] [address] [place] Platelets (Bld) [#/Vol] 410 10*3/uL High 150-400 [facility] Comment on above: Order Comment: Speci men Type: BLOOD SPECIMEN Ordering Facility: [facility] Address: [address] [place] [address] Performed By: #### 5 7021-8 #### [facility] CLIA [id number] [address] [place] [address] [place] RBC (Bld) [#/Vol] 4.70 10*6/uL Normal 3.90-5.20 [facility] Comment on above: Order Comment: Speci men Type: BLOOD SPECIMEN Ordering Facility: [facility] Address: [address] [place] [address] Performed By: #### 5 7021-8 #### [facility] CLIA [id number] [address] [place] [address] [place] WBC (Bld) [#/Vol] 13.91 10*3/uL High 3.70-11.00 [facility] Comment on above: Order Comment: Speci men Type: BLOOD SPECIMEN Ordering Facility: [facility] Address: [address] [place] [address] Performed By: #### 5 7021-8 #### [facility] CLIA [id number] [address] [place] [address] [place] CELIAC SCREENon 06-23-2024 GLIAD DEAMIDATED IGA QUAL Negative Normal Negative, Test not Indicated [facility] Comment on above: Order Comment: Speci men Type: BLOOD SPECIMEN Ordering Facility: [facility] Address: [address] [place] [address] Result Comment: This is used as an aid in diagnosis of celiac disease. Clinical correlation is required. The following results were obtained with an [employer]ANT[employer] Lite Gliadin IgA SENAIT Gliadin. Gliadin IgA values obtained with different manufacturers' assay methods may not be used interchangeably. The magnitude of the reported IgA levels cannot be correlated to an endpoint titer. Performed By: #### L [id number] #### [facility] CLIA [id number] [address] [place] [address] [place] Gliadin peptide IgA Qn (S) 4 Units Normal <20 [facility] Comment on above: Order Comment: Speci men Type: BLOOD SPECIMEN Ordering Facility: [facility] Address: [address] [place] [address] Performed By: #### L [id number] #### [facility] CLIA [id number] [address] [place] [address] [place] INTERPRETATION No serological evidence of celiac disease, however, if celiac disease is clinically suspected and patient is not on gluten-free diet, histological diagnosis may be considered. HLA testing may help with risk assessment. Normal [facility] Comment on above: Order Comment: Liliana cooper Type: BLOOD SPECIMEN Ordering Facility: [facility] Address: [address] [place] [address] Performed By: #### L [id number] #### [facility] CLIA [id number] [address] [place] [address] STATES [facility] TRANSGLUTAMINASE IGA ABS INTERPRETATION Negative Normal Negative [facility] Comment on above: Order Comment: Liliana cooper Type: BLOOD SPECIMEN Ordering Facility: [facility] Address: [address] [place] [address] Result Comment: The following results were obtained with [employer] Lite R h-tTG IgA SENAIT.???R h-tTG IgA values obtained with different manufacturers' assay methods may not be used interchangeably. The magnitude of the reported IgA levels cannot be corelated to an endpoint???concentration. This is used as an aid in diagnosis of celiac disease. Clinical correlation is required. Performed By: #### L [id number] #### [facility] CLIA [id number] [address] [place] [address] [place] tTG IgA Qn (S) <2 Normal <4 [facility] Comment on above: Order Comment: Liliana cooper Type: BLOOD SPECIMEN Ordering Facility: [facility] Address: [address] [place] [address] Performed By: #### L [id number] #### [facility] CLIA [id number] [address] [place] [address] [place] CRP SerPl-mCncon 06-23-2024 CRP [Mass/Vol] mg/L Normal <0.9 [facility] Comment on above: Order Comment: Liliana [facility] Type: BLOOD SPECIMEN Ordering Facility: [facility] Address: [address] [place] [address] Performed By: #### 5 0190-8, 1987-5, 32171-5, 2276-4 #### [facility] CLIA [id number] [address] [place] [address] [place] Cobalamin (Vitamin B12) [Mas s/Vol]on 06-23-2024 Interpretation and review of laboratory results Normal [facility] Comprehensive metabolic 2000 panelon 06-23-2024 Albumin [Mass/Vol] 4.5 g/dL 3.9 - 4.9 g/dL [facility] ALP [Catalytic activity/Vol] 80 U/L 34 - 123 U/L [facility] ALT [Catalytic activity/Vol] 31 U/L 7 - 38 U/L [facility] Anion gap [Moles/Vol] 14 mmol/L 8 - 15 mmol/L [facility] AST [Catalytic activity/Vol] 20 U/L 13 - 35 U/L [facility] Bilirubin [Mass/Vol] 0.3 mg/dL 0.2 - 1.3 mg/dL [facility] Calcium [Mass/Vol] 9.4 mg/dL 8.5 - 10. 2 mg/dL [facility] Chloride [Moles/Vol] 104 mmol/L 98 - 107 mmol/L [facility] CO2 [Moles/Vol] 25 mmol/L 22 - 30 mmol/L [facility] Creatinine [Mass/Vol] 0.86 mg/dL 0.58 - 0.96 mg/dL [facility] GFR/1.73 sq M.predicted among non-blacks MDRD (S/P/Bld) [Vol rate/Area] 83 mL/min/{1.73_m2} - PINF [facility] Comment on above: Estimated Glomerular Filtration Rate [...] [Mass/Vol] 76 mg/dL 74 - 99 mg/dL [facility] Comment on above: The [place] Diab[employer] Association (ADA) provides guidance for [...] Standards of Medical Care in Diabetes 2016, [place] [employer]. Diabetes Care. 2016.39(Suppl 1). Interpretation and review of laboratory results Abnormal [facility] Potassium [Moles/Vol] 3.3 mmol/L Low 3.7 - 5.1 mmol/L [facility] Protein [Mass/Vol] 6.7 g/dL 6.3 - 8.0 g/dL [facility] Sodium [Moles/Vol] 143 mmol/L 136 - 144 mmol/L [facility] Urea nitrogen [Mass/Vol] 17 mg/dL 7 - 21 mg/dL [facility] Albumin [Mass/Vol] 4.5 g/dL Normal 3.9-4.9 [facility] Comment on above: Order Comment: Speci men Type: BLOOD SPECIMEN Ordering Facility: [facility] Address: [address] [place] [address] Performed By: #### 5 0190-8, , 2275-10 #### [facility] CLIA [id number] [address] [place] [address] [place] ALP [Catalytic activity/Vol] 80 U/L Normal 34-123 [facility] Comment on above: Order Comment: Speci men Type: BLOOD SPECIMEN Ordering Facility: [facility] Address: [address] [place], [place] [address] Performed By: #### 5 0190-8, , 2275-10 #### [facility] CLIA [id number] [address] [place] [id number] [place] ALT [Catalytic activity/Vol] 31 U/L Normal 7-38 [facility] Comment on above: Order Comment: Speci men Type: BLOOD SPECIMEN Ordering Facility: [facility] Address: [address] [place] [address] Performed By: #### 5 0190-8, 1987-11, , 2275-10 #### [facility] CLIA [id number] [address] [place] [address] [place] Anion gap [Moles/Vol] 14 mmol/L Normal 8-15 [facility] Comment on above: Order Comment: Speci men Type: BLOOD SPECIMEN Ordering Facility: [facility] Address: [address] [place] [address] Performed By: #### 5 0190-8, 1987-11, , 2275-10 #### [facility] CLIA [id number] [address] [place] [address] [place] AST [Catalytic activity/Vol] 20 U/L Normal 13-35 [facility] Comment on above: Order Comment: Speci men Type: BLOOD SPECIMEN Ordering Facility: [facility] Address: [address] [place] [address] Performed By: #### 5 0190-8, 1987-11, , 2275-10 #### [facility] CLIA [id number] [address] [place] [address] [place] Bilirubin [Mass/Vol] 0.3 mg/dL Normal 0.2-1.3 [facility] Comment on above: Order Comment: Speci men Type: BLOOD SPECIMEN Ordering Facility: [facility] Address: [address] [place], [place] [address] Performed By: #### 5 0190-8, 1987-11, , 2275-10 #### [facility] CLIA [id number] [address] [place] [address] [place] Calcium [Mass/Vol] 9.4 mg/dL Normal 8.5-10.2 [facility] Comment on above: Order Comment: Speci men Type: BLOOD SPECIMEN Ordering Facility: [facility] Address: [address] [place] [address] Performed By: #### 5 0190-8, 1987-11, , 2275-10 #### [facility] CLIA [id number] [address] [place] [address] [place] Chloride [Moles/Vol] 104 mmol/L Normal 98-107 [facility] Comment on above: Order Comment: Speci men Type: BLOOD SPECIMEN Ordering Facility: [facility] Address: [address] [place] [address] Performed By: #### 5 0190-8, 1987-11, , 2275-10 #### [facility] CLIA [id number] [address] [place] [address] [place] CO2 [Moles/Vol] 25 mmol/L Normal 22-30 [facility] Comment on above: Order Comment: Speci men Type: BLOOD SPECIMEN Ordering Facility: [facility] Address: [address] [place] [address] Performed By: #### 5 0190-8, 1987-11, , 2275-10 #### [facility] CLIA [id number] [address] [place] [address] [place] Creatinine [Mass/Vol] 0.86 mg/dL Normal 0.58-0.96 [facility] Comment on above: Order Comment: Speci men Type: BLOOD SPECIMEN Ordering Facility: [facility] Address: [address] [place] [address] Performed By: #### 5 0190-8, 1987-11, , 2275-10 #### [facility] CLIA [id number] [address] [place] [address] [place] Creatinine and Glomerular filtration rate.predicted panel (S/P/Bld) 83 mL/min/1.73m??? Normal >=60 [facility] Comment on above: Order Comment: Liliana cooper Type: BLOOD SPECIMEN Ordering Facility: [facility] Address: [address] [place] [address] Result Comment: [place] mated Glomerular Filtration Rate [...] #### 5 0190-8, 1987-11, , 2275-10 #### [facility] CLIA [id number] [address] [place] [address] [place] Glucose [Mass/Vol] 76 mg/dL Normal 74-99 [facility] Comment on above: Order Comment: Liliana cooper Type: BLOOD SPECIMEN Ordering Facility: [facility] Address: [address] [place] [address] Result Comment: The [place] Diabetes Association (ADA) provides guidance for cutoff [...] Standards of Medical Care in Diabetes 2016, [place] [employer]. Diabetes Care. 2016.39(Suppl 1). Performed By: #### 5 0190-8, 1987-11, , 2275-10 #### [facility] CLIA [id number] [address] [place] [address] [place] Potassium [Moles/Vol] 3.3 mmol/L Low 3.7-5.1 [facility] Comment on above: Order Comment: Speci men Type: BLOOD SPECIMEN Ordering Facility: [facility] Address: [address] [place] [address] Performed By: #### 5 0190-8, 1987-11, , 2275-10 #### [facility] CLIA [id number] [address] [place] [address] [place] Protein [Mass/Vol] 6.7 g/dL Normal 6.3-8.0 [facility] Comment on above: Order Comment: Speci men Type: BLOOD SPECIMEN Ordering Facility: [facility] Address: [address] [place] [address] Performed By: #### 5 0190-8, 1987-11, , 2275-10 #### [facility] CLIA [id number] [address] [place] [address] [place] Sodium [Moles/Vol] 143 mmol/L Normal 136-144 [facility] Comment on above: Order Comment: Speci men Type: BLOOD SPECIMEN Ordering Facility: [facility] Address: [address] [place] [address] Performed By: #### 5 0190-8, 1987-11, , 2275-10 #### [facility] CLIA [id number] [address] [place] [address] [place] Urea nitrogen [Mass/Vol] 17 mg/dL Normal 7-21 [facility] Comment on above: Order Comment: Speci men Type: BLOOD SPECIMEN Ordering Facility: [facility] Address: [address] [place] [address] Performed By: #### 5 0190-8, 1987-11, , 2275-10 #### [facility] CLIA [id number] [address] [place] [address] [place] FERRITINon 06-23-2024 Ferritin [Mass/Vol] 91.0 ng/mL 14.7 - 2 05.1 ng/mL [facility] Ferritin SerPl-mCncon 2023 Ferritin [Mass/Vol] 91.0 ng/mL Normal 14.7-205.1 [facility] Comment on above: Order Comment: Speci men Type: BLOOD SPECIMEN Ordering Facility: [facility] Address: [address] [place] [address] Performed By: #### 5 0190-8, 1987-11, , 2275-10 #### [facility] CLIA [id number] [address] [place] [address] [place] Ferritin [Mass/Vol]on 2023 Interpretation and review of laboratory results Normal [facility] IgA SerPl-ncon 06-23-2024 IgA [Mass/Vol] 71 mg/dL Normal 70-400 [facility] Comment on above: Order Comment: Speci men Type: BLOOD SPECIMEN Ordering Facility: [facility] Address: [address] [place] [address] Performed By: #### 2 458-8 #### [facility] CLIA [id number] [address] [place] [address] [place] Iron and Iron binding capaci panelon 06-23-2024 Iron [Mass/Vol] 164 ug/dL 41 - 186 ug/dL [facility] Iron binding capacity [Mass/Vol] 328 ug/dL 232 - 386 ug/dL [facility] Iron/TIBC [Molar ratio] 50.0 % 15.0 - 57.0 % [facility] Iron [Mass/Vol] 164 ug/dL Normal 41-186 [facility] Comment on above: Order Comment: Speci men Type: BLOOD SPECIMEN Ordering Facility: [facility] Address: [address] [place] [address] Performed By: #### 5 0190-8, 1987-11, , 2275-10 #### [facility] CLIA [id number] [address] [place] [address] [place] Iron binding capacity [Mass/Vol] 328 ug/dL Normal 232-386 [facility] Comment on above: Order Comment: Speci men Type: BLOOD SPECIMEN Ordering Facility: [facility] Address: [address] [place] [address] [place] [address] Performed By: #### 5 0190-8, 1987-11, , 2275-10 #### [facility] CLIA [id number] [address] [place] [address] [place] Iron/TIBC [Molar ratio] 50.0 % Normal 15.0-57.0 [facility] Comment on above: Order Comment: Speci men Type: BLOOD SPECIMEN Ordering Facility: [facility] Address: [address] [place] [address] [place] [address] Performed By: #### 5 0190-8, 1987-11, , 2275-10 #### [facility] CLIA [id number] [address] [place] [address] [place] MRI Spine Lumbar [...] Electronically Signed in Other Vendor System) Normal [facility] No Panel Informationon 06-23 Interpretation and review of laboratory results Normal [facility] VITAMIN B12on 06-23-2024 Cobalamin (Vitamin B12) [Mass/Vol] 1147 pg/mL 232 - 1245 pg/mL [facility] Vit B12 SerPl-mCncon 024 Cobalamin (Vitamin B12) [Mass/Vol] 1147 pg/mL Normal 232-1245 [facility] Comment on above: Order Comment: Speci men Type: BLOOD SPECIMEN Ordering Facility: [facility] Address: [address] [place] [address] Performed By: #### 2 132-9 #### [facility] CLIA [id number] [address] [place] [address] [place] [address] [place] XR Hip 2 [...] Electronically Signed in Other Vendor System) Normal [facility] Office/Clini c Noteon 04-14-2024 Pain [...] evaluate etiolog (more content not included)... Normal [facility] XR foot LT min 3V*on 023 XR foot LT min 3V* [facility] [place] [address] [place], [place] [id number] XRay Report Signed Patient: Senia Mcdonnell MR#: [id number] : 1975 Acct:[id number] Age/Sex: 47 / F ADM Date: 03/19/23 Loc: XDUCLY Room: Type: [facility] Attending Dr: Danyelle PAREDES Copies to: REGGIE [...] Jad Jo M.D.03/19/2023 5:00 PM Dictation Location: [place] [address] Transcribed By: [facility] 03/19/231699 Dictated By: Jad Jo DO 03/19/231699 Signed By: 03/19/23 170 [facility] COVID Quick Testingon 2022 Result Negative [employer] Other MRI Foot w/o [facility] MRI Foot w/o Right HISTORY: Chronic julian [...] by Krishna Price on 06/02/2022 1523 Normal [facility] [place] PAP ACOG PANEL 2: 30 to 65on 02-20-2022 . . Normal [facility] Comment on above: Result Comment: Perf ormed at: WB Performed By: #### [id number] #### [facility] [address] [place] [address] Dr. Rhiannon Smith Age Gdln ACOG Testing 30-65 [facility] Comment on above: Performed By: #### [id number] #### [facility] [address] [address] [address] Rhiannon Smith DIAGNOSIS: Comment [facility] Comment on above: Result Comment: NEGA TIVE FOR INTRAEPITHELIAL LESION OR MALIGNANCY. Performed at: WB Performed By: #### [id number] #### [facility] [address] [place] [address] Dr. Rhiannon Smith HPV Aptima Negative Normal Negative [facility] Comment on above: Result Comment: This nucleic acid amplification test detects fourteen high-risk HPV types (16,18,31,33,35,39,45,51,52,56,58,59,66,68) without differentiation. Performed at: =G Performed By: #### [id number] #### [facility] [address] [place] [address] Dr. Rhiannon Smith Methodology: Comment [facility] Comment on above: Result Comment: This liquid based ThinPrep(R) pap test was screened with the use of an image guided system. Performed at: WB Performed By: #### [id number] #### [facility] [address] [place] [address] Dr. Rhiannon Smith Note: Comment [facility] Comment on above: Result Comment: The Pap smear is a screening test designed to aid in the detection of premalignant and malignant conditions of the uterine cervix. It is not a diagnostic procedure and should not be used as the sole means of detecting cervical cancer. Both false-positive and false-negative reports do occur. . Performed at: WB Performed By: #### [id number] #### [facility] [address] [place] [address] Dr. Rhiannon Smith Performed by: Comment Normal [facility] Comment on above: Result Comment: Russel Coello, Hand Molder Meat (ASCP) Performed at: WB Performed By: #### [id number] #### [facility] [address] [address] [address] Rhiannon Smith Specimen adequacy: Comment Normal [facility] Comment on above: Result Comment: Sati sfactory for evaluation. Endocervical and/or squamous metaplastic cells (endocervical component) are present. Performed at: WB Performed By: #### [id number] #### [facility] [address] [place], [place] [address] Dr. Rhiannon Smith Vital Signs Date Time Vital Sign Value Performing Clinician Facility 03-03-2025 13:26-0400 Body height 165.1 cm Campbell Suarez MD Work Phone: [facility] 03-03-2025 13:26-0400 Body mass index (BMI) [Ratio] 23.96 kg/m2 Campbell Suarez MD Work Phone: [facility] 03-03-2025 13:26-0400 Body weight 65.32 kg Campbell Suarez MD Work Phone: [facility] 03-03-2025 13:26-0400 Diastolic blood pressure 68 mm[Hg] Campbell Suarez MD Work Phone: [facility] 03-03-2025 13:26-0400 Heart rate 77 /min Campbell Suarez MD Work Phone: [facility] 03-03-2025 13:26-0400 SaO2% (BldA) [Mass fraction] 100 % Campbell Suarez MD Work Phone: [facility] 03-03-2025 13:26-0400 Systolic blood pressure 116 mm[Hg] Campbell Suarez MD Work Phone: [facility] 02-02-2025 19:27-0400 Body height 165.1 cm Pmh 1 [facility] 02-02-2025 19:27-0400 Body mass index (BMI) [Ratio] 24.13 kg/m2 Pmh 1 [facility] 02-02-2025 19:27-0400 Body weight 65.77 kg Pmh 1 [facility] 12-29-2024 08:50-0400 Body mass index (BMI) [Ratio] 23.93 kg/m2 Randy Nini DO Work Phone: [facility] 12-29-2024 08:50-0400 Body weight 65.23 kg Randy Nini DO Work Phone: [facility] 12-29-2024 08:50-0400 Diastolic blood pressure 72 mm[Hg] Randy Nini DO Work Phone: [facility] 12-29-2024 08:50-0400 Systolic blood pressure 112 mm[Hg] Randy Nini DO Work Phone: [facility] 10-27-2024 09:55-0400 Body mass index (BMI) [Ratio] 24.96 kg/m2 Randy Nini DO Work Phone: [facility] 10-27-2024 09:55-0400 Body weight 68.04 kg Randy Nini DO Work Phone: [facility] 10-27-2024 09:55-0400 Diastolic blood pressure 70 mm[Hg] Randy Nini DO Work Phone: [facility] 10-27-2024 09:55-0400 Systolic blood pressure 110 mm[Hg] Randy Nini DO Work Phone: [facility] 08-04-2024 09:32-0500 Body mass index (BMI) [Ratio] 25.31 kg/m2 Randy Nini DO Work Phone: [facility] 08-04-2024 09:32-0500 Body weight 69 kg Randy Nini DO Work Phone: [facility] 08-04-2024 09:32-0500 Diastolic blood pressure 70 mm[Hg] Randy Nini DO Work Phone: [facility] 08-04-2024 09:32-0500 Systolic blood pressure 114 mm[Hg] Randy Terrazas DO Work Phone: [facility] 06-27-2024 14:19-0500 Diastolic blood pressure 81 mm[Hg] Bob Guerrero MD Work Phone: [facility] 06-27-2024 14:19-0500 Heart rate 100 /min Bob Guerrero MD Work Phone: [facility] 06-27-2024 14:19-0500 Respiratory rate 16 /min Bob Guerrero MD Work Phone: [facility] 06-27-2024 14:19-0500 SaO2% (BldA) [Mass fraction] 100 % Bob Guerrero MD Work Phone: [facility] 06-27-2024 14:19-0500 Systolic blood pressure 125 mm[Hg] Bob Guerrero MD Work Phone: [facility] 06-27-2024 12:52-0500 Body temperature 97.5 [degF] Bob Guerrero MD Work Phone: [facility] 06-27-2024 12:43-0500 Body height 165.1 cm Bob Guerrero MD Work Phone: [facility] 06-27-2024 12:43-0500 Body mass index (BMI) [Ratio] 23.13 kg/m2 Bob Guerrero MD Work Phone: [facility] 06-27-2024 12:43-0500 Body weight 63.05 kg Bob Guerrero MD Work Phone: [facility] 06-23-2024 08:47-0500 Body height 165.1 cm Aspen Vazquez TITLE INSURANCE SALES REPRESENTATIVE.DIE TRY OUT WORKER STAMPING Work Phone: [facility] 06-23-2024 08:47-0500 Body mass index (BMI) [Ratio] 24.63 kg/m2 Aspen Vazquez TITLE INSURANCE SALES REPRESENTATIVE.DIE TRY OUT WORKER STAMPING Work Phone: [facility] 06-23-2024 08:47-0500 Body temperature 98.2 [degF] Aspen Reindel TITLE INSURANCE SALES REPRESENTATIVE.DIE TRY OUT WORKER STAMPING Work Phone: [facility] 06-23-2024 08:47-0500 Body weight 67.13 kg Aspen Reindel TITLE INSURANCE SALES REPRESENTATIVE.DIE TRY OUT WORKER STAMPING Work Phone: [facility] 06-23-2024 08:47-0500 Diastolic blood pressure 74 mm[Hg] Aspen Reindel TITLE INSURANCE SALES REPRESENTATIVE.DIE TRY OUT WORKER STAMPING Work Phone: [facility] 06-23-2024 08:47-0500 Heart rate 98 /min Aspen Reindel TITLE INSURANCE SALES REPRESENTATIVE.DIE TRY OUT WORKER STAMPING Work Phone: [facility] 06-23-2024 08:47-0500 Systolic blood pressure 127 mm[Hg] Aspen Reindel TITLE INSURANCE SALES REPRESENTATIVE.DIE TRY OUT WORKER STAMPING Work Phone: [facility] 01-18-2023 13:50-0400 Body height 165.1 cm Dai Ramirez Other [employer] Other 01-18-2023 13:50-0400 Body mass index (BMI) [Ratio] 24.79 kg/m2 Dai Ramirez Other [employer] Other 01-18-2023 13:50-0400 Body temperature 98 [degF] Dai Ramirez Other [employer] Other 01-18-2023 13:50-0400 Body weight 67.59 kg Dai Ramirez Other [employer] Other 01-18-2023 13:50-0400 Diastolic blood pressure 64 mm[Hg] Dai Ramirez Other [employer] Other 01-18-2023 13:50-0400 Respiratory rate 18 /min Dai Ramirez Other [employer] Other 01-18-2023 13:50-0400 SaO2% (BldA) [Mass fraction] 100 % Dai Dallasley Other [employer] Other 01-18-2023 13:50-0400 Systolic blood pressure 125 mm[Hg] Dai Ashley Other [employer] Other Encounters Encounter Date Encounter Type Care Provider Facility Start: 04-30-2025 End: 04-30-2025 ambulatory [facility] Facility:[facility] Cli bernabe Start: 04-29-2025 End: 04-29-2025 Telephone encounter Senia Dove RN [facility] Start: 04-20-2025 End: 04-21-2025 Follow-up encounter Senia Dove RN [facility] Comment on above: Echo complete W/O co ntrast Start: 04-20-2025 End: 04-20-2025 ambulatory DO [facility] Facility:[facility] Start: 04-20-2025 End: 04-20-2025 ambulatory [facility] Start: 03-19-2025 End: 03-19-2025 ambulatory [facility] Facility:[facility] Cli [facility] Start: 03-16-2025 End: 03-16-2025 ambulatory [facility] Facility:[facility] Start: 03-09-2025 End: 03-09-2025 ambulatory [facility] Facility:[facility] Start: 03-03-2025 End: 03-03-2025 Office outpatient visit 25 minutes Campbell Suarez MD Work Phone: [facility] Comment on above: SVT (supraventricula r tachycardia) (Primary Dx); Palpitations Start: 03-03-2025 End: 03-03-2025 ambulatory [facility] Start: 02-24-2025 End: 02-24-2025 Chart abstracting Scanning Provider External [facility] Start: 02-16-2025 End: 02-16-2025 ambulatory JERMAINE PARDO Facility:[facility] Start: 02-06-2025 End: 02-08-2025 Office outpatient visit 25 minutes Toya Wallis MD Work Phone: [facility] Comment on above: Arthritis of carpome tacarpal (CMC) joint of left thumb (Primary Dx) Start: 02-06-2025 End: 02-08-2025 ambulatory UNKNOWN PROVIDER Facility:[facility] Start: 02-05-2025 End: 02-05-2025 Orders Only Shawnee Giordano RN [facility] Start: 02-02-2025 End: 02-02-2025 Clinical Support [facility] Sleep Unit 1 [facility] Comment on above: Obstructive sleep ap jb of adult Start: 02-02-2025 ambulatory JERMAINE Aurora EDVIN [facility] Start: 02-02-2025 End: 02-02-2025 ambulatory Tom Chaney MD Facility:[facility] Start: 02-02-2025 End: 02-02-2025 ambulatory [facility] Start: 01-19-2025 End: 01-23-2025 ambulatory DO JERMAINE PARDO Facility:[facility] Start: 01-19-2025 End: 01-19-2025 ambulatory JERMAINE PARDO Facility:[facility] Start: 01-19-2025 End: 01-19-2025 ambulatory Jermaine Pardo DO Facility:[facility] Start: 01-14-2025 End: 01-14-2025 Telephone encounter Jermaine Pardo DO Work Phone: [facility] Comment on above: Sleep Lab (HST Order ) Start: 01-12-2025 ambulatory JERMAINE PARDO Facilit y:[facility] Start: 01-07-2025 ambulatory JERMAINE PARDO Facilit y:[facility] Start: 12-29-2024 End: 12-29-2024 Bamboo flowsheet Randy Terrazas DO Work Phone: [facility] Start: 12-29-2024 End: 01-01-2025 Bamboo flowsheet Randy Nini DO Work Phone: [facility] Start: 12-29-2024 End: 01-01-2025 Clinisync Result Encounter Randy Nini DO Work Phone: [facility] Unsolicited Start: 12-29-2024 End: 12-29-2024 ambulatory RANDY NINI Not Available Start: 12-29-2024 End: 12-29-2024 Patient encounter procedure Randy Nini DO Work Phone: [facility] Work Phone: Start: 12-29-2024 End: 12-29-2024 Periodic preventive med est patient 40-64yrs Randy Nini DO Work Phone: [facility] Comment on above: Well woman exam with routine gynecological exam; Breast cancer screening by mammogram; Postmenopausal state Start: 12-22-2024 End: 12-22-2024 ambulatory [facility] Facility:[facility] Start: 12-18-2024 End: 12-18-2024 ambulatory [facility] Facility:[facility] Start: 12-08-2024 End: 12-08-2024 ambulatory [facility] Facility:[facility] Start: 12-01-2024 End: 12-01-2024 Bamboo flowsheet Randy Nini DO Work Phone: [facility] Start: 12-01-2024 End: 12-03-2024 Bamboo flowsheet Randy Nini DO Work Phone: [facility] Start: 12-01-2024 End: 12-03-2024 Clinisync Result Encounter Randy Nini DO Work Phone: [facility] External Department Unsolicited Start: 11-24-2024 End: 11-24-2024 ambulatory Ninfa Longoria MD Facility:[facility] Start: 11-19-2024 End: 11-19-2024 ambulatory [facility] Facility:[facility] Start: 11-14-2024 End: 11-14-2024 Telephone encounter Jermaine Pardo DO Work Phone: [facility] Comment on above: Sleep Lab (PSG Order ) Start: 11-10-2024 End: 11-10-2024 Telephone encounter Orders Support User Transcribe [facility] Comment on above: Sleep Lab (Inquiry ) Start: 11-03-2024 ambulatory JERMAINE PRADO Facilit y:[facility] Start: 10-27-2024 End: 10-27-2024 Refill Ninfa Longoria MD Work Phone: [facility] Comment on above: Primary insomnia Start: 10-27-2024 End: 10-27-2024 Patient encounter procedure Randy Terrazas DO Work Phone: [facility] Comment on above: Encounter for IUD re moval; Hormone imbalance; Hormone disorder Start: 10-21-2024 End: 10-21-2024 Telephone encounter Zena Booth RN [facility] Comment on above: Post Procedure Care Start: 10-14-2024 End: 10-15-2024 ambulatory UNKNOWN PROVIDER Facility:[facility] Start: 10-14-2024 End: 10-14-2024 Office outpatient visit 25 minutes Toya Wallis MD Work Phone: [facility] Comment on above: Arthritis of carpome tacarpal (CMC) joint of left thumb (Primary Dx) Start: 09-29-2024 End: 09-29-2024 Refill Ninfa Longoria MD Work Phone: [facility] Comment on above: Primary insomnia Start: 09-08-2024 ambulatory JERMAINE PARDO Facilit y:[facility] Start: 09-02-2024 End: 09-04-2024 Office outpatient new 30 minutes Toya Wallis MD Work Phone: [facility] Comment on above: Pain of left thumb ( Primary Dx) Start: 09-02-2024 End: 09-04-2024 Refill Ninfa Longoria MD Work Phone: [facility] Comment on above: Nausea Primary insomnia Start: 09-01-2024 End: 09-01-2024 Phys/qhp telephone evaluation 5-10 min Randy Nini DO Work Phone: [facility] Comment on above: Hormone imbalance Start: 08-18-2024 End: 08-18-2024 ambulatory [facility] Start: 08-08-2024 End: 08-08-2024 Orders Only Ninfa Longoria MD Work Phone: [facility] Comment on above: Right upper quadrant abdominal pain (Primary Dx) Start: 08-06-2024 End: 08-07-2024 Refill Ninfa Longoria MD Work Phone: [facility] Comment on above: Primary insomnia Start: 08-04-2024 End: 08-04-2024 Bamboo flowsheet Randy Nini DO Work Phone: [facility] Start: 08-04-2024 End: 08-04-2024 Bamboo flowsheet Randy Nini DO Work Phone: [facility] Start: 08-04-2024 End: 08-04-2024 Clinisync Result Encounter Randy Nini DO Work Phone: [facility] External Department Unsolicited Start: 08-04-2024 End: 08-04-2024 ambulatory [facility] Start: 08-04-2024 End: 08-04-2024 flow sheet Randy Nini DO Work Phone: [facility] Comment on above: Hormone imbalance; Hormone disorder; Weight loss; Decreased appetite; Other constipation; Diarrhea, unspecified type Start: 08-04-2024 End: 08-04-2024 ambulatory RANDY NINI Not Available Start: 07-18-2024 End: 07-18-2024 ambulatory [facility] Start: 07-07-2024 End: 07-07-2024 ambulatory Ninfa Longoria MD Facility:[facility] Start: 06-27-2024 End: 06-27-2024 Orders Only Bob Guerrero MD Work Phone: [facility] Comment on above: Special screening fo r malignant neoplasms, colon (Primary Dx) Diarrhea, unspecifie d type [R19.7] Start: 06-23-2024 End: 06-23-2024 ambulatory [facility] Start: 06-23-2024 End: 06-23-2024 ambulatory ASPEN VAZQUEZ Facility:[facility] Start: 06-23-2024 End: 06-23-2024 Patient encounter procedure Aspen Vazquez 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 Start: 05-26-2024 End: 05-26-2024 ambulatory Ninfa Longoria MD Facility:[facility] Start: 05-20-2024 ambulatory Tom Chaney MD Facility:[facility] Start: 04-14-2024 End: 04-14-2024 ambulatory Ninfa Longoria MD Facility:[facility] Start: 03-11-2024 End: 03-11-2024 ambulatory [facility] Start: 01-28-2024 End: 01-28-2024 ambulatory ZAIN BURTON Not Available Start: 01-14-2024 End: 01-14-2024 ambulatory [facility] Start: 09-27-2023 End: 09-27-2023 ambulatory [facility] Start: 09-27-2023 Encounter for genera l adult medical examination without abnormal findings NINFA Pearl [facility] Start: 03-19-2023 End: 03-19-2023 ambulatory Danyelledirk Callahan Facility:[facility] Start: 03-19-2023 End: 03-19-2023 ambulatory IMAGING ACCOUNT MANAGER-C Danyelle Callahan Work Phone: [facility] Work Phone: Start: 03-19-2023 End: 03-19-2023 Patient encounter procedure IMAGING ACCOUNT MANAGER-C Danyelle Mcduffiemond Work Phone: [facility] Work Phone: Start: 01-18-2023 End: 01-18-2023 ambulatory Dai Ramirez Other [employer] Other Start: 01-18-2023 Office outpatient vi sit 15 minutes Dai Ramirez [facility] Start: 02-14-2022 End: 02-14-[address] RANDY TERRAZAS Facility:[facility] Procedures Date Procedure Procedure Detail Performing Clinician Start: 03-03-2025 Ecg routine ecg w/least 12 lds w/i&r Campbell Suarez MD Work Phone: Start: 02-06-2025 Arthrocentesis aspir&/inj small jt/bursa w/o Toya Wallis MD Work Phone: Start: 02-04-2025 Mammography Scanning External Start: 02-02-2025 Mammography Pmh 1 Start: 12-29-2024 IGP,APTIMA HPV,AGE GDLN Randy Nini DO Work Phone: Start: 12-29-2024 Microscopic observation [Identifier] in Cervix by Cyto stain Pmh 1 Start: 12-01-2024 ALL DHEA SULFATE Randy Nini DO Work Phone: Start: 12-01-2024 ALL PROGESTERONE Randy Nini DO Work Phone: Start: 12-01-2024 SRMCOH TESTOSTERONE FREE/TOT EQUILIB Randy Nini DO Work Phone: Start: 10-27-2024 IUD REMOVAL Randy Nini DO Work Phone: Start: 10-27-2024 Urnls dip stick/tablet rgnt non-auto w/o micrscp Randy Nini DO Work Phone: Start: 10-14-2024 Arthrocentesis aspir&/inj small jt/bursa w/o us Toya Wallis MD Work Phone: Start: 08-04-2024 ALL T3 FREE Zappedy DO Work Phone: Start: 08-04-2024 ALL THYROID STIM HORMONE Randy Nini DO Work Phone: Start: 08-04-2024 ALL THYROXINE (T4) Zappedy DO Work Phone: Start: 08-04-2024 [facility] GLUCOSE BLOOD Randynate Hernandezo DO Work Phone: Start: 06-27-2024 Colonoscopy flx dx w/collj spec when pfrmd Aspen Vazquez APRN.DIE TRY OUT WORKER STAMPING Work Phone: Start: 06-27-2024 Esophagogastroduodenoscopy transoral diagnostic Aspen Vazquez APRN.DIE TRY OUT WORKER STAMPING Work Phone: Start: 06-27-2024 Colonoscopy Bob Guerrero MD Work Phone: Start: 12-24-2023 Mammography Randy Terrazas DO Work Phone: Start: 11-19-2023 Microscopic observation [Identifier] in Cervix by Cyto stain Randynate Hernandezo DO Work Phone: Start: 09-28-2023 Lipid 1996 panel - Serum or Plasma Aspen Vazquez APRN.DIE TRY OUT WORKER [employer]AMPING Work Phone: Start: 09-27-2023 Adult depression screening assessment Ninfa Longoria MD Work Phone: Start: 03-19-2023 X-ray of left foot IMAGING ACCOUNT MANAGER-C Danyelle Callahan Work Phone: Plan of Treatment Date Care Activity Detail Author Start: 06-27-2034 Screening for malignant neoplasm of colon [facility] Start: 01-12-2030 Lipid panel Cholesterol [facility] Start: 09-27-2028 Lipid panel [facility] Start: 12-30-2027 Screening for malignant neoplasm of cervix Pap Smear [facility] Start: 06-23-2027 Diabetes Screening Diabetes Screening [facility] Start: 11-18-2026 Screening for malignant neoplasm of cervix [facility] Start: 03-03-2026 Adult BMI Screening Adult BMI Screening [facility] Start: 03-03-2026 Tobacco Screening Tobacco Screening [facility] Start: 02-04-2026 Screening for malignant neoplasm of breast [facility] Start: 02-02-2026 Adult BMI Screening Adult BMI Screening [facility] Start: 02-02-2026 Screening for malignant neoplasm of breast Mammogram [facility] Start: 02-02-2026 Tobacco Screening Tobacco Screening [facility] Start: 01-04-2026 End: 01-04-2026 Patient encounter procedure 01/04/2026 10:00 AM EDT Office Visit [facility] [address] [place] [id number] Randy Terrazas, DO [address] [place], [place] [id number] [facility] Start: 12-29-2025 Screening for malignant neoplasm of cervix Pap Smear [facility] Start: 08-18-2025 Adult BMI Screening Adult BMI Screening [facility] Start: 07-18-2025 Adult BMI Screening Adult BMI Screening [facility] Start: 06-27-2025 Screening for malignant neoplasm of colon [facility] Start: 06-23-2025 Tobacco Screening Tobacco Screening [facility] Start: 04-24-2025 End: 04-24-2025 Clinical Support 04/24/2025 8:00 PM EDT Clinical Support [facility] [address] [place] [phone] [facility] Start: 04-22-2025 Influenza vaccination Influenza Vaccine (#1) [facility] Start: 03-30-2025 End: 03-30-2025 Patient encounter procedure 03/30/2025 10:00 AM EDT Appointment [facility] [address] [place] [address] Campbell Suarez MD [address] [place] [address] [facility] Start: 03-23-2025 COVID-19 Vaccine ( season) COVID-19 Vaccine ( season) [facility] Start: 03-23-[address] [facility] Start: 03-03-2025 End: 03-03-2026 Echo complete W/O contrast Echo complete W/O contrast Echocardiography Routine Palpitations Expected: 03/03/2025, Expires: 03/03/2026 [facility] Work Phone: Comment on above: Expected: 03/03/2025, Expires: Start: 03-03-2025 End: 03-03-2025 Patient encounter procedure 03/03/2025 1:30 PM EDT Office Visit [facility] [address] [place] [id number] Campbell Suarez MD [address] [place] [address] [facility] Start: 02-27-2025 End: 02-27-2025 Clinical Support 02/27/2025 8:00 PM EDT Clinical Support [facility] [address] [place] [address] [facility] Start: 02-06-2025 End: 02-06-2025 Patient encounter procedure 02/06/2025 3:45 PM EDT Office Visit [facility] [address] [place] [address] Toya Wallis MD [address] [place] [address] [facility] Start: 02-06-2025 End: 02-05-2026 XR Hand - left 3 Views XR HAND LEFT 3 VIEWS Imaging Routine Arthritis of carpometacarpal (CMC) joint of left thumb Expected: 02/06/2025, Expires: 02/05/2026 [facility] Comment on above: Expected: 02/06/2025, Expires: Start: 02-05-2025 End: 02-05-2026 XR Finger - left Views XR FINGERS LEFT 3 VIEWS Imaging Routine Arthritis of carpometacarpal (CMC) joint of left thumb Expected: 02/05/2025, Expires: 02/05/2026 [employer] Work Phone: Comment on above: Expected: 02/05/2025, Expires: Start: 02-02-2025 End: 02-02-2025 Clinical Support 02/02/2025 7:30 PM EDT Clinical Support [facility] [address] [place] [phone] [facility] Start: 02-02-2025 End: 02-02-2025 Patient encounter procedure [facility] Start: 12-29-2024 End: 12-29-2025 DXA Skeletal system Views for bone density DEXA bone density Imaging Routine Postmenopausal state Expected: 12/29/2024 (Approximate), Expires: 12/29/2025 [facility] Comment on above: Expected: 12/29/2024 (Approximate), Expi res: 12/29/2025 Start: 12-29-2024 End: 02-28-2026 MG Breast - bilateral Screening Bilateral screening mammogram Imaging Routine Breast cancer screening by mammogram Expected: 12/29/2024, Expires: 02/28/2026 [facility] Work Phone: Comment on above: Expected: 12/29/2024, Expires: Start: 12-29-2024 End: 12-29-2024 Patient encounter procedure 12/29/2024 8:30 AM EDT Office Visit [facility] [address] [place] [place] [phone] Randy Terrazas, DO [address] [place] [address] [facility] Start: 12-23-2024 Screening for malignant neoplasm of breast [facility] Start: 12-01-2024 End: 12-01-2024 Patient encounter procedure 12/01/2024 8:40 AM EDT Office Visit [facility] [address] [facility] [place] [phone] Randy Terrazas, DO [address] [place] [address] [facility] Start: 11-25-2024 End: 11-25-2024 Patient encounter procedure 11/25/2024 8:30 AM EDT Office Visit [facility] [address] [facility] [place] [place] [phone] Randy Terrazas, DO [address] [place] [address] [facility] Start: 11-18-2024 Screening for malignant neoplasm of cervix Pap Smear [facility] Start: 10-21-2024 Administration of varicella zoster vaccine Zoster (Shingles) Vaccine (2 of 2) [facility] Start: 10-21-2024 Shingles (RZV) Vaccine (2 of 2) Shingles (RZV) Vaccine (2 of 2) [facility] Start: 09-26-2024 Depression Screening [facility] Start: 09-01-2024 End: 09-01-2024 Patient encounter procedure 09/01/2024 8:10 AM EST Office Visit [facility] [address] [place] [phone] Randy Terrazas DO [address] [place] [address] [facility] Start: 2024 Administration of varicella zoster vaccine Zoster (Shingles) Vaccine (1 of 2) [facility] Start: 2024 Pneumococcal vaccination Pneumococcal Vaccine(s) (50+ yrs) (1 of 1 - PCV) [facility] Start: 08-08-2024 End: 08-08-2025 NM Biliary ducts and Gallbladder Views for patency of biliary structures and ejection fraction W sincalide and W radionuclide IV NM hepatobiliary system imaging with pharmacologic agent Imaging Routine Right upper quadrant abdominal pain Expected: 08/08/2024, Expires: 08/08/2025 [employer] Work Phone: Comment on above: Expected: 08/08/2024, Expires: Start: 08-04-2024 End: 08-04-2025 C-peptide C-peptide Lab Routine Hormone imbalance Hormone disorder Weight loss Decreased appetite Other constipation Diarrhea, unspecified type Expected: 08/04/2024 (Approximate), Expires: 08/04/2025 [facility] Comment on above: Expected: 08/04/2024 (Approximate), Expi res: 08/04/2025 Start: 08-04-2024 End: 08-04-2025 Cortisol free Cortisol, free Lab Routine Hormone imbalance Hormone disorder Weight loss Decreased appetite Other constipation Diarrhea, unspecified type Expected: 08/04/2024 (Approximate), Expires: 08/04/2025 [facility] Comment on above: Expected: 08/04/2024 (Approximate), [...] EST Office Visit [facility] [address] [place] [phone] Randy Terrazas DO [address] [place] [address] Arrived [facility] Comment on above: Arrived Start: 06-27-2024 End: 06-27-2024 Patient encounter procedure 06/27/2024 1:00 PM EST Appointment [facility] [place] [address] [address] [place] [address] Bob Guerrero MD [address] [facility] [address] [place] [address] [facility] [place] Start: 06-23-2024 End: 09-22-2024 25-hydroxyvitamin D3 [Mass/volume] in Serum or Plasma [facility] Comment on above: Expected: 06/23/2024, Expires: Start: 06-23-2024 End: 09-22-2024 CELIAC SCREEN WITH REFLEX [facility] Comment on above: Expected: 06/23/2024, Expires: Start: 03-23-2024 Covid-19 Vaccine ( season) Covid-19 Vaccine ( season) [facility] Start: 03-23-2024 Influenza vaccination Influenza Vaccine (#1) [facility] Start: 2019 Screening for malignant neoplasm of colon [facility] Start: 2004 Screening for malignant neoplasm of cervix HPV/Cotest [facility] Start: 1995 Screening for malignant neoplasm of cervix Cervical Cancer Screening [facility] Start: 1993 DTaP,Tdap and Td Vaccines (1 - Tdap) DTaP,Tdap and Td Vaccines (1 - Tdap) [facility] Start: 1993 Hepatitis A (HAV) Vaccine (optional start 19+ years) Hepatitis A (HAV) Vaccine (optional start 19+ years) [facility] Start: 1993 Hepatitis B vaccination Hepatitis B (HBV) Vaccine (1 of 3 - 19+ 3-dose series) [facility] Start: 1993 Hepatitis B Vaccine (1 of 3 - 19+ 3-dose series) Hepatitis B Vaccine (1 of 3 - 19+ 3-dose series) [facility] Start: 1993 Urine microalbumin profile DTaP,Tdap,Td Vaccine (1 - Tdap) [facility] Start: 1992 Anxiety Screening Anxiety Screening [facility] Start: 1992 Depression Screening Depression Screening [facility] Start: 1992 Hepatitis C screening [facility] Start: 1992 HIV screening HIV Screening [facility] Start: 1992 Tdap Booster Tdap Booster [facility] Start: 1989 HIV screening HIV Test [facility] Start: 1974 Screening for malignant neoplasm of colon [facility] DHEA-sulfate DHEA-sulfate Lab Routine Hormone imbalance Hormone disorder Weight loss Decreased appetite Other constipation Diarrhea, unspecified type Ordered: 08/04/2024 [facility] Comment on above: Ordered: 08/04/2024 End: 06-23-2025 EGD DIAGNOSTIC EGD DIAGNOSTIC Endoscopy Routine Abdominal bloating Weight loss, abnormal 1 Occurrences starting 06/23/2024 until 06/23/2025 [facility] Comment on above: 1 Occurrences starting 06/23/2024 until 06/23/2025 Estradiol Estradiol Lab Ro utine Hormone imbalance Hormone disorder Weight loss Decreased appetite Other constipation Diarrhea, unspecified type Ordered: 08/04/2024 [facility] Work Phone: Comment on above: Ordered: 08/04/2024 Estrone Estrone Lab Rout ine Hormone imbalance Hormone disorder Weight loss Decreased appetite Other constipation Diarrhea, unspecified type Ordered: 08/04/2024 [facility] Comment on above: Ordered: 08/04/2024 Ferritin [Mass/volum e] in Serum or Plasma Ferritin Lab Routine Hormone imbalance Hormone disorder Weight loss Decreased appetite Other constipation Diarrhea, unspecified type Ordered: 08/04/2024 [facility] Comment on above: Ordered: 08/04/2024 End: 06-23-2025 Flexible sigmoidoscopy study COLONOSCOPY DIAGNOSTIC Endoscopy Routine Diarrhea, unspecified type Abdominal bloating 1 Occurrences starting 06/23/2024 until 06/23/2025 [facility] Work Phone: Comment on above: 1 Occurrences starting 06/23/2024 until 06/23/2025 Hemoglobin A1c/Hemoglobin.total in Blood Hemoglobin A1c Lab Routine Hormone imbalance Hormone disorder Weight loss Decreased appetite Other constipation Diarrhea, unspecified type Ordered: 08/04/2024 [facility] Comment on above: Ordered: 08/04/2024 Progesterone Progesterone Lab Routine Hormone imbalance Hormone disorder Weight loss Decreased appetite Other constipation Diarrhea, unspecified type Ordered: 08/04/2024 [facility] Comment on above: Ordered: 08/04/2024 Sex hormone binding globulin Sex hormone binding globulin Lab Routine Hormone imbalance Hormone disorder Weight loss Decreased appetite Other constipation Diarrhea, unspecified type Ordered: 08/04/2024 [facility] Comment on above: Ordered: 08/04/2024 SURGICAL PATHOLOGY SURGICAL PATH OLOGY Lab Routine Special screening for malignant neoplasms, colon Ordered: 06/27/2024 [facility] Work Phone: Comment on above: Ordered: 06/27/2024 T3, reverse T3, reverse Lab Routine Hormone imbalance Hormone disorder Weight loss Decreased appetite Other constipation Diarrhea, unspecified type Ordered: 08/04/2024 [facility] Comment on above: Ordered: 08/04/2024 TESTOSTERONE, FREE TESTOSTERONE, FREE Lab Routine Hormone imbalance Hormone disorder Weight loss Decreased appetite Other constipation Diarrhea, unspecified type Ordered: 08/04/2024 [facility] Comment on above: Ordered: 08/04/2024 Testosterone, free, total Testosterone, free, total Lab Routine Hormone imbalance Hormone disorder Weight loss Decreased appetite Other constipation Diarrhea, unspecified type Ordered: 08/04/2024 [facility] Comment on above: Ordered: 08/04/2024 THIN PREP TIS PAP AN D HR HPV DNA THIN PREP TIS PAP AND HR HPV DNA Pathology and Cytology Routine Well woman exam with routine gynecological exam Ordered: 12/29/2024 [facility] Comment on above: Ordered: 12/29/2024 Thyroid peroxidase antibody Thyroid peroxidase antibody Lab Routine Hormone imbalance Hormone disorder Weight loss Decreased appetite Other constipation Diarrhea, unspecified type Ordered: 08/04/2024 [facility] Comment on above: Ordered: 08/04/2024 Thyroxine (T4) free [Mass/volume] in Serum or Plasma T4, free Lab Routine Hormone imbalance Hormone disorder Weight loss Decreased appetite Other constipation Diarrhea, unspecified type Ordered: 08/04/2024 [facility] Comment on above: Ordered: 08/04/2024 Triiodothyronine (T3 ) Free [Mass/volume] in Serum or Plasma T3, free Lab Routine Hormone imbalance Hormone disorder Weight loss Decreased appetite Other constipation Diarrhea, unspecified type Ordered: 08/04/2024 [facility] Comment on above: Ordered: 08/04/2024 Vitamin D 1,25 dihydroxy Vitamin D 1,25 dihydroxy Lab Routine Hormone imbalance Hormone disorder Weight loss Decreased appetite Other constipation Diarrhea, unspecified type Ordered: 08/04/2024 [facility] Comment on above: Ordered: 08/04/2024 Immunizations Immunization Date Immunization Notes Care Provider [facility] 11-14-2024 zoster vaccine recombinant Toya Wallis MD Work Phone: [facility] 08-26-2024 zoster vaccine recombinant Toya Wallis MD Work Phone: [facility] 08-26-2024 zoster vaccine, unspecified formulation Jermaine Pardo DO Work Phone: [facility] 07-17-2024 influenza, injectabl e, madin ruthie canine kidney, preservative free Toya Wallis MD Work Phone: [facility] 07-17-2024 influenza virus vaccine, unspecified formulation Randy Terrazas DO Work Phone: [facility] 05-14-2023 Seasonal, quadrivalent, recombinant, injectable influenza vaccine, preservative free Ninfa Longoria MD Work Phone: [facility] 05-14-2023 influenza virus vaccine, unspecified formulation Aspen Vazquez APRN.[employer] Work Phone: [facility] 04-20-2022 influenza, injectabl e, quadrivalent, preservative free Ninfa Longoria MD Work Phone: [facility] 05-13-2021 influenza, injectabl e, quadrivalent, preservative free Ninfa Longoria MD Work Phone: [facility] 09-15-2020 COVID-19, mRNA, LNP- S, PF, 100mcg/0.5mL Dose Ninfa Longoria MD Work Phone: [facility] 08-19-2020 COVID-19, mRNA, LNP- S, PF, 100mcg/0.5mL Dose Ninfa Longoria MD Work Phone: [facility] 05-25-2020 influenza, injectabl e, quadrivalent, preservative free Ninfa Longoria MD Work Phone: [facility] 06-17-2019 influenza, injectabl e, quadrivalent, preservative free Ninfa Longoria MD Work Phone: [facility] 06-28-2018 influenza, injectabl e, quadrivalent, preservative free Ninfa Longoria MD Work Phone: [facility] 07-31-2017 influenza, seasonal, injectable, preservative free Ninfa Longoria MD Work Phone: [facility] 05-18-2014 influenza, seasonal, injectable, preservative free Ninfa Longoria MD Work Phone: [facility] Payers Date Payer Category Payer Self-pay [id number] 2022 Unknown [id number] 2021 Blue Cross Blue Shield 1.2.8 [id number] 2021 Blue Cross Blue [facility] [place] [id number]. [id number] 2020 Unknown [id number]. 1.13.159. 2.7.3.318932.315 1974 Unknown [id number] 2.16.840.1.339666.3.579. 2.593 1974 Unknown [id number] 2.16.840.1.643901.3.579. 2.1286 1974 Unknown [id number] 2.16.840.1.415318.3.579. 2.1286 1974 Unknown [id number] 2.16.840.1.884896.3.579. 2.1286 1974 Unknown [id number] 2.16.840.1.450410.3.579. 2.1286 1974 Unknown [id number] 2.16.840.1.220821.3.579. 2.1286 1974 Unknown [id number] 2.16.840.1.395613.3.579. 2.1259 1974 Unknown [id number] 2.16.840.1.492590.3.579. 2.1259 1974 Unknown [id number] 2.16.840.1.352316.3.579. 2.9 1974 Unknown [id number] 2.16.840.1.577063.3.579. 2.1259 1974 Unknown [id number] 2.16.840.1.992589.3.579. 2.732 1974 Unknown [id number] 2.16.840.1.328466.3.579. 2.732 1974 Unknown [id number] 2.16.840.1.887251.3.579. 2.732 1974 Unknown [id number] 2.16.840.1.660387.3.579. 2.732 1974 Unknown [id number] 2.16.840.1.940815.3.579. 2.732 1974 Unknown [id number] 2.16.840.1.856115.3.579. 2.732 1974 Unknown [id number] 2.16.840.1.161133.3.579. 2.196 1974 Unknown [id number] 2.16.840.1.796118.3.579. 2.196 1974 Unknown [id number] 2.16.840.1.729471.3.579. 2. 1974 Unknown [id number] 2.16.840.1.323731.3.579. 2.196 1974 Unknown [id number] 2.16840.1.297864.3.579. 2.196 1974 Unknown [id number] 2.16.840.1.817227.3.579. 2.196 1974 Unknown [id number] 2.16.840.1.702313.3.579. 2. 1974 Unknown [id number] 2.16.840.1.407834.3.579. 2.196 1974 Unknown [id number] 2.16.840.1.075861.3.579. 2.196 1974 Unknown [id number] 2.16.840.1.510884.3.579. 2.196 1974 Unknown [id number] 2.16.840.1.655209.3.579. 2. 1974 Unknown [id number] 2.16.840.1.566552.3.579. 2. 1974 Unknown [id number] 2.16.840.1.009493.3.579. 2.196 1974 Unknown [id number] 2.16.840.1.969113.3.579. 2.196 1974 Unknown [id number] 2.16.840.1.932161.3.579. 2.196 1974 Unknown [id number] 2.16.840.1.315852.3.579. 2.128 1974 Unknown [id number] 2.16.840.1.099587.3.579. 2.1285 1974 Unknown [id number] 2.16.840.1.597622.3.579. 2.1285 1974 Unknown [id number] 2.16.840.1.846217.3.579. 2.1285 1974 Unknown [id number] 2.16.840.1.794365.3.579. 2.1285 1974 Unknown [id number] 2.16.840.1.661315.3.579. 2.1285 1974 Unknown [id number] 2.16.840.1.323509.3.579. 2.1285 1974 Unknown [id number] 2.16.840.1.347852.3.579. 2. 1974 Unknown [id number] 2.16.840.1.604365.3.579. 2. 1974 Unknown [id number] 2.16.840.1.735031.3.579. 2. 1974 Unknown [id number] 2.16.840.1.482173.3.579. 2. 1974 Unknown [id number] 2.16.840.1.966476.3.579. 2. 1974 Unknown [id number] 2.16.840.1.503010.3.579. 2. 1974 Unknown [id number] 2.16.840.1.466109.3.579. 2. 1959 Unknown [id number] Unknown [place] BC/BS [id number] Unknown [id number] 2.16.840.1.612467.3.579. 2.531 Social History Date Type Detail Facility Unknown if ever smoked [facility] Other Start: 08-26-2021 End: 06-23-2024 Sex Assigned At [facility] Other Start: 1975 Sex Assigned At Female [facility] Start: 01-14-2024 End: 06-23-2024 Tobacco smoking status MOIS Ex-smoker [facility] Start: 05-09-1992 End: 05-09-1996 History of tobacco use Current smoker [facility] Start: 05-09-1992 End: 05-09-1996 History of tobacco use Cigarette Smoker [facility] Start: 01-14-2024 End: 06-23-2024 Tobacco use and exposure Smokeless tobacco non-user [facility] Start: 06-23-2024 End: 03-03-2025 Alcoholic beverage intake Current drinker of alcohol (finding) [facility] Start: 08-26-2021 End: 06-23-2024 History of Social function [facility] National Score (1-10 0), lower number is lower risk 62 [facility] Start: 06-23-2024 Tobacco Comment Quit when pt was 23 yrs old [facility] Start: 06-23-2024 Alcohol Comment socially [facility] Start: 1975 Sex assigned at Not on file [facility] Start: 01-28-2024 Tobacco smoking status [facility] Tobacco smoking consumption unknown [facility] Do you belong to any clubs or organizations such as methodist groups, unions, fraternal or athletic groups, or school groups? No [facility] Are you now , , , , never or living with a partner? [facility] How often to you hav e a drink containing alcohol? 2-4 times a month [facility] How many standard dr inks containing alcohol do you have on a typical day? 1 or 2 [facility] How often do you hav e 6 or more drinks on 1 occasion? Less than monthly [facility] Do you feel stress - tense, restless, nervous, or anxious, or unable to sleep at night because your mind is troubled all the time - these days [OSQ] To some extent [facility] Start: 08-26-2021 Education 15 [facility] Start: 02-25-2015 End: 08-26-2024 Sex Female (finding) [facility] Clinical Notes 01-18-2023 to 04-29-2025 Telephone Encounter - Senia Dove RN - 04/29/2025 2:25 PM EDTTelephone Encounter - Senia Dove RN - 04/29/2025 2:25 PM EDJose Suarez MD - 03/03/2025 1:30 PM EDT Note Date & Type Note Facility 04-29-2025 Miscellaneous Notes Called pt to clarify the echo results from 04/20/25 under the LV was a false tendon per [facility]. Which is benign nothing to be concerned about.slm documented in this encounter [facility] 04-29-2025 Telephone encounter Note Called pt to clarify the echo results from 04/20/25 under the LV was a false tendon per [facility]. Which is benign nothing to be concerned about.slm [facility] 03-15-2025 Note Entered by MARIPOSA PARDO DO on March 15, 2025 19:48:19 EDT From: JERMAINE PARDO DO To: [facility]/pharmacy #[id number] Sent: 03/15/2025 19:48:19 EDT Subject: Medication Management Submitted: Complete:tiZANidine (tiZANidine 4 mg oral tablet) Signed by JERMAINE PARDO DO 03/15/2025 19:48:00 EDT Approved with modifications: tiZANidine (TIZANIDINE HCL 4 MG TABLET) TAKE 2 TABLETS BY MOUTH AT BEDTIME Qty: 60 tab(s) Days Supply: 30 Refills: 3 Substitutions Allowed Route To Pharmacy - [facility]/pharmacy #[id number] From: [place] [id number] To: EDVINJERMAINE Aurora MALONE Sent: March 15, 2025 6:39:54 AM CDT Subject: Medication Management Due: March 16, 2025 1:38:51 AM CDT On Hold Pending Signature Dispensed Drug: tiZANidine (tiZANidine 4 mg oral tablet), TAKE 2 TABLETS BY MOUTH AT BEDTIME Quantity: 60 tab(s) Days Supply: 30 Refills: 3 Substitutions Allowed Notes from Pharmacy: [facility] 03-03-2025 History of Present illness Narrative Senia Perez Kecia Date of visit: 03/03/2025 Date of : 1975 Age: 49 y.o. Patient Active Problem List Diagnosis Primary insomnia Iron deficiency No Known Allergies Current Outpatient Medications Medication Sig Dispense Refill estradioL (ESTRACE) 0.5 mg tablet Take 1 tablet (0.5 mg total) by mouth in the morning. ibuprofen 200 mg capsule Take 200 mg by mouth as needed (2 as needed). ondansetron ODT (ZOFRAN ODT) 4 mg disintegrating tablet Dissolve 1 tablet (4 mg total) on tongue every 8 (eight) hours as needed for nausea or vomiting. 20 tablet 0 temazepam (RESTORIL) 15 mg capsule Take 1 capsule (15 mg total) by mouth nightly as needed for sleep. 30 capsule 1 tiZANidine (ZANAFLEX) 4 mg tablet Take 1 tablet (4 mg total) by mouth nightly. 90 tablet 1 VERSABASE CREAM cream in the morning. zonisamide (ZONEGRAN) 100 mg capsule 1 capsule (100 mg total) in the morning. levonorgestreL (MIRENA) 21 mcg/24hr (up to 8 yrs) 52 mg IUD 1 each by intrauterine route. (Patient not taking: Reported on 03/03/2025) No current facility-administered medications for this visit. 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 She noticed that she is having trouble lifting weight during her workout for the past 6 months she can not go more than 20 minutes she still does her cardio exercises without issue and she noticed some short-lived palpitation in the morning. Her primary care physician did order sleep study that was unremarkable and all blood work including thyroid function test electrolytes vitamin-D vitamin B12 all within normal limits Her Holter monitor was reviewed she did experience symptoms while wearing it at correlated with normal sinus rhythm and she had some very short runs of probable atrial tachycardia although I did not have the strip to review but she had the longest was 6 beats at a rate of less than 100 beats per minute. Her echocardiogram is completely normal, and she did have a stress test in the past that was unremarkable She did lost weight unintentionally a couple years ago initially was told that it is due to menopause however after GI evaluation and management this has been stable reportedly She has been having more migraines recently couple times a week. She has a daughter with autonomic dysfunction and a son with bicuspid aortic valve Past Medical History: Diagnosis Date Allergic 1999 Allergic rhinitis 1999 Anemia 2020 Arthritis 2009 neck, knees elbow Migraine Varicella as a child No data recorded No data recorded No data recorded Past Surgical History: Procedure Laterality Date ADENOIDECTOMY 2012 ARM SURGERY left elbow ORIF CERVICAL DISC SURGERY COLONOSCOPY September 2020 FRACTURE SURGERY left elbow SEPTOPLASTY SPINE SURGERY C5-6 disc arothroplasty 2010 TONSILLECTOMY Family History Problem Relation Age of Onset Heart disease Father CAD Coronary artery disease Father Hypertension Father Hyperlipidemia Father Hemochromatosis Maternal Aunt Arthritis Mother COPD Mother Diabetes Mother Hyperlipidemia Mother Hypertension Mother Lung cancer Mother Miscarriages / Stillbirths Mother Vision loss Mother macular degeneration Arthritis Maternal Grandmother Asthma Daughter exercise induced Miscarriages / Stillbirths Sister Breast cancer Neg Hx Social History Socioeconomic History Marital status: Spouse name: Not on file Number of children: Not on file Years of education: Not on file Highest education level: Associate degree: occupational, technical, or vocational program Occupational History Not on file Tobacco Use Smoking status: Former Current packs/day: 0.00 Types: Cigarettes Start date: 05/09/1992 Quit date: 05/09/1996 Years since quittin.8 Smokeless tobacco: Never Vaping Use Vaping status: Never Used Substance and Sexual Activity Alcohol use: Yes Alcohol/week: 2.0 standard drinks of alcohol Types: 2 Glasses of wine per week Drug use: Never Sexual activity: Yes Partners: Male Other Topics Concern Caffeine Use Yes Social History Narrative Not on file Social Drivers of Health Financial Resource Strain: Low Risk (09/26/2023) Overall Financial Resource Strain (CARDIA) Difficulty of Paying Living Expenses: Not hard at all Food Insecurity: No Food Insecurity (03/03/2025) Hunger Screening Food Insecurity - Worry: Never True Food Insecurity - Inability: Never True Transportation Needs: No Transportation Needs (09/26/2023) PRAPARE - Transportation Lack of Transportation (Medical): No Lack of Transportation (Non-Medical): No Physical Activity: Sufficiently Active (08/26/2021) Exercise Vital Sign Days of Exercise per Week: 4 days Minutes of Exercise per Session: 60 min Stress: Stress Concern Present (08/26/2021) [employer] [place] [employer] - Occupational Stress Questionnaire Feeling of Stress : To some extent Social Connections: Moderately Isolated (08/26/2021) Social Connection and Isolation Panel [NHANES] Frequency of Communication with Friends and Family: Three times a week Frequency of Social Gatherings with Friends and Family: Twice a week Attends Religion Services: Never Active Member of Clubs or Organizations: No Attends Club or Organization Meetings: Never Marital Status: Interpersonal Safety: Not At Risk (08/26/2021) Humiliation, Afraid, Rape, and Kick questionnaire Fear of Current or Ex-Partner: No Emotionally Abused: No Physically Abused: No Sexually Abused: No Housing Instability: Low Risk (09/26/2023) Housing Instability Housing Instability: No Review of Systems Review of Systems Constitutional: Positive for malaise/fatigue. HENT: Negative. Eyes: Negative. Cardiovascular: Negative. Respiratory: Negative. Endocrine: Negative. Hematologic/Lymphatic: Bruises/bleeds easily. Skin: Negative. Musculoskeletal: Positive for back pain. Gastrointestinal: Negative. Genitourinary: Negative. Neurological: Positive for dizziness, headaches and light-headedness. Psychiatric/Behavioral: Negative. Allergic/Immunologic: Positive for environmental allergies. Vascular: Negative. CARDIOVASCULAR: Please review HPI. Physical Examination General appearance: Alert, oriented and cooperative. In no acute distress. Skin: Warm and dry to touch. Head: Normocephalic, without obvious abnormality, atraumatic. Ears, Nose, Mouth, Throat: Throat clear without erythema or exudate. Dentition intact. Eyes: Conjunctivae unremarkable, EOM intact. Neck: No JVD, No carotid bruit. Neck supple, trachea midline. Respiratory: Clear to auscultation bilaterally, no use of accessory muscles. Cardiovascular: RRR with normal S1 and S2 with no murmurs. Gastrointestinal: Soft, non-tender. Bowel sounds normal. Musculoskeletal: No peripheral edema. Neurologic: Oriented to time, person and place, affect appropriate. No focal/major motor defects noted. Psychiatric: Appropriate mood, memory and judgement. VITAL SIGNS: BP 116/68 Pulse 77 Ht 165.1 cm (5' 5 ) Wt 65.3 kg (144 lb) LMP 01/29/2025 SpO2 100% BMI 23.96 kg/m Orders Placed or Reconciled This Encounter Medications VERSABASE CREAM cream Sig: in the morning. There are no discontinued medications. IMPRESSIONS/PLAN 1. SVT (supraventricular tachycardia) - Ambulatory referral to Cardiology (Non[facility]) Generalized weakness and fatigue/low stamina Palpitations with benign monitor Migraines Son with bicuspid aortic valve/ Daughter with severe autonomic dysfunction Normal EKG and normal physical exam Her palpitations are likely due to inappropriate sinus tachycardia from her story however her main concern is her generalized fatigue and low stamina although she still has a an excellent functional capacity > 8 METS and does full workouts. --> with her vague symptoms and migraines I will get an echocardiogram with bubble study for structural evaluation and rule out PFO and bicuspid aortic valve ---> we discussed diagnosis of probable inappropriate sinus tachycardia however with the her main concern of low energy I will avoid initiating beta luis can consider calcium channel luis if conservative measures fail I do not think she needs ischemic evaluation with a her baseline functional capacity. If above workup unremarkable, then I would say that her fatigue is probably noncardiac and have her follow with PCP to explore other etiologies - CAMPBELL SUAREZ MD 03/03/25 3:30 PM TODAYS ORDERS No orders of the defined types were placed in this encounter. FOLLOW UP No follow-ups on file. PCP: Ninfa Longoria MD Referring Physician: Ninfa Longoria MD [address] [place] [address], [address] [place] [address] documented in this encounter [facility] 02-06-2025 History of Present illness Narrative Associated Order(s): Small Joint Injection/Arthrocentesis: L thumb CMC Post-Procedure Diagnose(s): Arthritis of carpometacarpal (CMC) joint of left thumb Images from the original note were not included. 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 Atraumatic, insidious onset. The pain is primarily in the MCP joint of the thumb. Pain with catholic priest, grasping, and pinching objects. She has tried ibuprofen, ice/heat. She has had an injection into the MCP joint without relief. She denies locking or triggering of the thumb. It is functionally limiting for her. Interval history 10/14/2024: Still painful despite wearing braces. She is interested in injection today. Interval history 02/06/2025: Patient had 3 months of complete relief after her CMC joint injection. Her symptoms started back up 2-3 weeks ago, and she is interested in having another injection. Exam: LUE Skin intact No swelling No ttp over ulnar or radial MCP joint Symmetric deviation to radial/ulnar stress; volar-dorsal shuck Mild pain with ROM of MCP No triggering/locking No ttp over A1 kuldip No flexor tendon nodule +seesaw; +CMC grind; negative shoulder Negative Mandy; ttp at radial styloid SILT rmu Firing AIN/PIN/u 2+ radial Imagin10/14/24 XR L thumb CMC joint space narrowing. Osteophyte formation. Beaking and sclerotic change of MCP joint Assessment & Plan Arthritis of carpometacarpal (CMC) joint of left thumb -- discussed expected course of CMC arthritis and efficacy of CSI -- CSI today -- RTC PRN XR at subsequent visit: No Small Joint Injection/Arthrocentesis: L thumb CMC on 02/06/2025 3:45 PM Indications: pain Details: 25 G needle, dorsal approach Medications: 0.5 mL lidocaine 2 %; 0.5 mL triamcinolone acetonide 40 MG/ML Outcome: tolerated well, no immediate complications The [...] to verify the correct patient, procedure, equipment, sales support specialist and site/side marked as required. Patient was prepped and draped in the usual sterile fashion. ----- I supervised the resident/fellow in their evaluation and discussed the treatment plan. I personally saw the patient and elicited the history and physical exam. I personally reviewed the imaging and provided independent interpretation. I directly edited the note above to reflect my history-taking, exam, discussion, and medical decision-making. ----- -- Toya Wallis MD Hand & Upper Extremity Surgery Dept of Orthopaedic Surgery [id number] Vitals not obtained per provider's instructions. documented in this encounter [facility] 02-02-2025 Note PROCEDURE: Right C4, C6 nerve root under 6 seconds fluoroscopic guidance. Physician: Tom Chaney M.D. PRE- AND POSTOPERATIVE DIAGNOSES: Chronic pain secondary to intervertebral disc stenosis of neural canal of cervical region. SOLUTION USED: Decadron 10 mg, Marcaine 0.25%, 2% xylocaine, normal saline. COMPLICATIONS: None. EBL: None IMPLANTS: None. ASSISTANTS: None. SAMPLES TAKEN: None ANTIBIOTICS: None. ANESTHESIA: Local. PROCEDURE DESCRIPTION: After informed consent was obtained, the patient was brought to the operating room and was placed in the prone position. The skin overlying the area was prepped and draped in standard sterile fashion. A 25-gauge spinal needle was inserted through the skin and directed toward the right C4, C6 neural foramen fluoroscopic guidance. Radiopaque contrast dye 0.3 mL was injected and appropriate epidural distribution was established without intravascular or intrathecal spread. Subsequently, 1 mL of the solution was injected into each level. The needle was removed. The patient was [...] on his/her behalf by a trained medical communication specialist. The creation of this document is based on the provider?s statements to the medical communication specialist. Electronically signed by Tom Chaney MD 02/02/25 15:25 EDT Electronically signed by West Newman 02/02/2025 15:20 EDT Electronically signed by West Newman 02/02/2025 15:20 EDT [facility] 02-02-2025 Note History of Present I llness CHIEF COMPLAINT: Neck pain HISTORY OF PRESENT ILLNESS: Debilitating neck pain which worsens with Spurling's maneuver, failing conservative measures markedly impairing function indicating the appropriateness for transforaminal epidural steroid blockade. PHYSICAL EXAM: HEENT: Normocephalic, atraumatic. RESPIRATIONS: Unlabored, clear. CARDIOVASCULAR: Regular rate, rhythm. ABDOMEN: Soft nontender MUSCULOSKELETAL: Pain that does re-create Spurling's maneuver. REVIEW OF SYSTEMS: Brief review of systems was conducted. Complaints are noncontributory for cauda equina or myelopathic complaints, fever chills or sweats or unintended weight loss or gain. ASSESSMENT: Chronic pain secondary to intervertebral disc stenosis of neural canal of cervical region PLAN: Neurogenic discomfort secondary to disc and spondylitic reactivity precipitating neural foraminal narrowing and lateral recess stenosis. For complaints that have failed conservative measures, candidacy has been established for epidural steroid blockade transforaminal approach for diagnostic and potential therapeutic benefit. Risks benefits alternatives have been discussed, we agree to proceed Physical Exam Vitals & Measurements HR: 75 (Peripheral) RR: 16 BP: 121/74 SpO2: 99% HT: 167 cm WT: 68 kg Additional Vitals No qualifying data available. This document serves as a record of the services and decisions personally performed and made by the attending provider. It was created on his/her behalf by a trained medical communication specialist. The creation of this document is based on the provider?s statements to the medical communication specialist. Problem List/Past Medical History Ongoing Cephalgia Cervical [...] (Left) (07/02/2023) Cervical/Thoracic Nerve Root Injection (Bilateral) (12/10/2023) Cervical Radiofrequency Ablation (Right) (05/26/2024) Cervical Radiofrequency Ablation (Left) (06/12/2024) Cervical Radiofrequency Ablation (Right) (12/08/2024) Cervical Radiofrequency Ablation (Left) (12/22/2024) Medications Inpatient No active inpatient medications Home estradiol 0.5 mg oral tablet, Oral, Daily ibuprofen, 200 mg, Oral, PRN progesterone 4% vaginal gel, 1 thanh, VAG, q2day Restoril 15 mg oral capsule, 15 mg= 1 caps, Oral, HS (at bedtime), PRN Zanaflex 4 mg oral capsule, 4 mg= 1 caps, Oral, HS (at bedtime) Zonegran 100 mg oral capsule, 1-2caps, Oral, HS (at bedtime), 2 refills Allergies No Known Allergies 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 Substance Abuse Denies All Tobacco Former smoker, quit more than 30 (more content not included)... [facility] 01-14-2025 Miscellaneous Notes 01/13 Order received Scheduled HST @ [facility] on 02/02 My chart confirmation Chatted pre auth [place] ins HST order and 11/03 House notes in MM AUTHORIZATIONSTARTED [id number] valid 01/14-03/14/2025 Auth#[id number] / [place] documented in this encounter [facility] 01-14-2025 Telephone encounter Note 01/13 Order received Scheduled HST @ [facility] on 02/02 My chart confirmation Chatted pre auth [place] ins HST order and 11/03 House notes in MM [facility] 01-14-2025 Telephone encounter Note AUTHORIZATIONSTARTED [id number] valid 01/14-03/14/2025 Auth#[id number] / [place] [facility] 12-29-2024 History of Present illness Narrative Reason for Appointment: Patient ID: Senia Mcdonnell is a 49 y.o. female who presents for Well Women Visit Patient presents today for Annual Exam. MEDICATIONS Current Outpatient Medications Medication Instructions estradiol (ESTRACE) 0.5 mg, Oral, Daily Mirena (52 MG) 52 mg, Intrauterine, As needed temazepam (RESTORIL) 15 mg, Oral, Nightly tiZANidine (ZANAFLEX) 4 mg, Oral, Nightly zonisamide (ZONEGRAN) 100 mg, Oral, Once ALLERGIES No Known Allergies PROBLEMS Active Ambulatory Problems Diagnosis Date Noted Hormone disorder 08/04/2024 Weight loss 08/04/2024 Decreased appetite 08/04/2024 Other constipation 08/04/2024 Diarrhea 08/04/2024 Encounter for IUD removal 10/27/2024 Resolved Ambulatory Problems Diagnosis Date Noted No Resolved Ambulatory Problems No Additional Past Medical History HISTORY PAST MEDICAL HISTORY SOCIAL HISTORY History reviewed. No pertinent past medical history. Social History Tobacco Use Smoking status: Unknown Smokeless tobacco: Not on file Substance Use Topics Alcohol use: Not on file Drug use: Not on file FAMILY HISTORY No family history on file. SURGICAL HISTORY Past Surgical History: Procedure Laterality Date NECK SURGERY ORIF FOREARM FRACTURE ELBOW TONSILLECTOMY REVIEW OF SYSTEMS Review of Systems: Review of Systems Constitutional: Negative. HENT: Negative. Eyes: Negative. Respiratory: Negative. Cardiovascular: Negative. Gastrointestinal: Negative. Genitourinary: Negative. Musculoskeletal: Negative. Skin: Negative. Neurological: Negative. All other systems reviewed and are negative. Hematological: Negative. Endocrine: Negative. Allergic/Immunologic: Negative. OBJECTIVE Objective: Physical Exam Constitutional: Appearance: Normal appearance. She is well-developed. Genitourinary: Breasts: Breasts are soft. Right: Normal. Left: Normal. Cardiovascular: Rate and Rhythm: Normal rate and [...] nursing note reviewed. Exam conducted with a bonded strand operator present. Vitals: Estimated body mass index is 23.93 kg/m as calculated from the following: Height as of 11/19/23: 5' 5 . Weight as of this encounter: 143 lb 12.8 oz. BP: 112/72 No LMP recorded. ASSESSMENT & PLAN ICD-10-CM 1. Well woman exam with routine gynecological exam Z01.419 THIN PREP TIS PAP AND HR HPV DNA 2. Breast cancer screening by mammogram Z12.31 Bilateral screening mammogram Bilateral screening mammogram 3. Postmenopausal state Z78.0 DEXA bone density Annual Exam: Patient presents today for an annual exam. Patient states she is doing well and has no complaints. Pap was obtained without difficulty. Orders Placed This Encounter Procedures Bilateral screening mammogram DEXA bone density Follow Up: Patient is to return in one year for annual unless needed otherwise. Documented by Codi Mcacll NP on behalf of: Randy Terrazas DO documented in this encounter [facility] 12-22-2024 Note PROCEDURE: Radiofreq uency ablation of the left C2, C3, C4 dorsal medial rami under 60 seconds fluoroscopic guidance. Physician: Tom Chaney M.D. PRE- AND POSTOPERATIVE DIAGNOSES: Chronic pain secondary to cervical spondylosis without myelopathy. Lesioning was created using radiofrequency at 80 degrees Centigrade for 90 seconds. Two lesions were created at each level. COMPLICATIONS: None. EBL: None IMPLANTS: None. ASSISTANTS: None. SAMPLES TAKEN: None ANTIBIOTICS: None ANESTHESIA: 6 mg Versed, 100 mcg Fentanyl The patient's Mallampati score is 2. The patient's ASA status is 2. IV fluids: 0.9 NS. SOLUTION Marcaine 0.25% 3ml with Decadron 10 [...] on his/her behalf by a trained medical communication specialist. The creation of this document is based on the provider?s statements to the medical communication specialist. Electronically signed by Tom Chaney MD 12/22/24 13:26 EDT Electronically signed by West Newman 12/22/2024 13:03 EDT [facility] 12-22-2024 Note History of Present I llness CHIEF COMPLAINT: Neck pain HISTORY OF PRESENT ILLNESS: Debilitating spinal pain which worsens with facet loading maneuvers. The patient's axial symptoms, without evidence of nerve compression, have failed physical and medical measures. PHYSICAL EXAM: HEENT: Normocephalic, atraumatic. RESPIRATIONS: Unlabored, clear. CARDIOVASCULAR: Regular rate, rhythm. ABDOMEN: Soft nontender MUSCULOSKELETAL: Pain that does re-create with cervical spine loading. ASSESSMENT: Chronic pain secondary to cervical spondylosis without myelopathy. PLAN: Debilitating mechanical pain does worsen with [...] proceed. Physical Exam Vitals & Measurements HR: 73 (Peripheral) RR: 16 BP: 120/78 SpO2: 100% HT: 165 cm WT: 65 kg Additional Vitals No qualifying data available. This document serves as a record of the services and decisions personally performed and made by the attending provider. It was created on his/her behalf by a trained medical communication specialist. The creation of this document is based on the provider?s statements to the medical communication specialist. Problem List/Past Medical History Ongoing Cephalgia Cervical [...] (Left) (07/02/2023) Cervical/Thoracic Nerve Root Injection (Bilateral) (12/10/2023) Cervical Radiofrequency Ablation (Right) (05/26/2024) Cervical Radiofrequency Ablation (Left) (06/12/2024) Cervical Radiofrequency Ablation (Right) (12/08/2024) Medications Inpatient fentaNYL, 50 mcg= 1 mL, IV Push, q1min, PRN Sodium Chloride 0.9% intravenous solution 500 mL, 500 mL, IV Versed, 2 mg= 2 mL, IV Push, q5min, PRN Home estradiol 0.5 mg oral tablet, Oral, Daily ibuprofen, 200 mg, Oral, PRN progesterone 4% vaginal gel, 1 thanh, VAG, q2day Restoril 15 mg oral capsule, 15 mg= 1 caps, Oral, HS (at bedtime), PRN Zanaflex 4 mg oral capsule, 4 mg= 1 caps, Oral, HS (at bedtime) Zonegran 100 mg oral capsule, 1-2caps, Oral, HS (at bedtime), 2 refills Allergies No Known Allergies 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 Substance Abuse Denies All Tobacco Former smoker, quit more than 30 days ago Use:. Family History Heart disease: Father. Hyperlipidemia: Mother and Father. Hypertension: Mother and Father. (more content not included)... [facility] 12-08-2024 Note PROCEDURE: Radiofreq uency ablation of the right C2, C3, C4 dorsal medial rami under 60 seconds fluoroscopic guidance. Physician: Tom Chaney M.D. PRE- AND POSTOPERATIVE DIAGNOSES: Chronic pain secondary to right cervical spondylosis without myelopathy. Lesioning was created using radiofrequency at 80 degrees Centigrade for 90 seconds. Two lesions were created at each level. COMPLICATIONS: None. EBL: None IMPLANTS: None. ASSISTANTS: None. SAMPLES TAKEN: None ANTIBIOTICS: None ANESTHESIA: 30 mg Toridol, 100 mcg Fentanyl, 6 mg Versed The patient's Mallampati score is 2. The patient's ASA status is 2. IV FLUIDS: Per record. SOLUTION Marcaine 0.25% [...] on his/her behalf by a trained medical communication specialist. The creation of this document is based on the provider?s statements to the medical communication specialist. Electronically signed by Tom Chaney MD 12/08/24 15:35 EDT Electronically signed by Ioana Rhodes 12/08/2024 15:27 EDT [facility] 12-08-2024 Note History of Present I llness CARDIOVASCULAR: Regular rate, rhythm. ABDOMEN: Soft nontender MUSCULOSKELETAL: Pain that does re-create with cervical spine loading. REVIEW OF SYSTEMS: Brief review of systems was conducted. Complaints are noncontributory for cauda equina or myelopathic complaints, fever chills or sweats or unintended weight loss or gain. ASSESSMENT: Chronic pain secondary to right cervical spondylosis without myelopathy. PLAN: Debilitating mechanical pain does worsen with facet loading maneuvers. For symptomatology that has failed conservative measures and did reveal an 80% reduction in complaints after two diagnostic joint nerve blockade with a baseline return 120 minutes post procedure meets criteria for rhizotomy therapy in attempt to improve with quality and function. Risks benefits and alternatives have been discussed, we agree to proceed. The patient presents with medical necessity suggestive of the appropriateness of monitored anesthesia care for interventional pain procedure. The rationale includes the presence of the medical comorbidity, _. Untreated and unmonitored, there would be expectant adverse cardiac and potentially respiratory events precipitating adverse physical reaction. The use of monitored anesthesia care for the purpose of providing monitored cardiorespiratory response is appropriate to erlin the potential symptomatology of precipitated by untreated and unmonitored medical comorbidity. Physical Exam Vitals & Measurements T: 36.5 ?C (Temporal Artery) HR: 86 (Peripheral) RR: 16 BP: 123/81 SpO2: 98% HT: 167 cm WT: 61.5 kg Additional Vitals No qualifying data available. This document serves as a record of the services and decisions personally performed and made by the attending provider. It was created on his/her behalf by a trained medical communication specialist. The creation of this document is based on the provider?s statements to the medical communication specialist. Problem List/Past Medical History Ongoing Cephalgia Cervical [...] (Left) (07/02/2023) Cervical/Thoracic Nerve Root Injection (Bilateral) (12/10/2023) Cervical Radiofrequency Ablation (Right) (05/26/2024) Cervical Radiofrequency Ablation (Left) (06/12/2024) Medications Inpatient fentaNYL, 50 mcg= 1 mL, IV Push, q1min, PRN Sodium Chloride 0.9% intravenous solution 500 mL, 500 mL, IV Versed, 2 mg= 2 mL, IV Push, q5min, PRN Home estradiol 0.5 mg oral tablet, Oral, Daily ibuprofen, 200 mg, Oral, PRN progesterone 4% vaginal gel, 1 thanh, VAG, q2day Restoril 15 mg oral capsule, 15 mg= 1 caps, Oral, HS (at bedtime), PRN Zanaflex 4 mg oral capsule, 4 mg= 1 caps, Oral, HS (at bedtime) Zoneg (more content not included)... [facility] 11-14-2024 Miscellaneous Notes 11/14 Order received Scheduled PSG @ [facility] On 02/27 My chart confirmation Routed [place] Ins PSG Order and 11/03 House notes in MM Pt wanted a Sunday asked for this date Per [place] with office in lab order documented in this encounter [facility] 11-14-2024 Telephone encounter Note 11/14 Order received Scheduled PSG @ [facility] On 02/27 My chart confirmation Routed [place] [facility] PSG Order and 11/03 House notes in MM Pt wanted a Sunday asked for this date Per [place] with office in lab order [facility] 11-10-2024 Miscellaneous Notes Pt called to schedule Lm returned pt's call advising we did not have her order or office notes as of now gave her our fax and ph number as well documented in this encounter [facility] 11-10-2024 Telephone encounter Note Pt called to schedule Lm returned pt's call advising we did not have her order or office notes as of now gave her our fax and ph number as well [facility] 10-27-2024 History of Present illness Narrative Associated Order(s): IUD Removal Post-Procedure Diagnose(s): Hormone disorder; Encounter for IUD removal; Hormone imbalance Reason for Appointment: Patient ID: Senia Mcdonnell is a 49 y.o. female who [...] nursing note reviewed. Exam conducted with a bonded strand operator present. Vitals: Estimated body mass index is [...] due to recommendations from Vince Sheppard at [id number]. Patient voiced that she had a visit [...] Randy Terrazas DO documented in this encounter [facility] 10-27-2024 Miscellaneous Notes Refill request documented in this encounter [facility] 10-27-2024 Telephone encounter Note Refill request [facility] 10-22-2024 Telephone encounter Note Pt returned call to inform they're doing fine after injection. Pt states sharp shooting pain has resolved though they still have some soreness, but overall feeling good. Please call back with any further questions, Phone numbers Thank you [facility] 10-22-2024 Miscellaneous Notes Pt returned call to inform they're doing fine after injection. Pt states sharp shooting pain has resolved though they still have some soreness, but overall feeling good. Please call back with any further questions, Phone numbers Thank you Patient recently seen in clinic with Dr. Wallis on 10/14, she received an injection at that time. Calling to check in on her and wanted to see if the injection has provided any relief. Patient did not answer so a message has been left for her. documented in this encounter [facility] 10-21-2024 Telephone encounter Note Patient recently seen in clinic with Dr. Wallis on 10/14, she received an injection at that time. Calling to check in on her and wanted to see if the injection has provided any relief. Patient did not answer so a message has been left for her. [facility] 10-14-2024 History of Present illness Narrative Associated Order(s): Small Joint Injection/Arthrocentesis: L thumb CMC Post-Procedure Diagnose(s): Arthritis of carpometacarpal (CMC) joint of left thumb Images from the original note were not included. 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 Atraumatic, insidious onset. The pain is primarily in the MCP joint of the thumb. Pain with catholic priest, grasping, and pinching objects. She has tried [...] and sclerotic change of MCP joint Assessment & Plan Arthritis of carpometacarpal (CMC) joint of [...] visit: Yes, XR L thumb -- Toya Wallis MD Hand & Upper Extremity Surgery Dept of Orthopaedic Surgery Small Joint Injection/Arthrocentesis: L thumb CMC on 10/14/2024 8:00 AM [...] to verify the correct patient, procedure, equipment, sales support specialist and site/side marked as required. Patient was prepped and draped in the usual sterile fashion. Clinic intake form: Vitals not obtained per provider's instructions. documented in this encounter [facility] 09-03-2024 History of Present illness Narrative Images from the original note were not included. 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 Atraumatic, insidious onset. The pain is primarily in the MCP joint of the thumb. Pain with catholic priest, grasping, and pinching objects. She has tried [...] AIN/PIN/u 2+ radial Imaging: None today Assessment & Plan Pain of left thumb -- splint/sleeve; discussed activity modification -- NSAIDs PRN -- RTC 6wks XR at subsequent visit: Yes, XR L thumb -- Toya Wallis MD Hand & Upper Extremity Surgery Dept of Orthopaedic Surgery Clinic intake form: Prior history reviewed as below: PMH: No [...] Socioeconomic History Marital status: Social Drivers of Health Financial Resource Strain: Low Risk (09/26/2023) Received from [facility] Overall Financial Resource Strain (CARDIA) Difficulty of Paying Living Expenses: Not hard at all Food Insecurity: No Food Insecurity (09/26/2023) Received from [facility] Hunger Screening Within the past 12 months we worried whether our food would run out before we got money to buy more.: Never True Within the past 12 months the food we bought just didn't last and we didn't have money to get more.: Never True Transportation Needs: No Transportation Needs (09/26/2023) Received from [facility] PRAPARE - Transportation Lack of Transportation (Medical): No Lack of Transportation (Non-Medical): No Physical Activity: Sufficiently Active (08/26/2021) Received from [facility] Exercise Vital Sign Days of Exercise per Week: 4 days Minutes of Exercise per Session: 60 min Stress: Stress Concern Present (08/26/2021) Received from [facility] [place] [employer] - Occupational Stress Questionnaire Feeling of Stress : To some extent Social Connections: Moderately Isolated (08/26/2021) Received from [facility] Social Connection and Isolation Panel [NHANES] Frequency of Communication with Friends and Family: Three times a week Frequency of Social Gatherings with Friends and Family: Twice a week Attends Religion Services: Never Active Member of Clubs or Organizations: No Attends Club or Organization Meetings: Never Marital Status: Patient was identified by name and date of . Patient was dispensed and fitted with a. ~ Thumb spica cock up wrist brace - left ~ Comfort cool - Left, medium Patient was instructed on the application, adjustment, removal and care for both the thumb spica cock up wrist brace and comfort cool. Vitals not obtained per provider's instructions. documented in this encounter [facility] 09-02-2024 Miscellaneous Notes Patient requesting refill documented in this encounter [facility] 09-02-2024 Telephone encounter Note Patient requesting refill [facility] 09-02-2024 Miscellaneous Notes Refill request documented in this encounter [facility] 09-02-2024 Telephone encounter Note Refill request [facility] 09-01-2024 History of Present illness Narrative Reason for Appointment: Patient ID: Senia Mcdonnell is a 49 y.o. female who presents for No chief complaint on file. Patient presents today via telephone call for a telehealth appointment. Patients Phone #: [phone] (mobile) Current Medications: has a current medication [...] Randy Terrazas DO documented in this encounter [facility] 08-06-2024 Miscellaneous Notes Refill request documented in this encounter [facility] 08-06-2024 Telephone encounter Note Refill request [facility] 08-04-2024 History of Present illness Narrative Reason for Appointment: Patient ID: Senia Mcdonnell is a 48 y.o. female who [...] nursing note reviewed. Exam conducted with a bonded strand operator present. Vitals: Estimated body mass index is 25.31 kg/m as calculated from the following: Height as of 11/18/24: 5' 5 . Weight as of this [...] order Estradiol 0.5mg to be sent to [facility] in [place]. Patient to follow up with TeleHealth in 4 weeks. Documented by Kristal Matthew LPN on behalf of: Randy Terrazas DO documented in this encounter [facility] 06-27-2024 Note [facility] Patient Name: Senia Mckinnon Procedure Date: 06/27/2024 1:52 PM Date of : 1975 Age: 48 Gender: Female Race: Unknown Attending MD: Bob Guerrero MD, [id number] Procedure: Colonoscopy Referring MD: Providers: Bob Guerrero [...] by the physician, the nurse and the charge auditor in the procedure room at 13:52 PM. [...] from the original note were not included. WEIGHT TRAINING INSTRUCTOR HOMEGOING INSTRUCTIONS C O N F I D E N T I A L I N F O R M A T I O N The information below will help you return to normal function as soon as possible after your surgery. Please read it carefully and save for future reference. PATIENT NAME: Senia Mcdonnell ADMISSION DATE: 06/27/2024 DISCHARGE DATE: 06/27/2024 [...] further questions or concerns. Bob Guerrero MD, [facility] Director of IBD & Quality [facility] Office: Electronically SIGNED: Bob Guerrero MD, June 27, 2024 documented in this encounter [facility] 06-27-2024 Note [facility] Patient Name: Senia Mckinnon Procedure Date: 06/27/2024 1:37 PM Date of : 1975 Age: 48 Gender: Female Race: Unknown Attending MD: Bob Guerrero MD, [id number] Procedure: Upper GI endoscopy Referring MD: NINFA [...] by the physician, the nurse and the charge auditor in the procedure room at 13:37 PM. [...] immediate complications. Procedure Code(s): --- Professional --- 77059, Esophagogastroduodenoscopy, flexible, transoral; diagnostic, including collection of specimen(s) by brushing or washing, when performed (separate procedure) Diagnosis Code(s): --- Professional --- R19.8, Other specified symptoms and signs involving the digestive system and abdomen CPT copyright 2020 [employer]. All rights reserved. The codes documented in this report are preliminary and upon meal temperer review may be revised to meet current [...] noncontributory. SIGNATURE: Bob Guerrero MD PATIENT NAME: Senia Mcdonnell DATE: June 27, 2024 TIME: 1:40 PM PAGER: [phone] [facility] Work Phone: 06-27-2024 History and physical note [...] noncontributory. SIGNATURE: Bob Guerrero MD PATIENT NAME: Senia Mcdonnell DATE: June 27, 2024 TIME: 1:40 PM PAGER: [phone] documented in this encounter [facility] 06-23-2024 History of Present illness Narrative [facility] PRIMARY CARE PHYSICIAN: [...] - COMPLETE BLOOD COUNT AND DIFFERENTIAL Aspen Vazquez APRN.DIE TRY OUT WORKER STAMPING documented in this encounter [facility] 06-12-2024 Note PROCEDURE: Radiofreq uency ablation of [...] on his/her behalf by a trained medical communication specialist. The creation of this document is based on the provider?s statements to the medical communication specialist. Electronically signed by Tom Chaney MD 06/12/24 14:53 EST Electronically signed by LucianaSherice Radha 06/12/2024 14:29 EST [facility] 06-12-2024 Note History of Present I llness [...] today's date. Anesthetic Plan: IV conscious sedation [employer] (ASA) Classification: Class I [...] on his/her behalf by a trained medical communication specialist. The creation of this document is based on the provider?s statements to the medical communication specialist. Problem List/Past Medical History Ongoing Cephalgia Cervical [...] Cervical Radiofrequency Ab (more content not included)... [facility] 05-26-2024 Note PROCEDURE: Radiofreq uency ablation of [...] on his/her behalf by a trained medical communication specialist. The creation of this document is based on the provider?s statements to the medical communication specialist. Electronically signed by Tom Chaney MD 05/26/24 14:12 EST Electronically signed by Jory Parker 05/26/2024 13:21 EST [facility] 05-26-2024 Note History of Present I llness [...] today's date. Anesthetic Plan: IV conscious sedation [employer] (ASA) Classification: Class I [...] on his/her behalf by a trained medical communication specialist. The creation of this document is based on the provider?s statements to the medical communication specialist. Problem List/Past Medical History Ongoing Cephalgia Cervical [...] Injection (Bilateral) ( (more content not included)... [facility] 01-18-2023 Evaluation note Encounter Date Diagnosis Assessment [...] is advised to use Mucinex DM, Claritin-D [id number] for symptomatic treatment. If symptoms or not [...] align or Culturelle for diarrhea. Push fluids. [place] diet. [employer] Other Evaluation noteNo assessment information available [facility] Work Phone: Evaluation note* Diagnosis Diarrhea, unspecified type- Primary Abdominal bloating Flatulence, eructation, and gas pain Weight loss, abnormal Loss of weight [facility] Diagnosis Special screening for malignant neoplasms, colon- Primary [facility] Diagnosis Diarrhea, unspecified type Abdominal bloating Flatulence, eructation, and gas pain Weight loss, abnormal Loss of weight [facility] Diagnosis Hormone imbalance Hormone disorder Unspecified endocrine disorder Weight loss Loss of weight Decreased appetite Anorexia Other constipation Diarrhea, unspecified type documented in this encounter [facility]* Diagnosis Primary insomnia Persistent disorder of initiating or maintaining sleep [facility] Diagnosis Right upper quadrant abdominal pain- Primary [facility]* Diagnosis Nausea Nausea alone [facility]* Diagnosis Primary insomnia Persistent disorder of initiating or maintaining sleep documented [facility]* Diagnosis Hormone imbalance documented in this encounter [facility]* Diagnosis Primary insomnia Persistent disorder of initiating or maintaining sleep documented [facility]* Diagnosis Encounter for IUD removal Hormone imbalance Hormone disorder Unspecified endocrine disorder documented in this encounter [facility] Healthcare[facility] note* Diagnosis Well woman exam with routine gynecological exam Routine gynecological examination Breast cancer screening by mammogram Postmenopausal state Asymptomatic postmenopausal status (age-related) (natural) documented in this encounter [facility] note* Diagnosis Pain of left thumb- Primary [facility] Diagnosis Obstructive sleep apnea of adult [facility]* Diagnosis Arthritis of carpometacarpal (CMC) joint of left thumb- Primary [facility]* Diagnosis SVT (supraventricular tachycardia)- Primary Other specified cardiac dysrhythmias Palpitations [facility] Diagnosis Arthritis of carpometacarpal (CMC) joint of left thumb- Primary [facility] - Reported* Type Description Date Medical History Arthritis Medical History insomnia Surgical History tonsillectomy and adenoidectomy Surgical History septoplasty Surgical History neck disc replacement Hospitalization History see above [employer] Other InstructionsNot on filedocumented in this encounter [facility] SystemInstructionsNot on filedocumented in this encounter [facility] SystemInstructionsNot on filedocumented in this encounter [facility] SystemInstructionsNot on filedocumented in this encounter [facility] SystemInstructionsNot on filedocumented in this encounter [facility] SystemInstructionsNot on filedocumented in this encounter [facility] for referral (narrative)* Outpatient Procedure (Routine) - Ref Not Required Specialty Diagnoses / Procedures Referred By Dewey rojas Referred To Contact ENDOSCOPY Diagnoses Abdominal bloating Weight loss, abnormal Procedures EGD DIAGNOSTIC ESOPHAGOGASTRODUODENOSCOPY TRANSORAL DIAGNOSTIC Aspen Vazquez APRN.CNP [address] [address] [facility] [address] [facility] [address] [place] [address] Referral ID Status Reason Start Date Expiration Date Visits Requested Visits Authorized [id number] Ref Not Required Auto-Generat ed Referral 06/23/2024 06/23/2025 1 1 * Outpatient Procedure (Routine) - Ref Not Required Specialty Diagnoses / Procedures Referred By Dewey rojas Referred To Contact ENDOSCOPY Diagnoses Diarrhea, unspecified type Abdominal bloating Procedures COLONOSCOPY DIAGNOSTIC COLONOSCOPY FLX DX W/COLLJ SPEC WHEN PFRMD Aspen Vazquez APRN.DIE TRY OUT WORKER STAMPING [address] [place] [address] [facility] [address] [place] [address] Referral ID Status Reason Start Date Expiration Date Visits Requested Visits Authorized [id number] Ref Not Required Auto-Generat ed Referral 06/23/2024 06/23/2025 1 1 [facility] for referral (narrative)* Outpatient Procedure (Routine) - Ref Not Required Specialty Diagnoses / Procedures Referred By Contac t Referred To Contact ENDOSCOPY Diagnoses Abdominal bloating Weight loss, abnormal Procedures EGD DIAGNOSTIC ESOPHAGOGASTRODUODENOSCOPY TRANSORAL DIAGNOSTIC Aspen Vazquez APRN.DIE TRY OUT WORKER STAMPING [address] [place] [address] [facility] [address] [place] [address] Referral ID Status Reason Start Date Expiration Date Visits Requested Visits Authorized [id number] Ref Not Required Auto-Generat ed Referral 06/23/2024 06/23/2025 1 1 * Outpatient Procedure (Routine) - Ref Not Required Specialty Diagnoses / Procedures Referred By Contac t Referred To Contact ENDOSCOPY Diagnoses Diarrhea, unspecified type Abdominal bloating Procedures COLONOSCOPY DIAGNOSTIC COLONOSCOPY FLX DX W/COLLJ SPEC WHEN PFAspen Lepe APRN.DIE TRY OUT WORKER STAMPING [address] [place] [address] [facility] [address] [place] [address] Referral ID Status Reason Start Date Expiration Date Visits Requested Visits Authorized [id number] Ref Not Required Auto-Generat ed Referral 06/23/2024 06/23/2025 1 1 [facility] for visit Narrative* Outpatient Procedure (Routine) - Ref Not Required Specialty Diagnoses / Procedures Referred By Contac t Referred To Contact ENDOSCOPY Diagnoses Abdominal bloating Weight loss, abnormal Procedures EGD DIAGNOSTIC ESOPHAGOGASTRODUODENOSCOPY TRANSORAL DIAGNOSTIC Aspen Vazquez APRN.DIE TRY OUT WORKER STAMPING [address] [place] [address] [facility] [place] [facility] [address] [facility] [address] [place] [address] Referral ID Status Reason Start Date Expiration Date Visits Requested Visits Authorized [id number] Ref Not Required Auto-Generat ed Referral 06/23/2024 06/23/2025 1 1 [facility] for visit Narrative* Misc (Routine) - Closed Specialty Diagnoses / Procedures Referred By Dewey t Referred To Contact Diagnoses Obstructive sleep apnea of adult Procedures Home sleep study Edvin, Jermiane Simon DO [address] [place] [address] Phone: tel: fax: Referral ID Status Reason Start Date Expiration Date Visits Re quested Visits Authorized [id number] Closed 01/14/2025 01/14/2026 1 1 [facility] Summary Purpose Family History No Family History Records FoundNo Family History Records FoundNo Family History Records FoundNo Family History Records FoundNo Family History Records FoundNo Family History Records FoundNo Family History Records FoundNo Family History Records FoundNo Family History Records FoundNo Family History Records Found Advance Directives No Advanced Directives Records Found Advance Directive Response Recorded Date/ Time Advance Directives No June 8:47am Additional Source Comments INFORMATION SOURCE (unrecogn ized section and content) DATE CREATED AUTHOR 03/17/2022 [facility] DATE CREATED AUTHOR AUTHOR'S ORGANIZ ATION 06/03/2022 [facility] dical Specialist DATE CREATED AUTHOR AUTHOR'S ORGANIZ ATION 03/22/2023 [facility] DATE CREATED AUTHOR AUTHOR'S ORGANIZ ATION 06/26/2024 [facility] DATE CREATED AUTHOR AUTHOR'S ORGANIZ ATION 07/19/2024 [facility] DATE CREATED AUTHOR AUTHOR'S ORGANIZ ATION 12/29/2024 [facility] dical Specialists EPIC DATE CREATED AUTHOR AUTHOR'S ORGANIZ ATION 02/17/2025 [facility] DATE CREATED AUTHOR AUTHOR'S ORGANIZ ATION 03/17/2025 [facility] DATE CREATED AUTHOR AUTHOR'S ORGANIZ ATION 04/25/2025 [facility] DATE CREATED AUTHOR AUTHOR'S ORGANIZ ATION 05/03/2025 [facility] REASON FOR VISIT (unrecogniz ed section and content) Reason Comments Nausea Diarrhea Consult Lost 12lbs in one mo nth Reason Comments Menopause Reason Onset Date Comments Med Refill 08/06/2024 Reason Onset Date Comments Med Refill 09/02/2024 Reason Onset Date Comments Med Refill 09/29/2024 Reason Onset Date Comments Med Refill 10/27/2024 Reason Comments Mirena removal Reason Onset Date Comments Sleep Lab 11/10/2024 Inquiry Reason Onset Date Comments Sleep Lab 11/14/2024 PSG Order Reason Comments Well Women Visit Reason Onset Date Comments Sleep Lab 01/14/2025 HST Order Reason Comments Joint Pain New patient, to establish relationship Reason Comments left thumb Reason Comments 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, 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, [facility], NO PREVIOUS CARDIO, SCHED W/PT Specialty Diagnoses / Procedures Referred By Dewey rojas Referred To Contact Cardiology Diagnoses SVT (supraventricular tachycardia) [facility] [address] [place], [place] [id number] Phone: tel: fax: [facility] [address] [place] [phone] Phone: tel: fax: Referral ID Status Reason Start Date Expiration Date Visits Requested Visits Authorized [id number] Pending Review Specialty Services Required 02/03/2025 02/03/2026 1 1 Reason Comments Joint Pain Reason Onset Date Comments Post Procedure Care 10/21/2024 Care Teams (unrecognized sec tion and content) Team Status: Inactive Member Role Status Dates Danyelle Callahan , IMAGING ACCOUNT MANAGER-C Attending Provider Active Cotton Jammer Relationship Specialty Start Date End Date Ninfa Longoria MD [address] [place] [address], [address] [place] [address] PCP - General Internal Medicine 06/23/24 Cotton Jammer Relationship Specialty Start Date End Date Ninfa Longoria MD [address] [place] [address], [address] [place] [address] PCP - General Internal Medicine 06/23/24 Cotton Jammer Relationship Specialty Start Date End Date Ninfa Longoria MD [address] [place] [address], [address] [place] [address] PCP - General Internal Medicine 06/23/24 Cotton Jammer Relationship Specialty Start Date End Date Ninfa Longoria MD [address] [place] [address], [address] [place] [address] PCP - General Family Medicine 11/19/23 Cotton Jammer Relationship Specialty Start Date End Date Ninfa Longoria MD [address] [place] [address], [address] [place] [address] PCP - General Family Medicine 11/19/23 Cotton Jammer Relationship Specialty Start Date End Date Ninfa Longoria MD [address] [place] [address], [address] [place] [address] PCP - General Family Medicine 11/19/23 Cotton Jammer Relationship Specialty Start Date End Date Ninfa Longoria MD [address] [place] [address], [address] [place] [address] PCP - General Pediatrics 12/29/16 Cotton Jammer Relationship Specialty Start Date End Date Ninfa Longoria MD [address] [place] [address], [address] [place] [address] PCP - General Pediatrics 12/29/16 Cotton Jammer Relationship Specialty Start Date End Date Ninfa Longoria MD [address] [place] [address], [address] [place] [address] PCP - General Pediatrics 12/29/16 Cotton Jammer Relationship Specialty Start Date End Date Ninfa Longoria MD [address] [place] [address], [address] [place] [address] PCP - General Pediatrics 12/29/16 Cotton Jammer Relationship Specialty Start Date End Date Ninfa Longoria MD [address] [place] [address], [address] [place] [address] PCP - General Family Medicine 11/19/23 Cotton Jammer Relationship Specialty Start Date End Date Ninfa Longoria MD PCP - General Family Medicine 11/19/23 Cotton Jammer Relationship Specialty Start Date End Date Ninfa Longoria MD [address] [place] [address], [address] [place] [address] PCP - General Pediatrics 12/29/16 Cotton Jammer Relationship Specialty Start Date End Date Ninfa Longoria MD PCP - General Family Medicine 11/19/23 Cotton Jammer Relationship Specialty Start Date End Date Ninfa Longoria MD PCP - General Family Medicine 11/19/23 Cotton Jammer Relationship Specialty Start Date End Date Ninfa Longoria MD PCP - General Family Medicine 11/19/23 Cotton Jammer Relationship Specialty Start Date End Date Ninfa Longoria MD PCP - General Family Medicine 11/19/23 Cotton Jammer Relationship Specialty Start Date End Date Ninfa Longoria MD [address] [place] [address], [address] [place] [address] PCP - General Pediatrics 12/29/16 Cotton Jammer Relationship Specialty Start Date End Date Ninfa Longoria MD [address] [place] [address], [address] [place] [address] PCP - General Pediatrics 12/29/16 Cotton Jammer Relationship Specialty Start Date End Date Toya Wallis MD [address] [place], [place] [id number] Physician Orthopaedics 09/20/24 Cotton Jammer Relationship Specialty Start Date End Date Toya Wallis MD [address] [place] [id number] Physician Orthopaedics 09/20/24 Cotton Jammer Relationship Specialty Start Date End Date Ninfa Longoria MD [address] [place] [address], [address] [place] [address] PCP - General Pediatrics 12/29/16 Cotton Jammer Relationship Specialty Start Date End Date Toya Wallis MD [address] [place] [address] Physician Orthopaedics 09/20/24 Cotton Jammer Relationship Specialty Start Date End Date Toya Wallis MD [address] [place] [id number] Physician Orthopaedics 09/20/24 Goals (unrecognized section and content) Goals may be documented in a n alternate section Source Comments (unrecognize d section and content) In the event this informatio n is protected by the Federal Confidentiality of Alcohol and Drug Abuse Patient Records regulations: The Federal rules restrict any use of the information to criminally investigate or prosecute any alcohol or drug abuse patient.[facility] the event this information is protected by the Federal Confidentiality of Alcohol and Drug Abuse Patient Records regulations: The Federal rules restrict any use of the information to criminally investigate or prosecute any alcohol or drug abuse patient.[facility] the event this information is protected by the Federal Confidentiality of Alcohol and Drug Abuse Patient Records regulations: The Federal rules restrict any use of the information to criminally investigate or prosecute any alcohol or drug abuse patient.[facility] FOR RECORDS PERTAINING TO PATIENTS WHO ARE [...] BE BASED ON THE PRIMARY CLINICAL RECORDS. [employer] [facility]. provides no warranty or guarantee of the accuracy or completeness of information in this document.
== END 2025-05-04 09:37 | disposition home or self-care (01) ==
PROVIDERS: PCP Family Medicine; Visit Provider Obstetrics & Gynecology
DX: E34.9 Endocrine disorder, unspecified (principal)
CPT/HCPCS: 36415; 82530; 82627; 82670; 82679; 84140; 84144; 84402; 84403